=== PATIENT | female | born 1950 | race Caucasian/White ===

== ENCOUNTER 2019-09-29 08:15 | Outpatient (CLI) | payer MEDICARE, OTHER, SELFPAY ==
--- NOTE | 2019-09-29 08:39 | XR_ITS ---
WS: [id number] LEFT KNEE: 3 VIEW(S) TECHNIQUE: AP, oblique(s) and lateral. HISTORY: KNEE PAIN, LEFT COMPARISON: None available. No fracture or dislocation. Mild tricompartment narrowing with osteophytes. No joint effusion. No soft tissue abnormality. XR/XR knee LT 3V* [id number] IMPRESSION: Mild tricompartment osteoarthritis.
== END 2019-09-29 08:16 | disposition home or self-care (01) ==
PROVIDERS: Family Provider Electrodiagnostic Medicine; PCP Electrodiagnostic Medicine; Visit Provider Electrodiagnostic Medicine
DX: M17.12 Unilateral primary osteoarthritis, left knee (principal); G89.29 Other chronic pain
CPT/HCPCS: 73562

== ENCOUNTER 2019-10-14 08:54 | Outpatient (RCR) | payer MEDICARE, OTHER, SELFPAY | END 2019-11-09 23:59 | disposition home or self-care (01) | LOC: SPT 08:54 | PROVIDERS: Family Provider Electrodiagnostic Medicine; PCP Electrodiagnostic Medicine; Referring Provider Orthopaedic Surgery; Visit Provider Orthopaedic Surgery | DX: M25.561 Pain in right knee (principal); M25.562 Pain in left knee; M22.2X1 Patellofemoral disorders, right knee; M22.2X2 Patellofemoral disorders, left knee | CPT/HCPCS: 97110; 97161 ==

== ENCOUNTER → 2020-11-25 12:15 | Outpatient (BNVA) | payer MEDICARE, OTHER, SELFPAY | PROVIDERS: Family Provider Electrodiagnostic Medicine; PCP Electrodiagnostic Medicine; Visit Provider Nurse Practitioner Family | DX: N39.0 Urinary tract infection, site not specified (principal) | CPT/HCPCS: 81000; 87086 ==

== ENCOUNTER 2021-10-24 08:42 | Outpatient (CLI) | payer MEDICARE, OTHER, SELFPAY ==
--- NOTE | 2021-10-24 08:55 | MM_ITS ---
WS: [id number] BILATERAL 3D TOMOSYNTHESIS DIGITAL SCREENING MAMMOGRAPHY WITH CAD CLINICAL INFORMATION: SCREENING HISTORY: Screening mammogram. No current complaints. COMPARISON: None. TECHNIQUE: Bilateral CC and MLO views. FINDINGS: Scattered fibroglandular densities bilaterally. Asymmetric density inferior LEFT breast with punctate calcifications. Recommend spot compression magnification views 3-D Tomosynthesis in further evaluati on. RIGHT breast is unremarkable. Vascular calcification. MM/[place] [id number] IMPRESSION: BI-RADS: 0-Incomplete: Need additional imaging evaluation FOLLOW UP: Need Additional Imaging Asymmetric density inferior LEFT breast with punctate calcifications. Recommend spot compression magnification views 3-D Tomosynthesis in further evaluation.
== END 2021-10-24 08:43 | disposition home or self-care (01) ==
LOC: RADSHAW 08:49
PROVIDERS: PCP Electrodiagnostic Medicine; Visit Provider Electrodiagnostic Medicine
DX: Z12.31 Encounter for screening mammogram for malignant neoplasm of breast (principal)
CPT/HCPCS: 77063; 77067

== ENCOUNTER 2021-11-08 11:10 | Outpatient (CLI) | payer MEDICARE, OTHER, SELFPAY ==
--- NOTE | 2021-11-08 11:33 | MM_ITS ---
WS: [id number] LEFT 3D TOMOSYNTHESIS DIGITAL MAMMOGRAPHY WITH CAD CLINICAL INFORMATION: LT BREAST MASS COMPARISON: October 24, 2021 TECHNIQUE: 3 views of the left breast were obtained. FINDINGS: Scattered fibroglandular densities of the left breast. Previously described asymmetric density inferi or LEFT breast with punctate calcifications resolves today on the spot compression views. No suspicio us calcifications visualized. Vascular calcification. Recommend return to screening mammography. MM/MM tomosynthesis diag [id number] IMPRESSION: BI-RADS: 2-Benign FOLLOW UP: 1 Year Follow-up Recommend return to annual screening mammography.
== END 2021-11-08 11:11 | disposition home or self-care (01) ==
PROVIDERS: PCP Electrodiagnostic Medicine; Visit Provider Electrodiagnostic Medicine
DX: N63.20 Unspecified lump in the left breast, unspecified quadrant (principal)
CPT/HCPCS: 77061

== ENCOUNTER → 2022-04-14 13:21 | Outpatient (BNVA) | payer MEDICARE, SELFPAY | PROVIDERS: PCP Electrodiagnostic Medicine; Visit Provider Registered Nurse Neonatal Intensive Care | DX: N39.0 Urinary tract infection, site not specified (principal) | CPT/HCPCS: 81000 ==

== ENCOUNTER → 2022-07-02 11:29 | Outpatient (BNVA) | payer MEDICARE, SELFPAY | PROVIDERS: PCP Electrodiagnostic Medicine; Visit Provider Nurse Practitioner Family | DX: R39.9 Unspecified symptoms and signs involving the genitourinary system (principal) | CPT/HCPCS: 81000 ==

== ENCOUNTER 2023-03-05 10:50 | Outpatient (RCR) | payer MEDICARE, SELFPAY | END 2023-03-10 23:59 | disposition home or self-care (01) | LOC: SPT 10:50 | PROVIDERS: PCP Electrodiagnostic Medicine; Visit Provider Electrodiagnostic Medicine | DX: H81.12 Benign paroxysmal vertigo, left ear (principal) | CPT/HCPCS: 97161 ==

== ENCOUNTER 2023-12-24 14:15 | Observation (INO) | payer MEDICARE, SELFPAY ==
[2023-12-24] VITALS (9 sets, daily range): BP systolic 110–184; BP diastolic 51–111; PULSE 76–90; RESP 16–18; TEMP 36.9; O2SAT 93–98; BMI 32.5
--- NOTE | 2023-12-24 14:35 | CTR_ITS ---
PROCEDURE INFORMATION: Exam: CT Cervical Spine Without Contrast Exam date and time: 12/24/2023 2:51 PM Age: 73 years old Clinical indication: Injury or trauma; Fall; Blunt trauma; Additional info: Fall/head inj TECHNIQUE: Imaging protocol: Computed tomography of the cervical spine without contrast. COMPARISON: CT head wo con* [id number] 12/24/2023 2:51 PM RADIATION DOSE METRICS: Total DLP (mGy-cm): 960 FINDINGS: Bones: Slight anterolisthesis C2-C3. No fracture. Diffuse degenerative disc disease and facet arthropathy. Lungs: Lung apices are normal. Soft tissues: Unremarkable. CT/CT cervical spin wo con* [id number] IMPRESSION: No acute findings.
--- NOTE | 2023-12-24 14:35 | CTR_ITS ---
PROCEDURE INFORMATION: Exam: CT Head Without Contrast Exam date and time: 12/24/2023 2:51 PM Age: 73 years old Clinical indication: Injury or trauma; Fall; Blunt trauma (contusions or hematomas); Consciousness not specified; Additional info: Fall/head inj TECHNIQUE: Imaging protocol: Computed tomography of the head without contrast. Radiation optimization: All CT scans at this facility use at least one of these dose optimization techniques: automated exposure control; mA and/or kV adjustment per patient size (includes targeted exams where dose is matched to clinical indication); or iterative reconstruction. COMPARISON: CT cervical spin wo con* [id number] 12/24/2023 2:51 PM RADIATION DOSE METRICS: Total DLP (mGy-cm): 939.5 FINDINGS: Brain: No intracranial hemorrhage. There is global parenchymal volume loss. Periventricular white matter hypoattenuation is nonspecific but most likely due to small vessel disease. No evidence of acute territorial infarct or cerebral edema. No mass effect or midline shift. 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 Cerebral ventricles: Prominent ventricles likely secondary to volume loss. Paranasal sinuses: Visualized sinuses are unremarkable. No fluid levels. Mastoid air cells: Visualized mastoid air cells are well aerated. Bones: Unremarkable. No acute fracture. Soft tissues: Unremarkable. Vasculature: Dense right middle cerebral artery. 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 MRI may be helpful in determining acuity.
--- NOTE | 2023-12-24 15:12 | W.ED.FALL ---
Documented by User: CRISTOPHER Metcalf 12/24/23 21:42 HPI - Fall General: Chief Complaint: Fall Stated Complaint: Fall Time Seen by Provider: 12/24/23 14:27 Source: patient and EMS Mode of arrival: EMS Limitations: no limitations History of Present Illness: Patient is a 73-year-old female who presents to the emergency department via EMS due to a fall this morning. Per EMS, patient reportedly fell at 0600 this morning and remained down for many hours until EMS was called by family around 1400. Patient notes she was not symptomatic prior to the fall, states she just tripped and fell. She does state that she hit the back of her head, and is not on any blood thinners. She does take a baby aspirin. She denies any visual changes, numbness weakness or tingling, headaches, or other concerning symptoms at this time. She is complaining of some posterior head and neck pain at this time, and she arrives in a c-collar. She states she did not lose consciousness, and just states she could not get up on her own power. She does live at home with family. MD complaint: fall Onset (ago): hour(s) Fall from: standing Fall witnessed: no Place fall occurred: home Loss of consciousness: None Prolonged down time: yes Symptoms prior to fall: none Context: tripped/slipped Associated symptoms-after fall: Reports headache(s) and neck pain; Denies abdominal pain, chest pain or lightheadedness Review of Systems General: Reports: 10 or more systems reviewed and unremarkable except in HPI and below Const: Reports: other (Fall, head injury); Denies: fever(s), chills or fatigue Eyes: Denies: change in vision ENMT: Denies: throat pain, ear or mastoid pain or nasal discharge Card: Denies: chest pain, palpitations, swelling of feet/ankles or lightheadedness Resp: Denies: dyspnea, productive cough or wheezing GI: Denies: abdominal pain, nausea, vomiting, diarrhea or constipation : Denies: flank pain, difficulty voiding, dysuria or urinary frequency Musc: Reports: neck pain; Denies: back pain or joint pain Skin/Breast: Denies: rash Neuro: Reports: headache(s); Denies: numbness in extremities or weakness in extremities [facility] PFSH: Medical History (Updated 12/24/23 @ 19:54 by Elida Marrufo MD) Hypertension Closed head injury Focal infarction of brain Surgical History (Updated 12/24/23 @ 19:07 by Magi Cross MD) No pertinent past surgical history Physical Exam Const: COMMON NORMALS: no acute distress, patient oriented x3 and no limitations GENERAL APPEARANCE: cooperative, comfortable and well developed ORIENTATION/CONSCIOUSNESS: Yes awake, Yes oriented to person, Yes oriented to place and Yes oriented to time HENMT: COMMON NORMALS: normocephalic, atraumatic, hearing grossly normal bilaterally, external ears normal and Normal external nose present HEAD & SCALP: normocephalic and atraumatic; no Ojeda's sign, no contusion, no hematoma, no palpable skull fracture, no raccoon eyes, no scalp lesion and no scalp tenderness FACE & SINUS: normal facial exam and face symmetric NOSE: Normal external nose present EXTERNAL EAR: Yes external ears normal Eye: COMMON NORMALS: Equal, round and reactive pupils present, EOMs intact bilaterally and conjunctivae normal CONJUNCTIVA: Yes conjunctivae normal PUPIL: Yes Equal, round and reactive pupils present Neck/C-Spine: COMMON NORMALS: full ROM, supple and no JVD CERVICAL SPINE: Yes collar present Chest: COMMONS NORMALS: normal inspection of the chest and normal palpation of entire chest wall Resp: COMMON NORMALS: normal respiratory effort, No retractions, No use of accessory muscles and clear to auscultation bilaterally AUSCULTATION: clear to auscultation bilaterally Cardio: COMMON NORMALS: no JVD, regular rate, regular rhythm, No clicks present (Cardio), No murmurs present (Cardio) and No rub (Cardio) RATE: regular rate RHYTHM: regular rhythm GI: COMMON NORMALS: Normal to inspection, nondistended, normoactive bowel sounds present, Soft to palpation and non-tender AUSCULTATION: Yes normoactive bowel sounds PALPATION: Yes Soft to palpation RECTAL EXAM: deferred Back/Pelvis: COMMON NORMALS: thoracic and lumbar spine normal to inspection, no thoracic nor lumbar tenderness and thoraco-lumbar ROM normal Extremity: COMMON NORMALS: normal to inspection, full ROM and capillary refill normal Neuro: COMMON NORMALS: patient oriented x3, CN's II-XII intact bilaterally, moves all extremities, no focal motor deficits and no sensory deficits noted SENSORIUM/ORIENTATION: Yes oriented to person, Yes oriented to place and Yes oriented to time Psych: COMMON NORMALS: mental status grossly normal and Normal thought process present THOUGHT PROCESS: Normal thought process present Skin: COMMON NORMALS: no rashes or lesions noted GENERAL SKIN EXAM: no rashes or lesions noted Course Vital Signs: Vital signs: Vital Signs Temperature 99.1 F 12/25/23 07:08 Pulse Rate 78 12/25/23 07:08 Respiratory Rate 18 12/25/23 07:08 Blood Pressure 158/78 12/25/23 07:08 Pulse Oximetry 99 12/25/23 07:08 Oxygen Delivery Me thod Room Air 12/24/23 20:45 MDM - Fall Medical Decision Making Patient seen for head injury after a fall that occurred this morning. Reported downtime was 8 hours. On arrival patient only complaining of some posterior head and neck pain. She is neurologically intact at this time with no peripheral deficits or other focal findings. No history of strokes or heart attacks. CT head revealed a subacute infarct involving the right putamen, recommending an MRI. I spoke with Dr. Alexander, hospitalist, who accepts the patient for observation and stroke workup. This case was reviewed with supervising physician, Dr. Valentine, who agrees with disposition. I informed patient and family of plan for admission, to which they agree. All other questions and concerns addressed at this time. Blood work currently pending. MRI head without contrast also ordered. [facility] calls to report CTA findings of thrombus in the right M1/M2 middle cerebral artery, as well as incidental findings of right middle and lower lobe pulmonary emboli. Due to these findings, Dr. Marrufo was consulted, who states patient can be seen by her here if admitted to the hospital. Hospitalist, Dr. Cross, consults patient and kindly agrees to except to the hospital. Family is informed of this. Lab Data 12/24/23 15:46 12/24/23 15:46 Radiology Impressions Cervical Spine CT 12/24/23 14:35 IMPRESSION: No acute findings. 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 MRI may be helpful in determining acuity. Head/Neck CTA 12/24/23 16:35 IMPRESSION: Thrombus in right distal M1/M2 segment middle cerebral artery with patency of distal branches. IMPRESSION: Right middle lobe and lower lobe pulmonary artery emboli. REFERENCES: NASCET CRITERIA. The degree of stenosis in the cervical segment of the internal carotid artery is based on NASCET criteria. Normal is no stenosis. Mild is less than 50% stenosis. Moderate is 50-69% stenosis. Severe is 70% to 99% stenosis. Total occlusion is no detectable patent lumen. ADDENDUM: 12/24/23 [id number] THIS REPORT CONTAINS FINDINGS THAT MAY BE CRITICAL TO PATIENT CARE. The findings were verbally communicated via telephone conference with Dr. Srevin at 5:48 PM CDT on 12/24/2023. The findings were acknowledged and understood. Laboratory Results WBC 8.12 10^3/uL (3.29-11.43) 12/24/23 15:46 RBC 4.29 10^6/uL (3.85-5.65) 12/24/23 15:46 Hgb 13.80 g/dL (11.27-16.99) 12/24/23 15:46 Hct 41.8 % (36-47) 12/24/23 15:46 MCV 97.4 fl (85-98) 12/24/23 15:46 MCH 32.2 pg (27-33) 12/24/23 15:46 MCHC 33.0 g/dL (30-55) 12/24/23 15:46 RDW 12.8 % (12.1-15.1) 12/24/23 15:46 Plt Count 199 10^3/cmm (157-399) 12/24/23 15:46 MPV 10.9 fL (7.4-10.4) H 12/24/23 15:46 Neut % (Auto) 85.9 % 12/24/23 15:46 Lymph % (Auto) 7.9 % 12/24/23 15:46 [place] % (Auto) 5.7 % 12/24/23 15:46 Eos % (Auto) 0.0 % 12/24/23 15:46 Baso % (Auto) 0.1 % 12/24/23 15:46 Neut # (Auto) 6.98 10^3/uL (1.8-7.7) 12/24/23 15:46 Lymph # (Auto) 0.6 10^3/uL (0.8-4.8) L 12/24/23 15:46 [place] # (Auto) 0.5 10^3/uL (0.2-0.9) 12/24/23 15:46 Eos # (Auto) 0.0 10^3/uL (0.0-0.8) 12/24/23 15:46 Baso # (Auto) 0.0 10^3/uL (0.0-0.1) 12/24/23 15:46 Nucleated RBC % (auto) 0 % 12/24/23 15:46 Nucleated RBCs # 0.0 /100WBC 12/24/23 15:46 Sodium 138 mmol/L (136-145) 12/24/23 15:46 Potassium 4.1 mmol/L (3.5-5.1) 12/24/23 15:46 Chloride 105 mmol/L (98-107) 12/24/23 15:46 Carbon Dioxide 22 mmol/L (22-29) 12/24/23 15:46 Anion Gap 15.1 (5-19) 12/24/23 15:46 BUN 13 mg/dL (8-23) 12/24/23 15:46 Creatinine 0.7 mg/dL (0.5-0.9) 12/24/23 15:46 GFR Calculation Not Reportable 12/24/23 15:46 Glucose 129 mg/dL (65-115) H 12/24/23 15:46 Estimat Average Glucose 105 12/24/23 15:46 Hemoglobin A1c 5.3 % (4.0-6.0) 12/24/23 15:46 Calculated Osmolality 288 mOsm/kg (285-295) 12/24/23 15:46 Calcium 9.3 mg/dL (8.5-10.5) 12/24/23 15:46 Total Bilirubin 0.6 mg/dL (0.15-1.2) 12/24/23 15:46 AST 22 U/L (0-32) 12/24/23 15:46 ALT 16 U/L (0-33) 12/24/23 15:46 Alkaline Phosphatase 83 U/L (35-105) 12/24/23 15:46 Creatine Kinase 172 U/L (26-192) 12/24/23 15:46 Total Protein 7.3 g/dL (6.6-8.7) 12/24/23 15:46 Albumin 4.1 g/dL (3.5-5.2) 12/24/23 15:46 Globulin 3.2 g/dL (1.3-4.6) 12/24/23 15:46 Triglycerides 87 mg/dL (0-150) 12/24/23 15:46 Cholesterol 158 mg/dL (0-200) 12/24/23 15:46 LDL Cholesterol, Calc 79 mg/dL (50-129) 12/24/23 15:46 HDL Cholesterol 62 mg/dL (60-100) 12/24/23 15:46 LDL/HDL Ratio 1.27 RATIO (0.00-3.22) 12/24/23 15:46 Cholesterol/HDL Ratio 2.55 mg/dL (0.0-4.40) 12/24/23 15:46 Vitamin B12 880 pg/mL (232-1245) 12/24/23 15:46 TSH 1.04 uIU/mL (0.27-4.20) 12/24/23 15:46 All radiology interpretation(s) finalized by discharge Discharge Plan Discharge Patient Disposition: Placed in Observation Admit Provider: Magi Cross Clinical Impression: Focal infarction of brain, Closed head injury Coding Level of Care Code ED [employer] Officer for Chg Fwd Documented by User: Luisito Valentine DO 12/25/23 08:13 HPI - Fall General: Chief Complaint: Fall Stated Complaint: Fall Time Seen by Provider: 12/24/23 14:27 PFSH ED PFSH: Medical History (Updated 12/24/23 @ 19:54 by Elida Marrufo MD) Hypertension Closed head injury Focal infarction of brain Surgical History (Updated 12/24/23 @ 19:07 by Magi Cross MD) No pertinent past surgical history Course Vital Signs: Vital signs: Vital Signs Temperature 99.1 F 12/25/23 07:08 Pulse Rate 78 12/25/23 07:08 Respiratory Rate 18 12/25/23 07:08 Blood Pressure 158/78 12/25/23 07:08 Pulse Oximetry 99 12/25/23 07:08 Oxygen Delivery Me thod Room Air 12/24/23 20:45 MDM - Fall Medical Decision Making Patient seen for head injury after a fall that occurred this morning. Reported downtime was 8 hours. On arrival patient only complaining of some posterior head and neck pain. She is neurologically intact at this time with no peripheral deficits or other focal findings. No history of strokes or heart attacks. CT head revealed a subacute infarct involving the right putamen, recommending an MRI. I spoke with Dr. Alexander, hospitalist, who accepts the patient for observation and stroke workup. This case was reviewed with supervising physician, Dr. Valentine, who agrees with disposition. I informed patient and family of plan for admission, to which they agree. All other questions and concerns addressed at this time. Blood work currently pending. MRI head without contrast also ordered. [facility] calls to report CTA findings of thrombus in the right M1/M2 middle cerebral artery, as well as incidental findings of right middle and lower lobe pulmonary emboli. Due to these findings, Dr. Marrufo was consulted, who states patient can be seen by her here if admitted to the hospital. Hospitalist, Dr. Cross, consults patient and kindly agrees to except to the hospital. Family is informed of this. Chart reviewed and patient discussed with midlevel. Agree with assessment and plan. Lab Data 12/24/23 15:46 12/24/23 15:46 Radiology Impressions Cervical Spine CT 12/24/23 14:35 IMPRESSION: No acute findings. 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 MRI may be helpful in determining acuity. Head/Neck CTA 12/24/23 16:35 IMPRESSION: Thrombus in right distal M1/M2 segment middle cerebral artery with patency of distal branches. IMPRESSION: Right middle lobe and lower lobe pulmonary artery emboli. REFERENCES: NASCET CRITERIA. The degree of stenosis in the cervical segment of the internal carotid artery is based on NASCET criteria. Normal is no stenosis. Mild is less than 50% stenosis. Moderate is 50-69% stenosis. Severe is 70% to 99% stenosis. Total occlusion is no detectable patent lumen. ADDENDUM: 12/24/23 [id number] THIS REPORT CONTAINS FINDINGS THAT MAY BE CRITICAL TO PATIENT CARE. The findings were verbally communicated via telephone conference with Dr. Servin at 5:48 PM CDT on 12/24/2023. The findings were acknowledged and understood. Laboratory Results WBC 8.12 10^3/uL (3.29-11.43) 12/24/23 15:46 RBC 4.29 10^6/uL (3.85-5.65) 12/24/23 15:46 Hgb 13.80 g/dL (11.27-16.99) 12/24/23 15:46 Hct 41.8 % (36-47) 12/24/23 15:46 MCV 97.4 fl (85-98) 12/24/23 15:46 MCH 32.2 pg (27-33) 12/24/23 15:46 MCHC 33.0 g/dL (30-55) 12/24/23 15:46 RDW 12.8 % (12.1-15.1) 12/24/23 15:46 Plt Count 199 10^3/cmm (157-399) 12/24/23 15:46 MPV 10.9 fL (7.4-10.4) H 12/24/23 15:46 Neut % (Auto) 85.9 % 12/24/23 15:46 Lymph % (Auto) 7.9 % 12/24/23 15:46 [place] % (Auto) 5.7 % 12/24/23 15:46 Eos % (Auto) 0.0 % 12/24/23 15:46 Baso % (Auto) 0.1 % 12/24/23 15:46 Neut # (Auto) 6.98 10^3/uL (1.8-7.7) 12/24/23 15:46 Lymph # (Auto) 0.6 10^3/uL (0.8-4.8) L 12/24/23 15:46 [place] # (Auto) 0.5 10^3/uL (0.2-0.9) 12/24/23 15:46 Eos # (Auto) 0.0 10^3/uL (0.0-0.8) 12/24/23 15:46 Baso # (Auto) 0.0 10^3/uL (0.0-0.1) 12/24/23 15:46 Nucleated RBC % (auto) 0 % 12/24/23 15:46 Nucleated RBCs # 0.0 /100WBC 12/24/23 15:46 Sodium 138 mmol/L (136-145) 12/24/23 15:46 Potassium 4.1 mmol/L (3.5-5.1) 12/24/23 15:46 Chloride 105 mmol/L (98-107) 12/24/23 15:46 Carbon Dioxide 22 mmol/L (22-29) 12/24/23 15:46 Anion Gap 15.1 (5-19) 12/24/23 15:46 BUN 13 mg/dL (8-23) 12/24/23 15:46 Creatinine 0.7 mg/dL (0.5-0.9) 12/24/23 15:46 GFR Calculation Not Reportable 12/24/23 15:46 Glucose 129 mg/dL (65-115) H 12/24/23 15:46 Estimat Average Glucose 105 12/24/23 15:46 Hemoglobin A1c 5.3 % (4.0-6.0) 12/24/23 15:46 Calculated Osmolality 288 mOsm/kg (285-295) 12/24/23 15:46 Calcium 9.3 mg/dL (8.5-10.5) 12/24/23 15:46 Total Bilirubin 0.6 mg/dL (0.15-1.2) 12/24/23 15:46 AST 22 U/L (0-32) 12/24/23 15:46 ALT 16 U/L (0-33) 12/24/23 15:46 Alkaline Phosphatase 83 U/L (35-105) 12/24/23 15:46 Creatine Kinase 172 U/L (26-192) 12/24/23 15:46 Total Protein 7.3 g/dL (6.6-8.7) 12/24/23 15:46 Albumin 4.1 g/dL (3.5-5.2) 12/24/23 15:46 Globulin 3.2 g/dL (1.3-4.6) 12/24/23 15:46 Triglycerides 87 mg/dL (0-150) 12/24/23 15:46 Cholesterol 158 mg/dL (0-200) 12/24/23 15:46 LDL Cholesterol, Calc 79 mg/dL (50-129) 12/24/23 15:46 HDL Cholesterol 62 mg/dL (60-100) 12/24/23 15:46 LDL/HDL Ratio 1.27 RATIO (0.00-3.22) 12/24/23 15:46 Cholesterol/HDL Ratio 2.55 mg/dL (0.0-4.40) 12/24/23 15:46 Vitamin B12 880 pg/mL (232-1245) 12/24/23 15:46 TSH 1.04 uIU/mL (0.27-4.20) 12/24/23 15:46 Discharge Plan Discharge Patient Disposition: Placed in Observation Admit Provider: Magi Cross Clinical Impression: Focal infarction of brain, Closed head injury Coding Level of Care Code ED [employer] Officer for 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
[2023-12-24 16:02] LABS: Basophils % 0.1 %; Hematocrit 41.8 % (36-47); Lymphocytes # 0.6 10^3/uL (0.8-4.8); Lymphocytes % 7.9 %; Mean Corpuscular Hemoglobin 32.2 pg (27-33); Mean Corpuscular Volume 97.4 fl (85-98); Mean Platelet Volume 10.9 fL (7.4-10.4); Monocytes # 0.5 10^3/uL (0.2-0.9); Monocytes % 5.7 %; Neutrophils # 6.98 10^3/uL (1.8-7.7); Neutrophils % 85.9 %; Nucleated Red Blood Cells % 0 %; Platelet Count 199 10^3/cmm (157-399); Red Blood Count 4.29 10^6/uL (3.85-5.65); Red Cell Distribution Width 12.8 % (12.1-15.1); White Blood Count 8.12 10^3/uL (3.29-11.43)
[2023-12-24 16:16] LABS: Alanine Aminotransferase 16 U/L (0-33); Albumin Level 4.1 g/dL (3.5-5.2); Alkaline Phosphatase 83 U/L (35-105); Blood Urea Nitrogen 13 mg/dL (8-23); Calcium 9.3 mg/dL (8.5-10.5); Carbon Dioxide 22 mmol/L (22-29); Chloride 105 mmol/L (98-107); Creatine Phosphokinase 172 U/L (26-192); Creatinine Clr Calc Pharmacy 81.5943; Globulin 3.2 g/dL (1.3-4.6); Glucose 129 mg/dL (65-115); Osmolality Calculated 288 mOsm/kg (285-295); Sodium 138 mmol/L (136-145); Total Bilirubin 0.6 mg/dL (0.15-1.2); Total Protein 7.3 g/dL (6.6-8.7)
[2023-12-24 16:20] LABS: Anion Gap 15.1 (5-19); Aspartate Amino Transferase 22 U/L (0-32); Potassium 4.1 mmol/L (3.5-5.1)
--- NOTE | 2023-12-24 16:35 | CTR_ITS ---
PROCEDURE INFORMATION: Exam: CTA Head With Contrast, Arteriography Exam date and time: 12/24/2023 5:11 PM Age: 73 years old Clinical indication: Other: Stroke; Patient HX: Head CT sent earlier TECHNIQUE: Imaging protocol: Computed tomographic angiography of the head with contrast. Exam focused on the arteries. 3D rendering (Not supervised by radiologist): MIP and/or 3D reconstructed images were created by the technologist. Radiation optimization: All CT scans at this facility use at least one of these dose optimization techniques: automated exposure control; mA and/or kV adjustment per patient size (includes targeted exams where dose is matched to clinical indication); or iterative reconstruction. Contrast material: OMNI 350; Contrast volume: 100 ml; Contrast route: INTRAVENOUS (IV); COMPARISON: CT head wo con* [id number] 12/24/2023 2:51 PM RADIATION DOSE METRICS: Total DLP (mGy-cm): 549.39 FINDINGS: ANTERIOR CIRCULATION: Right internal carotid artery: Intracranial segment is patent with no significant stenosis. No aneurysm. Right middle cerebral artery: Thrombus in right distal M1/M2 segment middle cerebral artery with patency of distal branches. Right anterior cerebral artery: No occlusion or significant stenosis. No aneurysm. Left internal carotid artery: Intracranial segment is patent with no significant stenosis. No aneurysm. Left middle cerebral artery: No occlusion or significant stenosis. No aneurysm. Left anterior cerebral artery: No occlusion or significant stenosis. No aneurysm. POSTERIOR CIRCULATION: Right vertebral artery: No occlusion or significant stenosis. No aneurysm. Left vertebral artery: No occlusion or significant stenosis. No aneurysm. Basilar artery: No occlusion or significant stenosis. No aneurysm. Right posterior cerebral artery: No occlusion or significant stenosis. No aneurysm. Left posterior cerebral artery: No occlusion or significant stenosis. No aneurysm. Brain: No definite mass, mass effect, or midline shift. Cerebral ventricles: No ventriculomegaly. Bones/joints: Unremarkable. No acute fracture. Soft tissues: Unremarkable. PROCEDURE INFORMATION: Exam: CTA Neck With Contrast Exam date and time: 12/24/2023 5:11 PM Age: 73 years old Clinical indication: Other: Stroke; Patient HX: Head CT sent earlier TECHNIQUE: Imaging protocol: Computed tomographic angiography of the neck with contrast. Exam focused on the cervical segments of the vasculature. 3D rendering (Not supervised by radiologist): MIP and/or 3D reconstructed images were created by the technologist. Radiation optimization: All CT scans at this facility use at least one of these dose optimization techniques: automated exposure control; mA and/or kV adjustment per patient size (includes targeted exams where dose is matched to clinical indication); or iterative reconstruction. Contrast material: OMNI 350; Contrast volume: 100 ml; Contrast route: INTRAVENOUS (IV); COMPARISON: CT cervical spin wo con* [id number] 12/24/2023 2:51 PM RADIATION DOSE METRICS: Total DLP (mGy-cm): 549.39 FINDINGS: Right common carotid artery: No stenosis. No dissection or occlusion. Right internal carotid artery: No stenosis of the extracranial segment. No dissection or occlusion. Right external carotid artery: No occlusion or stenosis of the origin. Left common carotid artery: No stenosis. No dissection or occlusion. Left internal carotid artery: No stenosis of the extracranial segment. No dissection or occlusion. Left external carotid artery: No occlusion or stenosis of the origin. Right vertebral artery: No stenosis. No dissection or occlusion. Left vertebral artery: No stenosis. No dissection or occlusion. Pulmonary arteries: Right middle lobe and lower lobe pulmonary artery emboli. Soft tissues: Normal. No significant soft tissue swelling. Bones/joints: No acute fracture. CT/CT angio headneck* [id number] IMPRESSION: Thrombus in right distal M1/M2 segment middle cerebral artery with patency of distal branches. IMPRESSION: Right middle lobe and lower lobe pulmonary artery emboli. REFERENCES: NASCET CRITERIA. The degree of stenosis in the cervical segment of the internal carotid artery is based on NASCET criteria. Normal is no stenosis. Mild is less than 50% stenosis. Moderate is 50-69% stenosis. Severe is 70% to 99% stenosis. Total occlusion is no detectable patent lumen.
[2023-12-24] MEDS: iohexol 350 mg/mL 500 mL Btl (per mL) IV (17:18)
[2023-12-24 17:21] LABS: Estmated Average Glucose 105; Hemoglobin A1C 5.3 % (4.0-6.0)
[2023-12-24] MEDS: heparin 5,000 unit/mL INJ 1 mL 5000 UNIT SUBCUT (17:38)
[2023-12-24] MEDS: sodium chloride 0.9% 1,000 ML 75 ML IV (17:38)
[2023-12-24 17:40] LABS: Chol HDL Ratio 2.55 mg/dL (0.0-4.40); Cholesterol 158 mg/dL (0-200); HDL Cholesterol 62 mg/dL (60-100); LDL Cholesterol Calculated 79 mg/dL (50-129); LDL HDL Ratio 1.27 RATIO (0.00-3.22); Thyroid Stimulating Hormone 1.04 uIU/mL (0.27-4.20); Triglycerides 87 mg/dL (0-150); Vitamin B12 880 pg/mL (232-1245)
--- NOTE | 2023-12-24 18:58 | P.CONIM_ITS ---
Providers/Reason For Consult 2 Consulting Physician/Specialty*: Dr. Cross Reason for Consult*: Acute stroke and pulmonary embolus Requesting Physician: Dr. Cross Attending Physician: Dr. Cross Primary Care Provider: Kyaw Lobato DO History of Present Illness History of Present Illness Yamel Milligan is a 73 year old female who is normally in good health but for her hypertension which she manages well with Dr. Lobato. She has been experiencing some weakness in both legs that limits her ambulation. She got up to go to the bathroom at 6:00 this morning and she could not make it, fell to the floor. She could not get back up. Her niece came home from work at 2:00 this afternoon and found her on the floor. She called 911. On arrival the patient seemed to have no gross motor findings but CT of the head and CTA were performed and turned out that she had right M1 and M2 artery occlusions. I was consulted because the patient has several artery occlusions, a subcortical stroke in the right hemisphere by CT and a pulmonary embolus or actually several. Decision making about anticoagulation was needed and I already talked with Dr. Cross. We can be informed by the [employer] article from December 2022 regarding early anticoagulation in patients with atrial fibrillation and strokes of mild, moderate and severe type with low risk of cerebral hemorrhage in that study. The patient does not remember having any cough or cold symptoms recently. She regards herself as being in good health. Her niece pulled all of the pills that she could find out of the covered and does not know which pills she is on and which were from earlier times. She follows regularly with Dr. Lobato. Review of Systems 2 Const: Reports: change in weight (She is lost 30 pounds since her 5 months ago); Denies: fever(s) or chills Eyes: Denies: change in vision Card: Denies: chest pain, palpitations, irregular heart rhythm or lightheadedness Resp: Denies: dyspnea or productive cough : Denies: difficulty voiding Musc: Reports: back pain, joint pain, joint stiffness, limited range of motion (Hips) and muscle weakness (Both leg) Psych: Reports: depression (She was for 22 years and her in June) Medications/Allergies Home Medications Medication Instructions Recorded Confirmed Last Taken Type metoprolol tartrate 25 mg tablet 25 mg PO DAILY 11/25/20 06/04/23 Unknown History tramadol 50 mg tablet 50 mg PO BID PRN 11/25/20 06/04/23 Unknown History phenazopyridine 200 mg tablet 200 mg PO Q8H PRN pain 6 doses #6 07/02/22 06/04/23 Unknown Rx (Pyridium) tabs atorvastatin 20 mg tablet 20 mg PO DAILY 06/04/23 06/04/23 Unknown History azithromycin 250 mg tablet See Rx Instructions PO .COMPLEX #6 06/04/23 06/04/23 Unknown Rx tabs Allergies Allergy/AdvReac Type Severity Reaction Status Date / Time codeine Allergy Unknown Unknown Verified 12/24/23 14:35 Penicillins Allergy nausea Verified 06/04/23 10:14 Gabapentin Allergy lethargic Uncoded 06/04/23 10:18 Current Medications Generic Name Dose Route Start Last Admin Trade Name Freq PRN Reason Stop Dose Admin Heparin Sodium (Porcine) 5,000 unit 12/24/23 16:45 12/24/23 17:38 Heparin 5,000 Unit/Ml Inj 1 Ml SUBCUT 5,000 unit Q12H CHIP Administration Sodium Chloride 1,000 mls @ 75 mls/hr 12/24/23 16:45 12/24/23 17:38 Sodium Chloride 0.9% IV 75 mls/hr .[id number] CHIP Administration PFSH Acute 2 PFSH: Medical History (Updated 12/24/23 @ 19:54 by Elida Marrufo MD) Hypertension Closed head injury Focal infarction of brain Surgical History (Updated 12/24/23 @ 19:07 by Magi Cross MD) No pertinent past surgical history Vitals/I&O/Wt Last Vital Signs Temp 98.4 F 12/24/23 14:26 Pulse 90 12/24/23 14:26 Resp 16 12/24/23 14:26 BP 140/83 12/24/23 14:26 Pulse Ox 93 12/24/23 14:26 O2 Del Method Room Air 12/24/23 14:26 Weight last 48 hrs Weight 220 lb Physical Exam 2 Narrative: GENERAL: The patient was obese and well-groomed in the hospital bed Swallowing study was performed with the patient at 90 degrees elevation. She was able to swallow 10 mL of clear water without choking and no clearing of the throat. MENTAL STATUS: Orientation was full to 10 of 10 questions of orientation. Speech was fluent without word hesitation. No difficulty following a complex command. The affect was appropriately anxious. She is not aware of any deficit CRANIAL NERVES: [Visual acuity was intact to reading small print.] Visual johnson were full to confrontation, direct and consensual. No visual extinction. Extraocular movements were full without nystagmus. PERRLA. Face was symmetric at rest and with grimace. Facial sensation was intact in all three distributions of the fifth cranial nerve bilaterally to touch. Tongue and palate were midline at rest and with protrusion of the tongue and elevation of the palate. Shoulders were symmetric at rest and with shoulder shrug. MOTOR: There is pronation and drift of the left arm with the arms extended. There is gross motor weakness 4/5 in the left arm and the left leg is weaker than the right although both legs are weak. She has antigravity strength and can maintain foot elevation for 5 seconds on the right and not at all on the left. SENSATION: No deficit to pin or touch. No asymmetry. COORDINATION: No cerebellar signs. DEEP TENDON REFLEXES: 2/4 throughout except ankle jerks absent. GAIT: Not tested CARDIOVASCULAR: The heart sounds were normal without murmur or gallop. Regular rate and rhythm. Const: OTHER: LEVEL OF CONCIOUSNESS 0 0 = alert 1= drowsy 2 = stuporous 3 = coma LOC Questions, what is the Month? What is your age? 0 0 = both correct 1 = 1 correct 2 = neither correct] LOC Commands Close Eyes, Make Fist 0 0 = both correct 1 = one correct 2 = neither correct GAZE 0 0 = normal 1 = partial horizontal gaze paresis 2 = forced horizontal gaze deviation VISUAL JOHNSON 0 0 = Normal 1 = partial hemianopia 2 = complete hemianopia 3 = bilateral hemianopia 4 = mind from stroke FACE 0 0 = normal 1 = minor 2 = partial upper motor neuron 3 = complete MOTOR ARM RUE 0 0 = no drift 1 = drift 2 = some effort against gravity 3 = no effort against gravity 4 = no movement LUE 1 0 = no drift] 1 = drift 2 = some effort against gravity 3 = no effort against gravity 4 = no movement MOTOR LEG RLE 0 0 = no drift 1 = drift 2 = some effort against gravity 3 = no effort against gravity 4 = no movement LLE 2 0 = no drift 1 = drift 2 = some effort against gravity 3 = no effort against gravity 4 = no movement LIMB ATAXIA 0 0 = absent 1 = unilateral in one limb 2 = unilateral in 2 limbs bilateral SENSORY 0 0= Normal 1=Mild to mod 3= severe APHASIA 0 0 = normal 1 = mild/moderate aphasia 2 = Severe Aphasia 3 = mute; global aphasia DYSARTHRIA 0 0 = normal 1 = mild to moderate 2 = near unintelligible NEGLECT 0 0 = normal 1 = one modality 2 = sensory and visual TOTAL = 3 Data 12/24/23 15:46 12/24/23 15:46 Other data: CT of the head shows a subcortical lucency in the right internal capsule consistent with an acute subcortical stroke. CT of the head shows string sign in the right middle cerebral artery. CT/CT angio headneck* The carotid arteries and vertebral arteries were unremarkable.: Thrombus in right distal M1/M2 segment middle cerebral artery with patency of distal branches. IMPRESSION: Right middle lobe and lower lobe pulmonary artery emboli. Echocardiogram with bubble study suggests PFO. (I participated and provided the agitation for the bubble study and observed. The study was repeated with the same findings) A&P Assessment and plan (1) Acute right arterial ischemic stroke, middle cerebral artery (MCA): Her CT scan shows a stroke that has probably been present for more than 12 hours and I think she woke up with it. That would put her last known well as yesterday evening and with her NIH stroke scale score of 3, she would not be a candidate for thrombectomy/embolectomy. It looks like she probably has a cardiac source with PFO that would explain the coexistence of her arterial brain emboli and pulmonary embolus. Her stroke size is small and therefore her risk of anticoagulation would be low. The pulmonary embolus demands early anticoagulation and I think that is the best decision. I talked this over with the patient, her son and her niece. I went over her images with them and I went over the stroke book and took time to answer questions. I went over the plan for secondary stroke prevention. She will need PAUL when she stabilizes and discussion of PFO closure but considering her overall health it may be better to leave her on anticoagulation for the foreseeable future. (2) Pulmonary embolism: Consult Attestations 2 Medical Necessity Statement: Acute stroke, complicated by pulmonary embolus Coding Level of Care Code G0426 (50 min) TH Encounter Time (min): 60 Patient seen via Telehealth in the acute care setting (hospital or ED location) by agreement and consent of patient or patient student services representative. Telehealth technology used during the visit includes video and audio. This patient encounter is appropriate and reasonable under the circumstances given the patient?s particular presentation at this time. The patient has been advised of the potential risks and limitations of this mode of treatment (including but not limited to the absence of in-person examination at this time) and has agreed to be treated by an off-site physician for this visit. If deemed clinically necessary from this telehealth visit, or if condition or consent for telehealth visit changes, an in-person visit will be arranged. For this encounter, total time for the origination of telehealth care on this date is as shown. Diagnoses Acute right arterial ischemic stroke, middle cerebral artery (MCA) I63.511 Pulmonary embolism I26.99
--- NOTE | 2023-12-24 19:02 | P.HP_ITS ---
Providers/Chief Complaint 2 Primary Care Provider: Kyaw Lobato DO Chief Complaint: Fall History of Present Illness Yamel Milligan is a 73 year old female who lives with her niece, present to the hospital after sustaining a fall at home, code stroke was called, patient is stating that normally she wakes up around 2:30 AM but today she woke up between 5 and 6 AM, per daughter normally goes to work after 5 AM, patient was trying to get up to go to the bathroom when she fell, then she had no strength at all to get up get a hold of her phone which was on the bed, she stayed on the floor until daughter came home around 1 PM, she called 911 right away, she did not notice any focal deficit at that time but patient was on the floor. Patient was evaluated in the ER NIH was 1 for mild weakness of left lower leg otherwise she has no focal deficit, she was diagnosed with acute PE and thrombus middle cerebral artery, considering lack of focal deficits patient was deemed not a suitable candidate to go for embolectomy, Dr. Marrufo was notified and consulted. Patient is able to follow commands, she is not endorsing any complaints other than feeling nauseous she had 1 episode of loose stools and nausea vomiting. As per the family she is leading a sedentary lifestyle. No history of stroke. No history of cardiac disease or A-fib. Review of Systems 2 Const: Denies: fever(s) Eyes: Denies: change in vision ENMT: Denies: throat pain Card: Denies: chest pain Resp: Denies: dyspnea GI: Denies: abdominal pain : Denies: flank pain Musc: Denies: neck pain Skin/Breast: Denies: rash Neuro: Reports: headache(s) Psych: Denies: anxiety Medications/Allergies Home Medications Medication Instructions Recorded Confirmed Last Taken Type metoprolol tartrate 25 mg tablet 25 mg PO DAILY 11/25/20 06/04/23 Unknown History tramadol 50 mg tablet 50 mg PO BID PRN 11/25/20 06/04/23 Unknown History phenazopyridine 200 mg tablet 200 mg PO Q8H PRN pain 6 doses #6 07/02/22 06/04/23 Unknown Rx (Pyridium) tabs atorvastatin 20 mg tablet 20 mg PO DAILY 06/04/23 06/04/23 Unknown History azithromycin 250 mg tablet See Rx Instructions PO .COMPLEX #6 06/04/23 06/04/23 Unknown Rx tabs Allergies Allergy/AdvReac Type Severity Reaction Status Date / Time codeine Allergy Unknown Unknown Verified 12/24/23 14:35 Penicillins Allergy nausea Verified 06/04/23 10:14 Gabapentin Allergy lethargic Uncoded 06/04/23 10:18 PFSH Acute 2 PFSH: Medical History (Updated 12/24/23 @ 19:06 by Magi Cross MD) Hypertension Closed head injury Focal infarction of brain Surgical History (Updated 12/24/23 @ 19:07 by Magi Cross MD) No pertinent past surgical history Vitals/I&O/Wt Last Vital Signs Temp 98.4 F 12/24/23 14:26 Pulse 90 12/24/23 14:26 Resp 16 12/24/23 14:26 BP 140/83 12/24/23 14:26 Pulse Ox 93 12/24/23 14:26 O2 Del Method Room Air 12/24/23 14:26 Weight last 48 hrs Weight 99.79 kg Physical Exam 2 Narrative: NIH 1 for mild left lower extremity weakness She is able to move her extremities without difficulty Able to move her legs horizontally as well Able to follow commands No slurring of speech Pleasant cough S1, S2 Hypertensive Currently on room air Abdomen soft Patient soiled her bed her bed with feces Data 12/24/23 15:46 12/24/23 15:46 A&P Assessment and plan (1) CVA (cerebral vascular accident): (2) Pulmonary embolism: (3) Thromboembolic stroke: Plan Thromboembolic stroke Middle cerebral artery thromboembolic phenomenon Rule out A-fib Patient also has acute pulmonary embolism Start therapeutic Lovenox Requested echo with bubble study to rule out septal defect Will request venous Doppler as well Will add opioids along bowel regimen Continue metoprolol for her hypertension Cardiac engineering faculty Dr. Marrufo notified and consulted Request PT OT and ST Patient is leading sedentary lifestyle Requested hypercoagulable state workup Most likely patient will be able to go home considering lack of significant deficit Monitor closely for now Permissive hypertension Attestations 2 Medical Necessity Statement*: Anticipating discharge within 48 hours Diagnoses CVA (cerebral vascular accident) I63.9 Pulmonary embolism I26.99 Thromboembolic stroke I63.9
--- NOTE | 2023-12-24 19:02 | USCV_ITS ---
Yamel Milligan Age: 73 Gender: F : 1950 Exam Date: 12/24/2023 18:12 Ordering Phys: Magi Cross MD Technologist: MAXINE [place] [facility] [place]: Pulmonary emboli, stroke, GLF. No history of cardiac intervention per patient. BUBBLE STUDY IS ORDERED. BP: 140 / 83 HR: 76 Rhythm: Sinus Technical Quality: Adequate MEASUREMENTS (Male / Female) Normal Values 2D ECHO LV Diastolic Diameter PLAX 5.1 cm 4.2 - 5.9 / 3.9 - 5.3 cm IVS Diastolic Thickness 1.3 cm 0.6 - 1.0 / 0.6 - 0.9 cm IVS Systolic Thickness 1.7 cm LVPW Diastolic Thickness 1.1 cm 0.6 - 1.0 / 0.6 - 0.9 cm LVPW Systolic Thickness 1.7 cm LVOT Diameter 1.8 cm LV Ejection Fraction 2D Teich 61.2 % LV Ejection Fraction MOD 2C 56.5 % LV Ejection Fraction 2C AL 56.5 % LA Diameter 2.5 cm LA Sys Volume AL 59.1 cm cubed LA Sys Volume Index AL 26.0 cm cubed/m squared Aorta at Sinotubular Diameter 3.5 cm IVC Diameter 1.4 cm M-MODE LA Ao Ratio MM 1.1 AV Cusp Separation MM 1.7 cm DOPPLER AV Peak Velocity 171.0 cm/s LVOT Peak Velocity 91.0 cm/s AV Area Cont Eq vti 1.9 cm squared AV Area Cont Eq pk 1.4 cm squared MV Peak Velocity 81.0 cm/s MV Area PHT 3.2 cm squared Mitral E to A Ratio 0.9 TR Peak Velocity 299.0 cm/s TR Peak Gradient 35.8 mmHg TV Peak E Velocity 49.0 cm/s Right Atrial Pressure 3.0 mmHg Pulmonary Artery Systolic Pressu 38.8 mmHg PV Peak Velocity 97.0 cm/s FINDINGS Left Ventricle Normal left ventricular size and systolic function, EF 61%. No regional wall motion abnormalities. Grade I/IV diastolic dysfunction (abnormal relaxation filling pattern), normal to mildly elevated filling pressures. Right Ventricle The right ventricle is normal in size and function. Right Atrium The right atrium is normal in size. Left Atrium Mildly increased left atrial size. Mitral Valve No gross abnormalities noted Aortic Valve Thickened aortic valve. Tricuspid Valve Trace to mild tricuspid valve regurgitation. Pulmonic Valve No gross abnormalities noted Pericardium No pericardial effusion. Aorta Normal ascending aorta dimension. IVC The inferior vena cava appears normal. CONCLUSIONS Normal left ventricular size and systolic function, EF 61%. No regional wall motion abnormalities. Grade I/IV diastolic dysfunction (abnormal relaxation filling pattern), normal to mildly elevated filling pressures. Mildly increased left atrial size. Thickened aortic valve. Trace to mild tricuspid valve regurgitation. There is no pericardial effusion. There are no intracardiac masses. Estimated pulmonary artery peak systolic pressure 39 mmHg Compared to the study from 08/07/2015, there may not be significant change in the above findings ADDENDUM Saline contrast injection was performed to evaluate for any [id number] shunt. Moderate amount of bubbles were noted in the left atrium and left ventricle after the injection. The features are suggestive of the presence of interatrial shunt. Dr Clayton Barbosa MD FAC (Electronically Signed) Final Date: 24 Dec 2023 21:51 Amended: 25 Dec 2023 12:36 C
[2023-12-24] MEDS: acetaminophen 325 mg Tablet 650 MG PO (22:57)
[2023-12-24] MEDS: enoxaparin 100 mg/mL Syringe SUBCUT (22:58)
[2023-12-24] MEDS: citalopram 20 mg Tablet PO (23:49)
[2023-12-25 00:31] VITALS: BP 114/92; PULSE 78; RESP 17; TEMP 37.9; O2SAT 97
[2023-12-25 04:40] VITALS: BP 128/83; PULSE 78; RESP 15; TEMP 36.9; O2SAT 96
[2023-12-25 06:00] VITALS: PULSE 73; BMI 32.4
[2023-12-25 07:08] VITALS: BP 158/78; PULSE 78; RESP 18; TEMP 37.3; O2SAT 99
[2023-12-25] MEDS: enoxaparin 100 mg/mL Syringe SUBCUT (08:03)
[2023-12-25] MEDS: metoprolol tartrate 25 mg Tablet PO (08:03)
--- NOTE | 2023-12-25 08:14 | USCV_ITS ---
SriniYamel ellis Age: 73 Gender: F : 1950 Exam Date: 12/25/2023 08:56 Ordering Phys: Magi Cross MD Technologist: Exam Location: [facility] – [place] Indication: pe cva PROCEDURES: The venous duplex Doppler examination of both lower extremities was performed in the standard fashion. The following venous structures were evaluated: common femoral vein, profunda vein, proximal portion of the greater saphenous vein, superficial femoral vein, and the popliteal vein. In addition, the posterior tibial and peroneal trunk were evaluated. FINDINGS: Normal 2-D Doppler and augmentation and compressibility throughout the lower extremity venous structures. Additional imaging through the proximal calf veins also reveals no thrombus. Limited evaluation of the greater saphenous vein is patent with no thrombus. CONCLUSIONS No evidence of right lower extremity DVT. No evidence of left lower extremity DVT. Pancho Issa MD (Electronically Signed) Final Date: 25 Dec 2023 10:06 S
[2023-12-25 09:20] LABS: Alanine Aminotransferase 14 U/L (0-33); Albumin Level 3.3 g/dL (3.5-5.2); Alkaline Phosphatase 65 U/L (35-105); Blood Urea Nitrogen 15 mg/dL (8-23); Calcium 8.4 mg/dL (8.5-10.5); Carbon Dioxide 20 mmol/L (22-29); Chloride 105 mmol/L (98-107); Creatinine Clr Calc Pharmacy 85.0184; Globulin 2.9 g/dL (1.3-4.6); Glucose 165 mg/dL (65-115); Osmolality Calculated 283 mOsm/kg (285-295); Sodium 134 mmol/L (136-145); Total Bilirubin 0.5 mg/dL (0.15-1.2); Total Protein 6.2 g/dL (6.6-8.7)
[2023-12-25 09:25] LABS: Anion Gap 13.2 (5-19); Aspartate Amino Transferase 24 U/L (0-32); Potassium 4.2 mmol/L (3.5-5.1)
--- NOTE | 2023-12-25 10:09 | PC.NURSE ---
Assisted patient back to bed x2 contact assist and walker. patient tolerated well.
[2023-12-25 10:39] LABS: Basophils % 0.3 %; Eosinophils # 0.1 10^3/uL (0.0-0.8); Eosinophils % 1.4 %; Hematocrit 35.8 % (36-47); Lymphocytes # 1.1 10^3/uL (0.8-4.8); Lymphocytes % 17.7 %; Mean Corpuscular Hemoglobin 32.6 pg (27-33); Mean Corpuscular Volume 98.9 fl (85-98); Monocytes # 0.6 10^3/uL (0.2-0.9); Monocytes % 9.5 %; Neutrophils # 4.47 10^3/uL (1.8-7.7); Neutrophils % 70.8 %; Nucleated Red Blood Cells % 0 %; Platelet Count 176 10^3/cmm (157-399); Red Blood Count 3.62 10^6/uL (3.85-5.65); Red Cell Distribution Width 13.2 % (12.1-15.1); White Blood Count 6.32 10^3/uL (3.29-11.43)
--- NOTE | 2023-12-25 10:55 | PM.DCS ---
Discharge Providers Date of Admission: 12/24/23 20:07 Date of Discharge: December 25, 2023 Attending Provider at Admission: Magi Cross MD Attending Provider at Discharge: Magi Cross MD Primary Care Provider: Kyaw Lobato DO Diagnoses at Discharge Discharge Diagnosis (1) Acute right arterial ischemic stroke, middle cerebral artery (MCA): Status: Acute (2) Pulmonary embolism: Status: Acute (3) CVA (cerebral vascular accident): Status: Acute (4) Thromboembolic stroke: Status: Acute Reason for Visit Reason for Visit: Fall Hospital Course Hospital Course 73-year female who was admitted for management evaluation of thromboembolic middle cerebral artery CVA, patient remained in sinus rhythm, autoimmune workup is pending, TSH B12 normal, she was evaluated by Dr. Marrufo who recommended against embolectomy because patient had no focal deficit, NIH score was extremely low 1-3, patient did not show any sign of slurred speech or dysphagia, I did not request speech therapy however PT and OT was requested, patient has no focal deficit able to comprehend all of my commands, able to get up walk on her own, permissive hypertension allowed, concern for underlying A-fib, there is no comment of PFO or atrial thrombus on the echo with a bubble study, venous Doppler negative, CTA head and neck showed middle cerebral artery embolic phenomenon with acute PE, after discussing with Dr. Marrufo we have decided to start her on therapeutic anticoagulating agent along Plavix and high-dose statins. Antihypertensive regimen optimized as well. Please review neurology note for further details Only deficit patient has is on her left side with left upper extremity drift and left lower extremity mild weakness Physical Exam Narrative: NH 3 Pleasant cough Sinus rhythm Currently on room air Awake and alert Pleasant cooperative No slurred speech Discharge Data Studies Completed and Pending Completed Studies During Hospitalization Category Date Time Status CT cervical spine wo con [CT cervical spin wo con* Cat Scan 12/24/23 14:35 Completed [id number]] Urgent CT head wo con* 76940 Urgent Cat Scan 12/24/23 14:35 Completed CTA head neck [CT angio headneck* 47145/[id number]] Stat Cat Scan 12/24/23 16:35 [place] [id number] Routine Ultrasound 12/25/23 08:14 Completed CV. echo lmt wo/w bubble [id number] Stat Ultrasound 12/24/23 19:02 Completed Pending at discharge Category Date Time Status JOHN Screen w/ Reflex Routine Lab 12/24/23 21:07 Received Radiology Impressions Cervical Spine CT 12/24/23 14:35 IMPRESSION: No acute findings. 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 MRI may be helpful in determining acuity. Head/Neck CTA 12/24/23 16:35 IMPRESSION: Thrombus in right distal M1/M2 segment middle cerebral artery with patency of distal branches. IMPRESSION: Right middle lobe and lower lobe pulmonary artery emboli. REFERENCES: NASCET CRITERIA. The degree of stenosis in the cervical segment of the internal carotid artery is based on NASCET criteria. Normal is no stenosis. Mild is less than 50% stenosis. Moderate is 50-69% stenosis. Severe is 70% to 99% stenosis. Total occlusion is no detectable patent lumen. ADDENDUM: 12/24/23 5523 THIS REPORT CONTAINS FINDINGS THAT MAY BE CRITICAL TO PATIENT CARE. The findings were verbally communicated via telephone conference with Dr. Servin at 5:48 PM CDT on 12/24/2023. The findings were acknowledged and understood. Laboratory Results WBC 6.32 10^3/uL (3.29-11.43) 12/25/23 10:25 Corrected WBC Cancelled 12/25/23 08:50 RBC 3.62 10^6/uL (3.85-5.65) L 12/25/23 10:25 Hgb 11.80 g/dL (11.27-16.99) 12/25/23 10:25 Hct 35.8 % (36-47) L 12/25/23 10:25 MCV 98.9 fl (85-98) H 12/25/23 10:25 MCH 32.6 pg (27-33) 12/25/23 10:25 MCHC 33.0 g/dL (30-55) 12/25/23 10:25 RDW 13.2 % (12.1-15.1) 12/25/23 10:25 Plt Count 176 10^3/cmm (157-399) 12/25/23 10:25 MPV 11.0 fL (7.4-10.4) H 12/25/23 10:25 Gran % Cancelled 12/25/23 08:50 Neut % (Auto) 70.8 % 12/25/23 10:25 Lymph % (Auto) 17.7 % 12/25/23 10:25 Cochran % (Auto) 9.5 % 12/25/23 10:25 Eos % (Auto) 1.4 % 12/25/23 10:25 Baso % (Auto) 0.3 % 12/25/23 10:25 Neut # (Auto) 4.47 10^3/uL (1.8-7.7) 12/25/23 10:25 Lymph # (Auto) 1.1 10^3/uL (0.8-4.8) 12/25/23 10:25 Cochran # (Auto) 0.6 10^3/uL (0.2-0.9) 12/25/23 10:25 Eos # (Auto) 0.1 10^3/uL (0.0-0.8) 12/25/23 10:25 Baso # (Auto) 0.0 10^3/uL (0.0-0.1) 12/25/23 10:25 Absolute Gran (auto) Cancelled 12/25/23 08:50 Nucleated RBC % (auto) 0 % 12/25/23 10:25 Nucleated RBCs # 0.0 /100WBC 12/25/23 10:25 Sodium 134 mmol/L (136-145) L 12/25/23 08:50 Potassium 4.2 mmol/L (3.5-5.1) 12/25/23 08:50 Chloride 105 mmol/L (98-107) 12/25/23 08:50 Carbon Dioxide 20 mmol/L (22-29) L 12/25/23 08:50 Anion Gap 13.2 (5-19) 12/25/23 08:50 BUN 15 mg/dL (8-23) 12/25/23 08:50 Creatinine 0.8 mg/dL (0.5-0.9) 12/25/23 08:50 GFR Calculation Not Reportable 12/25/23 08:50 Glucose 165 mg/dL (65-115) H 12/25/23 08:50 Estimat Average Glucose 105 12/24/23 15:46 Hemoglobin A1c 5.3 % (4.0-6.0) 12/24/23 15:46 Calculated Osmolality 283 mOsm/kg (285-295) L 12/25/23 08:50 Calcium 8.4 mg/dL (8.5-10.5) L 12/25/23 08:50 Total Bilirubin 0.5 mg/dL (0.15-1.2) 12/25/23 08:50 AST 24 U/L (0-32) 12/25/23 08:50 ALT 14 U/L (0-33) 12/25/23 08:50 Alkaline Phosphatase 65 U/L (35-105) 12/25/23 08:50 Creatine Kinase 172 U/L (26-192) 12/24/23 15:46 Total Protein 6.2 g/dL (6.6-8.7) L 12/25/23 08:50 Albumin 3.3 g/dL (3.5-5.2) L 12/25/23 08:50 Globulin 2.9 g/dL (1.3-4.6) 12/25/23 08:50 Triglycerides 87 mg/dL (0-150) 12/24/23 15:46 Cholesterol 158 mg/dL (0-200) 12/24/23 15:46 LDL Cholesterol, Calc 79 mg/dL (50-129) 12/24/23 15:46 HDL Cholesterol 62 mg/dL (60-100) 12/24/23 15:46 LDL/HDL Ratio 1.27 RATIO (0.00-3.22) 12/24/23 15:46 Cholesterol/HDL Ratio 2.55 mg/dL (0.0-4.40) 12/24/23 15:46 Vitamin B12 880 pg/mL (232-1245) 12/24/23 15:46 TSH 1.04 uIU/mL (0.27-4.20) 12/24/23 15:46 Vitals Last Vital Signs Temp 99.1 F 12/25/23 07:08 Pulse 78 12/25/23 07:08 Resp 18 12/25/23 07:08 BP 158/78 12/25/23 07:08 Pulse Ox 99 12/25/23 07:08 O2 Del Method Room Air 12/24/23 20:45 Discharge Plan Discharge Patient Disposition: Home Health Service Condition: Stable Prescriptions: New lisinopril 10 mg tablet 10 mg PO BID Qty: 60 3RF Eliquis 5 mg tablet 5 mg PO BID Qty: 240 3RF Rx Instructions: 10 mg twice daily for 7 days then 5 mg twice daily atorvastatin 80 mg tablet 80 mg PO DAILY Qty: 90 2RF clopidogrel [Plavix] 75 mg tablet 75 mg PO DAILY Qty: 90 3RF Continued metoprolol tartrate 25 mg tablet 25 mg PO BID tramadol 50 mg tablet 50 mg PO BID PRN (Reason: Pain) Celexa 20 mg tablet 20 mg PO BEDTIME Discontinued atorvastatin 20 mg tablet 20 mg PO BEDTIME Discharge Orders: Discharge Order (Routine); Ordered 12/25/23 Ordered By: Magi Cross Other Ambulatory Orders: Physical Therapy Eval and Treat Outpatient (Order) Timeframe: 2 Months Facility: [facility] - Location: Physical Therapy Ordered By: Magi Cross Referrals: Kyaw Lobato DO [Primary Care Provider] - 12/30/23 11:40 am Discharge Activity: As per PT/OT instructions Patient Instructions: Lisinopril (By mouth) (Prinivil, Zestril), Atorvastatin (By mouth) (Lipitor, Atorvaliq), Clopidogrel (By mouth) (Plavix), Apixaban (By mouth) (Eliquis), Opioid Safety Discharge Attestations Time Spent in Discharge Care*: greater than 30 min Quality Metrics Clinical Quality Measures [ Cerebrovascular Accident { Contraindication to Antithrombotic: None; antithrombotic prescribed; Contraindication to Anticoagulation: None; anticoagulation prescribed; Contraindication to Statin: None; Statin prescribed; Contraindication to antithrombotic day 2: None; Antithrombotic given day 2; Contraindication to tPA: Treatment not indicated; Onset of Symptoms Date: 12/24/23; Onset of Symptoms Time: 05:00; Symptom Onset Unknown: Yes; Reason stroke education not provided: Stroke education provided to patient; Rehab services assessed: Activities of daily living assessment, Physical therapy, Occupational therapy, Speech therapy, Stroke rehabilitation; Reason rehab assessment not done: Medical contraindication}. No reported AMI, CVA or VTE this stay] Coding Level of Care Code [facility] Diagnoses Acute right arterial ischemic stroke, middle cerebral artery (MCA) I63.511 Pulmonary embolism I26.99 CVA (cerebral vascular accident) I63.9 Thromboembolic stroke I63.9
[2023-12-25 12:15] VITALS: BP 125/77; PULSE 63; RESP 24
--- NOTE | 2023-12-25 12:22 | ECG_ITS ---
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 Measurements Intervals [place] Rate: 68 P: 57 NH: 160 QRS: 8 QRSD: 90 T: 41 QT: 373 QTc: 398 Interpretive Statements SINUS RHYTHM LOW QRS VOLTAGE IN PRECORDIAL LEADS [QRS DEFLECTION < 1.0 mV IN CHEST LEADS] Compared to ECG 07/17/2015 21:45:26 Low QRS voltage now present T-wave abnormality no longer present Electronically Signed On 12-26-2023 0:05:45 CDT by Clayton Barbosa M.D. [id number]
[2023-12-25 13:21] VITALS: BP 125/77; PULSE 63; RESP 24
--- NOTE | 2023-12-25 14:41 | PC.NURSE ---
Patient discharged to home. Instructions given to patient and patient's son regarding new medications, follow up appoints and plan for pt/ot at home. Both verbalized complete understanding. Patient taken by wheelchair to private vehicle. Son to transport to home.
[2023-12-29 12:35] LABS: Anti-Nuclear Antibody Pattern Nuclear, Homogeneous; Anti-Nuclear Antibody Screen POSITIVE (NEGATIVE); Anti-Nuclear Antibody Titer 1:40 titer
== END 2023-12-25 15:00 | disposition home health service (06) ==
LOC: ER 19:21 → CSU 12-25 00:41
PROVIDERS: Internal Medicine; Admitting Provider Internal Medicine; Emergency Provider Physician Assistant; PCP Electrodiagnostic Medicine; Visit Provider Internal Medicine
DX: I63.511 Cerebral infarction due to unspecified occlusion or stenosis of right middle cerebral artery (principal); I26.99 Other pulmonary embolism without acute cor pulmonale; I63.9 Cerebral infarction, unspecified; R29.703 NIHSS score 3; Z91.81 History of falling; I10 Essential (primary) hypertension
CPT/HCPCS: 36415; 70450; 70496; 70498; 72125; 80053; 80061; 82550; 82607; 83036; 84443; 85025; 86038; 93005; 93970; 94664; 96360; 96372; 97116; 97162; 99285; C8924; G0378; J1644; J1650; J7030; Q9967

== ENCOUNTER 2023-12-26 14:48 | Observation (INO) | payer MEDICARE, OTHER, SELFPAY ==
[2023-12-26 15:11] VITALS: BMI 31.7
[2023-12-26 16:20] VITALS: BP 121/69; PULSE 61; RESP 18; TEMP 36.5; O2SAT 98
--- NOTE | 2023-12-26 17:37 | PM.HP ---
Providers/Chief Complaint Admitting Physician: Ramiro Grant Primary Care Provider: yKaw Lobato DO Chief Complaint: 260 History of Present Illness Pleasant 73-year-old lady recently admitted for assessment after a fall, left-sided weakness, sign of CVA, PE, was discharged home with home health, ambulated 75 feet with physical therapy, however, on reassessment by neurology today is found that although she could Giurgius since after she gets going, she has significant difficulty trying to get up, states that she had difficulty getting up from the commode, difficulty with ADLs, is unable to cook and feed herself, and as she stays at home by herself prolonged periods of time is at the moment in need of additional rehabilitation as she is unable to manage independently at home. Review of Systems Const: Denies: fever(s), chills, body aches or malaise ENMT: Denies: throat pain, oral sores or ear or mastoid pain Card: Denies: chest pain, edema, pre-syncope or dyspnea on exertion Resp: Denies: dyspnea, productive cough, change in phlegm color or hemoptysis GI: Denies: abdominal pain, nausea, vomiting, diarrhea, constipation, hematochezia or melena : Denies: flank pain, urinary frequency or hematuria Musc: Denies: back pain, joint swelling or joint redness Skin/Breast: Denies: rash or new lesions Neuro: Reports: numbness in extremities (Left upper and lower, worse in the lower extremity) and weakness in extremities (Chronic BL LE neuropathy); Denies: headache(s), dizziness, confusion or seizure-like activity Medications/Allergies Home Medications Medication Instructions Recorded Confirmed Last Taken Type metoprolol tartrate 25 mg tablet 25 mg PO BID 11/25/20 12/26/23 12/26/23 History tramadol 50 mg tablet 50 mg PO Q8H PRN Pain 11/25/20 12/26/23 Unknown History citalopram 20 mg tablet (Celexa) 20 mg PO BEDTIME 12/24/23 12/26/23 12/25/23 History apixaban 5 mg tablet (Eliquis) 5 mg PO BID #240 tabs 12/25/23 12/26/23 12/26/23 Rx atorvastatin 80 mg tablet 80 mg PO DAILY #90 tabs 12/25/23 12/26/23 12/26/23 Rx clopidogrel 75 mg tablet (Plavix) 75 mg PO DAILY #90 tabs 12/25/23 12/26/23 12/26/23 Rx lisinopril 10 mg tablet 10 mg PO BID #60 tabs 12/25/23 12/26/23 12/26/23 Rx Allergies Allergy/AdvReac Type Severity Reaction Status Date / Time codeine Allergy Unknown Unknown Verified 12/26/23 12:07 Penicillins Allergy nausea Verified 12/26/23 12:07 Gabapentin Allergy lethargic Uncoded 12/26/23 12:07 PFSH Acute PFSH: Medical History Acute right arterial ischemic stroke, middle cerebral artery (MCA) Thromboembolic stroke Pulmonary embolism CVA (cerebral vascular accident) Hypertension Closed head injury Focal infarction of brain Surgical History No pertinent past surgical history Social History Smoking and tobacco/nicotine status: never used tobacco/nicotine Vitals/I&O/Wt Last Vital Signs Temp 97.7 F 12/26/23 16:20 Pulse 61 12/26/23 16:20 Resp 18 12/26/23 16:20 BP 121/69 12/26/23 16:20 Pulse Ox 98 12/26/23 16:20 O2 Del Method Room Air 12/26/23 16:20 Weight last 48 hrs Weight 106.141 kg Physical Exam Narrative: Accompanied by her niece Const: COMMON NORMALS: patient oriented x3 and alert GENERAL APPEARANCE: cooperative ORIENTATION/CONSCIOUSNESS: Yes awake HENMT: COMMON NORMALS: oropharynx normal Neck/C-Spine: COMMON NORMALS: no JVD Resp: COMMON NORMALS: normal respiratory effort and clear to auscultation bilaterally AUSCULTATION: clear to auscultation bilaterally Cardio: COMMON NORMALS: no JVD, regular rhythm, S1 normal heart sound present, S2 normal heart sound present and No murmurs present (Cardio) RHYTHM: regular rhythm HEART SOUNDS: S1 normal heart sound present and S2 normal heart sound present GI: COMMON NORMALS: Normal to inspection, nondistended, normoactive bowel sounds present, Soft to palpation and non-tender PALPATION: Yes Soft to palpation Extremity: COMMON NORMALS: no joint enlargement and no pedal edema Neuro: COMMON NORMALS: patient oriented x3 and moves all extremities SENSORIUM/ORIENTATION: Yes alert OTHER: She is awake and alert, following directions, no difficulties with horizontal tracking, visual eldridge full to confrontation. No visual extinction. I do not appreciate facial droop, I do not appreciate aphasia or dysarthria. She has mild left upper extremity drift. Left lower extremity drops to the bed before condition countdown. Sensory exam is symmetrical. No extinction in upper extremities. Lower extremity exam more difficult due to chronic neuropathy, she has much more difficulty with light touch sensation, but does not appear to have extinction. Skin: COMMON NORMALS: no rashes or lesions noted GENERAL SKIN EXAM: no rashes or lesions noted A&P Assessment and plan (1) Right middle cerebral artery stroke: Reviewed her recent hospitalization, reviewed discharge summary, physical exam findings, head CT, head and neck CTA, vitals, CBC, CMP, discussed with neurologist. Discussed with disease case manager. Stroke sequela are interfering severely and she is unable to manage things independently currently at home. Has good potential for acute rehabilitation and would like to proceed to fpc facility. Requesting case management consultation. Requesting PT, OT. Fall precautions. Continue Eliquis, Plavix. Statin. Discussed with her and her niece regarding risk of bleeding with anticoagulation, antiplatelet, as well as citalopram, tramadol. She states she understands, will not take tramadol any further, gets similar relief from acetaminophen. She has had citalopram since June for depression. This is still an active issue and she is unable to come off antidepressant. Understands risk of bleeding, is agreeable to speak with psychiatry regarding options if not staying with citalopram. (2) At risk for bleeding: With combination of anticoagulant, antiplatelet, citalopram, tramadol. As per discussion with her she will discontinue tramadol, understands risk of bleeding and gets similar relief from acetaminophen. Depression is been an active issue since June after her . She is not ready to stop antidepressants. Depression is still an active issue. She is agreeable to speak with psychiatry regarding consideration of options with keeping citalopram with risk versus transition to another agent depending on acceptability of risk profile. (3) Depression: Discussed with psychiatrist, appreciate consultation regarding active depression, risk of bleeding, consideration of options of switching to antidepressant with less risk of bleeding, if risk profile otherwise acceptable for her, although certainly other antidepressants as discussed with her and her niece may have high risk of other adverse effects especially in elderly. She has been on citalopram since June when her had after an intracranial bleed. 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 Maintain fall precautions. Plan Pulmonary emboli: Found during last admission, on Eliquis. Intracardiac shunt: Noted on echo bubble study with suspected septal defect, she was referred for follow-up with cardiology in [place] for PFO closure evaluation. Attestations Medical Necessity Statement*: Place in observation for additional assessment management after recent CVA, with sequelae interfering with ADLs, unable to function independently, in need of rehabilitation, as well as with risk of bleeding, consideration of adjustment of antidepressant with ongoing depression. and High MDM includes amount and/or complexity of data reviewed/ordered [ previous or external records, resulted lab(s)/test(s), ordered lab(s)/test(s) and other healthcare professional discussion] and described risk of complication, morbidity or mortality of management as documented Diagnoses Right middle cerebral artery stroke I63.511 At risk for bleeding Z91.89 Depression F32.A Peripheral neuropathy G62.9
--- NOTE | 2023-12-26 17:50 | PC.NURSE ---
This nurse spoke with Dr. Grant regarding IV placement. This nurse asked Dr. Grant if pt could go without an IV on this admission d/t admission reason being the need for SNF placement. Dr. Grant allowed the pt to be without an IV at this time.
[2023-12-26 20:58] VITALS: BP 121/77; PULSE 77; RESP 17; TEMP 37; O2SAT 97
[2023-12-26] MEDS: citalopram 20 mg Tablet PO (21:54)
[2023-12-26] MEDS: apixaban 5 mg Tablet PO (21:54)
[2023-12-27] VITALS (7 sets, daily range): BP systolic 99–142; BP diastolic 69–80; PULSE 63–79; RESP 15–18; TEMP 36.6–37; O2SAT 95–96
[2023-12-27] MEDS: acetaminophen 325 mg Tablet 650 MG PO ×2 (04:13→17:03)
--- NOTE | 2023-12-27 08:03 | P.PN_ITS ---
Subjective Subjective: Hemodynamically stable Morning custodial placement No new focal deficit No new complaints Hemodynamically stable Overnight events Vitals/I&O/Wt Last Vital Signs Temp 98.3 F 12/27/23 07:37 Pulse 63 12/27/23 07:37 Resp 15 12/27/23 07:37 BP 119/77 12/27/23 07:37 Pulse Ox 95 12/27/23 07:37 O2 Del Method Room Air 12/27/23 07:37 12/26/23 12/27/23 12/27/23 22:59 06:59 14:59 Intake Total 480 / 480 Balance 480 / 480 Weight last 48 hrs Weight 107.7 kg Weight 106.141 kg Physical Exam Narrative: Pleasant cooperative Left-sided mild weakness NIH 3 for mild weakness of left leg and left upper extremity Awake and alert S1, S2 Hemodynamically stable Currently on room air Laying supine A&P Assessment and plan (1) Depression: (2) At risk for bleeding: (3) Right middle cerebral artery stroke: (4) Peripheral neuropathy: (5) PFO (patent foramen ovale): Plan Patient will need custodial placement Not able to care for self She will also need cardiac evaluation for PFO closure down the road Continue Eliquis for thromboembolic phenomenon PE Continue lisinopril for hypertension Continue Plavix along Eliquis Continue PT evaluation along OT Attestations Medical Necessity Statement*: Discharge likely Friday Coding Level of Care Code 13516 Moderate MDM includes number and complexity of problems actively addressed during encounter, amount and/or complexity of data reviewed/ordered and described risk of complication, morbidity or mortality of management as d ocumented Diagnoses Depression F32.A At risk for bleeding Z91.89 Right middle cerebral artery stroke I63.511 Peripheral neuropathy G62.9 PFO (patent foramen ovale) Q21.12
[2023-12-27] MEDS: lisinopril 10 mg Tablet PO ×2 (08:24→17:01)
[2023-12-27] MEDS: clopidogrel 75 mg Tablet PO (08:24)
[2023-12-27] MEDS: metoprolol tartrate 25 mg Tablet PO ×2 (08:24→17:01)
[2023-12-27] MEDS: atorvastatin 40 mg Tablet PO (08:25)
[2023-12-27] MEDS: apixaban 5 mg Tablet PO ×2 (08:25→17:01)
--- NOTE | 2023-12-27 17:23 | W.PM.PSYCONS ---
Providers/Reason for Consult Consulting Physican/Specialty*: Gera Mata MD. Psychiatry. Reason for Consult*: Evaluation for appropriate antidepressant given being on Eliquis. Attending Physician: Magi Cross MD Primary Care Provider: Kyaw Lobato DO Psych Consult HPI History of Present Illness Yamel Milligan is a 73 year old female who presents to the emergency department 12/24/2023 with the following report: Chief Complaint: Fall Stated Complaint: Fall Time Seen by Provider: 12/24/23 14:27 Source: patient and EMS Mode of arrival: EMS Limitations: no limitations History of Present Illness: Patient is a 73-year-old female who presents to the emergency department via EMS due to a fall this morning. Per EMS, patient reportedly fell at 0600 this morning and remained down for many hours until EMS was called by family around 1400. Patient notes she was not symptomatic prior to the fall, states she just tripped and fell. She does state that she hit the back of her head, and is not on any blood thinners. She does take a baby aspirin. She denies any visual changes, numbness weakness or tingling, headaches, or other concerning symptoms at this time. She is complaining of some posterior head and neck pain at this time, and she arrives in a c-collar. She states she did not lose consciousness, and just states she could not get up on her own power. She does live at home with family. complaint: fall Onset (ago): hour(s) Fall from: standing Fall witnessed: no Place fall occurred: home Loss of consciousness: None Prolonged down time: yes Symptoms prior to fall: none Context: tripped/slipped Associated symptoms-after fall: Reports headache(s) and neck pain; Denies abdominal pain, chest pain or lightheadedness. She was identified as having a CVA and was ultimately discharged on 12/25/2023 as there was nothing additional to do. She saw Dr. Marrufo during that stay and followed up with neurology the next day outpatient. At that time it was determined that her level of functioning was not consistent with being home and independent. And so she was readmitted via direct admit from Dr. Marrufo's office on 12/26/2023. Plans for discharge were made for 12/28/2023 after they were able to get home health at a level that would be consistent with her improving. However significant concerns were raised related to her Celexa being problematic with her Eliquis so a psychiatric consult was requested to evaluate that issue. Patient was present at the interview and very responsive to questions. It was clear that she has had difficulty with depression and the just being off an antidepressant would be problematic. We discussed the literature in regards to antidepressants interacting with Eliquis and identified Wellbutrin as a medication she has not had any history with in the past and as the best medication to take for depression without concerns for interaction with Eliquis. We discussed the risks, benefits and alternatives of a trial of Wellbutrin XL 150 mg p.o. every morning and she understood and agreed to proceed as is documented in this note. We reviewed her psychiatric history as well as her overall history and there were no additional contributing factors. Meds Home Medications and Allergies Home Medications Medication Instructions Recorded Confirmed Last Taken Type metoprolol tartrate 25 mg tablet 25 mg PO BID 11/25/20 12/26/23 12/26/23 History tramadol 50 mg tablet 50 mg PO Q8H PRN Pain 11/25/20 12/26/23 Unknown History citalopram 20 mg tablet (Celexa) 20 mg PO BEDTIME 12/24/23 12/26/23 12/25/23 History apixaban 5 mg tablet (Eliquis) 5 mg PO BID #240 tabs 12/25/23 12/26/23 12/26/23 Rx atorvastatin 80 mg tablet 80 mg PO DAILY #90 tabs 12/25/23 12/26/23 12/26/23 Rx clopidogrel 75 mg tablet (Plavix) 75 mg PO DAILY #90 tabs 12/25/23 12/26/23 12/26/23 Rx bupropion HCl 150 mg 24 hr tablet, 150 mg PO DAILY 30 days #30 tabs 12/28/23 Unknown Rx extended release Allergies Allergy/AdvReac Type Severity Reaction Status Date / Time codeine Allergy Unknown Unknown Verified 12/26/23 12:07 Penicillins Allergy nausea Verified 12/26/23 12:07 Gabapentin Allergy lethargic Uncoded 12/26/23 12:07 Current Medications Current Medications Generic Name Dose Route Start Last Admin Trade Name Freq PRN Reason Stop Dose Admin Acetaminophen 650 mg 12/26/23 20:58 12/27/23 17:03 Acetaminophen 325 Mg Tablet PO 650 mg Q6H PRN Administration Mild/Mod Pain Or Temp >/= 101 Apixaban 5 mg 12/26/23 21:15 12/27/23 17:01 Apixaban 5 Mg Tablet PO 5 mg BID CHIP Administration Atorvastatin Calcium 40 mg 12/27/23 09:00 12/27/23 08:25 Atorvastatin 40 Mg Tablet PO 40 mg DAILY CHIP Administration Citalopram Hydrobromide 20 mg 12/26/23 21:00 12/26/23 21:54 Citalopram 20 Mg Tablet PO 20 mg BEDTIME CHIP Administration Clopidogrel Bisulfate 75 mg 12/27/23 09:00 12/27/23 08:24 Clopidogrel 75 Mg Tablet PO 75 mg DAILY CHIP Administration Lisinopril 10 mg 12/27/23 09:00 12/27/23 17:01 Lisinopril 10 Mg Tablet PO 10 mg BID CHIP Administration Metoprolol Tartrate 25 mg 12/27/23 09:00 12/27/23 17:01 Metoprolol Tartrate 25 Mg Tablet PO 25 mg BID CHIP Administration PFSH NPU PFSH: Medical History PFO (patent foramen ovale) Depression At risk for bleeding Peripheral neuropathy Right middle cerebral artery stroke Acute right arterial ischemic stroke, middle cerebral artery (MCA) Thromboembolic stroke Pulmonary embolism CVA (cerebral vascular accident) Hypertension Closed head injury Focal infarction of brain Surgical History No pertinent past surgical history Social History Smoking and tobacco/nicotine status: never used tobacco/nicotine Mental Status Exam MSE Comments: This is an obese white female in hospital gown with adequate grooming and eye contact. No abnormal movements except for mild psychomotor retardation. Cooperative with exam in no acute distress. Speech was mostly normal rate and volume. Mood described as okay, affect slightly subdued. Thought process organized. Thought content: Patient denied suicidal or homicidal ideation, there were no delusions reported or noted, she denied any auditory or visual hallucinations. Attention and concentration were intact and memory appeared reliable but none were formally tested. She was alert and oriented x 3. Insight, judgment and impulse control all appeared fair. Vitals/I&O/Wt Last Vital Signs Temp 98.3 F 12/27/23 16:00 Pulse 76 12/27/23 16:00 Resp 15 12/27/23 16:00 BP 122/77 12/27/23 16:00 Pulse Ox 96 12/27/23 16:00 O2 Del Method Room Air 12/27/23 16:00 12/27/23 12/27/23 12/27/23 06:59 14:59 22:59 Intake Total 480 / 480 Balance 480 / 480 Weight last 48 hrs Weight 107.7 kg Weight 106.141 kg A&P Assessment and plan (1) PFO (patent foramen ovale): (2) Major depressive disorder: (3) Status post CVA: Plan This is a 73-year-old white female with an extended history of depression recently treated with Celexa and recent CVA with need for PT OT presenting for consult secondary to appropriate antidepressant to be given with Eliquis. 1. Continue current medication, except agree with discontinue Celexa. 2. Initiate Wellbutrin XL 150 mg p.o. daily. And discharged on that medication. 3. No credible lethality or need for acute inpatient psychiatric care. 4. Agree with discharge when medically cleared and stable. Attestations NPU Medical Necessity Statement*: N/A. Please see primary team note for medical necessity. Coding Level of Care Code Acute Code for Chg Fwd Diagnoses PFO (patent foramen ovale) Q21.12 Major depressive disorder F32.9 Status post CVA Z86.73
[2023-12-27] MEDS: citalopram 20 mg Tablet PO (19:28)
[2023-12-28] VITALS: BP 101/62; PULSE 98; RESP 18; TEMP 36.4; O2SAT 98
[2023-12-28 04:00] VITALS: BP 116/76; PULSE 73; RESP 18; TEMP 36.6; O2SAT 96
[2023-12-28] MEDS: acetaminophen 325 mg Tablet 650 MG PO (05:14)
[2023-12-28 07:14] VITALS: BP 103/72; PULSE 96; RESP 16; TEMP 36.7; O2SAT 93
[2023-12-28] MEDS: metoprolol tartrate 25 mg Tablet PO (08:27)
[2023-12-28] MEDS: apixaban 5 mg Tablet PO (08:27)
[2023-12-28] MEDS: clopidogrel 75 mg Tablet PO (08:27)
[2023-12-28] MEDS: atorvastatin 40 mg Tablet PO (08:27)
--- NOTE | 2023-12-28 11:57 | PM.DCS ---
Discharge Providers Date of Admission: 12/26/23 14:48 Date of Discharge: December 28, 2023 Attending Provider at Admission: Ramiro Grant Attending Provider at Discharge: Magi Cross MD Primary Care Provider: Kyaw Lobato DO Diagnoses at Discharge Discharge Diagnosis (1) Depression: Status: Acute (2) At risk for bleeding: Status: Acute (3) Right middle cerebral artery stroke: Status: Acute (4) Peripheral neuropathy: Status: Acute (5) PFO (patent foramen ovale): Status: Acute Reason for Visit Reason for Visit: 260 Hospital Course Hospital Course 39 female who was recently discharged from the hospital after management of stroke she was diagnosed with acute/subacute thromboembolic right MCA stroke, NIH was 3, deemed not a candidate for TNKase, Dr. Marrufo evaluated her, echo with bubble study did show PFO, I have given her referral to see ballet professor in [place] for evaluation of PFO closure, she was also diagnosed with a PE she was discharged on Plavix and Eliquis, she would continue Plavix ELOS combination for 20 days and then continue Eliquis along with statins I have discontinued Celexa which has drug interaction with Eliquis increases chances of bleeding Her hypertension has been well-managed I have discontinued lisinopril I would only continue metoprolol She remained in sinus rhythm No signs of DVT Her second admission was done due to her weakness and inability to work at home we were pursuing detention placement however she did extremely well with PT and PT recommended home health exercise program we have arranged home health at this time for her, patient, her daughter and physical therapist they are all in agreement about home health at the time of discharge Physical Exam Narrative: Pleasant cooperative GCS 15 NIH 0 Nonfocal neuroexam Hemodynamically stable Discharge Data Vitals Last Vital Signs Temp 98.0 F 12/28/23 07:14 Pulse 96 12/28/23 07:14 Resp 16 12/28/23 07:14 BP 103/72 12/28/23 07:14 Pulse Ox 93 12/28/23 07:14 O2 Del Method Room Air 12/28/23 07:14 Discharge Plan Discharge Patient Disposition: Home Condition: Stable Prescriptions: Continued metoprolol tartrate 25 mg tablet 25 mg PO BID tramadol 50 mg tablet 50 mg PO Q8H PRN (Reason: Pain) atorvastatin 80 mg tablet 80 mg PO DAILY Qty: 90 2RF Eliquis 5 mg tablet 5 mg PO BID Qty: 240 3RF Patient Comments: patient states she has not taken her evening dose today and has only taken her morning dose today Rx Instructions: 10 mg twice daily for 7 days then 5 mg twice daily after clopidogrel [Plavix] 75 mg tablet 75 mg PO DAILY Qty: 90 3RF Held citalopram [Celexa] 20 mg tablet 20 mg PO BEDTIME Hold Instructions: Resume on 01/04/24. Discontinued lisinopril 10 mg tablet 10 mg PO BID Qty: 60 3RF Discharge Orders: Discharge Order (Routine); Ordered 12/28/23 Ordered By: Magi Cross Other Ambulatory Orders: Physical Therapy Outpatient in Home Eval and Treat Other (Order) Timeframe: 2 Months Facility: [facility] - Location: Physical Therapy Ordered By: Magi Cross Patient Instructions: Opioid Safety Activity Restrictions/Additional Instructions: I have held your Celexa until you see your PCP because you are already taking Eliquis and Plavix for 20 days then you will continue Eliquis only I have also discontinued lisinopril your blood pressure has been well-managed on metoprolol Take metoprolol for now please Discharge Attestations Time Spent in Discharge Care*: greater than 30 min Quality Metrics Clinical Quality Measures [ No reported AMI, CVA or VTE this stay] Coding Level of Care Code Acute Code for Chg Fwd Diagnoses Depression F32.A At risk for bleeding Z91.89 Right middle cerebral artery stroke I63.511 Peripheral neuropathy G62.9 PFO (patent foramen ovale) Q21.12
[2023-12-28 12:00] VITALS: BP 122/78; PULSE 72; RESP 16; TEMP 36.7; O2SAT 94
[2023-12-28 14:24] VITALS: BP 122/78; PULSE 72; RESP 16; TEMP 36.7; O2SAT 94
== END 2023-12-28 14:25 | disposition home or self-care (01) ==
PROVIDERS: Admitting Provider Internal Medicine; PCP Electrodiagnostic Medicine; Visit Provider Internal Medicine
DX: I63.511 Cerebral infarction due to unspecified occlusion or stenosis of right middle cerebral artery (principal); G62.9 Polyneuropathy, unspecified; F32.A Depression, unspecified; Z91.89 Other specified personal risk factors, not elsewhere classified; Q21.12 Patent foramen ovale; R29.703 NIHSS score 3; Z91.81 History of falling; Z79.01 Long term (current) use of anticoagulants; I10 Essential (primary) hypertension; Z79.02 Long term (current) use of antithrombotics/antiplatelets; Z86.711 Personal history of pulmonary embolism
CPT/HCPCS: 97110; 97116; 97161; 97165; 99215; G0378; G0379

== ENCOUNTER 2024-01-06 13:14 | Outpatient (RCR) | payer MEDICARE, OTHER, SELFPAY | END 2024-01-09 23:59 | disposition home or self-care (01) | LOC: SPO 13:14 | PROVIDERS: PCP Electrodiagnostic Medicine; Visit Provider Internal Medicine | DX: I63.9 Cerebral infarction, unspecified (principal) | CPT/HCPCS: 97161; 97167 ==

== ENCOUNTER 2024-01-10 06:00 | Outpatient (RCR) | payer MEDICARE, OTHER, SELFPAY | END 2024-02-08 23:59 | disposition home or self-care (01) | LOC: SPO 06:00 | PROVIDERS: PCP Electrodiagnostic Medicine; Visit Provider Internal Medicine | DX: R26.89 Other abnormalities of gait and mobility (principal); M62.81 Muscle weakness (generalized); I63.9 Cerebral infarction, unspecified | CPT/HCPCS: 97110 ==

== ENCOUNTER 2024-01-25 11:48 | Emergency (ER) | payer MEDICARE, OTHER, SELFPAY ==
[2024-01-25 12:33] VITALS: BP 107/74; PULSE 60; RESP 18; TEMP 36.7; O2SAT 98; BMI 31.6
[2024-01-25 12:50] LABS: Basophils % 0.7 %; Eosinophils # 0.1 10^3/uL (0.0-0.8); Eosinophils % 1.5 %; Lymphocytes # 1.1 10^3/uL (0.8-4.8); Lymphocytes % 23.1 %; Mean Corpuscular HGB Conc 33.2 g/dL (30-55); Mean Corpuscular Hemoglobin 32.3 pg (27-33); Mean Corpuscular Volume 97.4 fl (85-98); Mean Platelet Volume 11.6 fL (7.4-10.4); Monocytes # 0.3 10^3/uL (0.2-0.9); Neutrophils # 3.06 10^3/uL (1.8-7.7); Neutrophils % 67.5 %; Nucleated Red Blood Cells % 0 %; Platelet Count 163 10^3/cmm (157-399); Red Cell Distribution Width 12.9 % (12.1-15.1); White Blood Count 4.54 10^3/uL (3.29-11.43)
[2024-01-25 13:02] LABS: INR 1.17 (0.8-1.2)
[2024-01-25 13:10] LABS: Alanine Aminotransferase 14 U/L (0-33); Albumin Level 3.9 g/dL (3.5-5.2); Alkaline Phosphatase 62 U/L (35-105); Anion Gap 12.5 (5-19); Aspartate Amino Transferase 17 U/L (0-32); Blood Urea Nitrogen 17 mg/dL (8-23); Calcium 9.3 mg/dL (8.5-10.5); Carbon Dioxide 28 mmol/L (22-29); Chloride 101 mmol/L (98-107); Creatinine Clr Calc Pharmacy 83.8917; Globulin 2.9 g/dL (1.3-4.6); Glucose 106 mg/dL (65-115); Lipase 31 U/L (13-60); Osmolality Calculated 286 mOsm/kg (285-295); Potassium 4.5 mmol/L (3.5-5.1); Sodium 137 mmol/L (136-145); Total Bilirubin 0.4 mg/dL (0.15-1.2); Total Protein 6.8 g/dL (6.6-8.7)
--- NOTE | 2024-01-25 13:40 | ED_ITS ---
HPI - Extremity Problem 2 General: Chief complaint: Extremity Problem,Nontraumatic Stated complaint: rt leg numbness Time Seen by Provider: 01/25/24 13:39 History of Present Illness: Presents to the ER with complaints of right lower leg numbness. Patient states when she woke up her leg and decreased sensation from the knee down. She said it felt like her foot was asleep and just would not wake up. This has improved and now the foot only feels this way from the ankle down. Patient also says she has a hard time walking because of this however she has An ataxic gait in both legs. Patient has had recent CVA due to embolic phenomenon and right middle cerebral artery as well as a PE patient is on Plavix and Eliquis. Patient has also seen Dr. Marrufo and has a diagnosis of peripheral peripheral neuropathy. Review of Systems 2 General: Reports: 10 or more systems reviewed and unremarkable except in HPI and below PFSH ED 2 PFSH: Medical History PFO (patent foramen ovale) Depression At risk for bleeding Peripheral neuropathy Right middle cerebral artery stroke Acute right arterial ischemic stroke, middle cerebral artery (MCA) Thromboembolic stroke Pulmonary embolism CVA (cerebral vascular accident) Hypertension Closed head injury Focal infarction of brain Surgical History No pertinent past surgical history Social History Smoking and tobacco/nicotine status: never used tobacco/nicotine Physical Exam 2 Const: COMMON NORMALS: no acute distress, average body habitus, patient oriented x3, no limitations, healthy appearing, alert and well nourished HENMT: COMMON NORMALS: normocephalic, atraumatic, hearing grossly normal bilaterally, external ears normal, Normal external nose present and moist oral mucous membranes HEAD & SCALP: normocephalic and atraumatic NOSE: Normal external nose present EXTERNAL EAR: Yes external ears normal Eye: COMMON NORMALS: Equal, round and reactive pupils present, EOMs intact bilaterally, conjunctivae normal and no scleral icterus CONJUNCTIVA: Yes conjunctivae normal PUPIL: Yes Equal, round and reactive pupils present Neck/C-Spine: COMMON NORMALS: full ROM, no lymphadenopathy, supple, no meningeal signs, no JVD and Thyroid normal THYROID: Thyroid normal Chest: COMMONS NORMALS: normal inspection of the chest and normal palpation of entire chest wall Resp: COMMON NORMALS: normal respiratory effort, No retractions, No use of accessory muscles and clear to auscultation bilaterally AUSCULTATION: clear to auscultation bilaterally Cardio: COMMON NORMALS: no JVD, regular rate, regular rhythm, S1 normal heart sound present, S2 normal heart sound present, No gallops present (Cardio), No clicks present (Cardio), No murmurs present (Cardio) and No rub (Cardio) R ATE: regular rate RHYTHM: regular rhythm HEART SOUNDS: S1 normal heart sound present and S2 normal heart sound present GI: COMMON NORMALS: Normal to inspection, nondistended, normoactive bowel sounds present, Soft to palpation, non-tender, No hepatosplenomegaly present and no masses PALPATION: Yes Soft to palpation and Yes No hepatosplenomegaly present Extremity: NARRATIVE EXTREMITY EXAM: Patient has equal sensation bilaterally in both lower extremities from the knees down to her feet. Upon walking patient does have an antalgic gait with possible flatfoot or at least the foot slapping the floor with steps but this is equal on both sides. Neuro: COMMON NORMALS: patient oriented x3 SENSORIUM/ORIENTATION: Yes alert MENINGEAL SIGNS: Yes no meningeal signs Course 2 Vital Signs: Vital signs: Vital Signs Temperature 98.1 F 01/25/24 12:33 Pulse Rate 52 L 01/25/24 15:32 Respiratory Rate 16 01/25/24 15:24 Blood Pressure 133/78 01/25/24 16:00 Pulse Oximetry 99 01/25/24 15:32 Oxygen Delivery Me thod Room Air 01/25/24 15:32 MDM - Extremity (Nontraumatic) Medical Decision Making Exam was performed lab work was obtained that included CBC CMP PT/INR C-reactive protein lipase magnesium all which was essentially benign. CT scan showed no acute changes, upon discussing this with the patient patient says she been moving moving and wiggling her foot [id number] and and feels improved now. Patient be discharged home to follow-up with PCP Medical Records I reviewed the patient's medical records. Lab Data I reviewed the patient's lab results. 01/25/24 12:42 01/25/24 12:[address] 01/25/24 14:14 IMPRESSION: There are senescent changes of the brain as described above. No evidence for large acute ischemic infarction or acute intracranial injury. Laboratory Results WBC 4.54 10^3/uL (3.29-11.43) 01/25/24 12:42 RBC 3.90 10^6/uL (3.85-5.65) 01/25/24 12:42 Hgb 12.60 g/dL (11.27-16.99) 01/25/24 12:42 Hct 38.0 % (36-47) 01/25/24 12:42 MCV 97.4 fl (85-98) 01/25/24 12:42 MCH 32.3 pg (27-33) 01/25/24 12:42 MCHC 33.2 g/dL (30-55) 01/25/24 12:42 RDW 12.9 % (12.1-15.1) 01/25/24 12:42 Plt Count 163 10^3/cmm (157-399) 01/25/24 12:42 MPV 11.6 fL (7.4-10.4) H 01/25/24 12:42 Neut % (Auto) 67.5 % 01/25/24 12:42 Lymph % (Auto) 23.1 % 01/25/24 12:42 Williamson % (Auto) 7.0 % 01/25/24 12:42 Eos % (Auto) 1.5 % 01/25/24 12:42 Baso % (Auto) 0.7 % 01/25/24 12:42 Neut # (Auto) 3.06 10^3/uL (1.8-7.7) 01/25/24 12:42 Lymph # (Auto) 1.1 10^3/uL (0.8-4.8) 01/25/24 12:42 Williamson # (Auto) 0.3 10^3/uL (0.2-0.9) 01/25/24 12:42 Eos # (Auto) 0.1 10^3/uL (0.0-0.8) 01/25/24 12:42 Baso # (Auto) 0.0 10^3/uL (0.0-0.1) 01/25/24 12:42 Nucleated RBC % (auto) 0 % 01/25/24 12:42 Nucleated RBCs # 0.0 /100WBC 01/25/24 12:42 PT 15.30 SECONDS (12.1-14.9) H 01/25/24 12:42 INR 1.17 (0.8-1.2) 01/25/24 12:42 Sodium 137 mmol/L (136-145) 01/25/24 12:42 Potassium 4.5 mmol/L (3.5-5.1) 01/25/24 12:42 Chloride 101 mmol/L (98-107) 01/25/24 12:42 Carbon Dioxide 28 mmol/L (22-29) 01/25/24 12:42 Anion Gap 12.5 (5-19) 01/25/24 12:42 BUN 17 mg/dL (8-23) 01/25/24 12:42 Creatinine 0.8 mg/dL (0.5-0.9) 01/25/24 12:42 GFR Calculation Not Reportable 01/25/24 12:42 Glucose 106 mg/dL (65-115) 01/25/24 12:42 Calculated Osmolality 286 mOsm/kg (285-295) 01/25/24 12:42 Calcium 9.3 mg/dL (8.5-10.5) 01/25/24 12:42 Magnesium 2.1 mg/dL (1.7-2.3) 01/25/24 12:42 Total Bilirubin 0.4 mg/dL (0.15-1.2) 01/25/24 12:42 AST 17 U/L (0-32) 01/25/24 12:42 ALT 14 U/L (0-33) 01/25/24 12:42 Alkaline Phosphatase 62 U/L (35-105) 01/25/24 12:42 C-Reactive Protein 3.0 mg/L (0.0-4.9) 01/25/24 12:42 Total Protein 6.8 g/dL (6.6-8.7) 01/25/24 12:42 Albumin 3.9 g/dL (3.5-5.2) 01/25/24 12:42 Globulin 2.9 g/dL (1.3-4.6) 01/25/24 12:42 Lipase 31 U/L (13-60) 01/25/24 12:42 Urine Color Yellow (Yellow) 01/25/24 16:17 Urine Appearance Clear (CLEAR) 01/25/24 16:17 Urine pH 7 (5-7) 01/25/24 16:17 Ur Specific [place] 1.010 (1.005-1.030) 01/25/24 16:17 Urine Protein Neg (Negative) 01/25/24 16:17 Urine Glucose (UA) Norm (Normal) 01/25/24 16:17 Urine Ketones Negative (Negative) 01/25/24 16:17 Urine Blood Neg (Negative) 01/25/24 16:17 Urine Nitrate Negative (Negative) 01/25/24 16:17 Urine Bilirubin Neg (Negative) 01/25/24 16:17 Urine Urobilinogen Norm mg/dL (Negative) 01/25/24 16:17 Ur Leukocyte Esterase 2+ (Negative) H 01/25/24 16:17 Urine RBC None /hpf (0-2) 01/25/24 16:17 Urine WBC 5-10 /hpf (0-5) H 01/25/24 16:17 Ur Squamous Epith Cells 0-4 /hpf (0-5) H 01/25/24 16:17 Amorphous Sediment Not Reportable 01/25/24 16:17 Urine Bacteria 1+ /hpf (NONE) H 01/25/24 16:17 Urine Mucus 1+ /hpf 01/25/24 16:17 All radiology interpretation(s) finalized by discharge Discharge Plan Discharge Patient Disposition: Home Clinical Impression: Peripheral neuropathy Qualifiers: Peripheral neuropathy type: polyneuropathy, unspecified Qualified Code(s): G 62.9 - Polyneuropathy, unspecified Condition: Stable Prescriptions: No Action metoprolol tartrate 25 mg tablet 25 mg PO BID tramadol 50 mg tablet 50 mg PO Q8H PRN (Reason: Pain) bupropion HCl 150 mg Tablet Extended Release 24 Hr 150 mg PO DAILY 30 Days Qty: 30 1RF citalopram [Celexa] 20 mg tablet 20 mg PO BEDTIME Hold Instructions: Resume on 01/04/24. atorvastatin 80 mg tablet 80 mg PO DAILY Qty: 90 2RF Eliquis 5 mg tablet 5 mg PO BID Qty: 240 3RF Patient Comments: patient states she has not taken her evening dose today and has only taken her morning dose today Rx Instructions: 10 mg twice daily for 7 days then 5 mg twice daily after clopidogrel [Plavix] 75 mg tablet 75 mg PO DAILY Qty: 90 3RF Discharge Orders: Discharge ED (Routine); Ordered 01/25/24 Ordered By: Solomon Graham Referrals: Kyaw Lobato DO [Primary Care Provider] - 1 week Patient Instructions: Peripheral Neuropathy (ED) Activity Restrictions/Additional Instructions: Your evaluation included lab work and head CT did not reveal any acute causes of your numbness of your right lower extremity. Is thought this may be more neuropathy related. Please follow-up with your family practice physician in the next 7 days for further evaluation testing as needed. Coding Level of Care Code ED [employer] for 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
--- NOTE | 2024-01-25 14:14 | CTR_ITS ---
PROCEDURE INFORMATION: Exam: CT Head Without Contrast Exam date and time: 01/25/2024 2:48 PM Age: 73 years old Clinical indication: Other: Numbness in right leg, started today, HX of CVA TECHNIQUE: Imaging protocol: Computed tomography of the head without contrast. Radiation optimization: All CT scans at this facility use at least one of these dose optimization techniques: automated exposure control; mA and/or kV adjustment per patient size (includes targeted exams where dose is matched to clinical indication); or iterative reconstruction. COMPARISON: CT angio headneck* [id number] 12/24/2023 5:11 PM RADIATION DOSE METRICS: Total DLP (mGy-cm): 1066.38 FINDINGS: Brain: There is diffuse cerebral atrophy present, consistent with this patient's age. Periventricular and subcortical white matter low densities are present which at this age likely represent microvascular ischemic change. There are chronic lacunar infarcts in the left caudate, subcortical white matter of the right temporal lobe, and right external capsule.No evidence for large acute ischemic infarction. Please note acute ischemia can be occult by head CT. No evidence for acute intracranial hemorrhage. Cerebral ventricles: No ventriculomegaly. Paranasal sinuses: Visualized sinuses are unremarkable. No fluid levels. Mastoid air cells: Visualized mastoid air cells are well aerated. Bones: Unremarkable. No acute fracture. Soft tissues: Unremarkable. Vasculature: Calcified plaque is present within the carotid siphons. CT/CT head wo con* [id number] IMPRESSION: There are senescent changes of the brain as described above. No evidence for large acute ischemic infarction or acute intracranial injury.
[2024-01-25 14:33] LABS: Magnesium 2.1 mg/dL (1.7-2.3)
[2024-01-25 15:24] VITALS: BP 137/64; RESP 16
[2024-01-25 15:32] VITALS: BP 120/70; PULSE 52; O2SAT 99
[2024-01-25 16:00] VITALS: BP 133/78
[2024-01-25 17:06] LABS: Add Urine Microscopic? YES; Bilirubin Urine Neg (Negative); Blood Urine Neg (Negative); Glucose Urine UA Norm (Normal); Ketones Urine Negative (Negative); Leukocyte Esterase Urine 2+ (Negative); Nitrate Urine Negative (Negative); Protein Urine Neg (Negative); Urine Appearance Clear (CLEAR); Urine Color Yellow (Yellow); Urobilinogen Urine Norm (Negative); pH Urine 7 (5-7)
[2024-01-25 17:07] LABS: Add Urine Culture? No; Bacteria Urine 1+ /hpf; Mucus Urine 1+ /hpf; Squamous Epithelial Cell Urine 0-4 /hpf (0-5)
== END 2024-01-25 16:57 | disposition home or self-care (01) ==
PROVIDERS: Emergency Provider Emergency Medicine; PCP Electrodiagnostic Medicine
DX: G62.9 Polyneuropathy, unspecified (principal); Z79.01 Long term (current) use of anticoagulants; Z79.02 Long term (current) use of antithrombotics/antiplatelets; Z86.73 Personal history of transient ischemic attack (TIA), and cerebral infarction without residual deficits; I10 Essential (primary) hypertension
CPT/HCPCS: 70450; 80053; 81001; 83690; 83735; 85025; 85610; 86140; 99284

== ENCOUNTER 2024-02-09 06:00 | Outpatient (RCR) | payer MEDICARE, OTHER, SELFPAY | END 2024-03-10 23:59 | disposition home or self-care (01) | LOC: SPO 06:00 | PROVIDERS: PCP Electrodiagnostic Medicine; Visit Provider Internal Medicine | DX: R26.89 Other abnormalities of gait and mobility (principal); M62.81 Muscle weakness (generalized); I63.9 Cerebral infarction, unspecified | CPT/HCPCS: 97110; 97530 ==

== ENCOUNTER 2024-03-17 18:06 | Inpatient (IN) | payer MEDICARE, OTHER, SELFPAY ==
[2024-03-17] VITALS (9 sets, daily range): BP systolic 82–171; BP diastolic 61–101; PULSE 54–91; RESP 15–18; TEMP 36.7; O2SAT 95–98
--- NOTE | 2024-03-17 19:46 | XRR_ITS ---
PROCEDURE INFORMATION: Exam: XR Chest Exam date and time: 03/17/2024 8:07 PM Age: 73 years old Clinical indication: Shortness of breath and other: Weakness TECHNIQUE: Imaging protocol: Radiologic exam of the chest. Views: 1 view. COMPARISON: CT angio headneck* [id number] 12/24/2023 5:11 PM FINDINGS: Lungs: The lungs are adequately expanded. No focal consolidations or pulmonary edema. Pleural spaces: No pleural effusions or pneumothorax. Heart/Mediastinum: No cardiomegaly. Bones/joints: No acute fractures. XR/XR chest 1V portable [id number] IMPRESSION: No acute pulmonary disease.
--- NOTE | 2024-03-17 19:46 | ECG_ITS ---
[facility] Test Date: 2024-03-17 Pat Name: Yamel Milligan Department: Room: Gender: Female Band Shover: : 1950 Requested By: Solomon Graham Order Number: [id number] Pineda MD: Hema Whitney M.D. Measurements Intervals Edward Rate: 62 P: 110 SC: 170 QRS: 4 QRSD: 109 T: 39 QT: 415 QTc: 424 Interpretive Statements SINUS RHYTHM WITH OCCASIONAL SUPRAVENTRICULAR PREMATURE COMPLEXES LOW QRS VOLTAGE IN PRECORDIAL LEADS [QRS DEFLECTION < 1.0 mV IN CHEST LEADS] INCOMPLETE RIGHT BUNDLE BRANCH BLOCK [90+ ms QRS DURATION, TERMINAL R IN V1/V2, 40+ ms S IN I/aVL/V4/V5/V6] POSSIBLE ANTERIOR MYOCARDIAL INFARCTION , OF INDETERMINATE AGE [30 ms Q WAVE IN V3/V4, OR R < 0.2 mV IN V4] Compared to ECG 12/25/2023 13:39:36 Incomplete right bundle-branch block now present Myocardial infarct finding now present Electronically Signed On 03-18-2024 9:57:23 CDT by Hema Whitney M.D. [email or web address]
[2024-03-17 20:29] LABS: Basophils % 0.4 %; Eosinophils # 0.1 10^3/uL (0.0-0.8); Eosinophils % 1.4 %; Lymphocytes % 18.5 %; Mean Corpuscular HGB Conc 33.8 g/dL (30-55); Mean Corpuscular Hemoglobin 32.7 pg (27-33); Mean Corpuscular Volume 96.5 fl (85-98); Mean Platelet Volume 12.2 fL (7.4-10.4); Monocytes # 0.4 10^3/uL (0.2-0.9); Monocytes % 7.8 %; Neutrophils # 4.03 10^3/uL (1.8-7.7); Neutrophils % 71.5 %; Nucleated Red Blood Cells % 0 %; Platelet Count 166 10^3/cmm (157-399); Red Blood Count 4.04 10^6/uL (3.85-5.65); Red Cell Distribution Width 11.9 % (12.1-15.1); White Blood Count 5.63 10^3/uL (3.29-11.43)
[2024-03-17 20:52] LABS: Troponin(5th) Baseline 10 ng/L (0-10)
[2024-03-17 20:54] LABS: Alanine Aminotransferase 26 U/L (0-33); Albumin Level 4.6 g/dL (3.5-5.2); Alkaline Phosphatase 59 U/L (35-105); Anion Gap 17.6 (5-19); Aspartate Amino Transferase 36 U/L (0-32); Blood Urea Nitrogen 14 mg/dL (8-23); Calcium 9.6 mg/dL (8.5-10.5); Carbon Dioxide 24 mmol/L (22-29); Chloride 100 mmol/L (98-107); Creatinine Clr Calc Pharmacy 65.6289; Globulin 2.5 g/dL (1.3-4.6); Glucose 152 mg/dL (65-115); Osmolality Calculated 289 mOsm/kg (285-295); Potassium 3.6 mmol/L (3.5-5.1); Sodium 138 mmol/L (136-145); Total Bilirubin 0.5 mg/dL (0.15-1.2); Total Protein 7.1 g/dL (6.6-8.7)
--- NOTE | 2024-03-17 21:45 | CTR_ITS ---
PROCEDURE INFORMATION: Exam: CT Head Without Contrast Exam date and time: 03/17/2024 9:52 PM Age: 73 years old Clinical indication: Dizziness; Additional info: Presyncope dizziness TECHNIQUE: Imaging protocol: Computed tomography of the head without contrast. Radiation optimization: All CT scans at this facility use at least one of these dose optimization techniques: automated exposure control; mA and/or kV adjustment per patient size (includes targeted exams where dose is matched to clinical indication); or iterative reconstruction. COMPARISON: CT head wo con* [id number] 01/25/2024 2:48 PM RADIATION DOSE METRICS: Total DLP (mGy-cm): 1034 FINDINGS: Brain: No acute intracranial hemorrhage or territorial infarction. No mass effect or midline shift. Periventricular and subcortical white matter low densities are present which at this age likely represent microvascular ischemic change. There are chronic lacunar infarcts in the left caudate, subcortical white matter of the right temporal lobe, and right external capsule. Cerebral ventricles: No ventriculomegaly. Paranasal sinuses: Visualized sinuses are unremarkable. No fluid levels. Mastoid air cells: Visualized mastoid air cells are well aerated. Bones: Unremarkable. No acute fracture. Soft tissues: Unremarkable. CT/CT head wo con* [id number] IMPRESSION: No acute intracranial findings. Chronic lacunar infarcts within the left caudate, right temporal lobe, and right external capsule
--- NOTE | 2024-03-17 21:46 | ED_ITS ---
HPI - Dizziness 2 General: Chief Complaint: Dizziness Stated Complaint: dizzy after eating weak felt pass out Time Seen by Provider: 03/17/24 19:46 History of Present Illness: HPI Narrative: Patient presents to the ER with complaints of being weak dizzy and feeling she will pass out. Patient's was eating a colons when she is got a sudden onset feeling of dizziness. When she tried to get up and walk to the car with her walker she was unable to make it because of her weakness she had to sit down and be pushed to the car and said she felt like she just got a pass out at any moment. Patient did not pass out. Patient has not had this happen to her once before where she was worked up but they did not come up with diagnosis. Patient says she has had vertigo in the past. Patient is on lisinopril for blood pressure upon arrival her blood pressure was 82/61, patient is also on Eliquis and aspirin. Patient sees a hydroblaster in [place] and they recently stopped her Plavix. Patient recently had a right MCA stroke with no deficit and has a PFO, and history of PE Review of Systems 2 General: Reports: 10 or more systems reviewed and unremarkable except in HPI and below PFSH ED 2 PFSH: Medical History PFO (patent foramen ovale) Depression At risk for bleeding Peripheral neuropathy Right middle cerebral artery stroke Acute right arterial ischemic stroke, middle cerebral artery (MCA) Thromboembolic stroke Pulmonary embolism CVA (cerebral vascular accident) Hypertension Closed head injury Focal infarction of brain Surgical History No pertinent past surgical history Social History Smoking and tobacco/nicotine status: never used tobacco/nicotine Physical Exam 2 Const: COMMON NORMALS: no acute distress, average body habitus, patient oriented x3, no limitations, healthy appearing, alert and well nourished HENMT: COMMON NORMALS: normocephalic, atraumatic, hearing grossly normal bilaterally, external ears normal, Normal external nose present and moist oral mucous membranes HEAD & SCALP: normocephalic and atraumatic NOSE: Normal external nose present EXTERNAL EAR: Yes external ears normal Eye: COMMON NORMALS: Equal, round and reactive pupils present, EOMs intact bilaterally, conjunctivae normal and no scleral icterus CONJUNCTIVA: Yes conjunctivae normal PUPIL: Yes Equal, round and reactive pupils present Neck/C-Spine: COMMON NORMALS: full ROM, no lymphadenopathy, supple, no meningeal signs, no JVD and Thyroid normal THYROID: Thyroid normal Chest: COMMONS NORMALS: normal inspection of the chest and normal palpation of entire chest wall Resp: COMMON NORMALS: normal respiratory effort, No retractions, No use of accessory muscles and clear to auscultation bilaterally AUSCULTATION: clear to auscultation bilaterally Cardio: COMMON NORMALS: no JVD, regular rate, regular rhythm, S1 normal heart sound present, S2 normal heart sound present, No gallops present (Cardio), No clicks present (Cardio), No murmurs present (Cardio) and No rub (Cardio) R ATE: regular rate RHYTHM: regular rhythm HEART SOUNDS: S1 normal heart sound present and S2 normal heart sound present GI: COMMON NORMALS: Normal to inspection, nondistended, normoactive bowel sounds present, Soft to palpation, non-tender, No hepatosplenomegaly present and no masses PALPATION: Yes Soft to palpation and Yes No hepatosplenomegaly present Neuro: COMMON NORMALS: patient oriented x3 SENSORIUM/ORIENTATION: Yes alert MENINGEAL SIGNS: Yes no meningeal signs Course 2 Vital Signs: Vital signs: Vital Signs Temperature 98.0 F 03/17/24 18:34 Pulse Rate 57 L 03/17/24 20:32 Respiratory Rate 18 03/17/24 20:32 Blood Pressure 116/62 03/17/24 20:32 Pulse Oximetry 98 03/17/24 20:32 Oxygen Delivery Me thod Room Air 03/17/24 20:32 MDM - Dizziness Medical Decision Making Patient was being worked up for vertigo, weakness, and fatigue, her initial troponin come back at 10 and her 2-hour troponin came back at 139 for delta of 129, urinalysis showed possible urinary tract infection. Otherwise workup was unremarkable EKGs did not show any acute ST changes. These results was discussed with the patient as well as Dr. Schmitz. We will place the patient on a heparin drip and place her in [facility] for further evaluation and treatment. Differential Diagnosis Likely benign paroxysmal positional vertigo and orthostatic hypotension Medical Records I reviewed the patient's medical records. Lab Data I reviewed the patient's lab results. 03/17/24 20:22 03/17/24 20:22 Radiology Impressions Chest X-Ray 03/17/24 19:46 IMPRESSION: No acute pulmonary disease. Head CT 03/17/24 21:45 IMPRESSION: No acute intracranial findings. Chronic lacunar infarcts within the left caudate, right temporal lobe, and right external capsule Laboratory Results WBC 5.63 10^3/uL (3.29-11.43) 03/17/24 20:22 RBC 4.04 10^6/uL (3.85-5.65) 03/17/24 20:22 Hgb 13.20 g/dL (11.27-16.99) 03/17/24 20:22 Hct 39.0 % (36-47) 03/17/24 20:22 MCV 96.5 fl (85-98) 03/17/24 20:22 MCH 32.7 pg (27-33) 03/17/24 20:22 MCHC 33.8 g/dL (30-55) 03/17/24 20:22 RDW 11.9 % (12.1-15.1) L 03/17/24 20:22 Plt Count 166 10^3/cmm (157-399) 03/17/24 20:22 MPV 12.2 fL (7.4-10.4) H 03/17/24 20:22 Neut % (Auto) 71.5 % 03/17/24 20:22 Lymph % (Auto) 18.5 % 03/17/24 20:22 [place] % (Auto) 7.8 % 03/17/24 20:22 Eos % (Auto) 1.4 % 03/17/24 20:22 Baso % (Auto) 0.4 % 03/17/24 20:22 Neut # (Auto) 4.03 10^3/uL (1.8-7.7) 03/17/24 20:22 Lymph # (Auto) 1.0 10^3/uL (0.8-4.8) 03/17/24 20:22 [place] # (Auto) 0.4 10^3/uL (0.2-0.9) 03/17/24 20:22 Eos # (Auto) 0.1 10^3/uL (0.0-0.8) 03/17/24 20:22 Baso # (Auto) 0.0 10^3/uL (0.0-0.1) 03/17/24 20:22 Nucleated RBC % (auto) 0 % 03/17/24 20:22 Nucleated RBCs # 0.0 /100WBC 03/17/24 20:22 Sodium 138 mmol/L (136-145) 03/17/24 20:22 Potassium 3.6 mmol/L (3.5-5.1) 03/17/24 20:22 Chloride 100 mmol/L (98-107) 03/17/24 20:22 Carbon Dioxide 24 mmol/L (22-29) 03/17/24 20:22 Anion Gap 17.6 (5-19) 03/17/24 20:22 BUN 14 mg/dL (8-23) 03/17/24 20:22 Creatinine 1.0 mg/dL (0.5-0.9) H 03/17/24 20:22 GFR Calculation Not Reportable 03/17/24 20:22 Glucose 152 mg/dL (65-115) H 03/17/24 20:22 Calculated Osmolality 289 mOsm/kg (285-295) 03/17/24 20:22 Calcium 9.6 mg/dL (8.5-10.5) 03/17/24 20:22 Total Bilirubin 0.5 mg/dL (0.15-1.2) 03/17/24 20:22 AST 36 U/L (0-32) H 03/17/24 20:22 ALT 26 U/L (0-33) 03/17/24 20:22 Alkaline Phosphatase 59 U/L (35-105) 03/17/24 20:22 Troponin T Baseline 10 ng/L (0-10) 03/17/24 20:22 Troponin T 120 Minute 139.1 ng/L (0-10) H 03/17/24 22:22 Delta Troponin T 129.1 ABS# (0-10) H* 03/17/24 22:22 Total Protein 7.1 g/dL (6.6-8.7) 03/17/24 20:22 Albumin 4.6 g/dL (3.5-5.2) 03/17/24 20:22 Globulin 2.5 g/dL (1.3-4.6) 03/17/24 20:22 Urine Color Yellow (Yellow) 03/17/24 22:28 Urine Appearance Cloudy (CLEAR) A 03/17/24 22:28 Urine pH 6.0 (5-7) 03/17/24 22:28 Ur Specific [place] 1.022 (1.005-1.030) 03/17/24 22:28 Urine Protein 2+ (Negative) A 03/17/24 22:28 Urine Glucose (UA) Negative (Normal) 03/17/24 22:28 Urine Ketones Trace (Negative) 03/17/24 22:28 Urine Blood Negative (Negative) 03/17/24 22:28 Urine Nitrate Negative (Negative) 03/17/24 22:28 Urine Bilirubin Negative (Negative) 03/17/24 22: Urine Urobilinogen 2.0 mg/dL (Negative) H 03/17/24 22:28 Ur Leukocyte Esterase 1+ (Negative) A 03/17/24 22:28 Urine RBC 0-2 /hpf (0-2) 03/17/24 22:28 Urine WBC 21-50 /hpf (0-5) H 03/17/24 22:28 Ur Squamous Epith Cells 21-50 /hpf (0-5) 03/17/24 22:28 Amorphous Sediment Not Reportable 03/17/24 22:28 Urine Bacteria None seen /hpf (NONE) 03/17/24 22:28 Hyaline Casts 75.28 /lpf 03/17/24 22:28 All radiology interpretation(s) finalized by discharge Discharge Plan Discharge Patient Disposition: Admitted As Inpatient Clinical Impression: Acute non-ST elevation myocardial infarction (NSTEMI), Acute lower urinary tract infection, Generalized muscle weakness Condition: Stable Coding Level of Care Code ED Chemical Production Engineer for 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
--- NOTE | 2024-03-17 21:46 | ECG_ITS ---
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 Measurements Intervals [place] Rate: 61 P: 35 OR: 169 QRS: 3 QRSD: 102 T: 32 QT: 415 QTc: 418 Interpretive Statements SINUS RHYTHM LOW QRS VOLTAGE IN PRECORDIAL LEADS [QRS DEFLECTION < 1.0 mV IN CHEST LEADS] INCOMPLETE RIGHT BUNDLE BRANCH BLOCK [90+ ms QRS DURATION, TERMINAL R IN V1/V2, 40+ ms S IN I/aVL/V4/V5/V6] POSSIBLE ANTERIOR MYOCARDIAL INFARCTION , PROBABLY OLD [30 ms Q WAVE IN V3/V4, OR R < 0.2 mV IN V4] Compared to ECG 03/17/2024 20:07:50 No significant changes Electronically Signed On 03-18-2024 10:00:21 CDT by Hema Whitney M.D. [id number]
[2024-03-17] MEDS: sodium chloride 0.9% 1,000 ML 999 ML IV (22:14)
[2024-03-17 22:31] LABS: Charge for UA Resulting for Rev
[2024-03-17 22:33] LABS: Bilirubin Urine Negative (Negative); Blood Urine Negative (Negative); Glucose Urine UA Negative (Normal); Ketones Urine Trace (Negative); Leukocyte Esterase Urine 1+ (Negative); Nitrate Urine Negative (Negative); Protein Urine 2+ (Negative); Specific Gravity, Urine 1.022 (1.005-1.030); Urine Appearance Cloudy (CLEAR); Urine Color Yellow (Yellow)
[2024-03-17 22:38] LABS: Bacteria Urine None Seen /hpf; Hyaline Casts Urine 75.28 /lpf; RBC Urine 0-2 /hpf (0-2); Squamous Epithelial Cell Urine 21-50 /hpf (0-5); WBC Urine 21-50 /hpf (0-5)
[2024-03-17 22:50] LABS: Troponin 5 2HR 139.1 ng/L (0-10); Troponin 5 2HR Delta 129.1 ABS# (0-10)
[2024-03-17] MEDS: heparin 5,000 unit/mL INJ 1 mL IVP (23:56)
[2024-03-17] MEDS: heparin drip 25,000 UNIT/500 ML PREMIX 28 UNIT IV (23:58)
[2024-03-18] VITALS (12 sets, daily range): BP systolic 112–150; BP diastolic 64–88; PULSE 54–81; RESP 16–20; TEMP 36.6–37.1; O2SAT 96–100; BMI 30.2
[2024-03-18] MEDS: ciprofloxacin 500 mg Tablet PO
--- NOTE | 2024-03-18 01:46 | ECG_ITS ---
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 Measurements Intervals [place] Rate: 56 P: -23 KS: 164 QRS: 0 QRSD: 93 T: 15 QT: 428 QTc: 417 Interpretive Statements SINUS BRADYCARDIA LOW QRS VOLTAGE IN PRECORDIAL LEADS [QRS DEFLECTION < 1.0 mV IN CHEST LEADS] PATTERN CONSISTENT WITH PULMONARY DISEASE INCOMPLETE RIGHT BUNDLE BRANCH BLOCK [90+ ms QRS DURATION, TERMINAL R IN V1/V2, 40+ ms S IN I/aVL/V4/V5/V6] MINIMAL ST DEPRESSION [0.025+ mV ST DEPRESSION] Compared to ECG 03/17/2024 21:33:41 ST (T wave) deviation now present Sinus rhythm no longer present Myocardial infarct finding no longer present Electronically Signed On 03-18-2024 10:00:11 CDT by Hema Whitney M.D. [id number]
--- NOTE | 2024-03-18 02:30 | P.HP_ITS ---
Providers/Chief Complaint 2 Admitting Physician: Sharlene Schmitz MD Primary Care Provider: Kyaw Lobato DO Chief Complaint: dizzy after eating weak felt pass out History of Present Illness Yamel Milligan is a 73 year old female with recent history of stroke, discovery of PFO on echocardiogram, on Plavix and Eliquis after her stroke for 3 weeks, thereafter Plavix discontinued and currently on Eliquis 5 mg p.o. twice daily. She presents to the hospital today with chief complaint of presyncope. Patient was at a restaurant, had just finished dinner, as she was walking out she felt extremely dizzy like she was going to pass out. She needed to sit on her wheeled walker. She was unable to carry on walking as her legs felt weak and she felt like she was going to pass out. She needed to be carried by 3 people to her car. She reports she has had issues with low blood pressure in the past and initially there was concern for orthostatic hypotension. Her blood pressure was 82/61 upon initial arrival, thereafter corrected to 114/64 at the time of this assessment. EKG showed no acute ST-T wave changes, no arrhythmia. Baseline troponin was at 10, trending up to 139 with a delta of 129 at 2 hours. Patient denies any complaints of chest pain, dyspnea, palpitations. She has been experiencing heartburn over the past 3 weeks for which she had visited with her primary care physician. States she had been feeling nauseous and appears may have been prescribed some antacids. Denies any past history of coronary artery disease. Review of Systems 2 General: Reports: 10 or more systems reviewed and unremarkable except in HPI and below Const: Denies: fever(s), chills or body aches Eyes: Denies: change in vision, blurry vision or photophobia ENMT: Reports: hoarseness; Denies: throat pain, enlarged tonsils, odynophagia or nasal congestion Card: Denies: chest pain, palpitations, irregular heart rhythm, edema, swelling of feet/ankles, lightheadedness, pre-syncope, dyspnea on exertion or orthopnea Resp: Denies: dyspnea, productive cough, non-productive cough, wheezing, stridor, pain on inspiration, change in phlegm color, hemoptysis or chest congestion GI: Denies: abdominal pain, nausea, vomiting, hematemesis, coffee ground emesis, dysphagia, heartburn, diarrhea, constipation, GI cramping, change in stool character, hematochezia or melena : Denies: flank pain, difficulty voiding, dysuria, urinary frequency, urinary urgency, urinary hesitancy or hematuria Musc: Denies: neck pain, back pain, extremity pain, joint swelling, joint warmth or deformity Neuro: Denies: headache(s), numbness in extremities, weakness in extremities, sensory changes, difficulty walking, frequent falls, dizziness, vertigo, behavioral changes, Slurred speech present or seizure-like activity Psych: Denies: anxiety, depression, suicidal ideation or homicidal ideation Endo: Denies: polyuria, polydipsia, tired all the time, cold intolerance or hot flashes Bowen/Lymph: Denies: easy bruising or easy bleeding Medications/Allergies Home Medications Medication Instructions Recorded Confirmed Last Taken Type metoprolol tartrate 25 mg tablet 25 mg PO BID 11/25/20 03/18/24 12/26/23 History tramadol 50 mg tablet 50 mg PO Q8H PRN Pain 11/25/20 12/26/23 Unknown History citalopram 20 mg tablet (Celexa) 20 mg PO BEDTIME 12/24/23 12/26/23 12/25/23 History apixaban 5 mg tablet (Eliquis) 5 mg PO BID #240 tabs 12/25/23 03/18/24 12/26/23 Rx atorvastatin 80 mg tablet 80 mg PO DAILY #90 tabs 12/25/23 12/26/23 12/26/23 Rx bupropion HCl 150 mg 24 hr tablet, 150 mg PO DAILY 30 days #30 tabs 12/28/23 Unknown Rx extended release Allergies Allergy/AdvReac Type Severity Reaction Status Date / Time codeine Allergy Unknown Unknown Verified 03/17/24 18:42 Penicillins Allergy nausea Verified 03/17/24 18:42 Gabapentin Allergy lethargic Uncoded 03/17/24 18:42 PFSH Acute 2 PFSH: Medical History PFO (patent foramen ovale) Depression At risk for bleeding Peripheral neuropathy Right middle cerebral artery stroke Acute right arterial ischemic stroke, middle cerebral artery (MCA) Thromboembolic stroke Pulmonary embolism CVA (cerebral vascular accident) Hypertension Closed head injury Focal infarction of brain Surgical History No pertinent past surgical history Social History Smoking and tobacco/nicotine status: never used tobacco/nicotine Vitals/I&O/Wt Last Vital Signs Temp 97.8 F 03/18/24 01:26 Pulse 73 03/18/24 01:25 Resp 20 H 03/18/24 01:25 BP 150/87 03/18/24 01:25 Pulse Ox 96 03/18/24 01:25 O2 Del Method Room Air 03/18/24 00:51 03/17/24 03/17/24 03/18/24 14:59 22:59 06:59 Intake Total 1000 / 1000 Balance 1000 / 1000 Weight last 48 hrs Weight 100.924 kg Weight 100.924 kg Physical Exam 2 Narrative: General: No acute distress, AO x3 HEENT: PERRLA, pupils bilaterally equal and reactive, pallors not present Chest: Normal vesicular breath sounds, no added sounds, equal good air entry bilaterally CVS: S1-S2 regular, no murmurs, no tachycardia, no gallops, no rubs Abdomen: Soft, nontender, no organomegaly, bowel sounds present Neuro: No focal deficits, no facial deformity, AO x3, power 5/5 in all limbs Data 03/17/24 20:22 03/17/24 20:22 A&P Assessment and plan (1) Acute non-ST elevation myocardial infarction (NSTEMI): 73-year-old lady presenting today with presyncopal symptoms EKG without acute ST-T wave changes. Shows sinus bradycardia with heart rate of 56/min. Elevated troponin, baseline at 10, increasing to 139 at 2 hours with a delta of 129 Concern for NSTEMI Start heparin drip weight-based protocol. Aspirin 325 mg x 1 now followed by 81 mg p.o. daily. Continue atorvastatin 80 mg p.o. daily Patient is on Eliquis after a recent history of stroke in December 2023 with discovery of PFO on echocardiogram. Last dose of Eliquis was taken on 03/17/2020 4 in the morning. Cardiology consulted to evaluate for possible angiogram, discussed with patient that any intervention may need to wait for about 48 hours from last Eliquis dose if she remains clinically stable Echocardiogram ordered (2) Pre-syncope: May be related to NSTEMI. No current arrhythmia evident on telemetry or EKGs. Will continue telemetry monitoring. Sinus bradycardia with heart rate in the 50s, hold metoprolol for now because of bradycardia and hypotension upon admission. Check orthostatics. Plan DVT prophylaxis: Currently on heparin drip Full code Attestations 2 Medical Necessity Statement*: Greater than 2 midnight stay is anticipated Coding Level of Care Code Acute Code for Chg Fwd High MDM includes number and complexity of problems actively addressed during encounter, amount and/or complexity of data reviewed/ordered and described risk of complication, morbidity or mortality of management as documented Diagnoses Acute non-ST elevation myocardial infarction (NSTEMI) I21.4 Pre-syncope R55
[2024-03-18] MEDS: aspirin 325 mg Tablet PO (03:23)
[2024-03-18 03:30] LABS: Troponin 5 6HR 111.4 ng/L (0-10); Troponin 5 6HR Delta 101.4 ng/L (0-12)
--- NOTE | 2024-03-18 05:35 | USCV_ITS ---
Yamel Milligan Age: 73 Gender: F : 1950 Exam Date: 03/18/2024 07:31 Ordering Phys: Sharlene Schmitz MD Technologist: IVONNE [place]am [place] [facility] [place]: NSTEMI BP: 142 / 88 HR: 58 Rhythm: Sinus Technical Quality: Adequate MEASUREMENTS (Male / Female) Normal Values 2D ECHO LV Diastolic Diameter PLAX 5.8 cm 4.2 - 5.9 / 3.9 - 5.3 cm IVS Diastolic Thickness 0.6 cm 0.6 - 1.0 / 0.6 - 0.9 cm IVS Systolic Thickness 1.3 cm LVPW Diastolic Thickness 1.6 cm 0.6 - 1.0 / 0.6 - 0.9 cm LVPW Systolic Thickness 2.2 cm LVOT Diameter 2.0 cm LV Ejection Fraction 2D Teich 59.2 % LV Ejection Fraction MOD 4C 53.3 % LV Ejection Fraction MOD 2C 57.2 % LV Ejection Fraction 2C AL 59.8 % LA Diameter 3.4 cm RA Systolic Volume 4C AL 44.5 ml RA Systolic Volume 4C MOD 42.3 ml LA Sys Volume AL 26.5 cm cubed LA Sys Volume Index AL 11.6 cm cubed/m squared Aorta at Sinotubular Diameter 2.4 cm IVC Diameter 1.9 cm M-MODE LA Ao Ratio MM 1.0 AV Cusp Separation MM 1.7 cm FINDINGS Left Ventricle Right Ventricle Right Atrium Left Atrium Mitral Valve Aortic Valve Tricuspid Valve Pulmonic Valve Pericardium Aorta IVC CONCLUSIONS Technically limited quality echocardiogram. LV systolic function is grossly normal. In some views, suspicion for borderline global hypokinesis however can not accurately be assessed because of limited echo windows. Hema Whitney MD (Electronically Signed) Final Date: 18 March 2024 08:51 S
[2024-03-18 06:45] LABS: Partial Thromboplastin Time > 250.0 SECONDS (23.9-36.7)
--- NOTE | 2024-03-18 06:52 | PC.NURSE ---
PTT came back greater than 250. Paused Heparin and orderd PTT for [address] Schmitz.
--- NOTE | 2024-03-18 07:44 | P.CONIM_ITS ---
Providers/Reason For Consult 2 Consulting Physician/Specialty*: Hema Whitney MD/ Cardiology Reason for Consult*: NSTEMI Requesting Physician: Dr Schmitz Attending Physician: Sharlene Schmitz MD Primary Care Provider: Kyaw Lobato DO History of Present Illness History of Present Illness Yamel Milligan is a 73 year old female with past medical history of stroke, PFO who presented to hospital after feeling weak and dizzy. She has been having heartburn symptoms for last several days. Still having on and off symptoms. Troponins trended up from baseline of 10-139 at [address] T wave changes seen. Review of Systems 2 General: Reports: 10 or more systems reviewed and unremarkable except in HPI and below Medications/Allergies Home Medications Medication Instructions Recorded Confirmed Last Taken Type metoprolol tartrate 25 mg tablet 25 mg PO BID 11/25/20 03/18/24 03/17/24 History tramadol 50 mg tablet 50 mg PO Q8H PRN Pain 11/25/20 03/18/24 Unknown History citalopram 20 mg tablet (Celexa) 20 mg PO BEDTIME 12/24/23 03/18/24 03/16/24 History apixaban 5 mg tablet (Eliquis) 5 mg PO BID #240 tabs 12/25/23 03/18/24 03/17/24 Rx aspirin 81 mg tablet,delayed 81 mg PO QPM 03/18/24 03/18/24 03/16/24 History release cetirizine 10 mg tablet 10 mg PO DAILY 03/18/24 03/18/24 03/17/24 History coenzyme Q10 100 mg capsule 100 mg PO QPM 03/18/24 03/18/24 03/16/24 History (CoQ-10) lisinopril 10 mg tablet 10 mg PO BID 03/18/24 03/18/24 03/17/24 History multivitamin 1 tab PO QPM 03/18/24 03/18/24 03/16/24 History pantoprazole 40 mg tablet,delayed 40 mg PO DAILY 03/18/24 03/18/24 03/17/24 History release rosuvastatin 40 mg tablet 40 mg PO BEDTIME 03/18/24 03/18/24 03/16/24 History sucralfate 1 gram tablet 1 g PO QID 08/04/0303/18/24 03/17/24 History Allergies Allergy/AdvReac Type Severity Reaction Status Date / Time codeine Allergy Unknown Unknown Verified 03/17/24 18:42 Penicillins Allergy nausea Verified 03/17/24 18:42 Gabapentin Allergy lethargic Uncoded 03/17/24 18:42 Current Medications Generic Name Dose Route Start Last Admin Trade Name Freq PRN Reason Stop Dose Admin Heparin Sodium/Sodium Chloride 25,000 unit in 500 mls @ 0 mls/hr 03/17/24 23:45 03/18/24 06:52 Heparin Drip IV 0 unit/kg/hr CONT CHIP 0 mls/hr Titration Protocol Per Protocol PFSH Acute 2 PFSH: Medical History PFO (patent foramen ovale) Depression At risk for bleeding Peripheral neuropathy Right middle cerebral artery stroke Acute right arterial ischemic stroke, middle cerebral artery (MCA) Thromboembolic stroke Pulmonary embolism CVA (cerebral vascular accident) Hypertension Closed head injury Focal infarction of brain Surgical History No pertinent past surgical history Social History Smoking and tobacco/nicotine status: never used tobacco/nicotine Vitals/I&O/Wt Last Vital Signs Temp 97.8 F 03/18/24 01:26 Pulse 60 03/18/24 06:00 Resp 18 03/18/24 03:08 BP 114/64 03/18/24 03:09 Pulse Ox 97 03/18/24 03:08 O2 Del Method Room Air 03/18/24 03:08 03/17/24 03/18/24 03/18/24 22:59 06:59 14:59 Intake Total 1193.2 / 1193.2 Balance 1193.2 / 1193.2 Weight last 48 hrs Weight 222 lb 8 oz Weight 222 lb 8 oz Weight 222 lb 8 oz Physical Exam 2 Narrative: GENERAL: Patient is alert, awake and oriented x3. [] NECK: No jugular vein distension. [] HEENT: No cyanosis. No icterus. No pallor. [] HEART: Regular S1 and S2. No murmur, rub or gallop. [] LUNGS: Clear to auscultate bilaterally. [] CENTRAL NERVOUS SYSTEM: Grossly nonfocal. [] EXTREMITIES: Lower extremities with 1+ edema bilaterally. Data 03/19/24 03:48 03/19/24 03:48 A&P Assessment and plan (1) Acute non-ST elevation myocardial infarction (NSTEMI): (2) Status post CVA: (3) Pre-syncope: Plan Patient has some features of atypical symptoms however has ongoing heartburn. Troponins did trend up significantly. Echo shows normal LV systolic function. After discussion with patient, decision made to proceed with coronary angiogram with possible PCI. Risks and benefits of the procedure been discussed. She understands those and wants to proceed. Continue aspirin and anticoagulation NPO past midnight Thank you for involving us with care of this patient. We will continue to follow. Please call with questions. Consult Attestations 2 Medical Necessity Statement: Care expected to cross 2 midnights. Coding Level of Care Code Acute Code for [facility] Fwd Diagnoses Acute non-ST elevation myocardial infarction (NSTEMI) I21.4 Status post CVA Z86.73 Pre-syncope R55
[2024-03-18] MEDS: buPROPion XL (24 HR) 150 mg Tablet PO (08:19)
[2024-03-18] MEDS: aspirin 81 mg EC Tablet PO (08:20)
[2024-03-18] MEDS: pantoprazole DR 40 mg Tablet PO (08:20)
--- NOTE | 2024-03-18 09:00 | W.PM.EVENTAC ---
Event Note Event Note: Plan for angiogram in the morning No active chest pain Hemodynamically stable Currently on room air No active hemodynamic instability Patient is benign. History of coronary disease or VA or CHF Patient stating that she is weak on left side from previous stroke She lives alone but daughter checks on her lives nearby She is full code Continue ACS protocol
--- NOTE | 2024-03-18 09:02 | PC.PHAR ---
DAUGHTER [facility] SENIOR DATABASE PROGRAMMER TOOK PT OFF OF PLAVIX 75MG DUE TO TAKING ELIQUIS.
--- NOTE | 2024-03-18 09:33 | PC.CHAP ---
Pastoral Care Encounter/Spiritual Assessment Type of Contact [] Declined dozer operator visit [] Patient/Family/Request visit [] Outpatient visit [] Follow-up visit [] Physician referral [] Code/Alert [x] Routine visit [] Staff referral [] Actively dying [] Patient sleeping [] Family support [] [] Out of room [] Palliative care [] [] Receiving care in room [] Pre-surgical visit [] Trauma [] Long length of stay [] ICU visit [] Other: Relational/Emotional Strength [x] Patient feels connected with others/family/visitors/staff [] Distress [] Loneliness/isolation [] Abandonment Spirituality of Patient [x] Person of [place] [] Attends Jain of their [place] [x] Believes in Prayer [] Reads Bible or Jehovah'S Witness materials [] There are Spiritual issues to be addressed Hse Specialist Interventions [x] Prayer [x] Active listening [] Non-anxious presence [x] Spiritual/emotional support [] Crisis/trauma care [] Spiritual counseling [] Bereavement support [] Provided bereavement packet [] Provided Bible/devotional materials [] Provided toy/stuffed animal, coloring book to patient or family member [] Provided Communion [] Anointing/[place] [] Salvation [x] Completed spiritual assessment [] Other: Impact on Illness or Injury [] Angry [] Fearful [] Anxious [] Often cries [] Exhaustion [] Unable to work [] Unable to attend zoroastrian [] Unable to walk/stand [] Unable to read [] Unable to drive [] Unable to eat/drink [] Unable to sleep [] Unable to be with family [] Patient intubated [] Other: Summary Time spent with patient 5 min
[2024-03-18 11:02] LABS: Partial Thromboplastin Time 57.3 SECONDS (23.9-36.7)
[2024-03-18] MEDS: heparin drip 25,000 UNIT/500 ML PREMIX 28 UNIT IV (11:08)
[2024-03-18 18:33] LABS: Partial Thromboplastin Time 207.9 SECONDS (23.9-36.7)
[2024-03-18] MEDS: citalopram 20 mg Tablet PO (21:30)
[2024-03-18] MEDS: atorvastatin 40 mg Tablet 80 MG PO (21:30)
[2024-03-18 23:01] LABS: Partial Thromboplastin Time 38.1 SECONDS (23.9-36.7)
[2024-03-19] VITALS (9 sets, daily range): BP systolic 115–128; BP diastolic 62–86; PULSE 0–73; RESP 16–23; TEMP 36.5–36.8; O2SAT 96–99
--- NOTE | 2024-03-19 00:37 | PC.NURSE ---
Patient ptt has fluctuated to extreme through out the day. Heparin gtt was paused at 1845 bc ptt was 207.9 at 1735. Ptt came back at 22:39 at 38.1. Per protocol gtt will be turned up 4mL and bolus of 4000 units should be given. This nurse was concerned because of the fluctuation during day shift. Dr Schmitz was notified and informed of situation. Per orders to follow protocol.
[2024-03-19] MEDS: heparin 5,000 unit/mL INJ 1 mL IVP (00:52)
[2024-03-19 04:11] LABS: Basophils % 0.4 %; Eosinophils # 0.2 10^3/uL (0.0-0.8); Eosinophils % 4.7 %; Hematocrit 35.5 % (36-47); Lymphocytes # 1.6 10^3/uL (0.8-4.8); Lymphocytes % 32.9 %; Mean Corpuscular HGB Conc 33.8 g/dL (30-55); Mean Corpuscular Hemoglobin 32.5 pg (27-33); Mean Corpuscular Volume 96.2 fl (85-98); Mean Platelet Volume 12.6 fL (7.4-10.4); Monocytes # 0.4 10^3/uL (0.2-0.9); Monocytes % 8.7 %; Neutrophils # 2.61 10^3/uL (1.8-7.7); Neutrophils % 53.1 %; Nucleated Red Blood Cells % 0 %; Platelet Count 131 10^3/cmm (157-399); Red Blood Count 3.69 10^6/uL (3.85-5.65); Red Cell Distribution Width 12.1 % (12.1-15.1); White Blood Count 4.92 10^3/uL (3.29-11.43)
[2024-03-19 04:33] LABS: Alanine Aminotransferase 22 U/L (0-33); Albumin Level 3.6 g/dL (3.5-5.2); Alkaline Phosphatase 49 U/L (35-105); Anion Gap 15.4 (5-19); Aspartate Amino Transferase 29 U/L (0-32); Blood Urea Nitrogen 9 mg/dL (8-23); Calcium 8.7 mg/dL (8.5-10.5); Carbon Dioxide 22 mmol/L (22-29); Chloride 105 mmol/L (98-107); Creatinine Clr Calc Pharmacy 82.0361; Globulin 2.3 g/dL (1.3-4.6); Glucose 107 mg/dL (65-115); Osmolality Calculated 287 mOsm/kg (285-295); Potassium 3.4 mmol/L (3.5-5.1); Sodium 139 mmol/L (136-145); Total Bilirubin 0.4 mg/dL (0.15-1.2); Total Protein 5.9 g/dL (6.6-8.7)
[2024-03-19] MEDS: heparin drip 25,000 UNIT/500 ML PREMIX 33 UNIT IV (04:39)
[2024-03-19] MEDS: sodium chloride 0.9% 1,000 ML 50 ML IV (05:48)
[2024-03-19] MEDS: acetaminophen 325 mg Tablet 650 MG PO (05:56)
[2024-03-19] MEDS: diphenhydrAMINE 50 mg Capsule PO (05:56)
--- NOTE | 2024-03-19 06:03 | XACV_ITS ---
Exam Room: [facility] Ht: 183 cm Wt: 103 kg BSA: 2.32 m2 Gender: Female : 1950 Any Known Allergies: Other Exam Priority: Routine Procedure(s): Procedure Description: Diagnostic procedure Procedure Description: Left Heart Catheterization Procedure Description: Left ventriculography Procedure Description: Miscellaneous Procedure Description: ACT Procedure Description: Coronary Angiography Diagnostic Cath Status: Urgent Diagnostic Findings * No disease noted in the Left Main, Left Anterior Descending, Right, or Circumflex coronary arteries. * Coronary angiography shows left dominance. Conclusions 1. No disease noted in the Left Main, Left Anterior Descending, Right, or Circumflex coronary arteries. 2. Normal left ventricular systolic function. Ejection fraction of 55%. Recommendations * Aggressive risk factor modification. * Outpatient cardiology follow up in 2 weeks. Interventional RX Recommendation: medical therapy and/or counseling Diagnostic RX Recommendation: medical therapy and/or counseling Anticoagulation: Heparin Ventriculography Ejection Fraction: 55.0 % Pressures Phase:Rest AO : 85 / 67 ( 77 ) @ 8:33:00 AM 135 / 75 ( 100 ) @ 8:39:00 AM 135 / 76 ( 100 ) @ 8:39:00 AM LV : 126 / -8 / 16 @ 8:38:00 AM 133 / -5 / 17 @ 8:38:00 AM 132 / -6 / 16 @ 8:39:00 AM Valves Phase:DefaultPhase AV : 0.0 @ 7:48:57 AM AV Mean Gradient: 0.0 @ 7:48:57 AM Clinical Evaluation EBL: 5mL-10mL Procedural Details Procedure Consent Obtained. Current Diagnosis : NSTEMI. Pre-Procedure Time Out. Identified patient by full name and date of as verbalized by the patient/guarantor. Does the consent match the physician's order: Yes. Accurate & Complete Informed Consent: Yes. Inpatient/Outpatient History & Physical on Chart: Yes. If H&P is completed, is and addenduem needed: No; If yes, is the addendum complete: N/A. Visualize and Verify Site with Patient/Guarantor: N/A. Relevant Radiology Images available: Yes. Pre-op teaching completed and patient verbalized understanding. The risks, benefits, and alternatives of sedation and/or procedure were discussed by physician. The patient agrees to continue. Procedure started. [facility] Clinical Fraility Score: 4: Vulnerable. In Home Tutor Indications: ACS > 24 hours. Chest Pain Symptom Assessment: Typical Angina Symptoms. Correct patient, site and procedure confirmed by cath team. Current diagnosis: NSTEMI. PERRLA. Strong, equal hand milieu coordinator bilaterally. Lungs clear x 5 lobes. IV Site on Arrival: 20 gauge in the left anticubital. IV Fluids: 0.9% NaCl at KVO. 0 mL infused prior to yard labor supervisor. Oxygen started at 2liters/min via nasal canula. right groin was prepped with chloroprep then draped in the usual sterile fashion. right radial was prepped with chloroprep then draped in the usual sterile fashion. Physician notified. Baseline sample Acquired. HR: 72 BPM. Physician arrived. Physician scrubbed in. Immediate Pre-Procedure Time Out. Correct Patient: Yes; Correct Procedure: Yes; Correct Site: Yes; Correct Patient Position: Yes; Correct Supplies: Yes; Dried Flammable Prep: Yes; Blood Products Available: N/A;. Lidocaine 1% infiltrated to the right radial. Arterial access obtained. A 5 bhutanese TIG catheter in over wire. Multiple views taken of left coronary artery. Catheter redirected to the RCA. Multiple views taken of right coronary artery. Catheter removed over the exchange wire. A 5 bhutanese Angled Pig catheter in over wire. EDP Sample taken: LV 126/-9,16; HR: 79 BPM; SpO2: 100%. LV gram performed in WHITNEY @ 10 mL/second for a total of 30 mL. EDP Sample taken: LV 133/-6,17; HR: 77 BPM; SpO2: 100%. Pullback taken: LV 132/-7,16; AO 135/75(100); Mean: 0mmHg, Peak to Peak: 0mmHg, SEP: 8sec/min; HR: 78 BPM; SpO2: 100%. Catheter removed over the exchange wire. ACT drawn. Results 234 seconds. Therapeutic limits - pre-heparin administration 90-150 seconds and monitoring heparin during a vascular procedure >250 seconds. A TR Band was successful obtaining hemostatsis at the Right Radial artery insertion site. Vital chart was stopped. Post Procedure: Pulses reassessed and unchanged. PERRLA. Strong, equal hand milieu coordinator bilaterally. No VTE prophylaxis required. Medication's Wasted: Lidocaine 1% = 18 mL. Medication's Wasted: Nitro = 49.8 mcg. Medication's Wasted: Heparin = 1000 units. Medication's Wasted: Other = Fentanyl 50mcg Versed 1 mg. Total IV fluids: 50 mL. Complications: None. Estimated blood loss: 5mL-10mL. Responsiveness - Normal response to verbal stimuli; alert and oriented, PERRLA. Airway - Unaffected, no intervention required; spontaneous ventilation. Circulation: W/N/L, pulses unchanged. Nausea/Vomiting: No. Procedure completed. Patient transferred by bed to CPRU. Access Site Site: Right Radial artery Sheath Size: 6 Fr Hemostasis Method: TR Band Hemostasis Success: Successful Procedure Medications Start: 7:20 AM Stop: 7:20 AM Medication: Versed Amount: 1 mg Route: I.V. Start: 7:20 AM Stop: 7:20 AM Medication: Fentanyl Amount: 50 mcg Route: I.V. Start: 7:29 AM Stop: 7:29 AM Medication: Nitrogylcerin Amount: 200 mcg Route: I.A. I, the attending physician, have reviewed and verified all procedure medications. Yes, all medications given per verbal order History/Risk Factors Hypertension: Yes Dyslipidemia: No Peripheral Arterial Disease (PAD): No Myocardial Infarction (ID): No Obesity: No Renal Disease: No Tobacco Use: Never Prior Interventions PCI: No CABG: No Valve Surgery: No Report Signatures Finalized by Hema Whitney MD on 04/01/2024 07:00 PM
[2024-03-19 06:24] LABS: Partial Thromboplastin Time > 250.0 SECONDS (23.9-36.7)
--- NOTE | 2024-03-19 07:22 | W.PM.OPSUD ---
Surgery/Procedure H&P Update DATE OF PROCEDURE: March 19, 2024 DATE H&P PERFORMED: 03/18/24 H&P UPDATE INFORMATION: I have reviewed H&P completed within last 30 days, I have examined patient prior to procedure and No changes to prior documentation PREOP DIAGNOSIS: NSTEMI PRIMARY INDICATION FOR PROCEDURE: NSTEMI PLANNED PROCEDURE: Left heart cath with possible percutaneous intervention PATIENT REASSESSED PRIOR TO SEDATION, WITH NO CHANGE NOTED: Yes PHYSICAL EXAM: alert, oriented x 3, clear to auscultation bilaterally and regular rate & rhythm AIRWAY EVAL/ANESTHESIA PLAN: normal airway, ASA III, Local Anesthesia, Risks, benefits & alternatives of sedation and/or procedure discussed and Patient agrees to continue as planned ADDITIONAL INFORMATION: Moderate sedation
--- NOTE | 2024-03-19 07:24 | PM.PN ---
Subjective Subjective: Patient is doing well. no chest pain Vitals/I&O/Wt Last Vital Signs Temp 98.2 F 03/19/24 04:00 Pulse 72 03/19/24 04:00 Resp 18 03/19/24 04:00 BP 128/77 03/19/24 04:00 Pulse Ox 99 03/19/24 04:00 O2 Del Method Room Air 03/19/24 04:00 03/18/24 03/19/24 03/19/24 22:59 06:59 14:59 Intake Total 635.333 / 955.933 190.85 / 1146.783 Balance 635.333 / 430.933 190.85 / 621.783 Weight last 48 hrs Weight 228 lb Weight 222 lb 8 oz Weight 222 lb 8 oz Weight 222 lb 8 oz Physical Exam Narrative: GENERAL: Patient is alert, awake and oriented x3. [] NECK: No jugular vein distension. [] HEENT: No cyanosis. No icterus. No pallor. [] HEART: Regular S1 and S2. No murmur, rub or gallop. [] LUNGS: Clear to auscultate bilaterally. [] CENTRAL NERVOUS SYSTEM: Grossly nonfocal. [] EXTREMITIES: Lower extremities with 1+ edema bilaterally. Data 03/19/24 03:48 03/19/24 03:48 A&P Assessment and plan (1) Acute non-ST elevation myocardial infarction (NSTEMI): (2) Status post CVA: (3) Pre-syncope: Plan Patient's coronary angiogram did not reveal significant CAD. Aggressive medical therapy and risk factor modification. Patient is stable to be discharged from cardiology standpoint. Thank you for involving us with care of this patient. Please call with questions. Attestations Medical Necessity Statement*: Care expected to cross 2 midnights. Coding Level of Care Code Acute Code for [facility] Fwd Diagnoses Acute non-ST elevation myocardial infarction (NSTEMI) I21.4 Status post CVA Z86.73 Pre-syncope R55
--- NOTE | 2024-03-19 07:53 | PC.NURSE ---
Patient is off floor for angiogram currently. Updated report from SYLVIA Miles.
--- NOTE | 2024-03-19 08:01 | SUR.EXTENDED ---
Received the patient back from the laboratory specialist via bed s/p Diagnostic [facility]. Drowsy, but A & 0 x 3. monitoring analyst placed and vital signs obtained. TR band intact to the right wrist. No bleeding or hematoma noted. Palpable radial pulse. Family at bedside. No concerns voiced at this time. Will transfer back to room 104 after recovery.
--- NOTE | 2024-03-19 08:30 | SUR.EXTENDED ---
Patient transferred via bed to [facility].
--- NOTE | 2024-03-19 08:37 | PC.NURSE ---
Patient arrived back from seed laboratory technician. TR band on right wrist with 13ml of air in it. Patient is resting and VS all WNL. No oozing or hematoma present at this time. Patient aware of activity restrictions. Will remove TR band per protocol.
[2024-03-19] MEDS: aspirin 81 mg EC Tablet PO (09:10)
[2024-03-19] MEDS: pantoprazole DR 40 mg Tablet PO (09:10)
[2024-03-19] MEDS: buPROPion XL (24 HR) 150 mg Tablet PO (09:10)
--- NOTE | 2024-03-19 10:05 | P.DS_ITS ---
Discharge Providers Date of Admission: 03/17/24 23:26 Date of Discharge: March 19, 2024 Attending Provider at Admission: Sharlene Schmitz MD Attending Provider at Discharge: Magi Cross MD Primary Care Provider: Kyaw Lobato DO Diagnoses at Discharge Discharge Diagnosis (1) Acute non-ST elevation myocardial infarction (NSTEMI): Status: Acute (2) Status post CVA: Status: Acute (3) Pre-syncope: Status: Acute Reason for Visit Reason for Visit: dizzy after eating weak felt pass out Hospital Course Hospital Course 73-year-old female who presented with presyncope, patient was diagnosed with low blood pressure and non-STEMI, she was put on ACS protocol right away, she did not experience any chest pain at all, she remained hemodynamically stable with IV fluid hydration, at home she takes lisinopril and metoprolol. Cardiology was consulted, patient went for coronary angiogram via radial access on 03/19, nonobstructive coronary disease, echo did not show any significant wall motion abnormality. At the time of discharge we have discontinued metoprolol and cut the dose of lisinopril to 5 mg only. At the time of discharge blood pressure is 115/60 mmHg. Heart rate 65. Patient is doing well on room air. Physical Exam Narrative: Hemodynamically stable Awake and alert Euvolemic Pleasant cooperative Abdomen soft Discharge Data Studies Completed and Pending Completed Studies During Hospitalization Category Date Time Status CT head wo con* [id number] Stat Cat Scan 03/17/24 21:45 Completed XR chest 1V portable [id number] Stat Exams 03/17/24 19:46 Completed CV. echo limited [id number] Routine Ultrasound 03/18/24 05:35 Completed Pending at discharge Category Date Time Status BREAKDOWN MAN request for service Routine Exams 03/19/24 06:03 Ordered PTT [Partial Thromboplastin Time] Routine Lab 03/19/24 10:30 Ordered Platelet Count Q2D Lab 03/21/24 04:00 Ordered Radiology Impressions Chest X-Ray 03/17/24 19:46 IMPRESSION: No acute pulmonary disease. Head CT 03/17/24 21:45 IMPRESSION: No acute intracranial findings. Chronic lacunar infarcts within the left caudate, right temporal lobe, and right external capsule Laboratory Results WBC 4.92 10^3/uL (3.29-11.43) 03/19/24 03:48 RBC 3.69 10^6/uL (3.85-5.65) L 03/19/24 03:48 Hgb 12.00 g/dL (11.27-16.99) 03/19/24 03:48 Hct 35.5 % (36-47) L 03/19/24 03:48 MCV 96.2 fl (85-98) 03/19/24 03:48 MCH 32.5 pg (27-33) 03/19/24 03:48 MCHC 33.8 g/dL (30-55) 03/19/24 03:48 RDW 12.1 % (12.1-15.1) 03/19/24 03:48 Plt Count 131 10^3/cmm (157-399) L 03/19/24 03:48 MPV 12.6 fL (7.4-10.4) H 03/19/24 03:48 Neut % (Auto) 53.1 % 03/19/24 03:48 Lymph % (Auto) 32.9 % 03/19/24 03:48 [place] % (Auto) 8.7 % 03/19/24 03:48 Eos % (Auto) 4.7 % 03/19/24 03:48 Baso % (Auto) 0.4 % 03/19/24 03:48 Neut # (Auto) 2.61 10^3/uL (1.8-7.7) 03/19/24 03:48 Lymph # (Auto) 1.6 10^3/uL (0.8-4.8) 03/19/24 03:48 [place] # (Auto) 0.4 10^3/uL (0.2-0.9) 03/19/24 03:48 Eos # (Auto) 0.2 10^3/uL (0.0-0.8) 03/19/24 03:48 Baso # (Auto) 0.0 10^3/uL (0.0-0.1) 03/19/24 03:48 Nucleated RBC % (auto) 0 % 03/19/24 03:48 Nucleated RBCs # 0.0 /100WBC 03/19/24 03:48 APTT > 250.0 SECONDS (23.9-36.7) H* D 03/19/24 05:31 Sodium 139 mmol/L (136-145) 03/19/24 03:48 Potassium 3.4 mmol/L (3.5-5.1) L 03/19/24 03:48 Chloride 105 mmol/L (98-107) 03/19/24 03:48 Carbon Dioxide 22 mmol/L (22-29) 03/19/24 03:48 Anion Gap 15.4 (5-19) 03/19/24 03:48 BUN 9 mg/dL (8-23) 03/19/24 03:48 Creatinine 0.8 mg/dL (0.5-0.9) 03/19/24 03:48 GFR Calculation Not Reportable 03/19/24 03:48 Glucose 107 mg/dL (65-115) 03/19/24 03:48 Calculated Osmolality 287 mOsm/kg (285-295) 03/19/24 03:48 Calcium 8.7 mg/dL (8.5-10.5) 03/19/24 03:48 Total Bilirubin 0.4 mg/dL (0.15-1.2) 03/19/24 03:48 AST 29 U/L (0-32) 03/19/24 03:48 ALT 22 U/L (0-33) 03/19/24 03:48 Alkaline Phosphatase 49 U/L (35-105) 03/19/24 03:48 Troponin T Baseline 10 ng/L (0-10) 03/17/24 20:22 Troponin T 120 Minute 139.1 ng/L (0-10) H 03/17/24 22:22 Delta Troponin T 129.1 ABS# (0-10) H* 03/17/24 22:22 Troponin T Hi Sens 6Hr 111.4 ng/L (0-10) H 03/18/24 02:40 Troponin T Hi Sens 6Hr Delta 101.4 ng/L (0-12) H* 03/18/24 02:40 Total Protein 5.9 g/dL (6.6-8.7) L 03/19/24 03:48 Albumin 3.6 g/dL (3.5-5.2) 03/19/24 03:48 Globulin 2.3 g/dL (1.3-4.6) 03/19/24 03:48 Urine Color Yellow (Yellow) 03/17/24 22:28 Urine Appearance Cloudy (CLEAR) A 03/17/24 22:28 Urine pH 6.0 (5-7) 03/17/24 22:28 Ur Specific [place] 1.022 (1.005-1.030) 03/17/24 22:28 Urine Protein 2+ (Negative) A 03/17/24 22:28 Urine Glucose (UA) Negative (Normal) 03/17/24 22:28 Urine Ketones Trace (Negative) 03/17/24 22:28 Urine Blood Negative (Negative) 03/17/24 22:28 Urine Nitrate Negative (Negative) 03/17/24 22:28 Urine Bilirubin Negative (Negative) 03/17/24 22:28 Urine Urobilinogen 2.0 mg/dL (Negative) H 03/17/24 22:28 Ur Leukocyte Esterase 1+ (Negative) A 03/17/24 22:28 Urine RBC 0-2 /hpf (0-2) 03/17/24 22:28 Urine WBC 21-50 /hpf (0-5) H 03/17/24 22:28 Ur Squamous Epith Cells 21-50 /hpf (0-5) 03/17/24 22:28 Amorphous Sediment Not Reportable 03/17/24 22:28 Urine Bacteria None seen /hpf (NONE) 03/17/24 22:28 Hyaline Casts 75.28 /lpf 03/17/24 22:28 Fine Granular Casts 5-10 /lpf H 03/17/24 22:28 Vitals Last Vital Signs Temp 97.8 F 03/19/24 08:44 Pulse 65 03/19/24 08:44 Resp 16 03/19/24 08:44 BP 115/68 03/19/24 08:44 Pulse Ox 97 03/19/24 08:44 O2 Del Method Room Air 03/19/24 08:44 Discharge Plan Discharge Patient Disposition: Home Condition: Stable Prescriptions: Continued tramadol 50 mg tablet 50 mg PO Q8H PRN (Reason: Pain) citalopram [Celexa] 20 mg tablet 20 mg PO BEDTIME Hold Instructions: Resume on 01/04/24. multivitamin Tablet 1 tab PO QPM cetirizine 10 mg tablet 10 mg PO DAILY sucralfate 1 gram tablet 1 g PO QID aspirin 81 mg Tablet,Delayed Release (Dr/Ec) 81 mg PO QPM pantoprazole 40 mg tablet,delayed release (DR/EC) 40 mg PO DAILY CoQ-10 100 mg Capsule 100 mg PO QPM rosuvastatin 40 mg tablet 40 mg PO BEDTIME Eliquis 5 mg tablet 5 mg PO BID Qty: 240 3RF Patient Comments: patient states she has not taken her evening dose today and has only taken her morning dose today Changed lisinopril 10 mg tablet 5 mg PO DAILY Qty: 30 0RF Rx Instructions: Do not take if your blood pressure below 110/90 mmHg Discontinued metoprolol tartrate 25 mg tablet 25 mg PO BID Discharge Orders: Discharge Order (Routine); Ordered 03/19/24 Ordered By: Magi Cross Referrals: Kyaw Lobato DO [Primary Care Provider] - 2 weeks (You have a hospital follow up with Dr. Lobato on March 25 at 7:50am. If you have any questions or concerns please call the office. ) Discharge Activity: Increase activity as tolerated Patient Instructions: Opioid Safety, Post Angiogram Home Care Instructions Discharge Attestations Time Spent in Discharge Care*: greater than 30 min Quality Metrics Clinical Quality Measures [ No reported AMI, CVA or VTE this stay] Coding Level of Care Code Acute Code for [facility] Fwd Diagnoses Acute non-ST elevation myocardial infarction (NSTEMI) I21.4 Status post CVA Z86.73 Pre-syncope R55
--- NOTE | 2024-03-19 12:11 | PC.SOCIAL ---
IMM Updated Updated pt on IMM. No questions voiced. Provided pt a copy. Initialed, dated, & timed a copy & placed in chart.
--- NOTE | 2024-03-19 12:28 | PC.NURSE ---
Patient TR band removed per protocol. Patient education provided. IV removed. Patient discharged with family via POV.
== END 2024-03-19 12:00 | disposition home or self-care (01) | DRG 281 ==
LOC: ER 23:09 → CSU 23:26
PROVIDERS: Internal Medicine; Admitting Provider Student in an Organized Health Care Education/Training Program; Emergency Provider Emergency Medicine; PCP Electrodiagnostic Medicine; Visit Provider Internal Medicine
PROC: 4A023N7 Measurement of Cardiac Sampling and Pressure, Left Heart, Percutaneous Approach (ICD-10-PCS; principal; 2024-03-19 07:00)
DX: I21.4 Non-ST elevation (NSTEMI) myocardial infarction (principal); Q21.12 Patent foramen ovale; F32.A Depression, unspecified; I10 Essential (primary) hypertension; R55 Syncope and collapse; R12 Heartburn; Z86.73 Personal history of transient ischemic attack (TIA), and cerebral infarction without residual deficits; Z86.711 Personal history of pulmonary embolism; Z79.01 Long term (current) use of anticoagulants
CPT/HCPCS: 36415; 70450; 71045; 80053; 81003; 81015; 84484; 85025; 85347; 85730; 93005; 93308; 93458; 96365; 96374; 96375; 99152; 99153; 99285; C1769; C1887; C1894; J1644; J2250; J3010; J3490; J7030; Q0163; Q9967

== ENCOUNTER → 2024-05-18 10:40 | Outpatient (BNVA) | payer MEDICARE, OTHER, SELFPAY | PROVIDERS: PCP Electrodiagnostic Medicine; Referring Provider Electrodiagnostic Medicine; Visit Provider Nurse Practitioner Family | DX: I21.4 Non-ST elevation (NSTEMI) myocardial infarction (principal) | CPT/HCPCS: 36415; 80048; 99214 ==

== ENCOUNTER 2024-05-28 08:48 | Emergency (ER) | payer MEDICARE, OTHER, SELFPAY ==
[2024-05-28 08:50] VITALS: BP 123/79; PULSE 93; RESP 16; TEMP 36.4; O2SAT 91
--- NOTE | 2024-05-28 09:03 | CT_ITS ---
WS: [id number] CT HEAD NONCONTRAST HISTORY: Symptoms of acute stroke TECHNIQUE: Contiguous axial imaging performed through the brain. Bone and soft tissue windows. Sagitt al and coronal reformats reviewed. All CT scans at [facility] use at least one of these dose optimization techniques: automated exposure control; mA and/or kV adjustment per patient size (includ es targeted exams where dose is matched to clinical indication); or iterative reconstruction. DLP: 1000.58 mGy COMPARISON: 03/17/2024 No acute intracranial hemorrhage, midline shift or mass effect. Moderate atrophy similar to the most recent examinations. Prior infarct RIGHT external capsule. There are additional smaller lacunar infarcts in the RIGHT basal ganglia. No new infarct. Moderate cerebel lar atrophy. Ventricles: Normal size with no hydrocephalus. Paranasal sinuses: As visualized are clear. Mastoid air cells: Well pneumatized. Calvarium and scalp: Skull is intact with no soft tissue edema or swelling. CT/CT head thrombolytic [id number] IMPRESSION: 1. No acute intracranial hemorrhage or edema. 2. Remote RIGHT external capsule infarct and small RIGHT basal ganglia lacunar infarcts are stable. 3. Moderate cerebral and cerebellar atrophy. Notified Fracisco Hwang MD at 05/28/2024 9:13 AM.
--- NOTE | 2024-05-28 09:03 | XR_ITS ---
WS: [id number] Portable AP upright chest, 05/28/2024 Clinical Data: cva Comparison: Portable chest, 03/17/2024 Findings: No nodules, masses or effusions are seen. The heart is normal. The pulmonary vascularity is not increased. No pneumonia or pneumothorax is seen. The aortic arch and descending thoracic aorta s how tortuosity. Monitor leads are on the chest wall. XR/XR chest 1V portable [id number] Impression: Atherosclerosis.
--- NOTE | 2024-05-28 09:23 | W.ED.NEUROSD ---
HPI - Neuro Symptoms/Deficit General: Chief Complaint: Neuro Symptoms/Deficit Stated Complaint: ams Time Seen by Provider: 05/28/24 08:55 Source: patient and EMS Mode of arrival: EMS Limitations: no limitations History of Present Illness: 74-year-old female with a history of stroke back in December she states that she went to bed last night around 6 PM states she woke this morning feeling very dizzy feeling some spinning states she was not able to ambulate due to her dizziness. She states she has some mild left-sided weakness but is from her old stroke she has no new weakness denies any slurred speech. Patient denies any headache. She denies any fever cough Associated symptoms: Deny chest pain, headache(s), nausea or vomiting Related Data Home Medications Medication Instructions Recorded Confirmed tramadol 50 mg tablet 50 mg PO Q8H PRN Pain 11/25/20 05/28/24 citalopram 20 mg tablet (Celexa) 20 mg PO BEDTIME 12/24/23 05/28/24 aspirin 81 mg tablet,delayed 81 mg PO QPM 03/18/24 05/28/24 release cetirizine 10 mg tablet 10 mg PO DAILY 03/18/24 05/28/24 coenzyme Q10 100 mg capsule 100 mg PO QPM 03/18/24 05/28/24 (CoQ-10) multivitamin 1 tab PO QPM 03/18/24 05/28/24 pantoprazole 40 mg tablet,delayed 40 mg PO DAILY 03/18/24 05/28/24 release rosuvastatin 40 mg tablet 40 mg PO BEDTIME 03/18/24 05/28/24 sucralfate 1 gram tablet 1 g PO QID 03/18/24 05/28/24 lisinopril 2.5 mg tablet 2.5 mg PO DAILY 05/18/24 05/28/24 Previous Rx's Medication Instructions Recorded apixaban 5 mg tablet (Eliquis) 5 mg PO BID #240 tabs 03/19/24 meclizine 25 mg tablet 25 mg PO TID PRN dizziness #20 tabs 05/28/24 Allergies Allergy/AdvReac Type Severity Reaction Status Date / Time codeine Allergy Unknown Unknown Verified 05/18/24 09:30 Penicillins Allergy nausea Verified 05/18/24 09:30 Gabapentin Allergy lethargic Uncoded 05/18/24 09:30 Review of Systems Const: Denies: fever(s), chills, body aches or change in appetite Eyes: Denies: blurry vision or eye discomfort ENMT: Denies: throat pain or dental pain Card: Denies: chest pain Resp: Denies: dyspnea GI: Denies: abdominal pain, nausea, vomiting or diarrhea Musc: Denies: neck pain or back pain Skin/Breast: Denies: rash Neuro: Reports: dizziness; Denies: headache(s) PFSH ED PFSH: Medical History NSTEMI (non-ST elevated myocardial infarction) Pre-syncope Generalized muscle weakness Acute lower urinary tract infection Status post CVA PFO (patent foramen ovale) Depression At risk for bleeding Peripheral neuropathy Right middle cerebral artery stroke Acute right arterial ischemic stroke, middle cerebral artery (MCA) Thromboembolic stroke Pulmonary embolism CVA (cerebral vascular accident) Hypertension Closed head injury Focal infarction of brain Surgical History No pertinent past surgical history Social History Smoking and tobacco/nicotine status: never used tobacco/nicotine NIH stroke score NIHSS: Level Of Consciousness - 1a: 0 Level Of Consciousness Questions - 1b: Both Correct Level Of Consciousness Commands - 1c: Both Correct Best Gaze - 2: Normal Visual Joy - 3: No Visual Loss Facial Palsy - 4: Normal Motor Arm Right - 5: No Drift Motor Arm Left - 5: No Drift Motor Leg Right - 6: No Drift Motor Leg Left - 6: No Drift Limb Ataxia - 7: Absent Sensory - 8: Normal Best Language - 9: No Aphasia Dysarthia - 10: Normal Extinction And Inattention - 11: 0 Score: Total Score: 0 Physical Exam Const: COMMON NORMALS: patient oriented x3 HENMT: COMMON NORMALS: normocephalic and atraumatic HEAD & SCALP: normocephalic and atraumatic Eye: COMMON NORMALS: Equal, round and reactive pupils present and EOMs intact bilaterally PUPIL: Yes Equal, round and reactive pupils present Neck/C-Spine: COMMON NORMALS: full ROM and supple Chest: COMMONS NORMALS: normal inspection of the chest and normal palpation of entire chest wall Resp: COMMON NORMALS: normal respiratory effort, No retractions, No use of accessory muscles and clear to auscultation bilaterally AUSCULTATION: clear to auscultation bilaterally Cardio: COMMON NORMALS: regular rate, regular rhythm and No murmurs present (Cardio) RATE: regular rate RHYTHM: regular rhythm GI: COMMON NORMALS: Normal to inspection, nondistended, normoactive bowel sounds present, Soft to palpation, non-tender and no masses PALPATION: Yes Soft to palpation Extremity: COMMON NORMALS: normal to inspection and full ROM Neuro: COMMON NORMALS: patient oriented x3, moves all extremities and no focal motor deficits Psych: COMMON NORMALS: mental status grossly normal, Normal thought process present and cooperative THOUGHT PROCESS: Normal thought process present Skin: COMMON NORMALS: no rashes or lesions noted and no wounds GENERAL SKIN EXAM: no rashes or lesions noted Course Vital Signs: Vital signs: Vital Signs Temperature 97.5 F L 05/28/24 08:50 Pulse Rate 67 05/28/24 11:52 Respiratory Rate 18 05/28/24 11:52 Blood Pressure 117/77 05/28/24 11:52 Pulse Oximetry 98 05/28/24 11:52 MDM - Neuro Symptoms/Deficit Medical Decision Making Patient presents here with vertigo she has had a history of vertigo in the past her symptoms here have resolved she is able ambulate to the bathroom and back without any difficulty she is wanting to go home I feel she is stable for discharge she has no signs of posterior stroke here we will prescribe meclizine she is to follow-up return if worsening she understands agrees to plan. Medical Records I reviewed the patient's medical records. Lab Data I reviewed the patient's lab results. 05/28/24 09:27 05/28/24 09:27 Radiology Impressions Chest X-Ray 05/28/24 09:03 Impression: Atherosclerosis. Head CT 05/28/24 09:03 IMPRESSION: 1. No acute intracranial hemorrhage or edema. 2. Remote RIGHT external capsule infarct and small RIGHT basal ganglia lacunar infarcts are stable. 3. Moderate cerebral and cerebellar atrophy. Notified Fracisco Hwang MD at 05/28/2024 9:13 AM. Laboratory Results WBC 2.87 10^3/uL (3.29-11.43) L 05/28/24 09:27 RBC 3.67 10^6/uL (3.85-5.65) L 05/28/24 09: Hgb 12.00 g/dL (11.27-16.99) 05/28/24: Hct 36.2 % (36-47) 05/28/24 09: MCV 98.6 fl (85-98) H 05/28/24: MCH 32.7 pg (27-33) 05/28/24: MCHC 33.1 g/dL (30-55) 05/28/24: RDW 12.7 % (12.1-15.1) 05/28/24: Plt Count 165 10^3/cmm (157-399) 05/28/24: MPV 12.6 fL (7.4-10.4) H 05/28/24 09: Neut % (Auto) 55.4 % 05/28/24: Lymph % (Auto) 30.7 % 05/28/24: Phillips % (Auto) 10.5 % 05/28/24: Eos % (Auto) 2.8 % 05/28/24: Baso % (Auto) 0.3 % 05/28/24: Neut # (Auto) 1.59 10^3/uL (1.8-7.7) L 05/28/24: Lymph # (Auto) 0.9 10^3/uL (0.8-4.8) 05/28/24: Phillips # (Auto) 0.3 10^3/uL (0.2-0.9) 05/28/24: Eos # (Auto) 0.1 10^3/uL (0.0-0.8) 05/28/24: Baso # (Auto) 0.0 10^3/uL (0.0-0.1) 05/28/24: Nucleated RBC % (auto) 0 % 05/28/24: Nucleated RBCs # 0.0 /100WBC 05/28/24: PT 14.80 SECONDS (12.1-14.9) 05/28/24: INR 1.12 (0.8-1.2) 05/28/24 09:27 APTT 25.9 SECONDS (23.9-36.7) 05/28/24 09:27 Sodium 141 mmol/L (136-145) 05/28/24 09:27 Potassium 3.6 mmol/L (3.5-5.1) 05/28/24 09:27 Chloride 103 mmol/L (98-107) 05/28/24 09:27 Carbon Dioxide 28 mmol/L (22-29) 05/28/24 09:27 Anion Gap 12.6 (5-19) 05/28/24 09:27 BUN 18 mg/dL (8-23) 05/28/24 09:27 Creatinine 0.8 mg/dL (0.5-0.9) 05/28/24 09:27 GFR Calculation Not Reportable 05/28/24 09:27 Glucose 122 mg/dL (65-115) H 05/28/24 09:27 POC Glucose 111 mg/dL (70-110) H 05/28/24 09:17 Calculated Osmolality 295 mOsm/kg (285-295) 05/28/24 09:27 Calcium 8.6 mg/dL (8.5-10.5) 05/28/24 09:27 Total Bilirubin 0.7 mg/dL (0.15-1.2) 05/28/24 09:27 AST 26 U/L (0-32) 05/28/24 09:27 ALT 14 U/L (0-33) 05/28/24 09:27 Alkaline Phosphatase 46 U/L (35-105) 05/28/24 09:27 Total Protein 6.3 g/dL (6.6-8.7) L 05/28/24 09:27 Albumin 3.6 g/dL (3.5-5.2) 05/28/24 09:27 Globulin 2.7 g/dL (1.3-4.6) 05/28/24 09:27 All radiology interpretation(s) finalized by discharge EKG Data EKG 1: I personally reviewed and interpreted this EKG as follows: EKG interpretation date: 05/28/24 EKG interpretation time: 10:59 Interpretation: nsr hr [address] elevation qrs 101 qtc 428 Discharge Plan Discharge Patient Disposition: Home Clinical Impression: Vertigo Condition: Stable Prescriptions: New meclizine 25 mg tablet 25 mg PO TID PRN (Reason: dizziness) Qty: 20 0RF No Action tramadol 50 mg tablet 50 mg PO Q8H PRN (Reason: Pain) lisinopril 2.5 mg tablet 2.5 mg PO DAILY citalopram [Celexa] 20 mg tablet 20 mg PO BEDTIME Hold Instructions: Resume on 01/04/24. multivitamin Tablet 1 tab PO QPM cetirizine 10 mg tablet 10 mg PO DAILY sucralfate 1 gram tablet 1 g PO QID aspirin 81 mg Tablet,Delayed Release (Dr/Ec) 81 mg PO QPM pantoprazole 40 mg tablet,delayed release (DR/EC) 40 mg PO DAILY coenzyme Q10 [CoQ-10] 100 mg Capsule 100 mg PO QPM rosuvastatin 40 mg tablet 40 mg PO BEDTIME Eliquis 5 mg tablet 5 mg PO BID Qty: 240 3RF Patient Comments: patient states she has not taken her evening dose today and has only taken her morning dose today Discharge Orders: Discharge ED (Routine); Ordered 05/28/24 Ordered By: Fracisco Hwang Referrals: Kyaw Lobato DO [Primary Care Provider] - 4-7 days Discharge Diet: Advance as tolerated Discharge Activity: Resume usual activity Patient Instructions: Vertigo (ED) Coding Level of Care Code ED Physical Therapist Clinic Director for 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
[2024-05-28 09:24] LABS: Glucose Point of Care 111 mg/dL (70-110)
[2024-05-28 09:32] LABS: Basophils % 0.3 %; Eosinophils # 0.1 10^3/uL (0.0-0.8); Eosinophils % 2.8 %; Hematocrit 36.2 % (36-47); Lymphocytes # 0.9 10^3/uL (0.8-4.8); Lymphocytes % 30.7 %; Mean Corpuscular HGB Conc 33.1 g/dL (30-55); Mean Corpuscular Hemoglobin 32.7 pg (27-33); Mean Corpuscular Volume 98.6 fl (85-98); Mean Platelet Volume 12.6 fL (7.4-10.4); Monocytes # 0.3 10^3/uL (0.2-0.9); Monocytes % 10.5 %; Neutrophils # 1.59 10^3/uL (1.8-7.7); Neutrophils % 55.4 %; Nucleated Red Blood Cells % 0 %; Platelet Count 165 10^3/cmm (157-399); Red Blood Count 3.67 10^6/uL (3.85-5.65); Red Cell Distribution Width 12.7 % (12.1-15.1); White Blood Count 2.87 10^3/uL (3.29-11.43)
[2024-05-28 09:52] LABS: Albumin Level 3.6 g/dL (3.5-5.2); Alkaline Phosphatase 46 U/L (35-105); Blood Urea Nitrogen 18 mg/dL (8-23); Calcium 8.6 mg/dL (8.5-10.5); Carbon Dioxide 28 mmol/L (22-29); Chloride 103 mmol/L (98-107); Globulin 2.7 g/dL (1.3-4.6); Glucose 122 mg/dL (65-115); Osmolality Calculated 295 mOsm/kg (285-295); Sodium 141 mmol/L (136-145); Total Bilirubin 0.7 mg/dL (0.15-1.2); Total Protein 6.3 g/dL (6.6-8.7)
[2024-05-28] MEDS: meclizine 25 mg tablet 50 MG PO (10:01)
[2024-05-28 10:03] VITALS: BP 136/77; PULSE 70; RESP 16; O2SAT 97
[2024-05-28 10:12] LABS: Alanine Aminotransferase 14 U/L (0-33); Anion Gap 12.6 (5-19); Aspartate Amino Transferase 26 U/L (0-32); Potassium 3.6 mmol/L (3.5-5.1)
[2024-05-28 10:21] LABS: INR 1.12 (0.8-1.2); Partial Thromboplastin Time 25.9 SECONDS (23.9-36.7)
--- NOTE | 2024-05-28 10:59 | ECG_ITS ---
[facility] Date: 2024-05[facility]28 Pat Name: Yamel Milligan Department: Room: Gender: Female [employer]: : 1950 Requested By: Fracisco Hwang Order Number: [id number] Reading MD: MELIDA FUCHS Measurements Intervals [place] Rate: 66 P: 19 ME: 126 QRS: 9 QRSD: 101 T: 36 QT: 414 QTc: 436 Interpretive Statements SINUS RHYTHM LOW QRS VOLTAGE IN PRECORDIAL LEADS [QRS DEFLECTION < 1.0 mV IN CHEST LEADS] Compared to ECG 03/17/2024 22:58:28 Sinus bradycardia no longer present Incomplete right bundle-branch block no longer present ST (T wave) deviation no longer present Electronically Signed On 05-29-2024 18:10:49 CDT by MELIDA FUCHS [email or web address]
[2024-05-28 11:52] VITALS: BP 117/77; PULSE 67; RESP 18; O2SAT 98
== END 2024-05-28 12:04 | disposition home or self-care (01) ==
PROVIDERS: Emergency Provider Emergency Medicine; PCP Electrodiagnostic Medicine
DX: R42 Dizziness and giddiness (principal); Z79.82 Long term (current) use of aspirin; Z79.01 Long term (current) use of anticoagulants; I25.2 Old myocardial infarction; Z86.73 Personal history of transient ischemic attack (TIA), and cerebral infarction without residual deficits; I10 Essential (primary) hypertension
CPT/HCPCS: 36416; 70450; 71045; 80053; 82962; 85025; 85610; 85730; 93005; 99285; J8597

== ENCOUNTER 2024-06-14 08:26 | Outpatient (CLI) | payer MEDICARE, OTHER, SELFPAY ==
--- NOTE | 2024-06-14 08:30 | FL_ITS ---
WS: [id number] FL barium swallow modifd [id number] REASON FOR EXAM: Other dysphagia FLUOROSCOPY TIME: 2min [id number] # OF SPOT FILMS: 0 FINDINGS: Examination was supervised by the speech therapy department. The patient was evaluated in the lateral sitting upright position. The swallowing of multiple consistencies of barium, including a barium tablet was monitored fluorosco pically and video recorded. A detailed report of the swallowing will be rendered by the speech therapy department. There is noted to be delayed passage of the barium tablet which appears to be due to esophageal dysmo tility with loss of primary peristaltic wave and tertiary contractions. FL/FL barium swallow modifd [id number] IMPRESSION: Modified barium swallow as above. Esophageal dysmotility. Formal esophagram recommended.
== END 2024-06-14 08:27 | disposition home or self-care (01) ==
LOC: RAD 08:27
PROVIDERS: PCP Electrodiagnostic Medicine; Visit Provider Electrodiagnostic Medicine
DX: R13.19 Other dysphagia (principal); R93.3 Abnormal findings on diagnostic imaging of other parts of digestive tract
CPT/HCPCS: 74230; 92611

== ENCOUNTER 2024-06-28 10:27 | Emergency (ER) | payer MEDICARE, OTHER, SELFPAY ==
[2024-06-28] VITALS (44 sets, daily range): BP systolic 104–125; BP diastolic 60–82; PULSE 87; RESP 16–18; TEMP 36.4; O2SAT 91–100; BMI 26.0
[2024-06-28 11:56] LABS: Basophils % 0.5 %; Eosinophils # 0.1 10^3/uL (0.0-0.8); Eosinophils % 1.2 %; Hematocrit 40.2 % (36-47); Lymphocytes # 0.9 10^3/uL (0.8-4.8); Lymphocytes % 20.8 %; Mean Corpuscular HGB Conc 33.6 g/dL (30-55); Mean Corpuscular Hemoglobin 32.5 pg (27-33); Mean Corpuscular Volume 96.6 fl (85-98); Monocytes # 0.5 10^3/uL (0.2-0.9); Monocytes % 10.8 %; Neutrophils # 2.84 10^3/uL (1.8-7.7); Neutrophils % 66.5 %; Nucleated Red Blood Cells % 0 %; Platelet Count 135 10^3/cmm (157-399); Red Blood Count 4.16 10^6/uL (3.85-5.65); Red Cell Distribution Width 13.2 % (12.1-15.1); White Blood Count 4.27 10^3/uL (3.29-11.43)
[2024-06-28 12:14] LABS: Alanine Aminotransferase 14 U/L (0-33); Albumin Level 3.7 g/dL (3.5-5.2); Alkaline Phosphatase 57 U/L (35-105); Anion Gap 18.4 (5-19); Aspartate Amino Transferase 25 U/L (0-32); Blood Urea Nitrogen 12 mg/dL (8-23); Calcium 9.5 mg/dL (8.5-10.5); Carbon Dioxide 25 mmol/L (22-29); Chloride 100 mmol/L (98-107); Creatinine Clr Calc Pharmacy 75.4853; Glucose 105 mg/dL (65-115); Lipase 20 U/L (13-60); Osmolality Calculated 290 mOsm/kg (285-295); Potassium 3.4 mmol/L (3.5-5.1); Sodium 140 mmol/L (136-145); Total Bilirubin 0.7 mg/dL (0.15-1.2); Total Protein 6.7 g/dL (6.6-8.7)
--- NOTE | 2024-06-28 16:08 | ED_ITS ---
HPI - Nausea/Vomiting/Diarrhea 2 General: Chief complaint: Nausea/Vomiting/Diarrhea Stated complaint: n/v when she eats Time Seen by Provider: 06/28/24 16:00 History of Present Illness: 74-year-old woman with a history of depr ession, hyperlipidemia and hypertension who presents the emergency room with difficulty swallowing. This is been going on for some time now. She can still get fluids particular for cold. Having trouble with solids. She also complains of urinary symptoms. Her nausea has worsened over the last few days. Related Data Home Medications Medication Instructions Recorded Confirmed tramadol 50 mg tablet 50 mg PO Q8H PRN Pain 11/25/20 05/28/24 citalopram 20 mg tablet (Celexa) 20 mg PO BEDTIME 12/24/23 05/28/24 aspirin 81 mg tablet,delayed 81 mg PO QPM 03/18/24 05/28/24 release cetirizine 10 mg tablet 10 mg PO DAILY 03/18/24 05/28/24 coenzyme Q10 100 mg capsule 100 mg PO QPM 03/18/24 05/28/24 (CoQ-10) multivitamin 1 tab PO QPM 03/18/24 05/28/24 pantoprazole 40 mg tablet,delayed 40 mg PO DAILY 03/18/24 05/28/24 release rosuvastatin 40 mg tablet 40 mg PO BEDTIME 03/18/24 05/28/24 sucralfate 1 gram tablet 1 g PO QID 03/18/24 05/28/24 lisinopril 2.5 mg tablet 2.5 mg PO DAILY 05/18/24 05/28/24 Previous Rx's Medication Instructions Recorded apixaban 5 mg tablet (Eliquis) 5 mg PO BID #240 tabs 03/19/24 meclizine 25 mg tablet 25 mg PO TID PRN dizziness #20 tabs 05/28/24 cefdinir 300 mg capsule 300 mg PO BID 7 days #14 caps 06/28/24 Allergies Allergy/AdvReac Type Severity Reaction Status Date / Time codeine Allergy Unknown Unknown Verified 05/18/24 09:30 Penicillins Allergy nausea Verified 05/18/24 09:30 Gabapentin Allergy lethargic Uncoded 05/18/24 09:30 Review of Systems 2 Narrative: Constitutional symptoms: Negative except as documented in HPI. Skin symptoms: Negative except as documented in HPI. Eye symptoms: Negative except as documented in HPI. ENMT symptoms: Negative except as documented in HPI. Respiratory symptoms: Negative except as documented in HPI. Cardiovascular symptoms: Negative except as documented in HPI. Gastrointestinal symptoms: Negative except as documented in HPI. Genitourinary symptoms: Negative except as documented in HPI. Musculoskeletal symptoms: Negative except as documented in HPI. Neurologic symptoms: Negative except as documented in HPI. Psychiatric symptoms: Negative except as documented in HPI. Endocrine symptoms: Negative except as documented in HPI. PFSH ED 2 PFSH: Medical History NSTEMI (non-ST elevated myocardial infarction) Pre-syncope Generalized muscle weakness Acute lower urinary tract infection Status post CVA PFO (patent foramen ovale) Depression At risk for bleeding Peripheral neuropathy Right middle cerebral artery stroke Acute right arterial ischemic stroke, middle cerebral artery (MCA) Thromboembolic stroke Pulmonary embolism CVA (cerebral vascular accident) Hypertension Closed head injury Focal infarction of brain Surgical History No pertinent past surgical history Social History Smoking and tobacco/nicotine status: never used tobacco/nicotine Physical Exam 2 Narrative: EXAM NARRATIVE: General: Alert, no acute distress. Skin: Warm, dry. Head: Normocephalic, atraumatic. Neck: Supple, trachea midline. Eye: Extraocular movements are intact. Ears, nose, mouth and throat: mucosa moist. Cardiovascular: Regular, Normal peripheral perfusion. Respiratory: Lungs are clear to auscultation, respirations are non-labored, breath sounds are equal, Symmetrical chest wall expansion. Gastrointestinal: Soft, Nontender, Non distended Musculoskeletal: Normal ROM, no deformity. Neurological: Alert and oriented, No focal neurological deficit observed. Psychiatric: Cooperative, appropriate mood & affect. Course 2 Vital Signs: Vital signs: Vital Signs Temperature 97.6 F 06/28/24 10:32 Pulse Rate 87 06/28/24 19:55 Respiratory Rate 16 06/28/24 19:55 Blood Pressure 121/64 06/28/24 19:55 Pulse Oximetry 96 06/28/24 19:55 Oxygen Delivery Me thod Room Air 06/28/24 10:32 MDM - Nausea/Vomiting/Diarrhea Medical Decision Making Medical decision making: Differential diagnosis for patient with nausea and diarrhea: including but not limited to and based on the above HPI, review of systems and physical exam: Gastroenteritis. Gastritis. Enteritis. Either bacterial or viral. C. diff infection. Small bowel obstruction. Crohn's flare. Pancreatitis. Also concern for secondary dehydration and/or urinary tract infection. Orders placed to evaluate differential diagnosis based on the above differential, HPI and physical exam Lab Review: Laboratory results were reviewed and interpreted by myself the emergency room physician. No significant leukocytosis or anemia. No renal failure. She does have a significant urinary tract infection. CT of the abdomen pelvis: Patient does have cystitis which is indicated. She does not have any right upper quadrant pain. So she likely does not have cholecystitis. We discussed lesion in her kidney. This was reviewed and interpreted by myself the emergency room physician. I also reviewed the radiology report. I reviewed the patient's medical record. Reexamination: Patient remained stable. No increased work of breathing. No altered mental status. No focal motor deficits. Patient is able to take fluids. We discussed drinking things like Gatorade and Ensure. And that she needs to have a upper GI very soon. Assessment and plan: Dysphagia Urinary tract infection ?Rocephin in the emergency room - Discharged home - Discussed findings and plan with patient. Answered any questions. - All laboratory values were reviewed and interpreted personally by myself, the ER physician - All imaging was reviewed and interpreted personally by myself, the ER physician. - Evaluation and treatment of this problem were appropriate in the emergency setting Lab Data 06/28/24 11:49 06/28/24 11:49 Radiology Impressions Abdomen/Pelvis CT 06/28/24 16:22 IMPRESSION: 1. Circumferential urinary bladder wall thickening. Correlate with urinalysis to exclude cystitis. 2. Gallbladder at the gallbladder neck. Correlate for cholecystitis. 3. Indeterminate lesion in the left kidney we will require MRI with and without contrast utilizing renal mass protocol. COMMENTS: Consistent with the [employer]'s Incidental Findings Committee white paper (J Am Gem Radiol 2018): Any incidental renal lesion less than 1 cm or classified as too small to characterize, or any incidental cystic renal lesion characterized as simple-appearing, is likely benign. No follow-up imaging is recommended for these lesions per consensus recommendations based on imaging criteria. Laboratory Results WBC 4.27 10^3/uL (3.29-11.43) 06/28/24 11:49 RBC 4.16 10^6/uL (3.85-5.65) 06/28/24 11:49 Hgb 13.50 g/dL (11.27-16.99) 06/28/24 11:49 Hct 40.2 % (36-47) 06/28/24 11:49 MCV 96.6 fl (85-98) 06/28/24 11:49 MCH 32.5 pg (27-33) 06/28/24 11:49 MCHC 33.6 g/dL (30-55) 06/28/24 11:49 RDW 13.2 % (12.1-15.1) 06/28/24 11:49 Plt Count 135 10^3/cmm (157-399) L 06/28/24 11:49 MPV 13.0 fL (7.4-10.4) H 06/28/24 11:49 Neut % (Auto) 66.5 % 06/28/24 11:49 Lymph % (Auto) 20.8 % 06/28/24 11:49 [place] % (Auto) 10.8 % 06/28/24 11:49 Eos % (Auto) 1.2 % 06/28/24 11:49 Baso % (Auto) 0.5 % 06/28/24 11:49 Neut # (Auto) 2.84 10^3/uL (1.8-7.7) 06/28/24 11:49 Lymph # (Auto) 0.9 10^3/uL (0.8-4.8) 06/28/24 11:49 [place] # (Auto) 0.5 10^3/uL (0.2-0.9) 06/28/24 11:49 Eos # (Auto) 0.1 10^3/uL (0.0-0.8) 06/28/24 11:49 Baso # (Auto) 0.0 10^3/uL (0.0-0.1) 06/28/24 11:49 Nucleated RBC % (auto) 0 % 06/28/24 11:49 Nucleated RBCs # 0.0 /100WBC 06/28/24 11:49 Sodium 140 mmol/L (136-145) 06/28/24 11:49 Potassium 3.4 mmol/L (3.5-5.1) L 06/28/24 11:49 Chloride 100 mmol/L (98-107) 06/28/24 11:49 Carbon Dioxide 25 mmol/L (22-29) 06/28/24 11:49 Anion Gap 18.4 (5-19) 06/28/24 11:49 BUN 12 mg/dL (8-23) 06/28/24 11:49 Creatinine 0.8 mg/dL (0.5-0.9) 06/28/24 11:49 GFR Calculation Not Reportable 06/28/24 11:49 Glucose 105 mg/dL (65-115) 06/28/24 11:49 Calculated Osmolality 290 mOsm/kg (285-295) 06/28/24 11:49 Calcium 9.5 mg/dL (8.5-10.5) 06/28/24 11:49 Total Bilirubin 0.7 mg/dL (0.15-1.2) 06/28/24 11:49 AST 25 U/L (0-32) 06/28/24 11:49 ALT 14 U/L (0-33) 06/28/24 11:49 Alkaline Phosphatase 57 U/L (35-105) 06/28/24 11:49 Total Protein 6.7 g/dL (6.6-8.7) 06/28/24 11:49 Albumin 3.7 g/dL (3.5-5.2) 06/28/24 11:49 Globulin 3.0 g/dL (1.3-4.6) 06/28/24 11:49 Lipase 20 U/L (13-60) 06/28/24 11:49 Urine Color Dark yellow (Yellow) A 06/28/24 16:14 Urine Appearance Turbid (CLEAR) A 06/28/24 16:14 Urine pH 6.0 (5-7) 06/28/24 16:14 Ur Specific [place] 1.021 (1.005-1.030) 06/28/24 16:14 Urine Protein 3+ (Negative) A 06/28/24 16:14 Urine Glucose (UA) Negative (Normal) 06/28/24 16:14 Urine Ketones 2+ (Negative) H 06/28/24 16:14 Urine Blood 3+ (Negative) A 06/28/24 16:14 Urine Nitrate Positive (Negative) A 06/28/24 16:14 Urine Bilirubin 2+ (Negative) H 06/28/24 16:14 Urine Urobilinogen 1.0 mg/dL (Negative) 06/28/24 16:14 Ur Leukocyte Esterase 3+ (Negative) A 06/28/24 16:14 Urine RBC >100 /hpf (0-2) H 06/28/24 16:14 Urine WBC >100 /hpf (0-5) H 06/28/24 16:14 Ur Squamous Epith Cells 0-5 /hpf (0-5) 06/28/24 16:14 Amorphous Sediment Not Reportable 06/28/24 16:14 Urine Bacteria 4+ /hpf (NONE) H 06/28/24 16:14 Hyaline Casts 15.13 /lpf 06/28/24 16:14 All radiology interpretation(s) finalized by discharge Discharge Plan Discharge Patient Disposition: Home Clinical Impression: Dysphagia, Urinary tract infection, Kidney mass Condition: Stable Prescriptions: New cefdinir 300 mg capsule 300 mg PO BID 7 Days Qty: 14 0RF No Action tramadol 50 mg tablet 50 mg PO Q8H PRN (Reason: Pain) lisinopril 2.5 mg tablet 2.5 mg PO DAILY citalopram [Celexa] 20 mg tablet 20 mg PO BEDTIME Hold Instructions: Resume on 01/04/24. multivitamin Tablet 1 tab PO QPM cetirizine 10 mg tablet 10 mg PO DAILY sucralfate 1 gram tablet 1 g PO QID aspirin 81 mg Tablet,Delayed Release (Dr/Ec) 81 mg PO QPM pantoprazole 40 mg tablet,delayed release (DR/EC) 40 mg PO DAILY coenzyme Q10 [CoQ-10] 100 mg Capsule 100 mg PO QPM rosuvastatin 40 mg tablet 40 mg PO BEDTIME Eliquis 5 mg tablet 5 mg PO BID Qty: 240 3RF Patient Comments: patient states she has not taken her evening dose today and has only taken her morning dose today meclizine 25 mg tablet 25 mg PO TID PRN (Reason: dizziness) Qty: 20 0RF Discharge Orders: Discharge ED (Routine); Ordered 06/28/24 Ordered By: Haylee Shook Referrals: Harmeet,Shahzad, MD [Physician] - 4-7 days (Please call for appointment for possible endoscopy) Kyaw Lobato DO [Primary Care Provider] - Discharge Diet: Advance as tolerated Discharge Activity: Increase activity as tolerated Patient Instructions: Urinary Tract Infection in Older Adults (ED), Opioid Safety, Pain Management Activity Restrictions/Additional Instructions: Please follow with your primary provider concerning the findings on your CT scan including a lesion on your kidney. Also consider calling Dr. Ga for possible endoscopy. Thank you for choosing [facility] for your healthcare needs today. Please realize this is an emergency room and that we are providing you with a medical screening exam and this may not be complete and all inclusive of all the testing and or work up that you may need to determine your ailment or severity of your illness. You have been screened and evaluated and felt safe for discharge. Health conditions do change or evolve sometimes and as such it is important that you follow up with your Primary Doctor to be re checked, 3-5 days is a general good time frame for follow up. You are always welcome to return to the ED for re assessment if your symptoms are worsening or you have new concerns Coding Level of Care Code ED Human Resources Communications Manager for 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
--- NOTE | 2024-06-28 16:22 | CTR_ITS ---
PROCEDURE INFORMATION: Exam: CT Abdomen And Pelvis With Contrast Exam date and time: 06/28/2024 5:55 PM Age: 74 years old Clinical indication: Vomiting; Additional info: Vomiting, choking TECHNIQUE: Imaging protocol: Computed tomography of the abdomen and pelvis with contrast. Radiation optimization: All CT scans at this facility use at least one of these dose optimization techniques: automated exposure control; mA and/or kV adjustment per patient size (includes targeted exams where dose is matched to clinical indication); or iterative reconstruction. Contrast material: OMNIPAQUE 350; Contrast volume: 100 ml; Contrast route: INTRAVENOUS (IV); COMPARISON: CR XR chest 1V portable [id number] 05/28/2024 9:39 AM RADIATION DOSE METRICS: Total DLP (mGy-cm): 616.38 FINDINGS: Liver: Bilateral hepatic lobe cysts and/or hemangiomas. Gallbladder and biliary ducts: Large gallstone at the gallbladder neck. Pancreas: Normal. No ductal dilation. Spleen: Normal. No splenomegaly. Adrenal glands: Normal. No mass. Kidneys and ureters: Indeterminate lesion in the cortex of the left kidney. Stomach and bowel: No bowel obstruction. Appendix: Normal appendix. Intraperitoneal space: Unremarkable. No free air. No significant fluid collection. Vasculature: Unremarkable. No abdominal aortic aneurysm. Lymph nodes: Unremarkable. No enlarged lymph nodes. Urinary bladder: Circumferential urinary bladder wall thickening. Reproductive: Unremarkable as visualized. Bones/joints: Age-indeterminate L2 compression deformities. Soft tissues: Unremarkable. CT/CT abdomen pelvis w con* [id number] IMPRESSION: 1. Circumferential urinary bladder wall thickening. Correlate with urinalysis to exclude cystitis. 2. Gallbladder at the gallbladder neck. Correlate for cholecystitis. 3. Indeterminate lesion in the left kidney we will require MRI with and without contrast utilizing renal mass protocol. COMMENTS: Consistent with the [employer]'s Incidental Findings Committee white paper (J Am Gem Radiol 2018): Any incidental renal lesion less than 1 cm or classified as too small to characterize, or any incidental cystic renal lesion characterized as simple-appearing, is likely benign. No follow-up imaging is recommended for these lesions per consensus recommendations based on imaging criteria.
[2024-06-28 16:30] LABS: Bilirubin Urine 2+ (Negative); Blood Urine 3+ (Negative); Glucose Urine UA Negative (Normal); Ketones Urine 2+ (Negative); Leukocyte Esterase Urine 3+ (Negative); Nitrate Urine Positive (Negative); Protein Urine 3+ (Negative); Specific Gravity, Urine 1.021 (1.005-1.030); Urine Appearance Turbid (CLEAR); Urine Color Dark Yellow (Yellow)
[2024-06-28 16:32] LABS: Add Urine Microscopic? YES; Bacteria Urine 4+ /hpf; Hyaline Casts Urine 15.13 /lpf; RBC Urine >100 /hpf (0-2); Squamous Epithelial Cell Urine 0-5 /hpf (0-5); WBC Urine >100 /hpf (0-5)
[2024-06-28 16:42] LABS: Add Urine Culture? Yes; UA Slide Review UA Slide Review Perf
[2024-06-28] MEDS: cefTRIAXone 1,000 mg SDV 1000 MG IVP (17:15)
[2024-06-28] MEDS: ondansetron 2 mg/ML SDV 2 mL 8 MG IVP (17:15)
[2024-06-28] MEDS: iohexol 350 mg/mL 500 mL Btl (per mL) IV (18:14)
== END 2024-06-28 19:57 | disposition home or self-care (01) ==
PROVIDERS: Physician Assistant; Emergency Provider Emergency Medicine; PCP Electrodiagnostic Medicine
DX: R13.10 Dysphagia, unspecified (principal); N39.0 Urinary tract infection, site not specified; N28.89 Other specified disorders of kidney and ureter; Z79.01 Long term (current) use of anticoagulants; Z86.73 Personal history of transient ischemic attack (TIA), and cerebral infarction without residual deficits; I10 Essential (primary) hypertension
CPT/HCPCS: 36415; 74177; 80053; 81001; 83690; 85025; 87077; 87086; 87186; 96374; 96375; 99285; J0696; J2405

== ENCOUNTER → 2024-06-29 13:00 | Outpatient (BNVA) | payer MEDICARE, OTHER, SELFPAY | PROVIDERS: PCP Electrodiagnostic Medicine; Visit Provider Internal Medicine Cardiovascular Disease | DX: I21.4 Non-ST elevation (NSTEMI) myocardial infarction (principal); I49.9 Cardiac arrhythmia, unspecified; I49.3 Ventricular premature depolarization | CPT/HCPCS: 93270 ==

== ENCOUNTER 2024-07-13 08:30 | Outpatient (CLI) | payer MEDICARE, OTHER, SELFPAY ==
--- NOTE | 2024-07-13 08:34 | FL_ITS ---
WS: [id number] FL barium swallow [id number] REASON FOR EXAM: ESOPHAGEAL DYSPHAGIA FLUOROSCOPY TIME: 1min [id number] # OF SPOT FILMS: Multiple Examination was limited by the patient's inability to stand and with significantly decreased mobility . Examination was performed in the semiupright supine and right lateral positions. FINDINGS: Normal motility and anatomy of the cervical esophagus with no aspiration identified. The thoracic esophagus demonstrated persistent distal esophageal sphincter spasm with intermittent re laxation. There was loss of the primary peristaltic wave with extensive tertiary contractions. There is prolong ed retention of barium within the esophagus with episodes of retrograde movement of the barium within the esophagus to the thoracic inlet. No hiatal hernia was demonstrated. FL/FL barium swallow [id number] IMPRESSION: Esophageal dysmotility as above. Findings are compatible with type III achalasi a.
== END 2024-07-13 08:34 | disposition home or self-care (01) ==
PROVIDERS: PCP Electrodiagnostic Medicine; Visit Provider Electrodiagnostic Medicine
DX: K22.4 Dyskinesia of esophagus (principal); R93.3 Abnormal findings on diagnostic imaging of other parts of digestive tract
CPT/HCPCS: 74220

== ENCOUNTER 2024-07-23 07:18 | Outpatient (CLI) | payer MEDICARE, OTHER, SELFPAY ==
--- NOTE | 2024-07-23 07:19 | US_ITS ---
WS: [id number] RIGHT UPPER QUADRANT ULTRASOUND HISTORY: GALLBLADDER CALCULUS W/CHOLECYSTITIS COMPARISON: 06/28/2024 Liver: 12.9 cm in length. Liver is normal size. Hepatic cysts are identified. The largest towards the posterior RIGHT lobe measures 3.1 x 3.4 x 3.3 cm. No intrahepatic duct dilatation. No solid mass. Portal Vein: Normal hepatopetal flow with monophasic waveform. Gallbladder: Gallbladder is normally distended. Numerous stones are present in the gallbladder. Some of the stones are noted within the gallbladder neck. No Roew sign was identified at this time. Ston e at the gallbladder neck is measuring at least 2 cm transversely. CBD: 0.3 cm Pancreas: Obscured. Right kidney: 8.1 cm in length. Poorly visualized kidney. No hydronephrosis identified. Aorta and IVC: Atherosclerosis aorta. No aneurysm. No ascites. US/US gall bladder [id number] IMPRESSION: 1. Cholelithiasis without acute cholecystitis. Several large stones are presen t in the gallbladder. One of the stones is in the gallbladder neck. Patient was not mobile therefore could not change position to evaluate for mobility of the stone. 2. No bile duct dilatation.
== END 2024-07-23 07:19 | disposition home or self-care (01) ==
LOC: RAD 07:18
PROVIDERS: PCP Electrodiagnostic Medicine; Visit Provider Electrodiagnostic Medicine
DX: K80.20 Calculus of gallbladder without cholecystitis without obstruction (principal)
CPT/HCPCS: 76705

== ENCOUNTER 2024-07-28 09:23 | Outpatient (CLI) | payer MEDICARE, OTHER, SELFPAY ==
--- NOTE | 2024-07-28 09:34 | MRR_ITS ---
PROCEDURE INFORMATION: Exam: MR Abdomen Without Contrast Exam date and time: 07/28/2024 10:08 AM Age: 74 years old Clinical indication: Condition or disease; Kidney or ureter condition; Other: Renal mass; Additional info: Ranal mass TECHNIQUE: Imaging protocol: Magnetic resonance imaging of the abdomen without contrast. COMPARISON: CT abdomen pelvis w con* [id number] 06/28/2024 5:55 PM FINDINGS: Liver: Multiple cysts involve the liver with the largest measuring 3 cm. Gallbladder and biliary ducts: A 3 cm gallstone is noted in the gallbladder and there is no evidence of gallbladder inflammation. Pancreas: Unremarkable. No ductal dilation. Spleen: Unremarkable. No splenomegaly. Adrenal glands: Unremarkable. No mass. Kidneys: There is a 2 cm irregular lesion involving the posterior cortex of the left kidney. The lesion demonstrates intermediate high-signal on T2 imaging. The lesion does not appear to represent simple cyst. A 5 mm cyst is noted in the medial aspect of the left kidney and a 6 mm cyst is noted in the right kidney. Stomach and bowel: Visualized stomach and intestines are unremarkable. Intraperitoneal space: No free fluid. Vasculature: No abdominal aortic aneurysm. Lymph nodes: No enlarged nodes. Bones/joints: Unremarkable. No suspicious lesions. Soft tissues: Unremarkable. MR/MR abdomen wo con [id number] IMPRESSION: 1. Irregular, complex 2 cm lesion of the left kidney. A lack of IV contrast limits the exam. The lesion does not appear to represent a simple cyst. I cannot exclude early renal neoplasm. 2. Multiple hepatic cysts 3. Cholelithiasis COMMENTS: Consistent with the [employer]'s Incidental Findings Committee white paper (J Am Gem Radiol 2018): Any incidental renal lesion less than 1 cm or classified as too small to characterize, or any incidental cystic renal lesion characterized as simple-appearing, is likely benign. No follow-up imaging is recommended for these lesions per consensus recommendations based on imaging criteria.
== END 2024-07-28 09:24 | disposition home or self-care (01) ==
PROVIDERS: PCP Electrodiagnostic Medicine; Visit Provider Electrodiagnostic Medicine
DX: N28.89 Other specified disorders of kidney and ureter (principal); K76.89 Other specified diseases of liver; K80.20 Calculus of gallbladder without cholecystitis without obstruction
CPT/HCPCS: 74181

== ENCOUNTER → 2024-08-19 10:07 | Outpatient (BNVA) | payer MEDICARE, OTHER, SELFPAY | PROVIDERS: PCP Electrodiagnostic Medicine; Visit Provider Student in an Organized Health Care Education/Training Program | DX: N28.89 Other specified disorders of kidney and ureter (principal) | CPT/HCPCS: 99203 ==

== ENCOUNTER 2024-10-20 18:05 | Observation (INO) | payer MEDICARE, OTHER, SELFPAY ==
[2024-10-20] VITALS (8 sets, daily range): BP systolic 97–124; BP diastolic 69–84; PULSE 70–98; RESP 15–18; TEMP 36.4–36.6; O2SAT 93–100; BMI 23.3
--- NOTE | 2024-10-20 18:12 | XRR_ITS ---
PROCEDURE INFORMATION: Exam: XR Chest Exam date and time: 10/20/2024 7:18 PM Age: 74 years old Clinical indication: Other: Dizzy; Additional info: Syncope TECHNIQUE: Imaging protocol: Radiologic exam of the chest. Views: 1 view. COMPARISON: CR XR chest 1V portable [id number] 05/28/2024 9:39 AM FINDINGS: Lungs: Unremarkable. No consolidation. Pleural spaces: Unremarkable. No pleural effusion. No pneumothorax. Heart/Mediastinum: Unremarkable. No cardiomegaly. Vasculature: Tortuous thoracic aorta. Bones/joints: Unremarkable. XR/XR chest 1V portable [id number] IMPRESSION: No acute cardiopulmonary process.
--- NOTE | 2024-10-20 18:13 | ECG_ITS ---
[facility] Test Date: 2024-10-20 Pat Name: Yamel Milligan Department: Room: Gender: Female [employer]: : 1950 Requested By: Fracisco Hwang Order Number: [id number] Edwin MD: Hema Whitney M.D. Measurements Intervals [place] Rate: 89 P: 72 DC: 157 QRS: 48 QRSD: 67 T: 63 QT: 343 QTc: 419 Interpretive Statements SINUS RHYTHM WITH SINUS ARRHYTHMIA NONSPECIFIC ST & T-WAVE ABNORMALITY Compared to ECG 05/28/2024 10:59:28 T-wave abnormality now present Electronically Signed On 10-22-2024 19:09:59 CDT by Hema Whitney M.D. [email or web address]
--- NOTE | 2024-10-20 18:29 | CTR_ITS ---
PROCEDURE INFORMATION: Exam: CT Head Without Contrast Exam date and time: 10/20/2024 7:15 PM Age: 74 years old Clinical indication: Dizziness; Additional info: Syncope TECHNIQUE: Imaging protocol: Computed tomography of the head without contrast. Radiation optimization: All CT scans at this facility use at least one of these dose optimization techniques: automated exposure control; mA and/or kV adjustment per patient size (includes targeted exams where dose is matched to clinical indication); or iterative reconstruction. COMPARISON: CT head thrombolytic [id number] 05/28/2024 8:59 AM RADIATION DOSE METRICS: Total DLP (mGy-cm): 977.64 FINDINGS: Brain: Similar generalized cortical volume loss. No hemorrhage. Periventricular and subcortical white matter hypodensities likely represent chronic small vessel ischemic changes. Chronic lacunar infarcts again seen in the left caudate, right external capsule, and right temporal lobe white matter. No mass effect. Cerebral ventricles: No ventriculomegaly. Paranasal sinuses: Visualized sinuses are unremarkable. No fluid levels. Mastoid air cells: Visualized mastoid air cells are well aerated. Bones: Unremarkable. No acute fracture. Soft tissues: Unremarkable. Vasculature: Vascular calcifications along the carotid siphons. CT/CT head wo con* [id number] IMPRESSION: 1. No acute intracranial abnormality. 2. Chronic/age-related changes as above, similar to prior.
--- NOTE | 2024-10-20 18:30 | W.ED.SYNCOPE ---
HPI - Syncope General: Chief Complaint: Syncope Stated Complaint: Passed Out , Hypotensive Time Seen by Provider: 10/20/24 18:26 Source: patient and EMS Mode of arrival: EMS Limitations: no limitations History of Present Illness: 74-year-old female states that she was sitting down with her daughter states she had felt flushed and had a near syncopal event. She states that she did not pass out but states she felt like she is going to. States she has felt weak all day. She had some nausea she denies any vomiting denies diarrhea denies any blood in her stool. Patient's had a stroke in the past that affected her left side states she has to walk with a walker and has a hard time walking. She denies any headache she states her blood pressure was in the 80s at home EMS states it was 100 with them which is her normal. Associated symptoms: Deny abdominal pain, chest pain, fever(s), headache(s) or nausea Related Data Home Medications ?Medication ?Instructions ?Recorded ?Confirmed tramadol 50 mg tablet 50 mg PO Q8H PRN Pain 11/25/20 08/19/24 citalopram 20 mg tablet (Celexa) 20 mg PO BEDTIME 12/24/23 08/19/24 aspirin 81 mg tablet,delayed 81 mg PO QPM 03/18/24 08/19/24 release cetirizine 10 mg tablet 10 mg PO DAILY 03/18/24 08/19/24 coenzyme Q10 100 mg capsule 100 mg PO QPM 03/18/24 08/19/24 (CoQ-10) multivitamin 1 tab PO QPM 03/18/24 08/19/24 pantoprazole 40 mg tablet,delayed 40 mg PO DAILY 03/18/24 08/19/24 release rosuvastatin 40 mg tablet 40 mg PO BEDTIME 03/18/24 08/19/24 sucralfate 1 gram tablet 1 g PO QID 03/18/24 08/19/24 lisinopril 2.5 mg tablet 2.5 mg PO DAILY 05/18/24 08/19/24 Previous Rx's ?Medication ?Instructions ?Recorded apixaban 5 mg tablet (Eliquis) 5 mg PO BID #240 tabs 03/19/24 meclizine 25 mg tablet 25 mg PO TID PRN dizziness #20 tabs 05/28/24 enoxaparin 80 mg/0.8 mL 80 mg (0.8 mL) SUBCUT Q12H #1.6 mL 09/09/24 subcutaneous syringe (Lovenox) Allergies Allergy/AdvReac Type Severity Reaction Status Date / Time codeine Allergy Unknown Unknown Verified 05/18/24 09:30 gabapentin Allergy lethargic Verified 10/20/24 18:13 Penicillins Allergy nausea Verified 05/18/24 09:30 Review of Systems Const: Denies: fever(s), chills, body aches or change in appetite ENMT: Denies: throat pain or dental pain Card: Reports: pre-syncope; Denies: chest pain Resp: Denies: dyspnea GI: Denies: abdominal pain, nausea, vomiting or diarrhea Musc: Denies: neck pain or back pain Skin/Breast: Denies: rash Neuro: Denies: headache(s) PFSH ED PFSH: Medical History NSTEMI (non-ST elevated myocardial infarction) Pre-syncope Generalized muscle weakness Acute lower urinary tract infection Status post CVA PFO (patent foramen ovale) Depression At risk for bleeding Peripheral neuropathy Right middle cerebral artery stroke Acute right arterial ischemic stroke, middle cerebral artery (MCA) Thromboembolic stroke Pulmonary embolism CVA (cerebral vascular accident) Hypertension Closed head injury Focal infarction of brain Surgical History No pertinent past surgical history Social History Smoking and tobacco/nicotine status: never used tobacco/nicotine Physical Exam Const: COMMON NORMALS: patient oriented x3 HENMT: COMMON NORMALS: normocephalic and atraumatic HEAD & SCALP: normocephalic and atraumatic Eye: COMMON NORMALS: Equal, round and reactive pupils present and EOMs intact bilaterally PUPIL: Yes Equal, round and reactive pupils present Neck/C-Spine: COMMON NORMALS: full ROM and supple Chest: COMMONS NORMALS: normal inspection of the chest and normal palpation of entire chest wall Resp: COMMON NORMALS: normal respiratory effort, No retractions, No use of accessory muscles and clear to auscultation bilaterally AUSCULTATION: clear to auscultation bilaterally Cardio: COMMON NORMALS: regular rate, regular rhythm and No murmurs present (Cardio) RATE: regular rate RHYTHM: regular rhythm GI: COMMON NORMALS: Normal to inspection, nondistended, normoactive bowel sounds present, Soft to palpation, non-tender and no masses PALPATION: Yes Soft to palpation Extremity: COMMON NORMALS: normal to inspection and full ROM Neuro: COMMON NORMALS: patient oriented x3, moves all extremities and no focal motor deficits Psych: COMMON NORMALS: mental status grossly normal, Normal thought process present and cooperative THOUGHT PROCESS: Normal thought process present Skin: COMMON NORMALS: no rashes or lesions noted and no wounds GENERAL SKIN EXAM: no rashes or lesions noted Course Vital Signs: Vital signs: Vital Signs Temperature 97.5 F L 10/20/24 18:09 Pulse Rate 82 10/20/24 19:31 Respiratory Rate 16 10/20/24 19:31 Blood Pressure 115/75 10/20/24 19:36 Pulse Oximetry 98 10/20/24 19:31 Oxygen Delivery Me thod Room Air 10/20/24 19:31 MDM - Syncope Medical Decision Making Patient presents here after syncopal event talking to family states she has had 4 events this week where she is passed out they states she has had low blood pressures during the week as well he states that before EMS arrived for blood pressure in the 80s her blood pressure here is been stable she feels better after fluids blood works normal will admit for observation at this time Medical Records I reviewed the patient's medical records. Lab Data I reviewed the patient's lab results. 10/20/24 18:49 10/20/24 18:49 Radiology Impressions Chest X-Ray 10/20/24 18:12 IMPRESSION: No acute cardiopulmonary process. Head CT 10/20/24 18:29 IMPRESSION: 1. No acute intracranial abnormality. 2. Chronic/age-related changes as above, similar to prior. Laboratory Results WBC 2.86 10^3/uL (3.29-11.43) L 10/20/24 18:49 RBC 3.70 10^6/uL (3.85-5.65) L 10/20/24 18:49 Hgb 12.00 g/dL (11.27-16.99) 10/20/24 18:49 Hct 38.8 % (36-47) 10/20/24 18:49 MCV 104.9 fl (85-98) H 10/20/24 18:49 MCH 32.4 pg (27-33) 10/20/24 18:49 MCHC 30.9 g/dL (30-55) 10/20/24 18:49 RDW 15.3 % (12.1-15.1) H 10/20/24 18:49 Plt Count 67 10^3/cmm (157-399) L 10/20/24 18:49 MPV 13.5 fL (7.4-10.4) H 10/20/24 18:49 Neut % (Auto) 53.3 % 10/20/24 18:49 Lymph % (Auto) 33.9 % 10/20/24 18:49 [place] % (Auto) 8.7 % 10/20/24 18:49 Eos % (Auto) 2.4 % 10/20/24 18:49 Baso % (Auto) 1.0 % 10/20/24 18:49 Neut # (Auto) 1.52 10^3/uL (1.8-7.7) L 10/20/24 18:49 Lymph # (Auto) 1.0 10^3/uL (0.8-4.8) 10/20/24 18:49 [place] # (Auto) 0.3 10^3/uL (0.2-0.9) 10/20/24 18:49 Eos # (Auto) 0.1 10^3/uL (0.0-0.8) 10/20/24 18:49 Baso # (Auto) 0.0 10^3/uL (0.0-0.1) 10/20/24 18:49 Nucleated RBC % (auto) 0 % 10/20/24 18:49 Nucleated RBCs # 0.0 /100WBC 10/20/24 18:49 PT 14.30 SECONDS (12.1-14.9) 10/20/24 19:05 INR 1.03 (0.8-1.2) 10/20/24 19:05 Sodium 136 mmol/L (136-145) 10/20/24 18:49 Potassium 3.3 mmol/L (3.5-5.1) L 10/20/24 18:49 Chloride 104 mmol/L (98-107) 10/20/24 18:49 Carbon Dioxide 16 mmol/L (22-29) L 10/20/24 18:49 Anion Gap 19.3 (5-19) H 10/20/24 18:49 BUN 9 mg/dL (8-23) 10/20/24 18:49 Creatinine 0.7 mg/dL (0.5-0.9) 10/20/24 18:49 GFR Calculation Not Reportable 10/20/24 18:49 Glucose 103 mg/dL (65-115) 10/20/24 18:49 Calculated Osmolality 281 mOsm/kg (285-295) L 10/20/24 18:49 Calcium 8.7 mg/dL (8.5-10.5) 10/20/24 18:49 Magnesium 1.7 mg/dL (1.7-2.3) 10/20/24 18:49 Total Bilirubin 0.8 mg/dL (0.15-1.2) 10/20/24 18:49 AST 25 U/L (0-32) 10/20/24 18:49 ALT 8 U/L (0-33) 10/20/24 18:49 Alkaline Phosphatase 56 U/L (35-105) 10/20/24 18:49 Total Protein 5.6 g/dL (6.6-8.7) L 10/20/24 18:49 Albumin 2.9 g/dL (3.5-5.2) L 10/20/24 18:49 Globulin 2.7 g/dL (1.3-4.6) 10/20/24 18:49 All radiology interpretation(s) finalized by discharge EKG Data EKG 1: I personally reviewed and interpreted this EKG as follows: EKG interpretation date: 10/20/24 EKG interpretation time: 18:23 Interpretation: nsr hr [address] elevation qrs 67qtc 390 Discharge Plan Discharge Patient Disposition: Placed in Observation Clinical Impression: Syncope Coding Level of Care Code ED 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
[2024-10-20] MEDS: sodium chloride 0.9% 1,000 ML 999 ML IV (18:51)
[2024-10-20 18:59] LABS: Eosinophils # 0.1 10^3/uL (0.0-0.8); Eosinophils % 2.4 %; Hematocrit 38.8 % (36-47); Lymphocytes % 33.9 %; Mean Corpuscular HGB Conc 30.9 g/dL (30-55); Mean Corpuscular Hemoglobin 32.4 pg (27-33); Mean Corpuscular Volume 104.9 fl (85-98); Mean Platelet Volume 13.5 fL (7.4-10.4); Monocytes # 0.3 10^3/uL (0.2-0.9); Monocytes % 8.7 %; Neutrophils # 1.52 10^3/uL (1.8-7.7); Neutrophils % 53.3 %; Nucleated Red Blood Cells % 0 %; Platelet Count 67 10^3/cmm (157-399); Red Cell Distribution Width 15.3 % (12.1-15.1); White Blood Count 2.86 10^3/uL (3.29-11.43)
[2024-10-20 19:22] LABS: INR 1.03 (0.8-1.2)
[2024-10-20 19:30] LABS: Alanine Aminotransferase 8 U/L (0-33); Albumin Level 2.9 g/dL (3.5-5.2); Alkaline Phosphatase 56 U/L (35-105); Blood Urea Nitrogen 9 mg/dL (8-23); Calcium 8.7 mg/dL (8.5-10.5); Carbon Dioxide 16 mmol/L (22-29); Chloride 104 mmol/L (98-107); Creatinine Clr Calc Pharmacy 73.2227; Globulin 2.7 g/dL (1.3-4.6); Glucose 103 mg/dL (65-115); Magnesium 1.7 mg/dL (1.7-2.3); Osmolality Calculated 281 mOsm/kg (285-295); Sodium 136 mmol/L (136-145); Total Bilirubin 0.8 mg/dL (0.15-1.2); Total Protein 5.6 g/dL (6.6-8.7)
[2024-10-20 19:42] LABS: Anion Gap 19.3 (5-19); Aspartate Amino Transferase 25 U/L (0-32); Potassium 3.3 mmol/L (3.5-5.1)
--- NOTE | 2024-10-20 20:31 | ECG_ITS ---
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 Measurements Intervals [place] Rate: 84 P: 0 [place]: 0 QRS: 34 QRSD: 94 T: 13 QT: 384 QTc: 456 Interpretive Statements SUPRAVENTRICULAR RHYTHM WITH SIGNIFICANT BASELINE ARTIFACT LOW QRS VOLTAGE IN PRECORDIAL LEADS [QRS DEFLECTION < 1.0 mV IN CHEST LEADS] Compared to ECG 10/20/2024 18:23:48 T-wave abnormality no longer present Electronically Signed On 10-22-2024 19:09:39 CDT by Hema Whitney M.D. [id number] [id number]
[2024-10-20 20:58] LABS: Troponin(5th) Baseline 17 ng/L (0-10)
[2024-10-20 21:11] LABS: Troponin 5 2HR 17.35 ng/L (0-10); Troponin 5 2HR Delta 0.35 ABS# (0-10)
--- NOTE | 2024-10-20 21:52 | PM.HP ---
Providers/Chief Complaint Primary Care Provider: Kyaw Lobato DO Chief Complaint: Passed Out , Hypotensive History of Present Illness Yamel Milligan is a 74 year old female who present to the hospital for recurrent syncopal events. Patient lives with her daughter. 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 As per the daughter Yamel had total 4 episodes of syncopal events. Today she went from her bedroom to the kitchen using her walker, she started getting dizzy, she sat on the platform, became pale and passed out for couple minutes, as soon as she regained consciousness she started vomiting, patient did not complain of any chest pain or palpitations, no urine incontinence. As per the daughter she has had these kind of episodes multiple times in the last few weeks. Patient is stating that she has esophagitis cannot eat very well sometimes, her p.o. intake is not very good but she tries to sip a lot of water, has had couple of episode of dry heaves in the morning and then vomiting after her syncopal event. No history of seizure, coronary disease or CHF. When EMS arrived, her blood pressure was in low 80s, she was given IV fluid hydration which improved her blood pressure. She is asymptomatic during my evaluation has chronic left-sided weakness. No acute focal neurodeficit. Patient has memory deficit otherwise able to answer all of my questions appropriately. Review of records revealed that patient was evaluated by cardiology in the past for non-STEMI, last year coronary angiogram showed nonobstructive coronary disease without any wall motion abnormality on echo, at that point her blood pressure was low and lisinopril metoprolol was discontinued. She was eval by general surgery for left renal mass, as per general surgery this seems to be a complex cyst, patient is also following up with a urologist Review of Systems Const: Denies: fever(s) Eyes: Denies: change in vision ENMT: Denies: throat pain Card: Denies: chest pain Resp: Denies: dyspnea GI: Denies: abdominal pain Neuro: Reports: difficulty walking Medications/Allergies Home Medications ?Medication ?Instructions ?Recorded ?Confirmed ?Last Taken ?Type tramadol 50 mg tablet 50 mg PO Q8H PRN Pain 11/25/20 08/19/24 05/27/24 History citalopram 20 mg tablet (Celexa) 20 mg PO BEDTIME 12/24/23 08/19/24 05/27/24 History aspirin 81 mg tablet,delayed 81 mg PO QPM 03/18/24 08/19/24 05/27/24 History release cetirizine 10 mg tablet 10 mg PO DAILY 03/18/24 08/19/24 05/27/24 History coenzyme Q10 100 mg capsule 100 mg PO QPM 03/18/24 08/19/24 05/27/24 History (CoQ-10) multivitamin 1 tab PO QPM 03/18/24 08/19/24 05/27/24 History pantoprazole 40 mg tablet,delayed 40 mg PO DAILY 03/18/24 08/19/24 05/27/24 History release rosuvastatin 40 mg tablet 40 mg PO BEDTIME 03/18/24 08/19/24 05/27/24 History sucralfate 1 gram tablet 1 g PO QID 03/18/24 08/19/24 05/27/24 History apixaban 5 mg tablet (Eliquis) 5 mg PO BID #240 tabs 03/19/24 08/19/24 05/27/24 Rx lisinopril 2.5 mg tablet 2.5 mg PO DAILY 05/18/24 08/19/24 05/27/24 History meclizine 25 mg tablet 25 mg PO TID PRN dizziness #20 tabs 05/28/24 08/19/24 Unknown Rx enoxaparin 80 mg/0.8 mL 80 mg (0.8 mL) SUBCUT Q12H #1.6 mL 09/09/24 Unknown Rx subcutaneous syringe (Lovenox) Allergies Allergy/AdvReac Type Severity Reaction Status Date / Time codeine Allergy Unknown Unknown Verified 05/18/24 09:30 gabapentin Allergy lethargic Verified 10/20/24 18:13 Penicillins Allergy nausea Verified 05/18/24 09:30 PFSH Acute PFSH: Medical History NSTEMI (non-ST elevated myocardial infarction) Pre-syncope Generalized muscle weakness Acute lower urinary tract infection Status post CVA PFO (patent foramen ovale) Depression At risk for bleeding Peripheral neuropathy Right middle cerebral artery stroke Acute right arterial ischemic stroke, middle cerebral artery (MCA) Thromboembolic stroke Pulmonary embolism CVA (cerebral vascular accident) Hypertension Closed head injury Focal infarction of brain Surgical History No pertinent past surgical history Social History Smoking and tobacco/nicotine status: never used tobacco/nicotine Vitals/I&O/Wt Last Vital Signs Temp 97.5 F L 10/20/24 18:09 Pulse 70 10/20/24 21:30 Resp 15 10/20/24 21:30 BP 124/71 10/20/24 21:30 Pulse Ox 100 10/20/24 21:30 O2 Del Method Room Air 10/20/24 21:00 10/20/24 10/20/24 10/20/24 06:59 14:59 22:59 Intake Total 1000 / 1000 Balance 1000 / 1000 Weight last 48 hrs Weight 81.193 kg Physical Exam Narrative: Clinical signs of dehydration GCS 15 Nonfocal neuroexam Awake and alert No active focal deficit She has chronic left-sided weakness Signs of dehydration present S1, S2 Blood pressure stable Afebrile No sign of meningitis Patient able to answer all my question Dry mucous membrane Data 10/20/24 18:49 10/20/24 18:49 A&P Assessment and plan (1) Syncope: Plan Recurrent syncopal events Low blood pressure likely related to hypovolemia Decreased p.o. intake secondary to gastritis, dry heaves and emesis at home No active chest pain or palpitation as per the patient Previous angiogram showed nonobstructive coronary disease which was done last year Will repeat echo this time Check D-dimer, B12 and TSH Patient should be not be taking lisinopril anymore on last admission her metoprolol was discontinued as well Continue IV fluids overnight Check orthostatics Physical therapy in the morning Patient uses a walker with platform Patient has finished cardiac event monitor reading as well, baseline rhythm seems to be sinus without tachycardia or bradycardia arrhythmias no pauses Patient has history of stroke with patent foramina well continue Eliquis Mechanical soft diet Continue Eliquis PT in the morning Anticipating discharge within 24 to 48 hours PDMP PDMP Reviewed: Not Reviewed Attestations Medical Necessity Statement*: Anticipating discharge within 24 to 48 hours Diagnoses Syncope R55
[2024-10-20 22:29] LABS: D Dimer 0.63 ug/mLFEU (0-0.59)
--- NOTE | 2024-10-20 22:39 | ECG_ITS ---
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1950 Requested By: Fracisco Hwang Order Number: [id number] Reading MD: MELIDA FUCHS Measurements Intervals [place] Rate: 65 P: -19 [place]: 161 QRS: 14 QRSD: 80 T: 40 QT: 412 QTc: 430 Interpretive Statements SINUS RHYTHM LOW QRS VOLTAGE IN PRECORDIAL LEADS [QRS DEFLECTION < 1.0 mV IN CHEST LEADS] MODERATE ST DEPRESSION [0.05+ mV ST DEPRESSION] Compared to ECG 10/20/2024 18:23:48 Low QRS voltage now present ST (T wave) deviation now present Sinus arrhythmia no longer present T-wave abnormality no longer present Electronically Signed On 10-25-2024 18:24:11 CDT by MELIDA FUCHS [id number]
--- NOTE | 2024-10-20 22:55 | USCV_ITS ---
Yamel Milligan Age: 74 Gender: F : 1950 Exam Date: 10/20/2024 23:22 Ordering Phys: Magi Cross MD Technologist: MAXINE Exam Location: [facility] [place] Indication: syncope BP: 124 / 71 HR: 68 Rhythm: Sinus Technical Quality: Adequate MEASUREMENTS (Male / Female) Normal Values 2D ECHO LV Diastolic Diameter PLAX 4.0 cm 4.2 - 5.9 / 3.9 - 5.3 cm IVS Diastolic Thickness 1.2 cm 0.6 - 1.0 / 0.6 - 0.9 cm IVS Systolic Thickness 1.4 cm LVPW Diastolic Thickness 1.1 cm 0.6 - 1.0 / 0.6 - 0.9 cm LVPW Systolic Thickness 1.2 cm LVOT Diameter 2.0 cm LV Ejection Fraction 2D Teich 60.4 % LV Ejection Fraction MOD 4C 50.8 % LV Ejection Fraction MOD 2C 66.6 % LV Ejection Fraction 2C AL 68.5 % LA Diameter 2.3 cm Aorta at Sinotubular Diameter 2.3 cm IVC Diameter 0.9 cm M-MODE LA Ao Ratio MM 0.9 AV Cusp Separation MM 1.9 cm DOPPLER AV Peak Velocity 105.0 cm/s LVOT Peak Velocity 72.0 cm/s AV Area Cont Eq vti 2.1 cm squared AV Area Cont Eq pk 2.1 cm squared MV Peak Velocity 74.0 cm/s MV Area PHT 2.4 cm squared Mitral E to A Ratio 0.6 TV Peak E Velocity 42.0 cm/s PV Peak Velocity 76.0 cm/s FINDINGS Left Ventricle Left ventricle is normal in size. LV systolic function is borderline normal with EF of 50-55%. No regional wall motion abnormalities are seen. Grade 1 diastolic dysfunction Right Ventricle Normal in size and function Right Atrium Normal in size Left Atrium Normal in size Mitral Valve Structurally normal mitral valve. Mild mitral regurgitation. Aortic Valve Structurally normal aortic valve. No significant stenosis or regurgitation. Tricuspid Valve Mild tricuspid regurgitation. Pulmonary artery systolic pressure is normal Pulmonic Valve Not well visualized Pericardium Normal Aorta Normal in size IVC Appears to be normal CONCLUSIONS LV systolic function is borderline normal with EF of 50-55% Grade 1 diastolic dysfunction Mild mitral regurgitation Mild tricuspid regurgitation Hema Whitney MD (Electronically Signed) Final Date: 21 October 2024 11:39 S
[2024-10-21] VITALS: BP 122/84; PULSE 93; RESP 17; TEMP 36.6; O2SAT 93
[2024-10-21] MEDS: thiamine 100 mg/mL 2mL SDV IVP (00:01)
[2024-10-21 00:21] LABS: Bilirubin Urine Negative (Negative); Blood Urine Negative (Negative); Glucose Urine UA Negative (Normal); Ketones Urine 1+ (Negative); Leukocyte Esterase Urine Trace (Negative); Nitrate Urine Negative (Negative); Protein Urine Trace (Negative); Specific Gravity, Urine 1.016 (1.005-1.030); Urine Appearance Clear (CLEAR); Urine Color Dark Yellow (Yellow)
[2024-10-21 00:26] LABS: Add Urine Microscopic? YES; Bacteria Urine None Seen /hpf; Hyaline Casts Urine 10.32 /lpf; RBC Urine 0-2 /hpf (0-2); Squamous Epithelial Cell Urine 0-5 /hpf (0-5); WBC Urine 0-5 /hpf (0-5)
[2024-10-21 00:58] LABS: UA Slide Review UA Slide Review Perf
[2024-10-21 01:18] LABS: Thyroid Stimulating Hormone 1.78 uIU/mL (0.27-4.20); Vitamin B12 589 pg/mL (232-1245)
[2024-10-21] MEDS: sodium chloride 0.9% 1,000 ML 75 ML IV (01:19)
[2024-10-21 01:24] LABS: Anion Gap 15.3 (5-19); Blood Urea Nitrogen 10 mg/dL (8-23); Calcium 8.1 mg/dL (8.5-10.5); Carbon Dioxide 23 mmol/L (22-29); Chloride 103 mmol/L (98-107); Creatinine Clr Calc Pharmacy 72.0218; Glucose 86 mg/dL (65-115); Magnesium 1.6 mg/dL (1.7-2.3); Osmolality Calculated 284 mOsm/kg (285-295); Phosphorus 3.3 mg/dL (2.5-4.5); Potassium 3.3 mmol/L (3.5-5.1); Sodium 138 mmol/L (136-145)
[2024-10-21 01:26] LABS: Troponin 5 6HR 34.56 ng/L (0-10)
[2024-10-21 01:35] LABS: Troponin 5 6HR Delta 17.56 ng/L (0-12)
[2024-10-21 02:07] LABS: Estmated Average Glucose 85; Hemoglobin A1C 4.6 % (4.0-6.0)
--- NOTE | 2024-10-21 02:28 | ECG_ITS ---
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
[2024-10-21 04:00] VITALS: BP 134/74; PULSE 89; RESP 16; TEMP 36.6; O2SAT 93
[2024-10-21 07:28] VITALS: BP 125/77; PULSE 67; RESP 18; TEMP 36.8; O2SAT 96
[2024-10-21] MEDS: pantoprazole DR 40 mg Tablet PO (08:19)
[2024-10-21] MEDS: apixaban 5 mg Tablet PO (08:19)
[2024-10-21] MEDS: magnesium oxide 400 mg tablet PO (08:19)
[2024-10-21] MEDS: potassium chloride ER 20 mEq Tablet 40 MEQ PO (08:19)
[2024-10-21 08:35] VITALS: PULSE 67; RESP 18; O2SAT 96
--- NOTE | 2024-10-21 09:48 | P.DS_ITS ---
Discharge Providers Date of Admission: 10/20/24 20:30 Date of Discharge: October 21, 2024 Attending Provider at Admission: Magi Cross MD Attending Provider at Discharge: Brayan Varma MD Primary Care Provider: Kyaw Lobato DO Diagnoses at Discharge Discharge Diagnosis (1) Syncope: Status: Acute Reason for Visit Reason for Visit: Passed Out , Hypotensive Hospital Course Hospital Course Yamel Milligan is a very pleasant 74-year-old female with a past medical history significant for prior syncope, stroke with residual left-sided weakness, patent foramen ovale, depression, neuropathy, pulmonary embolism, hypertension, and m ultiple other comorbidities who presented emergency department with near syncopal episode associated with nausea/vomiting. She was found to have low blood pressure consistent with hypovolemic hypotension secondary to dehydration and poor oral intake. Presentation most suspicious for orthostasis in the setting of hypovolemia. She was counseled extensively on appropriate oral intake. She is no longer on any antihypertensives. Previous cardiac workup was reviewed. Patient was treated with IV fluids with resolution of symptoms. She worked well with physical therapy who recommended continued outpatient rehabilitation. Patient was counseled on trial of low-dose midodrine as needed for orthostatic like symptoms. She will be prescribed a short course of as needed midodrine to try. She is to keep a blood pressure log and bring to her PCP appointment within 7 days for ongoing care. Physical Exam Const: COMMON NORMALS: no acute distress and alert HENMT: COMMON NORMALS: normocephalic HEAD & SCALP: normocephalic Neck/C-Spine: COMMON NORMALS: supple and no JVD Chest: COMMONS NORMALS: normal inspection of the chest Resp: COMMON NORMALS: normal respiratory effort, No use of accessory muscles and clear to auscultation bilaterally AUSCULTATION: clear to auscultation bilaterally Cardio: COMMON NORMALS: no JVD, regular rate, regular rhythm, S1 normal heart sound present, S2 normal heart sound present, No gallops present (Cardio), No clicks present (Cardio), No murmurs present (Cardio) and No rub (Cardio) RATE: regular rate RHYTHM: regular rhythm HEART SOUNDS: S1 normal heart sound present and S2 normal heart sound present GI: COMMON NORMALS: Normal to inspection, nondistended, normoactive bowel sounds present, Soft to palpation and non-tender PALPATION: Yes Soft to palpation Extremity: COMMON NORMALS: normal to inspection Neuro: COMMON NORMALS: moves all extremities and no focal motor deficits SENSORIUM/ORIENTATION: Yes alert Skin: COMMON NORMALS: no rashes or lesions noted GENERAL SKIN EXAM: no rashes or lesions noted Discharge Data Studies Completed and Pending Completed Studies During Hospitalization Category Date Time Status CT head wo con* [id number] Stat Cat Scan 10/20/24 18:29 Completed XR chest 1V portable [id number] Stat Exams 10/20/24 18:12 Completed Pending at discharge Category Date Time Status CV. echo complete* [id number] Routine Ultrasound 10/20/24 22:55 Taken Radiology Impressions Chest X-Ray 10/20/24 18:12 IMPRESSION: No acute cardiopulmonary process. Head CT 10/20/24 18:29 IMPRESSION: 1. No acute intracranial abnormality. 2. Chronic/age-related changes as above, similar to prior. Laboratory Results WBC 2.86 10^3/uL (3.29-11.43) L 10/20/24 18:49 RBC 3.70 10^6/uL (3.85-5.65) L 10/20/24 18:49 Hgb 12.00 g/dL (11.27-16.99) 10/20/24 18:49 Hct 38.8 % (36-47) 10/20/24 18:49 MCV 104.9 fl (85-98) H 10/20/24 18:49 MCH 32.4 pg (27-33) 10/20/24 18:49 MCHC 30.9 g/dL (30-55) 10/20/24 18:49 RDW 15.3 % (12.1-15.1) H 10/20/24 18:49 Plt Count 67 10^3/cmm (157-399) L 10/20/24 18:49 MPV 13.5 fL (7.4-10.4) H 10/20/24 18:49 Neut % (Auto) 53.3 % 10/20/24 18:49 Lymph % (Auto) 33.9 % 10/20/24 18:49 [place] % (Auto) 8.7 % 10/20/24 18:49 Eos % (Auto) 2.4 % 10/20/24 18:49 Baso % (Auto) 1.0 % 10/20/24 18:49 Neut # (Auto) 1.52 10^3/uL (1.8-7.7) L 10/20/24 18:49 Lymph # (Auto) 1.0 10^3/uL (0.8-4.8) 10/20/24 18:49 [place] # (Auto) 0.3 10^3/uL (0.2-0.9) 10/20/24 18:49 Eos # (Auto) 0.1 10^3/uL (0.0-0.8) 10/20/24 18:49 Baso # (Auto) 0.0 10^3/uL (0.0-0.1) 10/20/24 18:49 Nucleated RBC % (auto) 0 % 10/20/24 18:49 Nucleated RBCs # 0.0 /100WBC 10/20/24 18:49 PT 14.30 SECONDS (12.1-14.9) 10/20/24 19:05 INR 1.03 (0.8-1.2) 10/20/24 19:05 D-Dimer 0.63 ug/mLFEU (0-0.59) H 10/20/24 19:05 Sodium 138 mmol/L (136-145) 10/21/24 00:43 Potassium 3.3 mmol/L (3.5-5.1) L 10/21/24 00:43 Chloride 103 mmol/L (98-107) 10/21/24 00:43 Carbon Dioxide 23 mmol/L (22-29) 10/21/24 00:43 Anion Gap 15.3 (5-19) 10/21/24 00:43 BUN 10 mg/dL (8-23) 10/21/24 00:43 Creatinine 0.7 mg/dL (0.5-0.9) 10/21/24 00:43 GFR Calculation Not Reportable 10/21/24 00:43 Glucose 86 mg/dL (65-115) 10/21/24 00:43 Estimat Average Glucose 85 10/21/24 00:43 Hemoglobin A1c 4.6 % (4.0-6.0) 10/21/24 00:43 Calculated Osmolality 284 mOsm/kg (285-295) L 10/21/24 00:43 Calcium 8.1 mg/dL (8.5-10.5) L 10/21/24 00:43 Phosphorus 3.3 mg/dL (2.5-4.5) 10/21/24 00:43 Magnesium 1.6 mg/dL (1.7-2.3) L 10/21/24 00:43 Total Bilirubin 0.8 mg/dL (0.15-1.2) 10/20/24 18:49 AST 25 U/L (0-32) 10/20/24 18:49 ALT 8 U/L (0-33) 10/20/24 18:49 Alkaline Phosphatase 56 U/L (35-105) 10/20/24 18:49 Troponin T Baseline 17 ng/L (0-10) H 10/20/24 18:49 Troponin T 120 Minute 17.35 ng/L (0-10) H 10/20/24 20:39 Delta Troponin T 0.35 ABS# (0-10) 10/20/24 20:39 Troponin T Hi Sens 6Hr 34.56 ng/L (0-10) H 10/21/24 00:43 Troponin T Hi Sens 6Hr Delta 17.56 ng/L (0-12) H* 10/21/24 00:43 Total Protein 5.6 g/dL (6.6-8.7) L 10/20/24 18:49 Albumin 2.9 g/dL (3.5-5.2) L 10/20/24 18:49 Globulin 2.7 g/dL (1.3-4.6) 10/20/24 18:49 Vitamin B12 589 pg/mL (232-1245) 10/20/24 20:39 TSH 1.78 uIU/mL (0.27-4.20) 10/20/24 20:39 Urine Color Dark yellow (Yellow) A 10/21/24 00:10 Urine Appearance Clear (CLEAR) 10/21/24 00:10 Urine pH 6.0 (5-7) 10/21/24 00:10 Ur Specific [place] 1.016 (1.005-1.030) 10/21/24 00:10 Urine Protein Trace (Negative) A 10/21/24 00:10 Urine Glucose (UA) Negative (Normal) 10/21/24 00:10 Urine Ketones 1+ (Negative) H 10/21/24 00:10 Urine Blood Negative (Negative) 10/21/24 00:10 Urine Nitrate Negative (Negative) 10/21/24 00:10 Urine Bilirubin Negative (Negative) 10/21/24 00:10 Urine Urobilinogen 2.0 mg/dL (Negative) H 10/21/24 00:10 Ur Leukocyte Esterase Trace (Negative) A 10/21/24 00:10 Urine RBC 0-2 /hpf (0-2) 10/21/24 00:10 Urine WBC 0-5 /hpf (0-5) 10/21/24 00:10 Ur Squamous Epith Cells 0-5 /hpf (0-5) 10/21/24 00:10 Amorphous Sediment Not Reportable 10/21/24 00:10 Urine Bacteria None seen /hpf (NONE) 10/21/24 00:10 Hyaline Casts 10.32 /lpf 10/21/24 00:10 Vitals Last Vital Signs Temp 98.3 F 10/21/24 07:28 Pulse 67 10/21/24 07:28 Resp 18 10/21/24 07:28 BP 125/77 10/21/24 07:28 Pulse Ox 96 10/21/24 07:28 O2 Del Method Room Air 10/21/24 07:28 Discharge Plan Discharge Patient Disposition: Home Condition: Stable Prescriptions: New midodrine 5 mg tablet 5 mg PO BID PRN (Reason: Orthostasis) Qty: 20 0RF Rx Instructions: do not give last dose of day after 6PM or within 4 hrs of bedtime Continued tramadol 50 mg tablet 50 mg PO Q8H PRN (Reason: Pain) citalopram [Celexa] 20 mg tablet 20 mg PO BEDTIME multivitamin Tablet 1 tab PO QPM cetirizine 10 mg tablet 10 mg PO DAILY aspirin 81 mg Tablet,Delayed Release (Dr/Ec) 81 mg PO QPM pantoprazole 40 mg tablet,delayed release (DR/EC) 40 mg PO DAILY coenzyme Q10 [CoQ-10] 100 mg Capsule 100 mg PO QPM Eliquis 5 mg tablet 5 mg PO BID Qty: 240 3RF Patient Comments: patient states she has not taken her evening dose today and has only taken her morning dose today meclizine 25 mg tablet 25 mg PO TID PRN (Reason: dizziness) Qty: 20 0RF atorvastatin 40 mg Tablet 40 mg PO QPM ondansetron 4 mg Tablet,Disintegrating 8 mg PO TID PRN (Reason: Nausea And Vomiting) Discharge Orders: Discharge Order (Routine); Ordered 10/21/24 Ordered By: Brayan Varma Other Ambulatory Orders: Physical Therapy Eval and Treat Outpatient (Order) Timeframe: 3 Days Facility: [facility] - Location: Physical Therapy [place] Ordered By: Brayan Varma Referrals: [facility] Outpatient Therapy [Outside] (We have notified your [facility] of the need for a follow-up appointment to be scheduled for outpatient Physical Therapy. If you have not heard from them within the next 2 business days, please call them directly. ) Kyaw Lobato DO [Staff Physician] - 10/26/24 11:30 am Discharge Diet: Advance as tolerated and Usual diet Discharge Activity: Resume usual activity and Increase activity as tolerated Patient Instructions: Midodrine (By mouth), Syncope, Opioid Safety Activity Restrictions/Additional Instructions: Take medications as prescribed. Utilized as need midodrine for lightheadness and low blood pressures. Recommend home BP log. Please take to your PCP appointment. Encourage oral intake. If symptoms continue to persist, consider discussing pros/cons of appetite stimulant with yor PCP. Discharge Attestations Time Spent in Discharge Care*: greater than 30 min Quality Metrics Clinical Quality Measures [ No reported AMI, CVA or VTE this stay] Coding Level of Care Code Acute Code for Chg Fwd Diagnoses Syncope R55
[2024-10-21 11:53] VITALS: BP 125/77; PULSE 67; RESP 16; TEMP 36.8; O2SAT 96
== END 2024-10-21 11:00 | disposition home or self-care (01) ==
LOC: ER 20:29 → MEDSURG 21:57
PROVIDERS: Admitting Provider Internal Medicine; Emergency Provider Emergency Medicine; PCP Electrodiagnostic Medicine; Visit Provider Internal Medicine
DX: I95.9 Hypotension, unspecified (principal); R55 Syncope and collapse; I69.354 Hemiplegia and hemiparesis following cerebral infarction affecting left non-dominant side; I25.2 Old myocardial infarction; I10 Essential (primary) hypertension; I25.10 Atherosclerotic heart disease of native coronary artery without angina pectoris; Z86.711 Personal history of pulmonary embolism; K29.70 Gastritis, unspecified, without bleeding; Q21.12 Patent foramen ovale; G62.9 Polyneuropathy, unspecified; F32.A Depression, unspecified; Z79.899 Other long term (current) drug therapy; Z79.82 Long term (current) use of aspirin; Z79.01 Long term (current) use of anticoagulants
CPT/HCPCS: 36415; 70450; 71045; 80048; 80053; 81001; 82607; 83036; 83735; 84100; 84443; 84484; 85025; 85378; 85610; 93005; 93306; 96360; 97110; 97116; 97161; 99285; G0378; J3411; J7030

== ENCOUNTER → 2024-11-23 14:32 | Outpatient (BNVA) | payer MEDICARE, OTHER, SELFPAY | PROVIDERS: PCP Electrodiagnostic Medicine; Visit Provider Internal Medicine | DX: R55 Syncope and collapse (principal); Z86.73 Personal history of transient ischemic attack (TIA), and cerebral infarction without residual deficits | CPT/HCPCS: 99214 ==

== ENCOUNTER → 2024-12-29 14:02 | Outpatient (BNVA) | payer MEDICARE, OTHER, SELFPAY | PROVIDERS: PCP Electrodiagnostic Medicine; Referring Provider Electrodiagnostic Medicine; Visit Provider Specialist | DX: G90.3 Multi-system degeneration of the autonomic nervous system (principal) | CPT/HCPCS: 99215 ==

== ENCOUNTER 2025-01-25 14:04 | Inpatient (IN) | payer MEDICARE, OTHER, SELFPAY ==
[2025-01-25] VITALS (8 sets, daily range): BP systolic 101–122; BP diastolic 62–79; PULSE 68–107; RESP 16–17; TEMP 36.4–36.7; O2SAT 90–100; BMI 20.6
--- NOTE | 2025-01-25 14:14 | CTR_ITS ---
PROCEDURE INFORMATION: Exam: CT Abdomen And Pelvis With Contrast Exam date and time: 01/25/2025 3:12 PM Age: 74 years old Clinical indication: Nausea and vomiting TECHNIQUE: Imaging protocol: Computed tomography of the abdomen and pelvis with contrast. Radiation optimization: All CT scans at this facility use at least one of these dose optimization techniques: automated exposure control; mA and/or kV adjustment per patient size (includes targeted exams where dose is matched to clinical indication); or iterative reconstruction. Contrast material: OMNI 350; Contrast volume: 100 ml; Contrast route: INTRAVENOUS (IV); COMPARISON: MR abdomen wo con [id number] 07/28/2024 10:08 AM RADIATION DOSE METRICS: Total DLP (mGy-cm): 494.88 FINDINGS: Lungs: No significant infiltrate or effusion is seen within the visualized lung bases. Liver: Multiple rounded hypodense hepatic cysts noted when correlated with 2023 exam. Gallbladder and biliary ducts: Large gallstone in the neck of the gallbladder, as noted with 2023 exam. Moderate gallbladder distension. No significant biliary ductal dilatation. Pancreas: Normal. No ductal dilation. Spleen: Normal. No splenomegaly. Adrenal glands: Normal. No mass. Kidneys and ureters: Small hypodense renal cortical cysts when correlated with prior exam. Previously noted indeterminate lesion within the posterior cortex of the left kidney demonstrates a more hypodense fluid density appearance with today's exam with thin enhancing peripheral capsule, suggesting mildly complex cyst appearance. No obstructive uropathy. No abnormal perinephric stranding. Stomach and bowel: No bowel obstruction. Gastric thickening versus appearance related to incomplete distension. Presence of scattered oral contrast within stool in the colon, more prominent within the rectum to rectosigmoid region. Suggestion nonspecific thickening of the rectum/rectosigmoid colon with dirty appearance of the adjacent mesentery or mesenteric fat stranding. Appendix: The appendix is seen. No evidence of appendicitis. Intraperitoneal space: No free fluid or ascites or fluid collection. No free air. Vasculature: [id number] atherosclerotic vascular disease without abdominal aortic aneurysm. Major vascular structures appear patent. Lymph nodes: No significant lymph node enlargement indicate lymphadenopathy. Urinary bladder: Unremarkable as visualized. Reproductive: Unremarkable as visualized. Bones/joints: Mild chronic L2 compression deformity with prior exam. Spondylotic change with component of degenerative disc disease L2-L3 and L4-L5 levels. No acute osseous abnormality. Soft tissues: Unremarkable. CT/CT abdomen pelvis w con* [id number] IMPRESSION: 1. Hepatic and renal cysts, including mildly complex left renal cyst, as noted above. 2. Gastric thickening versus appearance related to incomplete gastric distension. 3. Fairly dense oral contrast within the distal colon or rectum/rectosigmoid region. Nonspecific thickening of the rectum/rectosigmoid colon with dirty appearance of the adjacent mesentery or mesenteric fat stranding. Consider inflammation/infection or proctitis, though consider follow-up to ensure no circumferential mass component. 4. No bowel obstruction.
--- NOTE | 2025-01-25 14:20 | XR_ITS ---
WS: [id number] Portable AP upright chest, 01/25/2025 Clinical Data: sob Comparison: Portable chest, 10/20/2024 Findings: No nodules, masses or effusions are seen. The heart is normal. The pulmonary vascularity is not increased. No pneumonia or pneumothorax is seen. The aortic arch and descending thoracic aorta show tortuosity. There is a dextroscoliosis of the thoracic spine. XR/XR chest 1V portable [id number] Impression: Atherosclerosis.
--- NOTE | 2025-01-25 14:21 | W.ED.NAVMDI ---
HPI - Nausea/Vomiting/Diarrhea General: Chief complaint: Nausea/Vomiting/Diarrhea Stated complaint: N/V Time Seen by Provider: 01/25/25 14:11 Source: patient and EMS Mode of arrival: EMS Limitations: no limitations History of Present Illness: 74-year-old female states she been having nausea vomiting the last 2 days. She states she has had some abdominal cramping denies any constipation she denies any fever she denies any chest pain. Did receive Zofran and route has had some slight improvement. She states she also has had some shortness of breath and weakness states when she exerts herself she feels like she may pass out. Associated nausea: Yes Associated symtoms: Reports nausea; Denies chest pain, dysuria or headache(s) Related Data Home Medications ?Medication ?Instructions ?Recorded ?Confirmed tramadol 50 mg tablet 50 mg PO Q8H PRN Pain 11/25/20 01/25/25 citalopram 20 mg tablet (Celexa) 20 mg PO BEDTIME 12/24/23 01/25/25 aspirin 81 mg tablet,delayed 81 mg PO QPM 03/18/24 01/25/25 release cetirizine 10 mg tablet 10 mg PO DAILY 03/18/24 01/25/25 coenzyme Q10 100 mg capsule 100 mg PO QPM 03/18/24 01/25/25 (CoQ-10) multivitamin 1 tab PO QPM 03/18/24 01/25/25 pantoprazole 40 mg tablet,delayed 40 mg PO DAILY 03/18/24 01/25/25 release atorvastatin 40 mg tablet 40 mg PO QPM 10/20/24 01/25/25 ondansetron 4 mg disintegrating 8 mg PO TID PRN Nausea And Vomiting 10/20/24 01/25/25 tablet famotidine 40 mg tablet 40 mg PO QAM 01/25/25 01/25/25 potassium chloride 20 mEq 20 meq PO DAILY 01/25/25 01/25/25 tablet,extended release Previous Rx's ?Medication ?Instructions ?Recorded meclizine 25 mg tablet 25 mg PO TID PRN dizziness #20 tabs 05/28/24 apixaban 5 mg tablet (Eliquis) 5 mg PO BID 90 days #180 tabs 01/13/25 Allergies Allergy/AdvReac Type Severity Reaction Status Date / Time codeine Allergy Unknown Unknown Verified 12/29/24 14:10 gabapentin Allergy lethargic Verified 12/29/24 14:10 Penicillins Allergy nausea Verified 12/29/24 14:10 Review of Systems Const: Denies: fever(s), chills, body aches or change in appetite ENMT: Denies: throat pain or dental pain Card: Reports: pre-syncope; Denies: chest pain Resp: Reports: dyspnea GI: Reports: nausea and vomiting; Denies: abdominal pain or diarrhea : Denies: dysuria Musc: Denies: neck pain or back pain Skin/Breast: Denies: rash Neuro: Denies: headache(s) PFSH ED PFSH: Medical History CVA (cerebral vascular accident) NSTEMI (non-ST elevated myocardial infarction) Pre-syncope Generalized muscle weakness Acute lower urinary tract infection Status post CVA PFO (patent foramen ovale) Depression At risk for bleeding Peripheral neuropathy Right middle cerebral artery stroke Acute right arterial ischemic stroke, middle cerebral artery (MCA) Thromboembolic stroke Pulmonary embolism Hypertension Closed head injury Focal infarction of brain Surgical History No pertinent past surgical history Social History Smoking and tobacco/nicotine status: never used tobacco/nicotine Physical Exam Const: COMMON NORMALS: no acute distress, patient oriented x3 and healthy appearing HENMT: COMMON NORMALS: normocephalic and atraumatic HEAD & SCALP: normocephalic and atraumatic Neck/C-Spine: COMMON NORMALS: full ROM and supple Chest: COMMONS NORMALS: normal inspection of the chest Resp: COMMON NORMALS: normal respiratory effort, No retractions, No use of accessory muscles and clear to auscultation bilaterally AUSCULTATION: clear to auscultation bilaterally Cardio: COMMON NORMALS: regular rate, regular rhythm and No murmurs present (Cardio) RATE: regular rate RHYTHM: regular rhythm GI: COMMON NORMALS: Normal to inspection, nondistended, normoactive bowel sounds present, Soft to palpation, non-tender and no masses PALPATION: Yes Soft to palpation Extremity: COMMON NORMALS: normal to inspection and full ROM Neuro: COMMON NORMALS: patient oriented x3, moves all extremities and no focal motor deficits Psych: COMMON NORMALS: mental status grossly normal, Normal thought process present and cooperative THOUGHT PROCESS: Normal thought process present Skin: COMMON NORMALS: no rashes or lesions noted and no wounds GENERAL SKIN EXAM: no rashes or lesions noted Course Vital Signs: Vital signs: Vital Signs Temperature 98.1 F 01/25/25 14:10 Pulse Rate 76 01/25/25 19:12 Respiratory Rate 16 01/25/25 19:12 Blood Pressure 122/62 01/25/25 19:12 Pulse Oximetry 100 01/25/25 19:12 Oxygen Delivery Me thod Nasal Cannula 01/25/25 19:12 Oxygen Flow Rate 2 01/25/25 19:12 MDM - Nausea/Vomiting/Diarrhea Medical Decision Making Patient presents here with nausea vomiting she also been having generalized weakness she has had hypoxia here and got very hypoxic when she tried to ambulate CT shows no signs of PE spoke to hospitalist will admit at this time. Medical Records I reviewed the patient's medical records. Lab Data I reviewed the patient's lab results. 01/25/25 14:05 01/25/25 14:05 Radiology Impressions Abdomen/Pelvis CT 01/25/25 14:14 IMPRESSION: 1. Hepatic and renal cysts, including mildly complex left renal cyst, as noted above. 2. Gastric thickening versus appearance related to incomplete gastric distension. 3. Fairly dense oral contrast within the distal colon or rectum/rectosigmoid region. Nonspecific thickening of the rectum/rectosigmoid colon with dirty appearance of the adjacent mesentery or mesenteric fat stranding. Consider inflammation/infection or proctitis, though consider follow-up to ensure no circumferential mass component. 4. No bowel obstruction. Chest CTA 01/25/25 18:05 IMPRESSION: 1. No CT findings of pulmonary embolus. 2. Mild arteriosclerosis and uncoiling/tortuosity thoracic aorta. 3. Suggestion of hyperinflation without identification of infiltrate, edema, or pleural effusion. 4. Mild increased mediastinal nodes though majority measuring 1 cm or less in size and the largest measuring 12 mm. Consider short-term 3 month follow-up to ensure stability and/or improvement. 5. 3 mm ground-glass nodule peripherally lower right lung. No routine follow-up is indicated. (Reference: Loretta) References: Loretta Reyes, et al. Guidelines for Management of Incidental Pulmonary Nodules Detected on CT Images: From the Fleischner Society 2017. Radiology. 2017;284(1):228-243. Laboratory Results WBC 6.48 10^3/uL (3.29-11.43) 01/25/25 14:05 RBC 3.98 10^6/uL (3.85-5.65) 01/25/25 14:05 Hgb 13.30 g/dL (11.27-16.99) 01/25/25 14:05 Hct 38.5 % (36-47) 01/25/25 14:05 MCV 96.7 fl (85-98) 01/25/25 14:05 MCH 33.4 pg (27-33) H 01/25/25 14:05 MCHC 34.5 g/dL (30-55) 01/25/25 14:05 RDW 14.6 % (12.1-15.1) 01/25/25 14:05 Plt Count 221 10^3/cmm (157-399) 01/25/25 14:05 MPV 13.0 fL (7.4-10.4) H 01/25/25 14:05 Neut % (Auto) 68.5 % 01/25/25 14:05 Lymph % (Auto) 20.4 % 01/25/25 14:05 [place] % (Auto) 8.6 % 01/25/25 14:05 Eos % (Auto) 1.4 % 01/25/25 14:05 Baso % (Auto) 0.5 % 01/25/25 14:05 Neut # (Auto) 4.44 10^3/uL (1.8-7.7) 01/25/25 14:05 Lymph # (Auto) 1.3 10^3/uL (0.8-4.8) 01/25/25 14:05 [place] # (Auto) 0.6 10^3/uL (0.2-0.9) 01/25/25 14:05 Eos # (Auto) 0.1 10^3/uL (0.0-0.8) 01/25/25 14:05 Baso # (Auto) 0.0 10^3/uL (0.0-0.1) 01/25/25 14:05 Nucleated RBC % (auto) 0 % 01/25/25 14:05 Nucleated RBCs # 0.0 /100WBC 01/25/25 14:05 Sodium 141 mmol/L (136-145) 01/25/25 14:05 Potassium 3.2 mmol/L (3.5-5.1) L 01/25/25 14:05 Chloride 101 mmol/L (98-107) 01/25/25 14:05 Carbon Dioxide 24 mmol/L (22-29) 01/25/25 14:05 Anion Gap 19.2 (5-19) H 01/25/25 14:05 BUN 14 mg/dL (8-23) 01/25/25 14:05 Creatinine 0.7 mg/dL (0.5-0.9) 01/25/25 14:05 GFR Calculation Not Reportable 01/25/25 14:05 Glucose 86 mg/dL (65-115) 01/25/25 14:05 Calculated Osmolality 292 mOsm/kg (285-295) 01/25/25 14:05 Calcium 9.1 mg/dL (8.5-10.5) 01/25/25 14:05 Total Bilirubin 0.6 mg/dL (0.15-1.2) 01/25/25 14:05 AST 25 U/L (0-32) 01/25/25 14:05 ALT 8 U/L (0-33) 01/25/25 14:05 Alkaline Phosphatase 77 U/L (35-105) 01/25/25 14:05 Troponin T Baseline 32 ng/L (0-10) H 01/25/25 14:05 Troponin T 120 Minute 27.69 ng/L (0-10) H 01/25/25 17:24 Delta Troponin T -4.31 ABS# (0-10) L 01/25/25 17:24 NT-Pro-B Natriuret Pep 1769 pg/mL (0-450) H 01/25/25 14:05 Total Protein 6.5 g/dL (6.6-8.7) L 01/25/25 14:05 Albumin 3.3 g/dL (3.5-5.2) L 01/25/25 14:05 Globulin 3.2 g/dL (1.3-4.6) 01/25/25 14:05 Lipase 13 U/L (13-60) 01/25/25 14:05 Urine Color Dark yellow (Yellow) A 01/25/25 16: Urine Appearance Turbid (CLEAR) A 01/25/25 16: Urine pH 5.5 (5-7) 01/25/25 16:28 Ur Specific [place] 1.034 (1.005-1.030) H 01/25/25 16:28 Urine Protein 1+ (Negative) A 01/25/25 16:28 Urine Glucose (UA) Negative (Normal) 01/25/25 16:28 Urine Ketones 1+ (Negative) H 01/25/25 16:28 Urine Blood Negative (Negative) 01/25/25 16:28 Urine Nitrate Negative (Negative) 01/25/25 16:28 Urine Bilirubin 2+ (Negative) H 01/25/25 16:28 Urine Urobilinogen 1.0 mg/dL (Negative) 01/25/25 16:28 Ur Leukocyte Esterase Trace (Negative) A 01/25/25 16:28 Urine RBC 11-20 /hpf (0-2) H 01/25/25 16:28 Urine WBC 0-5 /hpf (0-5) 01/25/25 16:28 Ur Squamous Epith Cells 0-5 /hpf (0-5) 01/25/25 16:28 Calcium Oxalate Crystal 15-25 /hpf H 01/25/25 16:28 Amorphous Sediment Not Reportable 01/25/25 16:28 Urine Bacteria None seen /hpf (NONE) 01/25/25 16:28 Hyaline Casts 15.22 /lpf 01/25/25 16:28 All radiology interpretation(s) finalized by discharge EKG Data EKG 1: I personally reviewed and interpreted this EKG as follows: EKG interpretation date: 01/25/25 EKG interpretation time: 14:34 Interpretation: nsr hr [address] elevation qrs 81 qtc 411 Discharge Plan Discharge Patient Disposition: Admitted As Inpatient Clinical Impression: Vomiting, Weakness, Hypoxia Condition: Stable Coding Level of Care Code ED 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
[2025-01-25] MEDS: sodium chloride 0.9% 500 ML IV (14:27)
[2025-01-25] MEDS: ondansetron 2 mg/ML SDV 2 mL 4 MG IVP (14:29)
--- NOTE | 2025-01-25 14:34 | ECG_ITS ---
[facility]: [facility] Pat Name: Yamel Milligan Department: Room: Gender: Female [employer]: : 1950 Requested By: Fracisco Hwang Order Number: [id number] Edwin MD: Clayton Barbosa M.D. Measurements Intervals Hector Rate: 96 P: 58 MN: 192 QRS: -2 QRSD: 81 T: 27 QT: 358 QTc: 453 Interpretive Statements SINUS RHYTHM NONSPECIFIC T-WAVE ABNORMALITY Compared to ECG 10/21/2024 03:00:58 T-wave abnormality now present Electronically Signed On 01-27-2025 06:15:15 CDT by Clayton Barbosa M.D. [email or web address]
[2025-01-25 14:37] LABS: Basophils % 0.5 %; Eosinophils # 0.1 10^3/uL (0.0-0.8); Eosinophils % 1.4 %; Hematocrit 38.5 % (36-47); Lymphocytes # 1.3 10^3/uL (0.8-4.8); Lymphocytes % 20.4 %; Mean Corpuscular HGB Conc 34.5 g/dL (30-55); Mean Corpuscular Hemoglobin 33.4 pg (27-33); Mean Corpuscular Volume 96.7 fl (85-98); Monocytes # 0.6 10^3/uL (0.2-0.9); Monocytes % 8.6 %; Neutrophils # 4.44 10^3/uL (1.8-7.7); Neutrophils % 68.5 %; Nucleated Red Blood Cells % 0 %; Platelet Count 221 10^3/cmm (157-399); Red Blood Count 3.98 10^6/uL (3.85-5.65); Red Cell Distribution Width 14.6 % (12.1-15.1); White Blood Count 6.48 10^3/uL (3.29-11.43)
[2025-01-25 14:53] LABS: Alanine Aminotransferase 8 U/L (0-33); Albumin Level 3.3 g/dL (3.5-5.2); Alkaline Phosphatase 77 U/L (35-105); Anion Gap 19.2 (5-19); Aspartate Amino Transferase 25 U/L (0-32); Blood Urea Nitrogen 14 mg/dL (8-23); Calcium 9.1 mg/dL (8.5-10.5); Carbon Dioxide 24 mmol/L (22-29); Chloride 101 mmol/L (98-107); Creatinine Clr Calc Pharmacy 68.5238; Globulin 3.2 g/dL (1.3-4.6); Glucose 86 mg/dL (65-115); Lipase 13 U/L (13-60); Osmolality Calculated 292 mOsm/kg (285-295); Potassium 3.2 mmol/L (3.5-5.1); Sodium 141 mmol/L (136-145); Total Bilirubin 0.6 mg/dL (0.15-1.2); Total Protein 6.5 g/dL (6.6-8.7)
[2025-01-25] MEDS: iohexol 350 mg/mL 500 mL Btl (per mL) IV ×2 (15:15→18:48)
--- NOTE | 2025-01-25 15:57 | ECG_ITS ---
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 Measurements Intervals [place] Rate: 87 P: 89 CA: 154 QRS: 23 QRSD: 84 T: 206 QT: 347 QTc: 419 Interpretive Statements SINUS RHYTHM WITH OCCASIONAL SUPRAVENTRICULAR PREMATURE COMPLEXES ST DEVIATION AND MODERATE T-WAVE ABNORMALITY, CONSIDER ANTEROLATERAL ISCHEMIA [-0.1+ mV T-WAVE IN V3-V6] ST DEVIATION AND MODERATE T-WAVE ABNORMALITY, CONSIDER INFERIOR ISCHEMIA [-0.1+ mV T-WAVE IN II/aVF] Compared to ECG 01/25/2025 14:34:00 Possible ischemia now present T-wave abnormality still present Electronically Signed On 01-27-2025 06:12:56 CDT by Clayton Barbosa M.D. [email or web address] [id number]
--- NOTE | 2025-01-25 16:01 | PC.NURSE ---
THIS NURSE WAS HELPING PT BACK TO BED AFTER SITTING ON THE BEDSIDE COMMODE. ONCE PT WAS BACK IN BED, PT WAS HOOKED UP TO VITAL SIGN MONITORS. PT OXYGEN SATURATION READING 82% ON ROOM AIR. PT DOES NOT WEAR OXYGEN AT BASELINE. PT HEART RATE ALSO INCREASED. PT PLACED ON 3L NASAL CANNULA. DR. GOLDMAN AT BEDSIDE. REPEAT EKG DONE. PT OXYGEN AT 97% ON 3L OXYGEN.
--- NOTE | 2025-01-25 16:54 | PC.PHAR ---
Pt states she threw up her pm meds last night and am meds this morning.
[2025-01-25 16:56] LABS: Bilirubin Urine 2+ (Negative); Blood Urine Negative (Negative); Glucose Urine UA Negative (Normal); Ketones Urine 1+ (Negative); Leukocyte Esterase Urine Trace (Negative); Nitrate Urine Negative (Negative); Protein Urine 1+ (Negative); Urine Appearance Turbid (CLEAR); Urine Color Dark Yellow (Yellow); pH Urine 5.5 (5-7)
[2025-01-25 17:00] LABS: Add Urine Microscopic? YES; Bacteria Urine None Seen /hpf; Hyaline Casts Urine 15.22 /lpf; Squamous Epithelial Cell Urine 0-5 /hpf (0-5); Universal Test for UA Present (0); WBC Urine 0-5 /hpf (0-5)
[2025-01-25 17:02] LABS: Troponin(5th) Baseline 32 ng/L (0-10)
[2025-01-25 17:20] LABS: Specific Gravity, Urine 1.034 (1.005-1.030)
[2025-01-25 17:26] LABS: Add Urine Culture? No; Calcium Oxalate Crystals Urine 15-25 /hpf; UA Slide Review UA Slide Review Perf
--- NOTE | 2025-01-25 17:57 | ECG_ITS ---
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 Measurements Intervals [place] Rate: 84 P: 0 [place]: 0 QRS: -9 QRSD: 84 T: 26 QT: 361 QTc: 428 Interpretive Statements possible sinus rhythm with frequent PACs LOW QRS VOLTAGE IN PRECORDIAL LEADS [QRS DEFLECTION < 1.0 mV IN CHEST LEADS] NONSPECIFIC ST & T-WAVE ABNORMALITY ABNORMAL RHYTHM ECG Compared to ECG 01/25/2025 14:34:00 Low QRS voltage now present Sinus rhythm no longer present T-wave abnormality still present Electronically Signed On 01-27-2025 06:30:25 CDT by Clayton Barbosa M.D. [id number]
[2025-01-25 18:00] LABS: NT Pro B Type Natriuretic Pept 1769 pg/mL (0-450)
--- NOTE | 2025-01-25 18:05 | CTR_ITS ---
PROCEDURE INFORMATION: Exam: CTA Chest With Contrast Exam date and time: 01/25/2025 6:42 PM Age: 74 years old Clinical indication: Dyspnea and shortness of breath; Additional info: SOB TECHNIQUE: Imaging protocol: Computed tomographic angiography of the chest with contrast. Exam focused on the arteries. 3D rendering (Not supervised by radiologist): MIP and/or 3D reconstructed images were created by the technologist. Radiation optimization: All CT scans at this facility use at least one of these dose optimization techniques: automated exposure control; mA and/or kV adjustment per patient size (includes targeted exams where dose is matched to clinical indication); or iterative reconstruction. Contrast material: OMNIPAQUE 350; Contrast volume: 65 ml; Contrast route: INTRAVENOUS (IV); COMPARISON: CR XR chest 1V portable [id number] 01/25/2025 2:21 PM RADIATION DOSE METRICS: Total DLP (mGy-cm): 205.65 FINDINGS: Pulmonary arteries: No hypodense filling defect is seen within the pulmonary arteries or their branches to indicate pulmonary embolus. Aorta: Mild arteriosclerosis thoracic aorta with uncoiling/mild tortuosity. No findings to indicate dissection. Lungs: Lung windows show no pulmonary parenchymal infiltrate or opacity or consolidation. A subtle very low-density or ground-glass 3 mm nodule is seen peripherally lower right lung on axial series 5, image 42. No suspicious nodule or mass. Suggestion of hyperinflation. Pleural spaces: Mild posterior pleural thickening, left slightly greater than right. No pleural effusion. No pneumothorax. Heart: No cardiomegaly or significant pericardial effusion. Minimal coronary artery calcification. LV/RV ratio is less than 1. Lymph nodes: Mild increased nodes within the mediastinum, though majority 1 cm or less in size with largest measuring 12 mm. Bones/joints: Mild thoracic dextroscoliosis and mild thoracic spondylotic change. Soft tissues: Unremarkable. Other findings: Regarding images through the upper-most abdomen see separate CT abdomen and pelvis exam. CT/CT angio chest PE protcl [id number] IMPRESSION: 1. No CT findings of pulmonary embolus. 2. Mild arteriosclerosis and uncoiling/tortuosity thoracic aorta. 3. Suggestion of hyperinflation without identification of infiltrate, edema, or pleural effusion. 4. Mild increased mediastinal nodes though majority measuring 1 cm or less in size and the largest measuring 12 mm. Consider short-term 3 month follow-up to ensure stability and/or improvement. 5. 3 mm ground-glass nodule peripherally lower right lung. No routine follow-up is indicated. (Reference: Loretta) References: Loretta Reyes, et al. Guidelines for Management of Incidental Pulmonary Nodules Detected on CT Images: From the Fleischner Society 2017. Radiology. 2017;284(1):228-243.
[2025-01-25 18:13] LABS: Troponin 5 2HR 27.69 ng/L (0-10); Troponin 5 2HR Delta -4.31 ABS# (0-10)
[2025-01-25 21:03] LABS: Troponin 5 6HR 28.41 ng/L (0-10)
[2025-01-25 21:10] LABS: Troponin 5 6HR Delta -3.59 ng/L (0-12)
--- NOTE | 2025-01-25 21:19 | PM.HP ---
Providers/Chief Complaint Admitting Physician: Dee Chowdhury MD--- seen before midnight Primary Care Provider: Kyaw Lobato DO Chief Complaint: N/V History of Present Illness Yamel Milligan is a 74 year old female with medical history significant for esophageal stricture from which the patient lost 100 pounds to in the past 1 year without trying. No food can go through patient went from 265 pounds to 150 pounds today. This is been taking care of by the specialist since that area. Today patient came to the emergency room because of ongoing nausea and vomiting over the past 2 days. Patient also found herself to be short of breath on exertion.. Patient was found to desaturate requiring 2 L of oxygen. And with that pulse oxing at 98% to 100% Micro aspiration into the bronchi inducing bronchial spasm is an intact hand culprit in hypoxemia of this patient. My examination I had patient on room air is pulse oxing about the same at 98-to 100% Review of Systems Narrative: General The patient is in no apparent distress and upon 10 organ system review it was found to be fairly unremarkable patient now could be on room air and see pulse oxing well. Patient is noted to be weak Medications/Allergies Home Medications ?Medication ?Instructions ?Recorded ?Confirmed ?Last Taken ?Type tramadol 50 mg tablet 50 mg PO Q8H PRN Pain 11/25/20 01/25/25 05/27/24 History citalopram 20 mg tablet (Celexa) 20 mg PO BEDTIME 12/24/23 01/25/25 01/23/25 History aspirin 81 mg tablet,delayed 81 mg PO QPM 03/18/24 01/25/25 01/23/25 History release cetirizine 10 mg tablet 10 mg PO DAILY 03/18/24 01/25/25 01/24/25 History coenzyme Q10 100 mg capsule 100 mg PO QPM 03/18/24 01/25/25 01/23/25 History (CoQ-10) multivitamin 1 tab PO QPM 03/18/24 01/25/25 01/23/25 History pantoprazole 40 mg tablet,delayed 40 mg PO DAILY 03/18/24 01/25/25 01/24/25 History release meclizine 25 mg tablet 25 mg PO TID PRN dizziness #20 tabs 05/28/24 01/25/25 Unknown Rx atorvastatin 40 mg tablet 40 mg PO QPM 10/20/24 01/25/25 01/23/25 History ondansetron 4 mg disintegrating 8 mg PO TID PRN Nausea And Vomiting 10/20/24 01/25/25 Unknown History tablet apixaban 5 mg tablet (Eliquis) 5 mg PO BID 90 days #180 tabs 01/13/25 01/25/25 01/24/25 Rx famotidine 40 mg tablet 40 mg PO QAM 01/25/25 01/25/25 01/24/25 History potassium chloride 20 mEq 20 meq PO DAILY 01/25/25 01/25/25 01/24/25 History tablet,extended release Allergies Allergy/AdvReac Type Severity Reaction Status Date / Time codeine Allergy Unknown Unknown Verified 12/29/24 14:10 gabapentin Allergy lethargic Verified 12/29/24 14:10 Penicillins Allergy nausea Verified 12/29/24 14:10 PFSH Acute PFSH: Medical History CVA (cerebral vascular accident) NSTEMI (non-ST elevated myocardial infarction) Pre-syncope Generalized muscle weakness Acute lower urinary tract infection Status post CVA PFO (patent foramen ovale) Depression At risk for bleeding Peripheral neuropathy Right middle cerebral artery stroke Acute right arterial ischemic stroke, middle cerebral artery (MCA) Thromboembolic stroke Pulmonary embolism Hypertension Closed head injury Focal infarction of brain Surgical History No pertinent past surgical history Social History Smoking and tobacco/nicotine status: never used tobacco/nicotine Vitals/I&O/Wt Last Vital Signs Temp 98.1 F 01/25/25 14:10 Pulse 76 01/25/25 19:12 Resp 16 01/25/25 19:12 BP 122/62 01/25/25 19:12 Pulse Ox 100 01/25/25 19:12 O2 Del Method Nasal Cannula 01/25/25 19:12 O2 Flow Rate 2 01/25/25 19:12 01/25/25 01/25/25 01/25/25 06:59 14:59 22:59 Intake Total 500 / 500 Balance 500 / 500 Weight last 48 hrs Weight 68.946 kg Physical Exam Narrative: General The patient is weak appearing requiring rehabilitation at discharge, for discharge planning when patient is medically stable to be discharged HEENT normocephalic/atraumatic neck neck is supple cardiovascular heart rate is regular lungs are very much clear abdomen soft nontender nondistended unremarkable extremities are intact no edema has good pulses neurology has no focality Data 01/25/25 14:05 01/25/25 14:05 A&P Assessment and plan (1) Hypokalemia: Hypokalemia replace in the ED by the ED attending Repeat lab studies pending this morning Hypokalemia was due to patient's nausea and vomiting Also continue to follow-up and optimize (2) Hypoxia: Hypoxemia is secondary to microaspiration into the bronchus at the time of vomiting or in any form of reflux disease leading to bronchospasm and causing hypoxemia in a patient that is not on home oxygen - This had resolved as quickly as it came - Continue to monitor and optimize (3) Weakness: - This patient is with profound weakness from lack of exercise lack of activity she does stay in bed all day according to the patient and also according to the daughter post CVA with debility - Case management be able to help for this patient either for patient to go to rehab it was hard to even help the patient sit up - The daughter is agreeable - PT OT to evaluate this patient. 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 Marrufo for this according to the daughter, because of this is unknown Patient needs physical therapy done with standing weight in bed (6) CVA (cerebral vascular accident): This is a history of patient is on antiplatelets must continue home medication Continue statins (7) Bronchial spasm: This is induced by microaspiration leading to bronchospasm and then leading to hypoxemia in this patient at presentation (8) Esophageal stricture: Esophageal stricture has been taking care of in the hands of the dry mixer over at [facility] in [place] and patient is able to eat. Plan GI and DVT prophylaxis in place PDMP PDMP Reviewed: Last Reviewed 01/25/25 21:24 by Dee Chowdhury MD Attestations Medical Necessity Statement*: Patient is with profound weakness requiring support, replacing electrolyte imbalances. A plan for discharge planning to go to rehab for strength building. Patient needs 2 midnights of care for is 74 years old that came in with nausea and vomiting. Coding Level of Care Code 41044 Diagnoses Hypokalemia E87.6 Hypoxia R09.02 Weakness R53.1 Vomiting R11.10 Shy-Drager syndrome G90.3 CVA (cerebral vascular accident) I63.9 Bronchial spasm J98.01 Esophageal stricture K22.2 Time Spent (min) 60
--- NOTE | 2025-01-25 21:57 | ECG_ITS ---
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 Measurements Intervals [place] Rate: 78 P: -13 NH: 176 QRS: 13 QRSD: 66 T: 18 QT: 373 QTc: 425 Interpretive Statements SINUS RHYTHM WITH OCCASIONAL SUPRAVENTRICULAR PREMATURE COMPLEXES LOW QRS VOLTAGE IN PRECORDIAL LEADS [QRS DEFLECTION < 1.0 mV IN CHEST LEADS] NONSPECIFIC T-WAVE ABNORMALITY Compared to ECG 01/25/2025 15:55:27 Low QRS voltage now present Possible ischemia no longer present T-wave abnormality still present Electronically Signed On 01-27-2025 06:26:32 CDT by Clayton Barbosa M.D. [id number] [id number]
[2025-01-25] MEDS: citalopram 20 mg Tablet PO (21:59)
[2025-01-25] MEDS: sodium chloride 0.9% 1,000 ML 75 ML IV (21:59)
[2025-01-25] MEDS: apixaban 5 mg Tablet PO (21:59)
[2025-01-26] VITALS (9 sets, daily range): BP systolic 97–117; BP diastolic 55–78; PULSE 73–82; RESP 16–18; TEMP 36.3–36.7; O2SAT 93–97
[2025-01-26 05:22] LABS: Basophils % 0.5 %; Eosinophils % 0.7 %; Hematocrit 29.1 % (36-47); Lymphocytes % 18.2 %; Mean Corpuscular HGB Conc 34.7 g/dL (30-55); Mean Corpuscular Hemoglobin 33.7 pg (27-33); Mean Platelet Volume 13.2 fL (7.4-10.4); Monocytes # 0.6 10^3/uL (0.2-0.9); Monocytes % 10.1 %; Neutrophils # 3.96 10^3/uL (1.8-7.7); Neutrophils % 69.8 %; Nucleated Red Blood Cells % 0 %; Platelet Count 155 10^3/cmm (157-399); Red Cell Distribution Width 14.9 % (12.1-15.1); White Blood Count 5.67 10^3/uL (3.29-11.43)
[2025-01-26 05:24] LABS: Slide Review Slide Review Perform
[2025-01-26 05:43] LABS: Alanine Aminotransferase 7 U/L (0-33); Albumin Level 2.5 g/dL (3.5-5.2); Alkaline Phosphatase 59 U/L (35-105); Aspartate Amino Transferase 18 U/L (0-32); Blood Urea Nitrogen 11 mg/dL (8-23); Carbon Dioxide 23 mmol/L (22-29); Chloride 106 mmol/L (98-107); Creatinine Clr Calc Pharmacy 68.8718; Globulin 2.3 g/dL (1.3-4.6); Glucose 71 mg/dL (65-115); Magnesium 1.4 mg/dL (1.7-2.3); Osmolality Calculated 290 mOsm/kg (285-295); Phosphorus 2.6 mg/dL (2.5-4.5); Sodium 141 mmol/L (136-145); Total Bilirubin 0.4 mg/dL (0.15-1.2); Total Protein 4.8 g/dL (6.6-8.7)
[2025-01-26] MEDS: magnesium sulfate premix 4 GM/100 ML PREMIX IV (08:48)
[2025-01-26] MEDS: potassium chloride ER 20 mEq Tablet 40 MEQ PO (08:49)
[2025-01-26] MEDS: cetirizine 10 mg Tablet PO (08:49)
[2025-01-26] MEDS: pantoprazole DR 40 mg Tablet PO (08:49)
[2025-01-26] MEDS: potassium chloride ER 20 mEq Tablet PO (08:50)
[2025-01-26] MEDS: apixaban 5 mg Tablet PO ×2 (08:50→17:48)
--- NOTE | 2025-01-26 10:37 | PC.CHAP ---
Pastoral Care Encounter/Spiritual Assessment Type of Contact [] Declined recreation aide visit [] Patient/Family/Request visit [] Outpatient visit [] Follow-up visit [] Physician referral [] Code/Alert [x] Routine visit [] Staff referral [] Actively dying [] Patient sleeping [] Family support [] [] Out of room [] Palliative care [] [] Receiving care in room [] Pre-surgical visit [] Trauma [] Long length of stay [] ICU visit [] Other: Relational/Emotional Strength [x] Patient feels connected with others/family/visitors/staff [] Distress [] Loneliness/isolation [] Abandonment Spirituality of Patient [x] Person of [place] [] Attends Christian of their [place] [x] Believes in Prayer [] Reads Bible or Sikh materials [] There are Spiritual issues to be addressed 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 Interventions [x] Prayer [x] Active listening [] Non-anxious presence [x] Spiritual/emotional support [] Crisis/trauma care [] Spiritual counseling [] Bereavement support [] Provided bereavement packet [] Provided Bible/devotional materials [] Provided toy/stuffed animal, coloring book to patient or family member [] Provided Communion [] Anointing/[place] [] Salvation [x] Completed spiritual assessment [] Other: Impact on Illness or Injury [] Angry [] Fearful [] Anxious [] Often cries [] Exhaustion [] Unable to work [] Unable to attend jain [] Unable to walk/stand [] Unable to read [] Unable to drive [] Unable to eat/drink [] Unable to sleep [] Unable to be with family [] Patient intubated [] Other: Summary Time spent with patient 5 min
[2025-01-26] MEDS: sodium chloride 0.9% 1,000 ML 75 ML IV ×2 (10:58→23:34)
--- NOTE | 2025-01-26 12:30 | P.PN_ITS ---
Subjective 2 Subjective: seen this morning this morning pt became hypotensive sitting on the chair Nurses could not obtain a blood pressure therefore had her lay down in the bed in Trendelenburg position. She says she milligram to the hospital for nausea vomiting and the fact that she cannot swallow. She had an esophageal stricture in the past however cannot tell me when that was the last time she saw GI. magnesium 1.4 this morning, potassium 3.0. Vitals/I&O/Wt Last Vital Signs Temp 97.5 F L 01/26/25 11:44 Pulse 73 01/26/25 11:44 Resp 18 01/26/25 11:44 BP 103/70 01/26/25 11:44 Pulse Ox 97 01/26/25 11:44 O2 Del Method Room Air 01/26/25 11:44 O2 Flow Rate 2 01/25/25 19:12 FiO2 21 01/26/25 01:40 01/25/25 01/26/25 01/26/25 22:59 06:59 14:59 Intake Total 500 / 500 1093.75 / 1093.75 Balance 500 / 500 1093.75 / 1093.75 Weight last 48 hrs Weight 69.853 kg Weight 69.853 kg Weight 68.946 kg Physical Exam 2 Narrative: General: Alert oriented x3, patient seen laying in bed in Trendelenburg position at this time. HEENT: Normocephalic, atraumatic, EOMI, Cardio: Regular rate rhythm, normal S1-S2 no gross murmurs appreciated Respiratory: Clear to auscultation bilaterally GI: Abdomen soft, nontender,bowel sounds + Extremities: No edema bilateral lower extremities Data 01/26/25 04:32 01/26/25 04:32 A&P Assessment and plan (1) Hypokalemia: Hypokalemia replace in the ED by the ED attending Repeat lab studies pending this morning Hypokalemia was due to patient's nausea and vomiting Also continue to follow-up and optimize (2) Hypoxia: Hypoxemia is secondary to microaspiration into the bronchus at the time of vomiting or in any form of reflux disease leading to bronchospasm and causing hypoxemia in a patient that is not on home oxygen - This had resolved as quickly as it came - Continue to monitor and optimize (3) Weakness: - This patient is with profound weakness from lack of exercise lack of activity she does stay in bed all day according to the patient and also according to the daughter post CVA with debility - Case management be able to help for this patient either for patient to go to rehab it was hard to even help the patient sit up - The daughter is agreeable - PT OT to evaluate this patient. 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 Marrufo for this according to the daughter, because of this is unknown Patient needs physical therapy done with standing weight in bed (6) CVA (cerebral vascular accident): This is a history of patient is on antiplatelets must continue home medication Continue statins (7) Bronchial spasm: This is induced by microaspiration leading to bronchospasm and then leading to hypoxemia in this patient at presentation (8) Esophageal stricture: Esophageal stricture has been taking care of in the hands of the purifying plant operator over at [facility] in [place] and patient is able to eat. Plan GI and DVT prophylaxis in place 01/26/2025 Patient will need rehab at discharge PT OT assessment pending He is unable to eat secondary to esophageal stricture. She states that she eats whenever her daughter makes however yesterday she was unable to eat much because she could not swallow. I will keep her on clear liquids for now Will obtain records from [place] Will discuss with general surgery for potential EGD. I will obtain collateral information from daughter. Patient seems to be a poor historian. At 1 point she tells me she can eat pur?ed food but then says she cannot. Rest of management per H&P above. She has had previous hospitalizations for nausea vomiting hypertension in the past. 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 She has been on midodrine in the past as well as per records. She is off of all antihypertensives at this point. I believe her symptoms are secondary to autonomic dysfunction. Continue IV hydration with normal saline 75 cc/h. PDMP PDMP Reviewed: Not Reviewed Attestations 2 Medical Necessity Statement*: Patient is with profound weakness requiring support, replacing electrolyte imbalances. A plan for discharge planning to go to rehab for strength building. Patient needs 2 midnights of care for is 74 years old that came in with nausea and vomiting. Diagnoses Hypokalemia E87.6 Hypoxia R09.02 Weakness R53.1 Vomiting R11.10 Shy-Drager syndrome G90.3 CVA (cerebral vascular accident) I63.9 Bronchial spasm J98.01 Esophageal stricture K22.2
[2025-01-26] MEDS: docusate sodium 100 mg Capsule PO (17:48)
[2025-01-26] MEDS: multivitamin therapeutic Tablet 1 TAB PO (17:48)
[2025-01-26] MEDS: aspirin 81 mg EC Tablet PO (17:48)
[2025-01-26] MEDS: atorvastatin 40 mg Tablet PO (17:48)
--- NOTE | 2025-01-26 18:32 | PM.PN ---
Subjective Subjective: 74 y/o F who is admitted for respiratory complains and noted to have po intolerance today. she has history of achalasia and recentlly had an EGD with dilatation at outside facility. I am consulted for diagnostic EGD and possible dilatation Vitals/I&O/Wt Last Vital Signs Temp 97.5 F L 01/26/25 16:24 Pulse 76 01/26/25 16:24 Resp 18 01/26/25 16:24 BP 97/55 01/26/25 16:24 Pulse Ox 94 01/26/25 16:24 O2 Del Method Room Air 01/26/25 16:24 O2 Flow Rate 2 01/25/25 19:12 FiO2 21 01/26/25 01:40 01/26/25 01/26/25 01/26/25 06:59 14:59 22:59 Intake Total 1093.75 / 1093.75 120 / 1213.75 Balance 1093.75 / 1093.75 120 / 1213.75 Weight last 48 hrs Weight 154 lb Weight 154 lb Weight 152 lb Physical Exam GI: OTHER: abdomen is soft, non tender and not diatended Data 01/26/25 04:32 01/26/25 04:32 A&P Assessment and plan (1) Vomiting: (2) Esophageal stricture: Plan due to patienthistory of achalasia, management by GI specialist is recommended. 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 if unable to transverse the EG junction patient will require transfer to higher level of care for fluoroscopy guided dilatation. I have discussed risk and benefits including the risk of perforation and patient is agrable to proceed. Medical team is attempting to obtain medical records from previous dilatation. PDMP PDMP Reviewed: Not Reviewed Attestations Medical Necessity Statement*: per medical team Coding Level of Care Code Acute Code for Chg Fwd Diagnoses Vomiting R11.10 Esophageal stricture K22.2
[2025-01-26] MEDS: sennosides 8.6 mg Tablet 17.2 MG PO (21:31)
[2025-01-26] MEDS: citalopram 20 mg Tablet PO (21:31)
[2025-01-27] VITALS (10 sets, daily range): BP systolic 94–115; BP diastolic 62–83; PULSE 70–96; RESP 16–18; TEMP 36.2–36.7; O2SAT 94–100
[2025-01-27 09:17] LABS: Basophils % 0.6 %; Eosinophils # 0.3 10^3/uL (0.0-0.8); Eosinophils % 5.4 %; Hematocrit 30.1 % (36-47); Lymphocytes # 1.2 10^3/uL (0.8-4.8); Lymphocytes % 23.9 %; Mean Corpuscular HGB Conc 33.2 g/dL (30-55); Mean Corpuscular Hemoglobin 33.6 pg (27-33); Mean Platelet Volume 12.2 fL (7.4-10.4); Monocytes # 0.4 10^3/uL (0.2-0.9); Monocytes % 8.5 %; Neutrophils # 2.94 10^3/uL (1.8-7.7); Nucleated Red Blood Cells % 0 %; Platelet Count 144 10^3/cmm (157-399); Red Blood Count 2.98 10^6/uL (3.85-5.65); Red Cell Distribution Width 15.4 % (12.1-15.1); White Blood Count 4.82 10^3/uL (3.29-11.43)
[2025-01-27 09:34] LABS: Anion Gap 12.6 (5-19); Blood Urea Nitrogen 11 mg/dL (8-23); Calcium 7.6 mg/dL (8.5-10.5); Carbon Dioxide 21 mmol/L (22-29); Chloride 113 mmol/L (98-107); Creatinine Clr Calc Pharmacy 68.8718; Glucose 72 mg/dL (65-115); Osmolality Calculated 294 mOsm/kg (285-295); Potassium 3.6 mmol/L (3.5-5.1); Sodium 143 mmol/L (136-145)
[2025-01-27] MEDS: potassium chloride oral liq 20 mEq/15 mL UDC 40 MEQ PO (10:06)
--- NOTE | 2025-01-27 11:38 | P.HPUD_ITS ---
Surgery/Procedure H&P Update DATE OF PROCEDURE: January 27, 2025 DATE H&P PERFORMED: 01/26/25 H&P UPDATE INFORMATION: I have reviewed H&P completed within last 30 days, I have examined patient prior to procedure, No changes to prior documentation, H&P is in [facility] EMR on date indicated and Risks and benefits of the procedure reviewed PLANNED PROCEDURE: Operation Date: 01/27/25 12:55 Proposed Procedures p EGD Dilation W/ Balloon(Not Applicable) - Rambo Gonzales MD
--- NOTE | 2025-01-27 11:53 | ANES.PREANE2 ---
Pre-Anesthetic Assessment Height/Weight: Height 1.83 m Weight 69.853 kg Temp Pulse Resp BP Pulse Ox O2 Del Method O2 Flow Rate 97.2 F L 83 18 103/70 94 Room Air 2 01/27/25 11:40 01/27/25 11:40 01/27/25 11:40 01/27/25 11:40 01/27/25 11:40 01/27/25 11:40 01/25/25 19:12 FiO2 21 01/26/25 01:40 Preop Diagnosis: Syncope, difficulty swallowing Operation Date: 01/27/25 12:55 Proposed Procedures p EGD Dilation W/ Balloon(Not Applicable) - Rambo Gonzales MD Familial anesthetic complications: none Was Beta Fernanda taken within 24 hours: N/A Was Clonidine taken within 24 hours: N/A Last intake: Intake Last Liquid Date 10/26/24 Last Liquid Time 19:30 Last Solid Date 01/23/25 Social No alcohol and No tobacco Exam alert, oriented x 3, clear to auscultation bilaterally and regular rate & rhythm Airway Submandibular: within normal limits Cervical ROM: within normal limits Mallampati: Class II Dentition: false History/ROS No significant history except as noted and No significant complaints Pulmonary Chronic Obstructive Pulmonary Disease and Exertional Dyspnea CV/HEM None reported None reported Hepatic None reported GI Gastroesophageal Reflux Disease Metabolic Hyperlipidemia [facility] None reported Neuropsych Cerebrovascular Accident, Deficit (Left side weakness) and Seizure Anesthetic Plan ASA status: 4 Anesthesia: MAC and Regional (specify below) Risk of > 500 ml blood loss (7ml/kg in children): No Medications/Allergies Home Medications ?Medication ?Instructions ?Recorded ?Confirmed ?Last Taken ?Type tramadol 50 mg tablet 50 mg PO Q8H PRN Pain 11/25/20 01/25/25 05/27/24 History citalopram 20 mg tablet (Celexa) 20 mg PO BEDTIME 12/24/23 01/25/25 01/23/25 History aspirin 81 mg tablet,delayed 81 mg PO QPM 03/18/24 01/25/25 01/23/25 History release cetirizine 10 mg tablet 10 mg PO DAILY 03/18/24 01/25/25 01/24/25 History coenzyme Q10 100 mg capsule 100 mg PO QPM 03/18/24 01/25/25 01/23/25 History (CoQ-10) multivitamin 1 tab PO QPM 03/18/24 01/25/25 01/23/25 History pantoprazole 40 mg tablet,delayed 40 mg PO DAILY 03/18/24 01/25/25 01/24/25 History release meclizine 25 mg tablet 25 mg PO TID PRN dizziness #20 tabs 05/28/24 01/25/25 Unknown Rx atorvastatin 40 mg tablet 40 mg PO QPM 10/20/24 01/25/25 01/23/25 History ondansetron 4 mg disintegrating 8 mg PO TID PRN Nausea And Vomiting 10/20/24 01/25/25 Unknown History tablet apixaban 5 mg tablet (Eliquis) 5 mg PO BID 90 days #180 tabs 01/13/25 01/25/25 01/24/25 Rx famotidine 40 mg tablet 40 mg PO QAM 01/25/25 01/25/25 01/24/25 History potassium chloride 20 mEq 20 meq PO DAILY 01/25/25 01/25/25 01/24/25 History tablet,extended release Allergies Allergy/AdvReac Type Severity Reaction Status Date / Time codeine Allergy Unknown Unknown Verified 12/29/24 14:10 gabapentin Allergy lethargic Verified 12/29/24 14:10 Penicillins Allergy nausea Verified 12/29/24 14:10 Current Medications Generic Name Dose Route Start Last Admin Trade Name Freq PRN Reason Stop Dose Admin Apixaban 5 mg 01/25/25 20:00 01/27/25 09:29 Apixaban 5 Mg Tablet PO Not Given On Hold: 01/27/25 11:35 BID CHIP Comment: Order held by Process Transfer Aspirin 81 mg 01/26/25 18:00 01/26/25 17:48 Aspirin 81 Mg Ec Tablet PO 81 mg On Hold: 01/27/25 11:35 QPM CHIP Administration Comment: Order held by Process Transfer Atorvastatin Calcium 40 mg 01/26/25 18:00 01/26/25 17:48 Atorvastatin 40 Mg Tablet PO 40 mg On Hold: 01/27/25 11:35 QPM CHIP Administration Comment: Order held by Process Transfer Cetirizine HCl 10 mg 01/26/25 09:00 01/27/25 09:29 Cetirizine 10 Mg Tablet PO Not Given On Hold: 01/27/25 11:35 DAILY CHIP Comment: Order held by Process Transfer Citalopram Hydrobromide 20 mg 01/25/25 21:30 01/26/25 21:31 Citalopram 20 Mg Tablet PO 20 mg On Hold: 01/27/25 11:35 BEDTIME CHIP Administration Comment: Order held by Process Transfer Docusate Sodium 100 mg 01/26/25 09:00 01/27/25 09:28 Docusate Sodium 100 Mg Capsule PO Not Given On Hold: 01/27/25 11:35 BID CHIP Comment: Order held by Process Transfer Sodium Chloride 1,000 mls @ 75 mls/hr 01/25/25 21:15 01/26/25 23:34 Sodium Chloride 0.9% IV 75 mls/hr On Hold: 01/27/25 11:35 .[id number] CHIP Administration Comment: Order held by Process Transfer Multivitamins Therapeutic 1 tab 01/26/25 18:00 01/26/25 17:48 Multivitamin Therapeutic Tablet PO 1 tab On Hold: 01/27/25 11:35 QPM CHIP Administration Comment: Order held by Process Transfer Pantoprazole Sodium 40 mg 01/26/25 09:00 01/27/25 09:[address] 40 Mg Tablet PO Not Given On Hold: 01/27/25 11:35 DAILY CHIP Comment: Order held by Process Transfer Potassium Chloride 20 meq 01/26/25 09:00 01/27/25 09:28 Potassium Chloride Er 20 Meq Tablet PO Not Given On Hold: 01/27/25 11:35 DAILY CHIP Comment: Order held by Process Transfer Senna 17.2 mg 01/26/25 21:00 01/26/25 21:31 Sennosides 8.6 Mg Tablet PO 17.2 mg On Hold: 01/27/25 11:35 BEDTIME CHIP Administration Comment: Order held by Process Transfer [facility] Anesthesia Medical History CVA (cerebral vascular accident) NSTEMI (non-ST elevated myocardial infarction) Pre-syncope Generalized muscle weakness Acute lower urinary tract infection Status post CVA PFO (patent foramen ovale) Depression At risk for bleeding Peripheral neuropathy Right middle cerebral artery stroke Acute right arterial ischemic stroke, middle cerebral artery (MCA) Thromboembolic stroke Pulmonary embolism Hypertension Closed head injury Focal infarction of brain Surgical History No pertinent past surgical history Social History Smoking and tobacco/nicotine status: never used tobacco/nicotine Data Anesthesia 01/27/25 09:11 01/27/25 09:11 Short CBC 01/25/25 01/26/25 01/27/25 Range/Units 14:05 04:32 09:11 WBC 6.48 5.67 4.82 (3.29-11.43) 10^3/uL Hgb 13.30 10.10 L 10.00 L (11.27-16.99) g/dL Hct 38.5 29.1 L 30.1 L (36-47) % MCV 96.7 97.0 101.0 H (85-98) fl Plt Count 221 155 L 144 L (157-399) 10^3/cmm Neut % (Auto) 68.5 69.8 61.0 % Neut # (Auto) 4.44 3.96 2.94 (1.8-7.7) 10^3/uL BMP 01/25/25 01/26/25 01/27/25 14:05 04:32 09:11 Sodium 141 141 143 Potassium 3.2 L 3.0 L 3.6 Chloride 101 106 113 H Carbon Dioxide 24 23 21 L BUN 14 11 11 Creatinine 0.7 0.6 0.7 Glucose 86 71 72 Calcium 9.1 8.0 L 7.6 L Cardiac Enzymes 01/25/25 01/25/25 01/25/25 Range/Units 14:05 17:24 20:37 Troponin T Baseline 32 H (0-10) ng/L Troponin T 120 Minute 27.69 H (0-10) ng/L Delta Troponin T -4.31 L (0-10) ABS# Troponin T Hi Sens 6Hr 28.41 H (0-10) ng/L Troponin T Hi Sens 6Hr Delta -3.59 L (0-12) ng/L NT-Pro-B Natriuret Pep 1769 H (0-450) pg/mL Liver Function 01/25/25 01/26/25 Range/Units 14:05 04:32 Total Bilirubin 0.6 0.4 (0.15-1.2) mg/dL AST 25 18 (0-32) U/L ALT 8 7 (0-33) U/L Alkaline Phosphatase 77 59 (35-105) U/L Albumin 3.3 L 2.5 L (3.5-5.2) g/dL Urine 01/25/25 Range/Units 16:28 Urine Color Dark yellow A (Yellow) Urine Appearance Turbid A (CLEAR) Urine pH 5.5 (5-7) Ur Specific [place] 1.034 H (1.005-1.030) Urine Protein 1+ A (Negative) Urine Glucose (UA) Negative (Normal) Urine Ketones 1+ H (Negative) Urine Nitrate Negative (Negative) Urine Bilirubin 2+ H (Negative) Ur Leukocyte Esterase Trace A (Negative) Urine RBC 11-20 H (0-2) /hpf Urine WBC 0-5 (0-5) /hpf Cardiac Studies: Echocardiogram 10/20/24 Echocardiogram Limited Views 03/18/24 Cardiac Event Monitor 06/29/24
[2025-01-27] MEDS: sodium chloride 0.9% 1,000 ML 15 ML IV (11:56)
--- NOTE | 2025-01-27 12:18 | PM.MISC ---
Miscellaneous Note Purpose of Documentation: Update on patient care Note: EGD was done today, no need for additional dilation scope advancement to the stomach was easy no restriction. For some gastritis and some duodenitis no biopsies were taken as patient is on Eliquis. Okay to advance diet as tolerated to a GI soft diet patient should follow-up with GI as scheduled does not require another follow-up with general surgery.
--- NOTE | 2025-01-27 12:20 | ANE.PACU2 ---
Inpatient post-anesthesia follow up: Airway intact: Yes Vital signs: Temperature 97.6 F Pulse Rate 91 Respiratory Rate 18 Blood Pressure 99/62 Pulse Oximetry 100 Oxygen Delivery Me thod Room Air Oxygen Flow Rate 2 Fraction of Inspir ed Oxygen 21 Hydration adequate: Yes Nausea and vomiting: No Pain level: 1 Mental status: Baseline
--- NOTE | 2025-01-27 12:30 | ANE.PACU2 ---
Inpatient post-anesthesia follow up: Airway intact: Yes Vital signs: Temperature 97.6 F Pulse Rate 91 Respiratory Rate 18 Blood Pressure 99/62 Pulse Oximetry 100 Oxygen Delivery Me thod Room Air Oxygen Flow Rate 2 Fraction of Inspir ed Oxygen 21 Hydration adequate: Yes Nausea and vomiting: No Pain level: 2 Mental status: Baseline
--- NOTE | 2025-01-27 13:09 | P.DS_ITS ---
Discharge Providers Date of Admission: 01/25/25 20:16 Date of Discharge: January 27, 2025 Attending Provider at Admission: Dee Chowdhury MD Attending Provider at Discharge: Maame Alexander MD Primary Care Provider: Kyaw Lobato DO Diagnoses at Discharge Discharge Diagnosis (1) Vomiting: Status: Resolved (2) Esophageal stricture: Status: Acute Reason for Visit Reason for Visit: N/V Hospital Course Hospital Course Admitted to the hospital for nausea vomiting and hypotension. 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 She was given IV fluids at which point her symptoms resolved. She also had severe electrolyte abnormalities with hypokalemia and was given potassium in the hospital. Patient does have a history of esophageal stricture. We were unsure if nausea vomiting is secondary to stricture. She has recently had dilation done about a week ago as per the patient. Repeat diagnostic EGD was done which showed patent esophagus. Patient was able to tolerate oral diet and was discharged to nursing facility. Physical Exam Narrative: General: Alert oriented x3, HEENT: Normocephalic, atraumatic, EOMI, Cardio: Regular rate rhythm, normal S1-S2 no gross murmurs appreciated Respiratory: Clear to auscultation bilaterally GI: Abdomen soft, nontender,bowel sounds + Extremities: No edema bilateral lower extremities Discharge Data Studies Completed and Pending Completed Studies During Hospitalization Category Date Time Status CT abdomen pelvis w con* [id number] Stat Cat Scan 01/25/25 14:14 Completed CTA chest [CT angio chest PE protcl [id number]] Stat Cat Scan 01/25/25 18:05 Completed CXRP [XR chest 1V portable [id number]] Stat Exams 01/25/25 14:20 Completed Radiology Impressions Abdomen/Pelvis CT 01/25/25 14:14 IMPRESSION: 1. Hepatic and renal cysts, including mildly complex left renal cyst, as noted above. 2. Gastric thickening versus appearance related to incomplete gastric distension. 3. Fairly dense oral contrast within the distal colon or rectum/rectosigmoid region. Nonspecific thickening of the rectum/rectosigmoid colon with dirty appearance of the adjacent mesentery or mesenteric fat stranding. Consider inflammation/infection or proctitis, though consider follow-up to ensure no circumferential mass component. 4. No bowel obstruction. Chest X-Ray 01/25/25 14:20 Impression: Atherosclerosis. Chest CTA 01/25/25 18:05 IMPRESSION: 1. No CT findings of pulmonary embolus. 2. Mild arteriosclerosis and uncoiling/tortuosity thoracic aorta. 3. Suggestion of hyperinflation without identification of infiltrate, edema, or pleural effusion. 4. Mild increased mediastinal nodes though majority measuring 1 cm or less in size and the largest measuring 12 mm. Consider short-term 3 month follow-up to ensure stability and/or improvement. 5. 3 mm ground-glass nodule peripherally lower right lung. No routine follow-up is indicated. (Reference: Loretta) References: Loretta Reyes, et al. Guidelines for Management of Incidental Pulmonary Nodules Detected on CT Images: From the Fleischner Society 2017. Radiology. 2017;284(1):228-243. Laboratory Results WBC 4.82 10^3/uL (3.29-11.43) 01/27/25 09:11 RBC 2.98 10^6/uL (3.85-5.65) L 01/27/25 09:11 Hgb 10.00 g/dL (11.27-16.99) L 01/27/25 09:11 Hct 30.1 % (36-47) L 01/27/25 09:11 MCV 101.0 fl (85-98) H 01/27/25 09:11 MCH 33.6 pg (27-33) H 01/27/25 09:11 MCHC 33.2 g/dL (30-55) 01/27/25 09:11 RDW 15.4 % (12.1-15.1) H 01/27/25 09:11 Plt Count 144 10^3/cmm (157-399) L 01/27/25 09:11 MPV 12.2 fL (7.4-10.4) H 01/27/25 09:11 Neut % (Auto) 61.0 % 01/27/25 09:11 Lymph % (Auto) 23.9 % 01/27/25 09:11 [place] % (Auto) 8.5 % 01/27/25 09:11 Eos % (Auto) 5.4 % 01/27/25 09:11 Baso % (Auto) 0.6 % 01/27/25 09:11 Neut # (Auto) 2.94 10^3/uL (1.8-7.7) 01/27/25 09:11 Lymph # (Auto) 1.2 10^3/uL (0.8-4.8) 01/27/25 09:11 [place] # (Auto) 0.4 10^3/uL (0.2-0.9) 01/27/25 09:11 Eos # (Auto) 0.3 10^3/uL (0.0-0.8) 01/27/25 09:11 Baso # (Auto) 0.0 10^3/uL (0.0-0.1) 01/27/25 09:11 Nucleated RBC % (auto) 0 % 01/27/25 09:11 Nucleated RBCs # 0.0 /100WBC 01/27/25 09:11 Sodium 143 mmol/L (136-145) 01/27/25 09:11 Potassium 3.6 mmol/L (3.5-5.1) 01/27/25 09:11 Chloride 113 mmol/L (98-107) H 01/27/25 09:11 Carbon Dioxide 21 mmol/L (22-29) L 01/27/25 09:11 Anion Gap 12.6 (5-19) 01/27/25 09:11 BUN 11 mg/dL (8-23) 01/27/25 09:11 Creatinine 0.7 mg/dL (0.5-0.9) 01/27/25 09:11 GFR Calculation Not Reportable 01/27/25 09:11 Glucose 72 mg/dL (65-115) 01/27/25 09:11 Calculated Osmolality 294 mOsm/kg (285-295) 01/27/25 09:11 Calcium 7.6 mg/dL (8.5-10.5) L 01/27/25 09:11 Phosphorus 2.6 mg/dL (2.5-4.5) 01/26/25 04:32 Magnesium 1.4 mg/dL (1.7-2.3) L 01/26/25 04:32 Total Bilirubin 0.4 mg/dL (0.15-1.2) 01/26/25 04:32 AST 18 U/L (0-32) 01/26/25 04:32 ALT 7 U/L (0-33) 01/26/25 04:32 Alkaline Phosphatase 59 U/L (35-105) 01/26/25 04:32 Troponin T Baseline 32 ng/L (0-10) H 01/25/25 14:05 Troponin T 120 Minute 27.69 ng/L (0-10) H 01/25/25 17:24 Delta Troponin T -4.31 ABS# (0-10) L 01/25/25 17:24 Troponin T Hi Sens 6Hr 28.41 ng/L (0-10) H 01/25/25 20:37 Troponin T Hi Sens 6Hr Delta -3.59 ng/L (0-12) L 01/25/25 20:37 NT-Pro-B Natriuret Pep 1769 pg/mL (0-450) H 01/25/25 14:05 Total Protein 4.8 g/dL (6.6-8.7) L D 01/26/25 04:32 Albumin 2.5 g/dL (3.5-5.2) L 01/26/25 04:32 Globulin 2.3 g/dL (1.3-4.6) 01/26/25 04:32 Lipase 13 U/L (13-60) 01/25/25 14:05 Urine Color Dark yellow (Yellow) A 01/25/25 16: Urine Appearance Turbid (CLEAR) A 01/25/25 16:28 Urine pH 5.5 (5-7) 01/25/25 16:28 Ur Specific [place] 1.034 (1.005-1.030) H 01/25/25 16:28 Urine Protein 1+ (Negative) A 01/25/25 16: Urine Glucose (UA) Negative (Normal) 01/25/25 16:28 Urine Ketones 1+ (Negative) H 01/25/25 16:28 Urine Blood Negative (Negative) 01/25/25 16:28 Urine Nitrate Negative (Negative) 01/25/25 16:28 Urine Bilirubin 2+ (Negative) H 01/25/25 16:28 Urine Urobilinogen 1.0 mg/dL (Negative) 01/25/25 16:28 Ur Leukocyte Esterase Trace (Negative) A 01/25/25 16:28 Urine RBC 11-20 /hpf (0-2) H 01/25/25 16:28 Urine WBC 0-5 /hpf (0-5) 01/25/25 16:28 Ur Squamous Epith Cells 0-5 /hpf (0-5) 01/25/25 16:28 Calcium Oxalate Crystal 15-25 /hpf H 01/25/25 16:28 Amorphous Sediment Not Reportable 01/25/25 16:28 Urine Bacteria None seen /hpf (NONE) 01/25/25 16:28 Hyaline Casts 15.22 /lpf 01/25/25 16:28 Vitals Last Vital Signs Temp 97.6 F 01/27/25 12:24 Pulse 93 01/27/25 12:34 Resp 18 01/27/25 12:34 BP 94/66 01/27/25 12:34 Pulse Ox 98 01/27/25 12:34 O2 Del Method Room Air 01/27/25 12:34 O2 Flow Rate 2 01/25/25 19:12 FiO2 21 01/26/25 01:40 Discharge Plan Discharge Patient Disposition: Xfer SNF Condition: Stable Prescriptions: Continued tramadol 50 mg tablet 50 mg PO Q8H PRN (Reason: Pain) Eliquis 5 mg tablet 5 mg PO BID 90 Days Qty: 180 3RF Patient Comments: patient states she has not taken her evening dose today and has only taken her morning dose today Rx Instructions: 340 B citalopram [Celexa] 20 mg tablet 20 mg PO BEDTIME multivitamin Tablet 1 tab PO QPM cetirizine 10 mg tablet 10 mg PO DAILY aspirin 81 mg Tablet,Delayed Release (Dr/Ec) 81 mg PO QPM pantoprazole 40 mg tablet,delayed release (DR/EC) 40 mg PO DAILY coenzyme Q10 [CoQ-10] 100 mg Capsule 100 mg PO QPM meclizine 25 mg tablet 25 mg PO TID PRN (Reason: dizziness) Qty: 20 0RF atorvastatin 40 mg Tablet 40 mg PO QPM ondansetron 4 mg Tablet,Disintegrating 8 mg PO TID PRN (Reason: Nausea And Vomiting) famotidine 40 mg tablet 40 mg PO QAM potassium chloride 20 mEq tablet extended release 20 meq PO DAILY Discharge Orders: Discharge Order (Routine); Ordered 01/27/25 Ordered By: Maame Alexander [facility] [Outside] Kyaw Lobato DO [Primary Care Provider, Family Practice] - 1-3 days Discharge Diet: As Directed and GI Soft Discharge Activity: As per PT/OT instructions Patient Instructions: Hypokalemia (GEN), GI Post Discharge Instructions w/ Anesthesia, Opioid Safety Activity Restrictions/Additional Instructions: EGD was completed this morning.There was no additional stricture and the lower sphincter was open. There was some mild gastritis and mild duodenitis. General surgery has recommended you can be on a GI soft diet and advance as tolerated. Please ensure to drink water after eating. Recommend speech therapy follow-up at nursing facility. Discharge Attestations Time Spent in Discharge Care*: less than 30 min Quality Metrics Clinical Quality Measures [ No reported AMI, CVA or VTE this stay] Coding Level of Care Code Acute Code for Chg Fwd Diagnoses Vomiting R11.10 Esophageal stricture K22.2
[2025-01-27 14:34] LABS: SARS Covid-2 Antigen Negative (Negative)
--- NOTE | 2025-01-27 15:01 | PC.NURSE ---
Called report to Rae Cintron RN at [facility].
== END 2025-01-27 16:10 | disposition skilled nursing facility (03) | DRG 392 ==
LOC: ER 20:26 → MEDSURG 20:58
PROVIDERS: Surgery; Admitting Provider Internal Medicine; Emergency Provider Emergency Medicine; PCP Electrodiagnostic Medicine; Visit Provider Internal Medicine
PROC: 0DJ08ZZ Inspection of Upper Intestinal Tract, Via Natural or Artificial Opening Endoscopic (ICD-10-PCS; principal; 2025-01-27 12:55)
DX: K52.9 Noninfective gastroenteritis and colitis, unspecified (principal); G90.3 Multi-system degeneration of the autonomic nervous system; K29.70 Gastritis, unspecified, without bleeding; K29.80 Duodenitis without bleeding; K22.2 Esophageal obstruction; I95.9 Hypotension, unspecified; F32.A Depression, unspecified; G62.9 Polyneuropathy, unspecified; I10 Essential (primary) hypertension; E87.6 Hypokalemia; R09.02 Hypoxemia; J98.01 Acute bronchospasm; I25.2 Old myocardial infarction; Z79.891 Long term (current) use of opiate analgesic; Z79.01 Long term (current) use of anticoagulants; Z79.82 Long term (current) use of aspirin; Z86.73 Personal history of transient ischemic attack (TIA), and cerebral infarction without residual deficits; Z87.440 Personal history of urinary (tract) infections; Z86.711 Personal history of pulmonary embolism
CPT/HCPCS: 36415; 43235; 71045; 71275; 74177; 80048; 80053; 81001; 83690; 83735; 83880; 84100; 84484; 85025; 87426; 92610; 93005; 94664; 96374; 97162; 97167; 97530; 97535; 99285; J2405; J2704; J3475; J7030; J7040; J9999

== ENCOUNTER 2025-05-24 15:05 | Outpatient (CLI) | payer MEDICARE, OTHER, SELFPAY ==
--- NOTE | 2025-05-24 15:14 | XR_ITS ---
WS: [id number] DEXA (DUAL ENERGY X-RAY ABSORPTIOMETRY) Bone mineral density was performed using a Kincast machine. HISTORY: ASYMPTOMATIC MENOPAUSAL STATE COMPARISON: 07/07/2019 Lumbar spine BMD (L1-L4): 0.990 g/cm2 T score: -1.6 Z score: 0.2 Total hip BMD: Left: 0.744 g/cm2. T score: -2.1 Z score: -0.3 Right: 0.741 g/cm2. T score: -2.1 Z score: -0.3 10 year probability of a major osteoporotic fracture is 12.3%. Compared to the prior study from 07/07/2019. Lumbar spine bone mineral density has decreased by 9.0%. Bilateral hips bone mineral density has decreased by 13.0%. XR/XR DEXA axial skeleton* [id number] IMPRESSION: OSTEOPENIA based upon the WHO classification for females. Significant decrease in bone mineral density within both the lumbar spine and h ips since the prior study.
== END 2025-05-24 15:06 | disposition home or self-care (01) ==
PROVIDERS: PCP Electrodiagnostic Medicine; Visit Provider Electrodiagnostic Medicine
DX: Z13.820 Encounter for screening for osteoporosis (principal); Z78.0 Asymptomatic menopausal state; M85.88 Other specified disorders of bone density and structure, other site
CPT/HCPCS: 77080

== ENCOUNTER 2025-05-30 17:29 | Emergency (ER) | payer MEDICARE, OTHER, SELFPAY ==
[2025-05-30] VITALS (7 sets, daily range): BP systolic 109–124; BP diastolic 64–86; PULSE 61–80; RESP 16–19; TEMP 36.8; O2SAT 99–100; BMI 18.8
--- OUTSIDE RECORDS SUMMARY | 2025-05-30 17:34 | XMS_ITS | Clinical Summary ---
Author Organization [facility] Based Address [address] [place] [address] Care Team Providers Care Roller Hand Name Role Phone Unavailable Primary Care Provider Unavailabl e Allergies Active Allergy Reactions Criticality Noted Date Comments Gabapentin Other (See Comments) 09/13/2024 others Penicillins Unknown 07/29/2024 Medications Eliquis 5 mg tablet TAKE 2 TABLETS BY MOUTH TWICE DAILY FOR 7 DAYS, THEN 1 TABLET TWICE DAILY THEREAFTER 4 Active rosuvastatin (CRESTOR) 40 mg tablet Take 40 mg by mouth daily at bedtime. 4 Active metoprolol tartrate (LOPRESSOR) 25 mg tablet Take 1 Tablet by mouth 2 times daily. 4 Active buPROPion HCL (WELLBUTRIN XL) 150 mg Extended Release 24 hour tablet Take 1 Tablet by mouth daily. 4 Active clopidogreL (PLAVIX) 75 mg Tablet Take 1 Tablet by mouth daily. 4 Active lisinopriL (PRINIVIL) 10 mg tablet Take 1 Tablet by mouth 2 times daily. 4 Active cetirizine (ZyrTEC) 10 mg tablet Take 1 tablet every day by oral route for 90 days. 3 Active ondansetron (ZOFRAN) 4 mg Tablet TAKE 2 TABLETS BY MOUTH THREE TIMES DAILY NEEDED FOR NAUSEA AND VOMITING 4 Active pantoprazole (PROTONIX) 40 mg Tablet, Delayed Release (E.C.) Take 40 mg by mouth daily. Active aspirin 81 mg Capsule 2 Active atorvastatin (LIPITOR) 40 mg tablet Take 1 tablet every day by oral route in the evening for 100 days. Active meclizine (ANTIVERT) 25 mg tablet Take 25 mg by mouth 3 times daily as needed for Dizziness. Active citalopram (CeleXA) 20 mg tablet Take 1 Tablet by mouth late in the day. Active traMADoL (ULTRAM) 50 mg tablet prn Active potassium chloride (K-TAB) 20 mEq Extended Release tablet Take 20 mEq by mouth daily. Active midodrine (PROAMATINE) 10 mg Tablet Take 10 mg by mouth 3 times daily. Active Active Problems Problem Noted Date Diagnosed Date History of cerebrovascular accident 12/30/2023 Patent foramen ovale 12/30/2023 Pulmonary embolism 12/30/2023 Bereavement 08/03/2023 Neutropenia 08/03/2023 Severe recurrent major depre ssion without psychotic features 08/03/2023 Strain of rotator cuff capsule 08/03/2023 Acute bacterial sinusitis 06/09/2023 Anxiety disorder 06/09/2023 Cellulitis of toe of right foot 02/26/2023 Ingrown toenail of right foot 02/26/2023 Chronic pain 02/07/2023 Benign paroxysmal positional vertigo 01/21/2023 Essential hypertension 01/21/2023 Hyperlipidemia 01/21/2023 Encounters Date Type Department Care Team Description 05/12/2025 11:00 AM CDT Office Visit [facility] Urology [address] [place] [phone] Nakul Martell MD 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); Renal mass 05/06/2025 9:18 AM CDT - 05/06/2025 11:59 PM CDT Hospital Encounter [facility] CT Scan [place] [address] [place] [address] Nakul Martell MD Discharge Disposition: Home or Self Care 05/03/2025 External Device Data STL ABSTRACTION Provider, Abstract 04/26/2025 External Device Data ST[place] ABSTRACTION Provider, Abstract 04/19/2025 External Device Data [place] ABSTRACTION Provider, Abstract from Last 3 Months Immunizations Immunization Administration Dates Next Due (ADACEL/BOOSTRIX)(10 YR UP) TDAP VACCINE, 0.5ML, IM 11/25/2016 (PREVNAR 13)(6 WKS UP) PNEUM OCOCCAL CONJUGATE (PCV13) 0.5 ML, IM 05/24/2015 (SHINGRIX)(50 YRS UP) ZOSTER VACCINE RECOMBINANT, 0.5 ML, IM 07/12/2021,05/11/2021 (TDVAX)(7 YRS UP) TETANUS AN D DIPHTHERIA TOXOIDS, ADSORBED (2 LF OF TETANUS TOXOID AND 2 LF OF DIPHTHERIA TOXOID), 0.5ML (PF), IM 12/19/2004 (TWINRIX)(18 YRS UP) HEPATIT IS A AND HEPATITIS B VACCINE ADULT, 1 ML, IM 05/29/2019,04/28/2019,12/19/2004 (VAXNEUVANCE)(2-15 MOS)(18 Y RS UP) PNEUMOCOCCAL CONJUGATE (PCV15), POLYSACCHARIDE PBI807 CONJUGATE, ADJUVANT, PED 4 DOSE/ADULT 1 DOSE 0.5 ML (PF) IM 05/21/2022 Hepatitis A Vaccine 12/19/2004 INFLUENZA VACCINE HIGH DOSE QUADRIVALENT 65 YR UP PF IM 05/21/2022,05/11/2021 Influenza Seasonal Unspecifi ed Formulation IM 05/15/2014 Influenza Seasonal Unspecifi ed Formulation PF IM 05/24/2015 Influenza Vaccine High Dose 65+ Yrs IM 9 Pneumococcal vaccine, unspec ified formulation 1999 Social History Tobacco Use Types Packs/Day Years Used Date Smoking Tobacco: Never Tobacco Cessation:Counseling Given: No Alcohol Use Standard Drinks/Week Comments Never 0 (1 standard drink = 0.6 oz pur e alcohol) Feeling Safe Answer Date Recorded Are you in a relationship wi th someone who hurts you emotionally and/or physically? 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 Legal Sex Female 1:20 AM MACHINE CLERICAL VERIFIER Gender Identity Female 08/23/2024 11:05 AM MACHINE CLERICAL VERIFIER Sexual Orientation Straight 08/23/2024 11 :05 AM MACHINE CLERICAL VERIFIER Last Filed Vital Signs Vital Sign Reading Time Taken Comments Blood Pressure 101/66 01/14/2025 12:28 PM CDT Pulse 84 01/14/2025 12:28 PM CDT Temperature 36.3 C (97.4 F) 01/14/2025 12:03 PM CDT Respiratory Rate 16 01/14/2025 12:28 PM CDT Oxygen Saturation 96% 01/14/2025 12:28 PM CDT Inhaled Oxygen Concentration - - Weight 78 kg (172 lb) 10/27/2024 1:16 PM CDT Height 182.9 cm (6') 10/27/2024 1:16 PM CDT Body Mass Index 23.33 10/27/2024 1:16 PM CDT Plan of Treatment Upcoming Encounters Date Type Department Care Team (Late st Contact Info) Description 05/12/2026 11:30 AM CDT Office Visit [facility] Urology [address] [place] [address] Ellie Wong [place] [address] [place] [address] Health Maintenance Due Date Last Done Comments OSTEOPOROSIS SCREENING 2014 RSV VACCINE (60+ or ) (1 - 1-dose 75+ series) 2024 INFLUENZA VACCINE (#1) 2025 , 05/30/2023, 05/21/2022, Additional history exists COVID-19 Vaccine (2023-2 5 season) 2025 05/20/2024, 05/30/2023, 07/31/2022, Additional history exists DTAP/TDAP/TD VACCINES (2 - T d or Tdap) 11/25/2026 11/25/2016, 12/19/2004 ZOSTER VACCINE Completed 07/12/2021, 05/11/2021 PNEUMOCOCCAL VACCINE 50+ YEARS Completed 1 , 05/29/2019, 05/24/2015, Additional history exists Procedures Procedure Name Priority Date/Time Associated Diagnosis Comments CT ABDOMEN W WO CONTRAST Routine 05/06/2025 10:31 AM CDT Renal mass CREATININE Stat 05/06/2025 9:40 AM CDT from Last 3 Months Results * CT ABDOMEN W WO CONTRAST (05/06/2025 10:31 AM CDT) Anatomical Region Laterality Modality Abdomen Computed Tomogra phy 05/06/2025 10:0 1 AM CDT Impressions 05/08/2025 1:55 PM CDT IMPRESSION: Please see below. Exam: CT ABDOMEN W WO CONTRAST Date/Time of Exam: 05/06/2025 10:31 AM Reason For Exam: Renal mass/cyst, indeterminate. Diagnosis: Renal mass. Technique: CT of the abdomen was performed prior to and following the administration of intravenous contrast. Contrast: 100 mL Isovue-300 Findings: Comparison is made to the renal ultrasound 11/02/2024. The lung bases are clear. Heart size is within normal limits. There are multiple hepatic hypodensities most consistent with cysts. The largest is a 3.0 cm cyst in the right hepatic lobe. No concerning liver abnormality is noted. No abnormality of the spleen, pancreas or bile ducts is noted. There is a stone in the otherwise unremarkable gallbladder. No abnormality of the adrenal glands is noted. There is a 0.9 cm cyst in the medial mid to upper right kidney. The right kidney is otherwise unremarkable in appearance. There is a 0.8 cm cyst in the medial upper pole of the left kidney. There is a 0.8 cm cyst in the medial posterior lower pole of the left kidney. There is an exophytic 1.1 x 1.1 cm midpole left renal lesion corresponding to the abnormality noted on the comparison ultrasound. This has density measurements on the noncontrast images consistent with a simple or minimally complex cyst. No contrast enhancement is within the lesion noted on the nephrogenic phase or delayed phase images. On images 65 and 66 of series 3, there is a possible area of nodular enhancement in the wall of the cyst versus a thin septation between the area of concern and a tiny adjacent cyst. There are no abnormally dilated loops of bowel. There is no evidence for appendicitis. No inflammatory change is noted. No free air or free fluid is noted. No pathologic adenopathy is noted. The visualized aortoiliac arteries are unremarkable. The bony structures are osteopenic. No acute bony abnormality is suspected. There is multilevel degenerative change of the thoracolumbar spine. There is a mild compression deformity of L2 of uncertain age but probably chronic. There is severe narrowing of the L2-3 and L4-5 disc spaces. IMPRESSION: 1. A 1.1 cm possibly minimally complex cyst is noted in the lateral left kidney mid pole consistent with the lesion of concern on ultrasound. No enhancement is noted within the lesion. There is either a tiny focal area of nodular enhancement in the cyst wall or there is enhancement of the wall between the cyst of concern and a tiny adjacent cyst. Continued follow-up is recommended. 2. Small simple appearing bilateral renal cysts. 3. Mild hepatic cysts. 4. Cholelithiasis. 5. Mild compressive deformity of L2 of uncertain age, but probably chronic. Narrative Procedure Note María Romero MD - 05/08/2025 IMPRESSION: Please see below. Exam: CT ABDOMEN W WO CONTRAST Date/Time of Exam: 05/06/2025 10:31 AM Reason For Exam: Renal mass/cyst, indeterminate. Diagnosis: Renal mass. Technique: CT of the abdomen was performed prior to and following the administration of intravenous contrast. Contrast: 100 mL Isovue-300 Findings: Comparison is made to the renal ultrasound 11/02/2024. The lung bases are clear. Heart size is within normal limits. There are multiple hepatic hypodensities most consistent with cysts. The largest is a 3.0 cm cyst in the right hepatic lobe. No concerning liver abnormality is noted. No abnormality of the spleen, pancreas or bile ducts is noted. There is a stone in the otherwise unremarkable gallbladder. No abnormality of the adrenal glands is noted. There is a 0.9 cm cyst in the medial mid to upper right kidney. The right kidney is otherwise unremarkable in appearance. There is a 0.8 cm cyst in the medial upper pole of the left kidney. There is a 0.8 cm cyst in the medial posterior lower pole of the left kidney. There is an exophytic 1.1 x 1.1 cm midpole left renal lesion corresponding to the abnormality noted on the comparison ultrasound. This has density measurements on the noncontrast images consistent with a simple or minimally complex cyst. No contrast enhancement is within the lesion noted on the nephrogenic phase or delayed phase images. On images 65 and 66 of series 3, there is a possible area of nodular enhancement in the wall of the cyst versus a thin septation between the area of concern and a tiny adjacent cyst. There are no abnormally dilated loops of bowel. There is no evidence for appendicitis. No inflammatory change is noted. No free air or free fluid is noted. No pathologic adenopathy is noted. The visualized aortoiliac arteries are unremarkable. The bony structures are osteopenic. No acute bony abnormality is suspected. There is multilevel degenerative change of the thoracolumbar spine. There is a mild compression deformity of L2 of uncertain age but probably chronic. There is severe narrowing of the L2-3 and L4-5 disc spaces. IMPRESSION: 1. A 1.1 cm possibly minimally complex cyst is noted in the lateral left kidney mid pole consistent with the lesion of concern on ultrasound. No enhancement is noted within the lesion. There is either a tiny focal area of nodular enhancement in the cyst wall or there is enhancement of the wall between the cyst of concern and a tiny adjacent cyst. Continued follow-up is recommended. 2. Small simple appearing bilateral renal cysts. 3. Mild hepatic cysts. 4. Cholelithiasis. 5. Mild compressive deformity of L2 of uncertain age, but probably chronic. Nakul Martell MD CT ORDERABLES Loli l Result * (ABNORMAL) CREATININE (05/06/2025 9:40 AM CDT) CREATININE 1.04(H) 0.51 - 0.95 mg/dL 05/06/2025 10:08 AM CDT [facility] Comment:The GFR result is no t clinically significant on patients <18 or >70 years of age. GFR 56 mL/min/1.7 3 sq meter 05/06/2025 10:08 AM CDT [facility] Comment:eGFR calculated with 2020 CKD-EPI equation. Vegetarian diet, extremely high or low muscle mass, and may affect results. Cystatin C with Glomerular Filtration Rate is a suitable alternative for these patients. Blood Venipuncture / Unknown 05/06/2025 9:40 AM CDT 05/06/2025 9:43 AM CDT Nakul Martell MD CHEMISTRY ORDERABLES Final Result [facility] CLIA # [id number] [address] [address] from Last 3 Months Insurance [facility] [id number] MEDICARE HMO Advance Directives For more information, please contact: [phone] * Full Code (Latest Code Status on File) Date Activated Date Inactivated Comments 01/14/2025 11:16 AM 01/14/2025 2:53 PM * Full Code Date Activated Date Inactivated Comments 09/13/2024 1:20 PM 09/13/2024 5:01 PM
--- OUTSIDE RECORDS SUMMARY | 2025-05-30 17:34 | XMS_ITS | Encounter Summary ---
Author Organization [facility] Address [address] [place] [address] Care Team Providers Care Java Software Architect Name Role Phone Unavailable Primary Care Provider Unavailabl e Encounter Details Date Type Department Care Team (Latest Contact Info) Description 10/17/2000 Outpatient Historical [facility] Doe Burks MD [address] [place] [phone] Irritable bowel syndrome (Primary Dx); Sprain of neck; Cervicalgia Social History Tobacco Use Types Packs/Day Years Used Date Smoking Tobacco: Never Assessed Comments Unknown Sex and Gender Information Value Date Recorded Sex Assigned at Not on file 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
--- OUTSIDE RECORDS SUMMARY | 2025-05-30 17:34 | XMS_ITS | Data Portability ---
Author Organization JONELLE Germain Muse [facility], [facility], [facility] Address [address] [id number] Care Team Providers Care Gravity Prospecting Observer Helper Name Role Phone LIAM VASQUEZ Primary Care Provider Unavailabl e Assessment Encounter Date Assessment Date Assessment LastModified by Organization Details LastModified Time 03/01/2025 03/01/2025 continue [facility] services. [email or web address] Not available 03/10/2025 07:23:25 04/12/2025 04/12/2025 Document scribed by Wilber Higgins Offset Press Operator Helper. I was present during interview and exam. I have reviewed and agree with above documentation . Dr. Liam Vasquez. Counseled on nail care, nursing staff trimming nails in clinic this afternoon. [email or web address] Not available 04/12/2025 15:26:55 05/16/2025 05/16/2025 Document scribed by Wilber Higgins Offset Press Operator Helper. I was present during interview and exam. I have reviewed and agree with above documentation . Dr. Liam Vasquez. [email or web address] Not available 05/16/2025 13:23:30 Plan of Treatment Reminders Order Date Submit Date Provider Last Modified By Organization Details Last Modified Time Details Appointments RECHECK 10 2025 10:40A Eulogio Vasquez, DO Not available Not available Not available Lab CMP, serum or plasma 2024 025 [email or web address] [facility], [address] [place], [facility], [place], [address], 04/19/2025 10:53:34 lipid panel, blood 2024 025 [email or web address] [facility], [address], [place], [address], 04/19/2025 10:53:35 CBC [email or web address] [place], [place] [address]ek Lab, [address], [place], [address], 04/19/2025 10:53:35 CMP, serum or plasma 2024 025 [email or web address], [address], [place], [address], 03/01/2025 12:32:16 CBC 2024 025 [place] [facility], [address], [place], [address], 03/01/2025 11:29:09 Referral None recorded . Procedures None recorded . Surgeries None recorded . Imaging DEXA 2024 025 [facility], [address] [facility], [place], [address], 05/24/2025 10:58:33 Medication Orders None recorded . Patient TargetsNo targets recorded. Patient Instructions Encounter Date Encounter Id Patient Instructions Last Modified By Organization Details Last Modified Time 02/17/2025 [id number] Frequenlty dizzy upon standing. Will d/c a few meds that could be contributing. [email or web address] Not available 02/17/2025 13:16:36 02/24/2025 [id number] Planning to d/c home when arrangements made. Did well with therapy. Will want home health to continue therapy. f/u with PCP 7-14 days after discharge. [email or web address] Not available 02/24/2025 14:05:01 Reason for Referral None Reported. Results Created Date Observation Date Name Description Value Unit Range Abnormal Flag Note LastModifiedBy Organization Detail LastModifiedTime 03/01/2003/01/2025 CBC WBC 5.5 x10 4.0-10 .5 Not Available [facility] [address] [facility] 1, [place], [address], 03/01/2025 11:29:08 03/01/20 25 03/01/2025 CBC RBC 3.36 x10 3.50-5 .50 low Not Available [facility] [address] [facility] 1, [place], [address], 03/01/2025 11:29:08 03/01/20 25 03/01/2025 CBC HGB 11.2 g/dL 12.0-1 6.0 low Not Available [facility] [address] [facility] 1, [place], [address], 03/01/2025 11:29:08 03/01/20 25 03/01/2025 CBC HCT 35.0 % 37.0-4 7.0 low Not Available [facility] [address] [facility] 1, [place], [address], 03/01/2025 11:29:08 03/01/2003/01/2025 CBC MCV 104.2 fL 80.0-9 9.9 high Not Available [facility] [address] [facility] 1, [place], [address], 03/01/2025 11:29:08 03/01/20 25 03/01/2025 CBC MCH 33.3 pg 27.0-3 2.0 high Not Available [facility] [address] [facility] 1, [place], [address], 03/01/2025 11:29:08 03/01/20 25 03/01/2025 CBC MCHC 32.0 g/dL 32.0-3 6.0 Not Available [facility] [address] [facility] 1, [place], [address], 03/01/2025 11:29:08 03/01/20 25 03/01/2025 CBC RDW 13.6 % 11.5-1 4.5 Not Available [facility] [address] [facility] 1, [place], [address], 03/01/2025 11:29:08 03/01/20 25 03/01/2025 CBC plt 231.3 x10 140.0- 451.0 Not Available [facility] [address] [facility] 1, [place], [address], 03/01/2025 11:29:08 03/01/20 25 03/01/2025 CBC lymphocytes % 16.4 % 20.0-5 0.0 low Not Available [facility] [address] [facility] 1, [place], [address], 03/01/2025 11:29:08 03/01/20 25 03/01/2025 CBC granulcytes % 72.2 % 30.0-7 0.0 high Not Available [facility] [address] [facility] 1, [place], [address], 03/01/2025 11:29:08 03/01/20 25 03/01/2025 CBC monocytes % 8.8 % 2.0-16 .0 Not Available [facility] [address] [facility] 1, [place], [address], 03/01/2025 11:29:08 03/01/20 25 03/01/2025 CBC granulcytes# 4.0 x10 Not Cristal ilable [facility] [address] [facility] 1, [place], [address], 03/01/2025 11:29:08 03/01/20 25 03/01/2025 CBC lymphocytes # 0.9 x10 Not Available [facility] [address] [facility] 1, [place], [address], 03/01/2025 11:29:08 03/01/20 25 03/01/2025 CBC monocytes # 0.5 x10 Not Avai lable [facility] [address] [facility] [address] [facility], [place], [address], 03/01/2025 11:29:08 03/01/20 25 03/01/2025 CMP (FEMA LE) glucose 105.0 mg/dL 60.0-9 9.0 high Not Available [facility] [address] [facility] [address] [address], [place], [address], 03/01/2025 12:32:16 03/01/20 25 03/01/2025 CMP (FEMA LE) BUN (blood urea nitrogen) 16.0 mg/dL 10.0-2 6.0 Not Available [facility] [address] [address], [place], [address], 03/01/2025 12:32:16 03/01/20 25 03/01/2025 CMP (FEMA LE) creatinine (serum) 0.8 mg/dL 0.4-1. 5 Not Available [facility] [address] [facility] [address] [address], [place], [address], 03/01/2025 12:32:16 03/01/20 25 03/01/2025 CMP (FEMA LE) BUN/creatini ne ratio 20.00 ratio Not Available [facility] [address] [address], [place], [address], 03/01/2025 12:32:16 03/01/20 25 03/01/2025 CMP (FEMA LE) eGFR calculated 74.3 Not Available [facility] [address] [facility] [address] [address], [place], [address], 03/01/2025 12:32:16 03/01/20 25 03/01/2025 CMP (FEMA LE) total protein 6.4 g/dL 6.0-8. 5 Not Available [facility] [address] [facility] 1, [place], [address], 03/01/2025 12:32:16 03/01/20 25 03/01/2025 CMP (FEMA LE) total bilirubin 1.1 mg/dL 0.2-1. 3 Not Available [facility] [address] [facility], [place], [address], 03/01/2025 12:32:16 03/01/20 25 03/01/2025 CMP (FEMA LE) albumin 3.2 g/dL 3.5-5. 5 low Not Available [facility] [address] [facility] 1, [place], [address], 03/01/2025 12:32:16 03/01/20 25 03/01/2025 CMP (FEMA LE) globulin 3.2 calc Not Available [facility] [address] [facility], [place], [address], 03/01/2025 12:32:16 03/01/20 25 03/01/2025 CMP (FEMA LE) AST (SGOT) 40.0 U/L 0.0-46 .0 Not Available [facility] [address] [facility] 1, [place], [address], 03/01/2025 12:32:16 03/01/20 25 03/01/2025 CMP (FEMA LE) altv (SGPT) 13.0 U/L 13.0-6 9.0 normal Not Available [facility] [address] [facility] 1, [place], [address], 03/01/2025 12:32:16 03/01/20 25 03/01/2025 CMP (FEMA LE) A/G ratio 1.0 ratio Not Available [facility] [address] [facility] 1, [place], [address], 03/01/2025 12:32:16 03/01/20 25 03/01/2025 CMP (FEMA LE) ALP phos 54.0 U/L 30.0-1 40.0 normal Not Available [facility] [address] [facility] 1, [place], [address], 03/01/2025 12:32:16 03/01/20 25 03/01/2025 CMP (FEMA LE) calcium 9.2 mg/dL 8.4-10 .5 Not Available [facility] [address] [facility] 1, [place], [address], 03/01/2025 12:32:16 03/01/20 25 03/01/2025 CMP (FEMA LE) sodium 136.0 mmol/ L 136.0- 145.0 Not Available [facility] [address] [facility] 1, [place], [address], 03/01/2025 12:32:16 03/01/20 25 03/01/2025 CMP (FEMA LE) potassium 4.1 mmol/ L 3.5-5. 1 Not Available [facility] [address] [facility] 1, [place], [address], 03/01/2025 12:32:16 03/01/20 25 03/01/2025 CMP (FEMA LE) chloride 107.0 mmol/ L 98.0-1 10.0 normal Not Available [facility] [address] [facility] 1, [place], [address], 03/01/2025 12:32:16 03/01/20 25 03/01/2025 CMP (FEMA LE) C02 24.0 mmol/ L 22.0-3 1.0 Not Available [facility] [address] [facility] 1, [place], [address], 03/01/2025 12:32:16 03/01/20 25 03/01/2025 CMP (FEMA LE) anion gap 5.0 calc Not Available [facility] [address], [place], [address], 03/01/2025 12:32:16 03/01/20 25 03/01/2025 CMP (FEMA LE) osmolality 282.6 calc Not Available [facility] [address], [place], [address], 03/01/2025 12:32:16 05/13/20 25 05/13/2025 CBC WBC 4.1 x10 4.0-10 .5 Not Available [facility] [address] [facility] 1, [place], [address], 05/13/2025 09:44:48 05/13/2005/13/2025 CBC RBC 3.48 x10 3.50-5 .50 low Not Available [facility] [address] [facility] 1, [place], [address], 05/13/2025 09:44:48 05/13/2005/13/2025 CBC HGB 11.4 g/dL 12.0-1 6.0 low Not Available [facility] [address] [facility] 1, [place], [address], 05/13/2025 09:44:48 05/13/2005/13/2025 CBC HCT 35.5 % 37.0-4 7.0 low Not Available [facility] [address] [facility] 1, [place], [address], 05/13/2025 09:44:48 05/13/20 25 05/13/2025 CBC MCV 101.9 fL 80.0-9 9.9 high Not Available [facility] [address] [facility] 1, [place], [address], 05/13/2025 09:44:48 05/13/2005/13/2025 CBC MCH 32.7 pg 27.0-3 2.0 high Not Available [facility] [address] [facility] 1, [place], [address], 05/13/2025 09:44:48 05/13/2005/13/2025 CBC MCHC 32.0 g/dL 32.0-3 6.0 Not Available [facility] [address] [facility] 1, [place], [address], 05/13/2025 09:44:48 05/13/2005/13/2025 CBC RDW 13.8 % 11.5-1 4.5 Not Available [facility] [address] [facility] 1, [place], [address], 05/13/2025 09:44:48 05/13/2005/13/2025 CBC plt 171.1 x10 140.0- 451.0 Not Available [facility] [address] [facility] 1, [place], [address], 05/13/2025 09:44:48 05/13/2005/13/2025 CBC lymphocytes % 38.8 % 20.0-5 0.0 Not Available [facility] [address] [facility] 1, [place], [address], 05/13/2025 09:44:48 05/13/2005/13/2025 CBC granulcytes % 49.5 % 30.0-7 0.0 Not Available [facility] [address] [facility] 1, [place], [address], 05/13/2025 09:44:48 05/13/2005/13/2025 CBC monocytes % 8.0 % 2.0-16 .0 Not Available [facility] [address] [facility], [place], [address], 05/13/2025 09:44:48 05/13/2005/13/2025 CBC granulcytes# 2.0 x10 Not Cristal ilable [facility] [address] [facility] 1, [place], [address], 05/13/2025 09:44:48 05/13/2005/13/2025 CBC lymphocytes # 1.6 x10 Not Available [facility] [address] [facility] 1, [place], [address], 05/13/2025 09:44:48 05/13/2005/13/2025 CBC monocytes # 0.3 x10 Not Avai lable [facility] [address] [address], [place], [address], 05/13/2025 09:44:48 05/13/2005/13/2025 CMP (FEMA LE) glucose 99.0 mg/dL 60.0-9 9.0 Not Available [facility] [address] [facility] 1, [place], [address], 05/13/2025 10:09:02 05/13/2005/13/2025 CMP (FEMA LE) BUN (blood urea nitrogen) 17.0 mg/dL 10.0-2 6.0 Not Available [facility] [address] [facility] 1, [place], [address], 05/13/2025 10:09:02 05/13/2005/13/2025 CMP (FEMA LE) creatinine (serum) 1.0 mg/dL 0.4-1. 5 Not Available [facility] [address] [facility] 1, [place], [address], 05/13/2025 10:09:02 05/13/20 25 05/13/2025 CMP (FEMA LE) BUN/creatini ne ratio 17.00 ratio Not Available [facility] [address] [facility] 1, [place], [address], 05/13/2025 10:09:02 05/13/20 25 05/13/2025 CMP (FEMA LE) eGFR calculated 57.4 Not Available [facility] [address] [facility], [place], [address], 05/13/2025 10:09:02 05/13/2005/13/2025 CMP (FEMA LE) total protein 6.6 g/dL 6.0-8. 5 Not Available [facility] [address] [facility] 1, [place], [address], 05/13/2025 10:09:02 05/13/2005/13/2025 CMP (FEMA LE) total bilirubin 0.6 mg/dL 0.2-1. 3 Not Available [facility] [address] [facility] 1, [place], [address], 05/13/2025 10:09:02 05/13/20 25 05/13/2025 CMP (FEMA LE) albumin 3.7 g/dL 3.5-5. 5 Not Available [facility] [address] [facility], [place], [address], 05/13/2025 10:09:02 05/13/2005/13/2025 CMP (FEMA LE) globulin 2.9 calc Not Available [facility] [address] [facility], [place], [address], 05/13/2025 10:09:02 05/13/20 25 05/13/2025 CMP (FEMA LE) AST (SGOT) 29.0 U/L 0.0-46 .0 Not Available [facility] [address] [facility] 1, [place], [address], 05/13/2025 10:09:02 05/13/2005/13/2025 CMP (FEMA LE) altv (SGPT) 13.0 U/L 13.0-6 9.0 normal Not Available [facility] [address] [facility] 1, [place], [address], 05/13/2025 10:09:02 05/13/2005/13/2025 CMP (FEMA LE) A/G ratio 1.3 ratio Not Available [facility] [address] [facility] 1, [place], [address], 05/13/2025 10:09:02 05/13/2005/13/2025 CMP (FEMA LE) ALP phos 52.0 U/L 30.0-1 40.0 normal Not Available [facility] [address] [facility] 1, [place], [address], 05/13/2025 10:09:02 05/13/2005/13/2025 CMP (FEMA LE) calcium 9.5 mg/dL 8.4-10 .5 Not Available [facility] [address] [facility], [place], [address], 05/13/2025 10:09:02 05/13/2005/13/2025 CMP (FEMA LE) sodium 140.0 mmol/ L 136.0- 145.0 Not Available [facility] [address] [facility] 1, [place], [address], 05/13/2025 10:09:02 05/13/2005/13/2025 CMP (FEMA LE) potassium 3.6 mmol/ L 3.5-5. 1 Not Available [facility] [address] [facility] 1, [place], [address], 05/13/2025 10:09:02 05/13/2005/13/2025 CMP (FEMA LE) chloride 108.0 mmol/ L 98.0-1 10.0 normal Not Available [facility] [address] [facility] 1, [place], [address], 05/13/2025 10:09:02 05/13/2005/13/2025 CMP (FEMA LE) C02 26.0 mmol/ L 22.0-3 1.0 Not Available [facility] [address] [facility] 1, [place], [address], 05/13/2025 10:09:02 05/13/2005/13/2025 CMP (FEMA LE) anion gap 6.0 calc Not Available [facility] [address] [facility] 1, [place], [address], 05/13/2025 10:09:02 05/13/2005/13/2025 CMP (FEMA LE) osmolality 290.6 calc Not Available [facility] [address] [facility] 1, [place], [address], 05/13/2025 10:09:02 05/13/2005/13/2025 LIPID PROFI LE (FEMA LE) cholesterol 168.0 mg/dL 0.0-20 0.0 Not Available [facility] [address] [facility] 1, [place], [address], 05/13/2025 10:09:05 05/13/2005/13/2025 LIPID PROFI LE (FEMA LE) trig 109.0 mg/dL 0.0-15 0.0 Not Available [facility] [address] [facility] 1, [place], [address], 05/13/2025 10:09:05 05/13/2005/13/2025 LIPID PROFI LE (FEMA LE) HDL - direct 53.0 mg/dL >40.0 Not Available [facility] [address] [facility] 1, [place], [address], 05/13/2025 10:09:05 05/13/20 25 05/13/2025 LIPID PROFI LE (FEMA LE) VLDL - direct 21.8 mg/dL Not Available [facility] [address] [facility] 1, [place], [address], 05/13/2025 10:09:05 05/13/2005/13/2025 LIPID PROFI LE (FEMA LE) LDL - direct 93.2 mg/dL 0.0-13 0.0 Not Available [facility] [address] [facility] 1, [place], [address], 05/13/2025 10:09:05 05/25/2005/24/2025 DEXA No observ ation record ed. [email or web address] [place] [address] [address] [place], [address], 05/25/2025 17:54:32 Result Notes None recorded. Problems Name Problem SNOMED Code Status Onset Date Resolution Date Notes Provider Name and Address Organization Details Recorded Time Hyperlipid emia 02952562 Active 2022 Liam Vasquez DO [address] [place] [address], [phone] , [facility], L.L.CTanisha 4 12:09:30 Essential hypertensi on 72983739 Active 2022 Liam Vasquez DO [address] [place] [address], [phone] , [facility], L.L.CTanisha 4 12:09:30 Benign paroxysmal positional vertigo 616696504 Active 2022 Eileen spear [facility], [facility] 5 12:09:08 Chronic pain 54146240 Active 2022 Eileen spear, [facility] 5 12:09:08 Cellulitis of toe of right foot 2978447142282 9106 Active 2022 Eileen spear, [facility] 5 12:09:08 Ingrowing nail of toe of right foot 7331634334166 9102 Active 2022 Eileen Cuevas [facility], [facility] 5 12:09:08 Anxiety disorder 663879771 Active [address], [address] , [facility] 4 12:09:29 Acute bacterial sinusitis 59437756 Active 2022 Eileen Cuevas [facility], [facility] 5 12:09:08 Neutropeni a 832124314 Active 2022 Eileen Cuevas [facility], [facility] 5 12:09:08 Strain of rotator cuff of shoulder 227565839 Active 2022 Eileen Cuevas [facility], [facility] 5 12:09:08 Bereavemen t 02962600 Active 2022 Eileen Cuevas [facility], [facility], [facility]. 5 12:08:31 Severe recurrent major depression without psychotic features 51081938 Active 2022 Liam Vasquez [address], [address] , [facility] 4 12:09:30 Patent foramen ovale 079149696 Active 2023 Eileen Mason spear [facility] 5 12:09:08 Pulmonary embolism 16531179 Active 2023 Liam Vasquez [address], [address] , [facility] 4 12:09:30 History of cerebrovas cular accident 285665381 Active 2023 KIRIT MOONEY beatris, [facility], [facility] 5 14:06:04 Idiopathic peripheral neuropathy 16980688 Active 2023 Liam Vasquez [address], [address] , [facility] 4 12:09:30 Asymmetric al hearing loss 350422305 Active 2023 Liam Vasquez [address], [address] , [facility] 4 12:09:30 Gastro-eso phageal reflux disease with esophagiti s 886846803 Active 2023 Eileen spear [facility] 5 12:08:10 Cardiac arrhythmia 900130947 Active 2023 Eileen spear [facility] 5 12:09:08 Esophageal dysphagia 96873648 Active 2023 Liamshira Vasquez [address], [address] , [facility] 4 08:12:38 Syncope 381014475 Active 2023 Eileen spear [facility] 5 12:09:08 Nausea and vomiting 24678755 Active 2023 Eileen Mason spear, [facility] 5 12:09:08 Renal mass 709770177 Active 2023 Eileen spear, [facility] 5 12:09:08 Achalasia of esophagus 06637477 Active 2024 Eileen Cuevas null, [facility] 5 12:09:08 Abnormal weight loss 646092257 Active 2024 Eileen Cuevas [facility] 5 12:07:45 Hypokalemi a 33008833 Active [address] [phone] [place] [address], L.L.C. 5 16:40:50 Disorder of autonomic nervous system 21460141 Active 2024 Eileen Cuevas [facility], [facility] 5 10:07:25 Post-disch arge follow-up 299940601 Active 2024 Eileen Cuevas [facility] 5 10:07:25 Stricture of esophagus 73299954 Active 2024 Eileen Cuevas [facility], [facility] 5 10:07:25 Orthostati c hypotensio n 83916209 Active 2024 Eileen Cuevas [facility] 5 10:07:25 Bilateral lower limb edema 077428554 Active [address] [address] , [facility] 5 07:23:12 Osteopenia 262432466 Active 2024 [facility] 5 13:21:02 Problem Notes None recorded. Procedures Surgical History Date Name Laterality Status Provider Name and Address Organization Details Recorded Time 3 Toenail avulsion completed Liam DO Luis Alfredo [address] [place] [address], [id number], [facility] 05/14/2023 17:23:16 Imaging Results None recorded. Procedure Notes None recorded. Medical Equipment None Reported. Allergies Allergen ID Allergen Name Allergen Category Reaction Reaction Severity Criticality Documentation Date Start Date Code Code System Note Provider Name and Address Organization Details Recorded Time 4261 Product containin g penicilli n (product) medicatio n Not available Not available Not available 01/21/2023 [id number] SNOMED [facility]REA [facility] 3 08:10:57 Medications Name Sig Start Date Stop Date Status Note LastModified by Organization Details LastModified Time atorvastat in 40 mg tablet Take 1 tablet every day by oral route in the evening for 100 days. active Not Available Not Available No t Available atorvastat in 80 mg tablet TAKE 1 TABLET BY MOUTH ONCE DAILY 01/06 completed Not Available Not Available Not Available citalopram 40 mg tablet Take 1 tablet every day by oral route. 11/10 completed Not Available Not Available Not Available azithromyc in 250 mg tablet 06/09 completed Not Available Not Available Not Available sucralfate 1 gram tablet Take 1 tablet 4 times a day by oral route as needed, for heartburn . active Not Available Not Available No t Available phenazopyr idine 200 mg tablet 11/10 completed Not Available Not Available Not Available ondansetro n HCl 4 mg tablet TAKE 2 TABLETS BY MOUTH THREE TIMES DAILY NEEDED FOR NAUSEA AND VOMITING FOR 30 DAYS 2024 active Not Available Not Available Not Avai lable famotidine 40 mg tablet TAKE 1 TABLET BY MOUTH ONCE DAILY IN THE MORNING FOR STOMACH active Not Available Not Available No t Available midodrine 5 mg tablet TAKE ONE TABLET BY MOUTH TWICE DAILY as needed for orthostas is; DO not give last DOSE of DAY AFTER 6pm OR WITHIN FOUR hours of bedtime 12/15 completed Not Available Not Available Not Available clopidogre l 75 mg tablet TAKE 1 TABLET BY MOUTH ONCE DAILY active Not Available Not Available No t Available sulfametho xazole 800 mg-trimeth oprim 160 mg tablet Take 1 tablet every 12 hours by oral route for 10 days. 04/08 completed Not Available Not Available Not Available tramadol 50 mg tablet Take 1 tablet every 8 hours by oral route as needed for 30 days. 2024 active Not Available Not Available Not Avai lable simvastati n 40 mg tablet TAKE 1 TABLET BY MOUTH ONCE DAILY FOR 90 DAYS 07/22 completed Not Available Not Available Not Available betamethas one acetate and sodium phos 6 mg/mL suspension for injection Take 1 mL every day by injection route. 07/22 completed given IM in office . Not Available Not Available Not Available citalopram 20 mg tablet TAKE 1 TABLET BY MOUTH ONCE DAILY IN THE EVENING FOR 90 DAYS FOR MOOD active Not Available Not Available No t Available cephalexin 500 mg capsule Take 1 capsule 3 times a day by oral route for 10 days. 05/31 completed Not Available Not Available Not Available pantoprazo le 40 mg tablet,del ayed release TAKE 1 TABLET BY MOUTH ONCE DAILY IN THE MORNING FOR STOMACH OR HEARTBURN active Not Available Not Available No t Available simvastati n 20 mg tablet daily 01/21 completed Not Available Not Available Not Available lisinopril 10 mg tablet Take 1 tablet twice a day by oral route for 90 days. 05/19 completed Not Available Not Available Not Available omeprazole 20 mg capsule,de layed release 11/10 completed Not Available Not Available Not Available levofloxac in 500 mg tablet 11/10 completed Not Available Not Available Not Available lisinopril 2.5 mg tablet Take 1 tablet every day by oral route in the morning for 90 days, for blood pressure. 12/15 completed Not Available Not Available Not Available diazepam 5 mg tablet TAKE 1 TABLET BY MOUTH TWICE DAILY NEEDED 06/09 completed Not Available Not Available Not Available enoxaparin 80 mg/0.8 mL subcutaneo us syringe inject 80mg SUBCUTANE OUSLY EVERY TWELVE HOURS, last DOSE of eliquis ON 09/10, injection in THE morning and evening ON 09/11 completed Not Available Not Available Not Available midodrine 10 mg tablet TAKE ONE TABLET BY MOUTH EVERY THREE HOURS Do not exceed THREE doses PER 24 hours 03/01 completed Not Available Not Available Not Available rosuvastat in 40 mg tablet TAKE 1 TABLET BY MOUTH ONCE DAILY AT BEDTIME 05/19 completed Not Available Not Available Not Available bupropion HCl XL 150 mg 24 hr tablet, extended release TAKE 1 TABLET BY MOUTH ONCE DAILY 01/25 completed Not Available Not Available Not Available metoprolol tartrate 25 mg tablet 11/10 completed Not Available Not Available Not Available nitrofuran toin monohydrat e/macrocry stals 100 mg capsule 11/10 completed Not Available Not Available Not Available aspirin 2021 active Not Available Not Available Not Avai lable Allergy Relief (cetirizin e) 10 mg tablet Take 1 tablet every day by oral route for 90 days. 03/01 completed Not Available Not Available Not Available Eliquis 5 mg tablet TAKE 2 TABLETS BY MOUTH TWICE DAILY FOR 7 DAYS, THEN 1 TABLET TWICE DAILY THEREAFTE R active Not Available Not Available No t Available potassium chloride ER 20 mEq tablet,ext ended release TAKE 1 TABLET BY MOUTH ONCE DAILY active Not Available Not Available No t Available Vitals Date Recorded Body height Heart rate Respiratory rate Body temperature Oxygen saturation Oxygen saturation in Arterial blood by Pulse oximetry Systolic And Diastolic Provider Name and Address Organization Details Last Updated DateTime 5 182.88 cm 80 /min 18 /min 97.8 [degF] 98 % 98 % 136/70 mm[Hg] KIRIT MOONEY [facility] 5 13:14:44 Date Recorded Body height Heart rate Respiratory rate Body temperature Oxygen saturation Oxygen saturation in Arterial blood by Pulse oximetry Systolic And Diastolic Provider Name and Address Organization Details Last Updated DateTime 5 182.88 cm 68 /min 22 /min 97.8 [degF] 98 % 98 % 137/80 mm[Hg] KIRIT MOONEY [facility] 5 14:02:03 Date Recorded Body height Body mass index (BMI) Body weight Oxygen saturation Oxygen saturation in Arterial blood by Pulse oximetry Heart rate Respiratory rate Systolic And Diastolic Provider Name and Address Organization Details Last Updated DateTime 5 182.88 cm 19.8 kg/m2 30515.1 9 g 97 % 97 % 88 /min 18 /min 120/72 mm[Hg] Eileen Cuevas [facility] 5 10:10:51 Date Recorded Body height Body mass index (BMI) Body weight Oxygen saturation Oxygen saturation in Arterial blood by Pulse oximetry Heart rate Respiratory rate Systolic And Diastolic Provider Name and Address Organization Details Last Updated DateTime 5 182.88 cm 19.1 kg/m2 16668.2 2 g 93 % 93 % 118 /min 18 /min 120/80 mm[Hg] [facility] 14:59:09 Date Recorded Body height Body mass index (BMI) Body weight Oxygen saturation Oxygen saturation in Arterial blood by Pulse oximetry Heart rate Respiratory rate Systolic And Diastolic Provider Name and Address Organization Details Last Updated DateTime 5 182.88 cm 18.7 kg/m2 70588.1 5 g 92 % 92 % 99 /min 18 /min 110/60 mm[Hg] [facility] 5 13:05:28 Social History Question Answer Notes LastModified by Organizat ion Details LastModified Time Have There Been Any Changes To Your Family Or Social Situation? 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 10/26/24. [email or web address] Information not available 10/26/2024 Sex: Unknown Functional Status Question Answer Note LastModified by Organizat ion Details LastModified Time Do you use any illicit or recreational drugs? No [email or web address] Information not available 04/08/2023 Do you or have you ever used any other forms of tobacco or nicotine? No [email or web address] Information not available 04/08/2023 What is your level of alcohol consumption? None [email or web address] Information not available 04/08/2023 Mental Status None recorded. Family History Nothing Reported. Medical History No medical history recorded. Gynecological HistoryNo gynecological history recorded. Obstetrics History GPAL:G 0 P 0 0 0 0 Immunizations Vaccine Type Date Status Note Provider Name and Address Organization Details Recorded Time zoster recombinant completed TAMATHA GREEN [facility] 05/31/2023 11:32:38 [facility] 05/31/2023 11:32:38 Influenza, high-dose, quadrivalent, PF completed TAMATHA GREEN [facility] 05/31/2023 11:32:38 Influenza, high-dose, quadrivalent, PF completed TAMATHA GREEN [facility] 05/31/2023 11:32:38 COVID-19, mRNA, LNP-S, PF, 100 mcg/0.5mL dose or 50 mcg/0.25mL dose completed TAMATHA GREEN [facility] 05/31/2023 11:32:38 COVID-19, mRNA, LNP-S, PF, 100 mcg/0.5mL dose or 50 mcg/0.25mL dose completed TAMATHA GREEN [facility] 05/31/2023 11:32:38 COVID-19, mRNA, LNP-S, PF, 100 mcg/0.5mL dose or 50 mcg/0.25mL dose completed TAMATHA GREEN [facility] 05/31/2023 11:32:38 COVID-19, mRNA, LNP-S, PF, 100 mcg/0.5mL dose or 50 mcg/0.25mL dose 021 completed [facility] 05/31/2023 11:32:38 Pneumococcal conjugate PCV15, polysaccharide SON126 conjugate, adjuvant, PF 022 completed [facility] 05/31/2023 11:32:38 COVID-19, mRNA, LNP-S, bivalent, PF, 30 mcg/0.3 mL dose 022 completed [facility] 05/31/2023 11:32:38 pneumococcal polysaccharide PPV23 019 completed [facility] 05/31/2023 11:32:38 Tdap 017 completed [facility] 05/31/2023 11:32:38 Pneumococcal conjugate PCV 13 015 completed [facility] 05/31/2023 11:32:38 pneumococcal, unspecified formulation 999 completed [facility] 05/31/2023 11:32:38 Influenza, high-dose, trivalent, PF 019 completed [facility] 05/31/2023 11:32:38 Influenza, split virus, trivalent, preservative 014 completed [facility] 05/31/2023 11:32:38 Influenza, split virus, trivalent, PF 015 completed [facility] 05/31/2023 11:32:38 Td (adult), 2 Lf tetanus toxoid, preservative free, adsorbed 005 completed JEFFY spear [facility] 05/31/2023 11:32:38 Hep A-Hep B 005 completed JEFFY spear, [facility] 05/31/2023 11:32:38 Hep A-Hep B 019 completed JEFFY spear, [facility] 05/31/2023 11:32:38 Hep A-Hep B 019 completed JEFFY spear, [facility] 05/31/2023 11:32:38 COVID-19, mRNA, LNP-S, PF, 50 mcg/0.5 mL 023 completed Not Available [facility] 05/16/2025 11:49:42 Influenza, high-dose, quadrivalent, PF 023 completed Not Available [facility] 05/16/2025 11:49:42 COVID-19, mRNA, LNP-S, PF, 50 mcg/0.5 mL 024 completed Not Available [facility] 05/16/2025 11:49:42 Influenza, high-dose, trivalent, PF 025 completed Not Available [facility] 05/16/2025 11:49:42 COVID-19, mRNA, LNP-S, PF, 10 mcg/0.2 mL 025 completed Not Available [facility] 05/16/2025 11:49:42 RSV, bivalent, protein subunit RSVpreF, diluent reconstituted, 0.5 mL, PF 024 cancelled patient objection BALTAZAR spear [facility] 04/15/2024 15:46:15 Influenza, split virus, trivalent, PF 024 completed Eileen spear [facility] 05/19/2024 15:37:30 Past Encounters Encounter ID Performer Location Encounter Start Date Encounter Closed Date Diagnosis/Indication Diagnosis SNOMED-CT Code Diagnosis ICD10 Code Diagnosis IMO Codes Diagnosis Note [id number] Liam Vasquez DO [facility]) [address] [place] [address] [phone] 5 01/21/2023 08:01:14 01/21/2023 11:06:15 Hyperlipidemia 60777450 E78.5 stop simvastati n muscle due to cramps and dizziness as well as continued high cholestero l. will start atorvastat in. monitor symptoms. f/u with labs and appt in 6 wks. Essential hypertension 94392118 I10 stable. continue metoprolol . Benign par oxysmal positional vertigo 019738609 H81.13 chronic, not tolerating meclazine. will use prn diazepam for severe symptoms only. an d send for therapy. counseled on goal to limit medication for this. [id number] Liam Vasquez DO [facility]) [address] [place] [address] [phone] 5 02/26/2023 10:09:57 02/26/2023 14:09:43 Cellulitis of toe of right foot 6841969017 4272895 L03.031 2/2 ingrown nail. Counseled patient on diagnosis. She will soaks twice a day and we will start oral antibiotic s. Counseled that she may need to return with worsening symptoms or recurrence of symptoms to evaluate for correction of the ingrowing nail. Ingrowing nail of toe of right foot 2906854142 9928724 L60.0 [id number] Liam Vasquez DO [facility]) [address] [place] [address] [phone] 5 04/08/2023 15:27:02 04/24/2023 08:00:16 Cellulitis of toe of right foot 4067024209 2460984 L03.031 2/2 ingrown nail. resolved with abx. counseled Ingrowing nail of toe of right foot 3420073094 2548413 L60.0 much improved. pt wants to wait on any toenail procedures . counseled on nail care. [id number] Liam Vasquez DO [facility]) [address] [place] [address] [id number] 5 05/05/2023 11:01:48 05/05/2023 19:44:28 Ingrowing nail of toe of right foot 5048620562 2954221 L60.0 Recurrence . We will restart antibiotic s. Have patient return for partial toenail removal lateral side of right great toe. Counseled on wound care between now and then. Cellulitis of toe of right foot 1691504747 1141891 L03.031 2/2 ingrown nail. Recurrence . We will restart antibiotic s. Have patient return for partial toenail removal lateral side of right great toe. Counseled on wound care between now and then. [id number] Liam Vasquez DO [facility]) [address] [place] [address] [id number] 5 05/14/2023 13:38:05 05/14/2023 17:40:11 Cellulitis of toe of right foot 1580434484 1521583 L03.031 2/2 ingrown nail. Recurrence . We will restart antibiotic s. Have patient return for partial toenail removal lateral side of right great toe. Counseled on wound care between now and then. Ingrowing nail of toe of right foot 2934652229 4665831 L60.[address] detailed discussion on diagnosis and treatment options, pt expressed verbal desire to proceed today with procedure and expressed verbal understand ing of options, risks, procedure, and expectatio ns.Patient desires permanent removal of lateral edge right great toenail. Performed as above.Pt tolerated the procedure well. Aftercare instructio ns with expectatio ns and precaution s were discussed. [id number] SHAKIRA PANDEY [facility] ([facility]) [address] [place] [address] [phone] 5 05/31/2023 11:10:39 05/31/2023 12:07:57 Fatigue 22254354 R53.83 I suspect this to be a normal reaction from her influenza and COVID shots yesterday. Encouraged her to drink plenty of fluids. Alternate Tylenol and Ibuprofen as needed. She is additional ly under a lot of stress due to her concern for her . [id number] Liam Vasquez DO [facility] ([facility]) [address] [place] [address] [phone] 5 06/09/2023 11:12:26 06/09/2023 14:26:38 Anxiety disorder 604532519 F41.9 Recent worsening due to being in the hospital with skull fracture. Counseled patient we will start citalopram . Follow-up 1 month Acute bact erial sinusitis 56276677 J01.90 Has been for several weeks. Short course Z-Ryan only improved symptoms mildly. Will give longer and stronger antibiotic , IM steroid today. Continue Zyrtec. Follow-up with not improving in 1 week [id number] Liam Vasquez DO [facility] ([facility]) [address] [place] [address] [phone] 5 07/22/2023 11:08:01 07/22/2023 13:08:28 Anxiety disorder 539608563 F41.9 07/22/23- deteriorat ed, situationa l, r/t of spouse. Counseled increase Citalopram from 20mg to 40mg. Chronic pain 88631750 G8 9.29 Essential hypertension 67950267 I10 stable. continue metoprolol . Hyperlipidemia 65055300 E78.5 07/22/23- Reviewed and discussed recent lab. Off Simvastati n, tolerating Atorvastat in, continue current tx. 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 f/u 1 mt Bereavement 17035776 Z63 .4 Loss of spouse 06/23/23, unexpected ly. counseled today. she has good family and mandaen support. Strain of rotator cuff of shoulder 085150151 S46.011A Counseled Tylenol, if not improving consider steroid injection. Neutropenia 103535454 D7 0.9 07/22/23- chronic, stable, benign. will follow labs every 12 mts. [id number] Liam Vasquez DO [facility] ([facility]) [address] [place] [address] 5 09/23/2023 09:58:16 09/23/2023 10:55:19 Anxiety disorder 650186907 F41.9 Continue Citalopram 20mg daily. Essential hypertension 65499294 I10 stable. continue metoprolol . Hyperlipidemia 67625686 E78.5 07/22/23- Reviewed and discussed recent lab. Off Simvastati n, tolerating Atorvastat in, continue current tx. Neutropenia 729084962 D7 0.9 07/22/23- chronic, stable, benign. will follow labs every 12 mts. 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 f/u 1 mt. Obesity 502683721 E66.9 Counseled on diet, exercise. Paroxysmal atrial fibrillation 562080810 I48.0 stable. Tinea pedis 4580330 B35. 3 09/23/23- right great toe, counseled OTC antifungal . [id number] Liam Vasquez DO [facility] ([facility]) [address] [place] [address] [phone] 5 12/30/2023 12:06:54 12/30/2023 13:19:10 History of cerebrovascular accident 667828832 Z86.December, Plavix, Eliquis, Atorvastat in 80mg. I will order HH and try again, pt has no preference , ok with Wiley. Counseled pt monitor for blood in stool or urine, be cautious, avoid falling. Keep appt scheduled with me on 01/26/24. Pulmonary embolism 91888 003 I26.99 RML, RLL, December 2023, Eliquis. Patent foramen ovale 204 608794 Q21.21 Dec 2023, OZH referred to Cardiology in [facility] for evaluation and repair. [id number] Liam Vasquez DO [facility] ([facility]) [address] [place] [address] [phone] 5 01/19/2024 09:48:51 01/20/2024 11:06:20 Essential hypertension 72804279 I10 stable. continue metoprolol . Hyperlipidemia 46868340 E78.5 07/22/23- Reviewed and discussed recent lab. Off Simvastati n, tolerating Atorvastat in, continue current tx.not tolerating atorvastat in, will switch to rosuvastat in 40, 01/07/24 [id number] Liam Vasquez DO [facility] ([facility]) [address] [place] [address] [phone] 5 01/26/2024 11:03:37 01/26/2024 12:27:27 Essential hypertension 60900267 I10 stable. continue metoprolol . Anxiety disorder F41.9 stop welburin, got back to the Citalopram 20mg daily. Idiopathic peripheral neuropathy 59792365 G60.9 unclear etiology. will get labs. counseled. consider NCS and/or eval by neurology. 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 History of cerebrovascular accident 853468051 Z86.December, Plavix, Eliquis, Atorvastat in 80mg. [id number] Liam Vasquez DO [facility] ([facility]) [address] [place] [address] [id number] 5 03/15/2024 13:16:43 03/15/2024 14:25:41 Gastroesophageal reflux disease 734676897 K21.00 I counseled patient on diet and weight management , limit NSAIDS and alcohol. We will start proton pump inhibitor for the next couple months. Monitor for symptoms to resolve. Follow-up without any improvemen t after 2 weeks. [id number] Liam Vasquez DO [facility] ([facility]) [address] [place] [address] [phone] 5 03/25/2024 09:05:57 03/25/2024 12:07:24 Essential hypertension 91072039 I10 Recent episode of hypotensio n that put her in the hospital for 2 days. Angiogram was negative. We will keep her off her metoprolol and decrease her lisinopril again down to 2.5 mg once daily. Counseled on blood pressure monitoring expectatio ns. Follow-up with me in 3 weeks. Sooner with problems. Gastro-eso phageal reflux disease with esophagitis 041031179 K21.00 Patient is not tolerating omeprazole or pantoprazo le. Will switch to famotidine . Counseled on diet. [id number] Liam Vasquez DO [facility] ([facility]) [address] [place] [address] [phone] 5 04/15/2024 10:24:06 04/15/2024 12:13:05 Essential hypertension 78040944 I10 : Blood pressure extremely variable as well as heart rate. Concern for cardiac arrhythmia . No change in metoprolol or lisinopril at this time. Will set up event monitor and cardiac referral. Continue to monitor heart rate and blood pressure closely. Go to the ER with any return of symptoms. 03/25/24: Recent episode of hypotensio n that put her in the hospital for 2 days. Angiogram was negative. We will keep her off her metoprolol and decrease her lisinopril again down to 2.5 mg once daily. Counseled on blood pressure monitoring expectatio ns. Follow-up with me in 3 weeks. Sooner with problems. Cardiac arrhythmia 73812 7007 I49.9 Concern for and likely cause for undulating blood pressure and heart rate. We will place event monitor and have patient follow-up with cardiology . She is to go to the ER with any severe symptoms. Active or passive immunization 273027758 Z23 Administra tion of bacterial and viral vaccine 300122870 Z23 I counseled pt on vaccinatio ns. Pt desires RSV vaccinatio n. given today. [id number] Liam Vasquez DO [facility] ([facility]) [address] [place] [address] [phone] 5 05/19/2024 14:05:30 05/19/2024 21:33:52 Essential hypertension 67302424 I10 05/19/24: stay off metoprolol . continue lisinopril 2.5mg daily. overall fewer lows,: Blood pressure extremely variable as well as heart rate. Concern for cardiac arrhythmia . No change in metoprolol or lisinopril at this time. Will set up event monitor and cardiac referral. Continue to monitor heart rate and blood pressure closely. Go to the ER with any return of symptoms. 03/25/24: Recent episode of hypotensio n that put her in the hospital for 2 days. Angiogram was negative. We will keep her off her metoprolol and decrease her lisinopril again down to 2.5 mg once daily. Counseled on blood pressure monitoring expectatio ns. Follow-up with me in 3 weeks. Sooner with problems. Cardiac arrhythmia 31641 7007 I49.9 Still waiting on geting event monitor set up. counseled. She is to go to the ER with any severe symptoms. Hyperlipidemia 58907829 E78.5 continue atorvastat in 40mg nightly. counseled Active or passive immunization 403397343 Z23 I counsled pt on vaccinatio ns. pt given fluvax today as above per pt request. Esophageal dysphagia 408 77781 R13.19 continue PPI, will get imaging. counseled [id number] Liam Vasquez DO [facility] ([facility]) [address] [place] [address] 5 06/02/2024 14:30:06 06/13/2024 22:40:59 Syncope 953932805 R55 likely 2/2 hypotensio n. stop lisinopril . monitor closely. increase salt intake for the short term. History of cerebrovascular accident 441654813 Z86.73 inDecember 2023, Plavix, Eliquis, Atorvastat in 80mg. Esophageal dysphagia 408 11072 R13.19 continue PPI, will get imaging. counseled [id number] Liam Vasquez DO [facility]) [address] [place] [address] 5 06/22/2024 11:41:18 06/23/2024 09:04:18 Esophageal dysphagia 26016177 R13.19 06/22/24- Unchanged. Reviewed and discussed recent MBS, will proceed with Esophagram . Lab today. [id number] Liam Vasquez DO [facility] ([facility]) [address] [place] [address] 5 07/12/2024 11:05:49 07/12/2024 15:19:59 Esophageal dysphagia 68804866 R13.19 06/22/24- Unchanged. Reviewed and discussed recent MBS, will proceed with Esophagram . Lab today. Syncope 158743474 R55 likely 2/2 hypotensio n. stop lisinopril . monitor closely. increase salt intake for the short term. History of cerebrovascular accident 860918006 Z86.73 inDecember 2023, Plavix, Eliquis, Atorvastat in 80mg. Chronic pain 56570359 G8 9.29 Inflamed s eborrheic keratosis 127923910 L82.0 Calculus o f gallbladder with cholecystitis 27489191 K80.10 Nausea and vomiting 1693 2000 R11.2 [id number] Liam Vasquez DO [facility] ([facility]) [address] [place] [address] [phone] 5 07/15/2024 14:09:15 07/16/2024 12:15:35 Essential hypertension 82508384 I10 05/19/24: stay off metoprolol . continue lisinopril 2.5mg daily. overall fewer lows,.: Blood pressure extremely variable as well as heart rate. Concern for cardiac arrhythmia . No change in metoprolol or lisinopril at this time. Will set up event monitor and cardiac referral. Continue to monitor heart rate and blood pressure closely. Go to the ER with any return of symptoms. 03/25/24: Recent episode of hypotensio n that put her in the hospital for 2 days. Angiogram was negative. We will keep her off her metoprolol and decrease her lisinopril again down to 2.5 mg once daily. Counseled on blood pressure monitoring expectatio ns. Follow-up with me in 3 weeks. Sooner with problems. [id number] Liam Vasquez DO [facility] ([facility]) [address] [place] [address] 08/12/2024 10:13:49 08/13/2024 11:13:50 Nausea and vomiting [id number] R11.2 almaley 2/2 esophageal achalesia . Counseled on staying hydrated and signs and symptoms of worsening and concern. We will start an antiemetic . Return with worsening. If dehydrated go to the ER for evaluation for IV fluids History of cerebrovascular accident [id number] Z86.73 concern for affecting swallowing . as per above. inDecember 2023, continue Plavix, Eliquis, Atorvastat in 80mg. Gastro-eso phageal reflux disease with esophagitis 763591601 K21.00 Patient is not tolerating omeprazole or pantoprazo le. Will switch to famotidine . Counseled on diet. Patent foramen ovale 204 382512 Q21.21 Dec 2023, ARMANI referred to Cardiology in [facility] for evaluation and repair. Achalasia of esophagus 10775984 K22.0 worsening symptoms. pt needs GI endoscopy as scheduled at [facility]. recommend they call and see if they can get an ealier appt. counseled [id number] Liam Vasquez DO [facility] ([facility]) [address] [place] [address] 10/26/2024 12:11:44 10/26/2024 16:03:21 Syncope [id number] R55 10/26/24: recurrent, likely r/t low blood pressure, counseled we need to increase protein in her diet, plan 4-5 small meals per day. Holter today. Referral to Neurology. F/u 2 weeks. Gastro-eso phageal reflux disease with esophagitis 504030794 K21.00 Continue Famotidine . Patent foramen ovale 204 129390 Q21.12 Continue with f/u with Cardiology . Essential hypertension 33837731 I10 05/19/24: stay off metoprolol . continue lisinopril 2.5mg daily. overall fewer lows,: Blood pressure extremely variable as well as heart rate. Concern for cardiac arrhythmia . No change in metoprolol or lisinopril at this time. Will set up event monitor and cardiac referral. Continue to monitor heart rate and blood pressure closely. Go to the ER with any return of symptoms. 03/25/24: Recent episode of hypotensio n that put her in the hospital for 2 days. Angiogram was negative. We will keep her off her metoprolol and decrease her lisinopril again down to 2.5 mg once daily. Counseled on blood pressure monitoring expectatio ns. Follow-up with me in 3 weeks. Sooner with problems. Hyperlipidemia 72491354 E78.5 continue atorvastat in 40mg nightly. counseled Paroxysmal atrial fibrillation 463520861 I48.0 stable. 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 f/u 1 mt. Anxiety disorder 0736680 06 F41.9 stop wellbutin, got back to the Citalopram 20mg daily. History of cerebrovascular accident 814486203 Z86.73 concern for affecting swallowing . as per above. initial December 2023, continue Plavix, Eliquis, Atorvastat in 80mg. Abnormal weight loss 267 366044 R63.4 Progressiv e since CVA, counseled on diet, increase protein, 4-5 small meals per day. [id number] Liam Vasquez DO [facility] ([facility]) [address] [place] [address] 11/10/2024 11:43:41 11/11/2024 10:29:48 Syncope [id number] R55 11/10/24: lab today. Counseled on fluid intake, diet, increasing protein.: recurrent, likely r/t low blood pressure, counseled we need to increase protein in her diet, plan 4-5 small meals per day. Holter today. Referral to Neurology. F/u 2 weeks. History of cerebrovascular accident 860176506 Z86.73 11/10/24: I spoke with [facility] ( [facility]) about coming back out and also obtaining hospital bed, order placed.interri tial December 2023, continue Plavix, Eliquis, Atorvastat in 80mg.Pt is using 3 pillows to prop herself up. having difficult sitting up and pulling her self up when laying flat. sleeping better when propped up or head of bed is elevated. Constipation 68045566 K5 9.00 11/10/24: counseled start daily stool softener, if she goes 1-2 days without BM start Miralax again. [id number] Liam Vasquez DO [facility] ([facility]) [address] [place] [address] 11/15/2024 10:13:24 11/16/2024 07:05:13 Essential hypertension 83362127 I10 05/19/24: stay off metoprolol . continue lisinopril 2.5mg daily. overall fewer lows,9: Blood pressure extremely variable as well as heart rate. Concern for cardiac arrhythmia . No change in metoprolol or lisinopril at this time. Will set up event monitor and cardiac referral. Continue to monitor heart rate and blood pressure closely. Go to the ER with any return of symptoms. 03/25/24: Recent episode of hypotensio n that put her in the hospital for 2 days. Angiogram was negative. We will keep her off her metoprolol and decrease her lisinopril again down to 2.5 mg once daily. Counseled on blood pressure monitoring expectatio ns. Follow-up with me in 3 weeks. Sooner with problems. [id number] Liam Vasquez DO [facility] ([facility]) [address] [place] [address] 12/15/2024 14:48:45 12/16/2024 10:31:43 Hypokalemia 03034502 E87.6 9791 continue potassium, labs today. Essential hypertension 87697327 I10 12/15/24: some hypotensio n, but concern for central nervous system issue from recent CVA. no chagne in meds monitor closely. danilo f/u. 4: stay off metoprolol . continue lisinopril 2.5mg daily. overall fewer lows,: Blood pressure extremely variable as well as heart rate. Concern for cardiac arrhythmia . No change in metoprolol or lisinopril at this time. Will set up event monitor and cardiac referral. Continue to monitor heart rate and blood pressure closely. Go to the ER with any return of symptoms. 03/25/24: Recent episode of hypotensio n that put her in the hospital for 2 days. Angiogram was negative. We will keep her off her metoprolol and decrease her lisinopril again down to 2.5 mg once daily. Counseled on blood pressure monitoring expectatio ns. Follow-up with me in 3 weeks. Sooner with problems. Syncope 589114306 R55 12/15/24: concern for hypotensio n possibly 2/2 recent CVA. has appt with neurology. 11/10/24: lab today. Counseled on fluid intake, diet, increasing protein.: recurrent, likely r/t low blood pressure, counseled we need to increase protein in her diet, plan 4-5 small meals per day. Holter today. Referral to Neurology. F/u 2 weeks. Disorder o f autonomic nervous system 45418113 G90.9 484378 concern for, will have pt f/u with neurology and consider cardiology f/u. no change in meds. monitor HR and BP closely. stay hydrated. will need help with all transfers. [id number] Liam Vasquez DO [facility] ([facility]) [address] [place] [phone] 01/05/2025 14:53:19 01/05/2025 17:13:23 Disorder of autonomic nervous system 24796324 G90.9 192732 s/p CVA with hypotensio n. I agree with Dr. Marrufo' s assessemnt . continue Midodrine. 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 Achalasia of esophagus 06089191 K22.0 worsening symptoms. pt needs GI endoscopy as scheduled at [facility]. recommend they call and see if they can get an ealier appt. counseled History of cerebrovascular accident 346117632 Z86.73 01/05/25: conitnue PT. relatively unchanged. continue with STTanisha merritt with high protien diet. 5: I spoke with [facility] ( [facility]) about coming back out and also obtaining hospital bed, order placed.interri tiakatlyn December 2023, continue Plavix, Eliquis, Atorvastat in 80mg.Pt is using 3 pillows to prop herself up. having difficult sitting up and pulling her self up when laying flat. sleeping better when propped up or head of bed is elevated. [id number] Lenny Adams DO [facility] ([facility]) [address] [place] [address] 01/31/2025 12:39:12 02/01/2025 17:15:08 Post-discharge follow-up 578658175 Z09 540926 Stricture of esophagus 15027039 K22.2 60700 History of cerebrovascular accident 160878817 Z86.73 [id number] Lenny Adams [facility] ([facility]) [address] [place] [address] 02/17/2025 08:04:53 02/18/2025 13:00:23 Disorder of autonomic nervous system 70346421 G90.9 825175 Anxiety disorder 8770004 06 F41.9 Gastro-eso phageal reflux disease with esophagitis 056820549 K21.00 Orthostati c hypotension 71233156 I95.1 3436 [id number] Lenny [facility]DO [facility] ([facility]) [address] [place] [address] 02/24/2025 11:44:46 03/01/2025 09:28:06 Esophageal dysphagia 99692743 R13.19 Essential hypertension 84641805 I10 Stricture of esophagus 44820048 K22.2 58426 Anxiety disorder 4853032 06 F41.9 [id number] Liam Vasquez DO [facility] ([facility]) [address] [place] [address] 03/01/2025 09:35:07 03/01/2025 10:52:28 Esophageal dysphagia 04199524 R13.19 03/01/25: continue ST and remain on puree diet for now.- Unchanged. Reviewed and discussed recent MBS, will proceed with Esophagram . Lab today. Essential hypertension 05961042 I10 03/01/25: hypotensio n improved some. no med changes. will get labs. 5: some hypotensio n, but concern for central nervous system issue from recent CVA. no chagne in meds monitor closely. leep f/u. 4: stay off metoprolol . continue lisinopril 2.5mg daily. overall fewer lows,: Blood pressure extremely variable as well as heart rate. Concern for cardiac arrhythmia . No change in metoprolol or lisinopril at this time. Will set up event monitor and cardiac referral. Continue to monitor heart rate and blood pressure closely. Go to the ER with any return of symptoms. 03/25/24: Recent episode of hypotensio n that put her in the hospital for 2 days. Angiogram was negative. We will keep her off her metoprolol and decrease her lisinopril again down to 2.5 mg once daily. Counseled on blood pressure monitoring sonny schultz. Follow-up with me in 3 weeks. Sooner with problems. Stricture of esophagus 15495616 K22.[address] and remain on puree diet. Keep appt with specialist . Anxiety disorder 8600683 06 F41.9 stable, Citalopram 20mg daily. Bilateral lower limb edema 356558821 R60.0 7282659 mildly improved. pt to wear compressio n hose during the day. continue care with [facility]. [id number] Liam Vasquez DO [facility] ([facility]) [address] [place] [address] 04/12/2025 14:02:57 04/19/2025 10:19:48 Esophageal dysphagia 46040080 R13.19 04/12/25: Improved, diet and strength have improved, pt to take daily multivitam in.03/01/25 : continue ST and remain on puree diet for now.- Unchanged. Reviewed and discussed recent MBS, will proceed with Esophagram . Lab today. Bilateral lower limb edema 742165591 R60.0 9655432 mildly improved. pt to wear compressio n hose during the day. continue care with [facility]. Essential hypertension 18024685 I10 03/01/25: hypotensio n improved some. no med changes. will get labs. 5: some hypotensio n, but concern for central nervous system issue from recent CVA. no chagne in meds monitor closely. leep f/u. 4: stay off metoprolol . continue lisinopril 2.5mg daily. overall fewer lows,: Blood pressure extremely variable as well as heart rate. Concern for cardiac arrhythmia . No change in metoprolol or lisinopril at this time. Will set up event monitor and cardiac referral. Continue to monitor heart rate and blood pressure closely. Go to the ER with any return of symptoms. 03/25/24: Recent episode of hypotensio n that put her in the hospital for 2 days. Angiogram was negative. We will keep her off her metoprolol and decrease her lisinopril again down to 2.5 mg once daily. Counseled on blood pressure monitoring expectatio ns. Follow-up with me in 3 weeks. Sooner with problems. [id number] Liam Vasquez DO [facility] ([facility]) [address] [place] [address] 05/16/2025 11:49:03 05/18/2025 16:52:10 Esophageal dysphagia 65149615 R13.19 Improved.: Improved, diet and strength have improved, pt to take daily multivitam in.03/01/25 : continue ST and remain on puree diet for now.- Unchanged. Reviewed and discussed recent MBS, will proceed with Esophagram . Lab today. Essential hypertension 62968326 I10 05/16/25: Stable.02/09 10/05: hypotensio n improved some. no med changes. will get labs. 5: some hypotensio n, but concern for central nervous system issue from recent CVA. no chagne in meds monitor closely. leep f/u. 4: stay off metoprolol . continue lisinopril 2.5mg daily. overall fewer lows,: Blood pressure extremely variable as well as heart rate. Concern for cardiac arrhythmia . No change in metoprolol or lisinopril at this time. Will set up event monitor and cardiac referral. Continue to monitor heart rate and blood pressure closely. Go to the ER with any return of symptoms. 03/25/24: Recent episode of hypotensio n that put her in the hospital for 2 days. Angiogram was negative. We will keep her off her metoprolol and decrease her lisinopril again down to 2.5 mg once daily. Counseled on blood pressure monitoring expectatio ns. Follow-up with me in 3 weeks. Sooner with problems. Osteopenia 217188651 M85 .80 [id number] 05/16/25: Counseled take combo Ca and Vit D. Update Dexa scan. Menopause present 311458 006 Z78.0 3021226 05/16/25: Counseled take combo Ca and Vit D. Update Dexa scan. Health Concerns Section Related Observation LastModified by Organization Detai ls LastModified Time None Recorded Concern Status LastModified by Organization Details LastModified Time None Recorded Advance Directives Directive None Recorded Payers Insurance Date Sequence Insurance Name Policy Number Policy Hawkins Covered Member ID Hawkins Member ID Guarantor Name 05/13/2025 1 [place] DV[place] - PPO) [id number] Yamel Milligan [id number] Yamel Milligan 12/15/2024 1 [employer] (MEDICARE REPLACEMENT/A DVANTAGE - HMO) Yamel Milligan [id number] Yamel Milligan 12/15/2024 1 [place] Yamel Milligan [id number] Yamel Milligan Notes Date Note Type Note Provider Name and Address Organization Details Recorded Time 02/17/2025 text/html Anxiety/Depressi onRepo rted by PatientHPIFor severity, patient reportsincreased anxietybut reportsdenies suicidal ideations. For context, patient reportsrecent medical event.ROS as noted in the HPI no complaints per staff or patient. Lenny Adams DO [address] [place] [address], [phone], [facility] 02/18/2025 12:47:16 02/24/2025 text/html Anxiety/Depressi onRepo rted by PatientHPIFor severity, patient reportsincreased anxietybut reportsdenies suicidal ideations. For context, patient reportsrecent medical event.ROS as noted in the HPI no complaints per staff or patient, planning to discharge home as soon as arrangements are made. Lenny Adams DO [address] [place] [address], [phone], [facility] 02/28/2025 13:08:38 03/01/2025 text/html ROS as noted in the HPI Pt presents for recheck after [place] d/c on 02/24/25. feeling better. able to walk 5-10 feet now. able to eat and drink ok now. She has not passed out since being home. She feels that she is doing better [place] stay for severe dysphagia, esophageal stricture, and syncope. She c/o recent constipation after eating cream of wheat for breakfast She was on a clear liquid diet until she started swelling and they changed to puree diet Liam Vasquez DO [address] [place] [address], [phone], [facility] Shruti. 03/10/2025 07:23:36 04/12/2025 text/html ROS as noted in the HPI Pt presents for recheck 6 weeks dysphagia, HTN. She is doing well, nurse agrees. She is able to dress herself, is eating well.She has increased strength. Having some swelling if she doesn't use compression socks. She wants right great toe checked. Her dog stepped on it and has been painful She has a knot on the left side of her abd No recent falls or injury. Liam Vasquez DO [address] [place] [address], [phone], [facility] LCasandra. 04/19/2025 02:08:38 05/16/2025 text/html ROS as noted in the HPI Pt presents for recheck 1 month dysphagia Lab drawn 05/13/25. She brings in recent records for review.She had CT abd 05/06/25 multiple hepatic hypodensities, largest 3cm, Osteopenia, Arthritis in lower spine, severe narrowing L2-3 and 4-5 disc spaces. Not taking Ca or Vit D. Last Bone scan 3-4 years ago. She c/o intermittent feeling tightness in chest and feels like she can pass out when [place]. She has not had this happen since [place] home [place].She states she does not feel good BP 110/60 in clinic this am. She received her flu and covid vaccine on 05/13/25 Liam Vasquez DO [address] [place] [address], [phone], [facility] Sh[facility]. 05/18/2025 11:50:29 OBGyn Episode No OBEpisode recorded.
--- OUTSIDE RECORDS SUMMARY | 2025-05-30 17:35 | XMS_ITS | Encounter Summary ---
Author Organization [facility] Address [address] [place] [address] Care Team Providers Care Rn Primary Care Name Role Phone Unavailable Primary Care Provider Unavailabl e Encounter Details Date Type Department Care Team (Latest Contact Info) Description 09/02/2000 Outpatient Historical [facility] Doe Burks MD [address] [place] [phone] Nonallopathic lesion of cervical region, not elsewhere classified (Primary Dx) Social History Tobacco Use Types Packs/Day Years Used Date Smoking Tobacco: Never Assessed Comments Unknown Sex and Gender Information Value Date Recorded Sex Assigned at Not on file 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
--- OUTSIDE RECORDS SUMMARY | 2025-05-30 17:35 | XMS_ITS | Encounter Summary ---
Author Organization [facility] Address [address] [place] [address] Care Team Providers Care Fashion Merchandiser Name Role Phone Unavailable Primary Care Provider Unavailabl e Encounter Details Date Type Department Care Team (Late st Contact Info) Description 04/30/1999 Outpatient Historical [facility] Rheumatology- [facility] Kel[address] [place] [address] Social History Tobacco Use Types Packs/Day Years Used Date Smoking Tobacco: Never Assessed Comments Unknown Sex and Gender Information Value Date Recorded Sex Assigned at Not on file 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
--- OUTSIDE RECORDS SUMMARY | 2025-05-30 17:35 | XMS_ITS | Encounter Summary ---
Author Organization [email or web address] [facility] Address [address] [place] [address] Care Team Providers Care Commercial Painter Name Role Phone Unavailable Primary Care Provider Unavailabl e Encounter Details Date Type Department Care Team (Latest Contact Info) Description 08/26/2000 Outpatient Historical [facility] Doe Burks MD [address] [place] [phone] Nonallopathic lesion of abdomen and other sites, not elsewhere classified (Primary Dx); Sprain of neck Social History Tobacco Use Types Packs/Day Years Used Date Smoking Tobacco: Never Assessed Comments Unknown Sex and Gender Information Value Date Recorded Sex Assigned at Not on file 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
--- OUTSIDE RECORDS SUMMARY | 2025-05-30 17:35 | XMS_ITS | Encounter Summary ---
Author Organization [facility] Address [address] [place] [address] Care Team Providers Care Brokerage Manager Name Role Phone Unavailable Primary Care Provider Unavailabl e Encounter Details Date Type Department Care Team (Latest Contact Info) Description 09/15/2000 Outpatient Historical [facility] Doe Burks MD [address] [place] [phone] Acute sinusitis, unspecified (Primary Dx) Social History Tobacco Use Types Packs/Day Years Used Date Smoking Tobacco: Never Assessed Comments Unknown Sex and Gender Information Value Date Recorded Sex Assigned at Not on file 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
--- OUTSIDE RECORDS SUMMARY | 2025-05-30 17:35 | XMS_ITS | Encounter Summary ---
Author Organization [facility] Address [address] [place] [address] Care Team Providers Care Computer Systems Designer Name Role Phone Unavailable Primary Care Provider Unavailabl e Encounter Details Date Type Department Care Team (Late st Contact Info) Description 10/20/2000 Outpatient Historical [facility] Imaging Services-[facility] Kelby [address] [place] [address] Social History Tobacco Use Types Packs/Day Years Used Date Smoking Tobacco: Never Assessed Comments Unknown Sex and Gender Information Value Date Recorded Sex Assigned at Not on file 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
--- OUTSIDE RECORDS SUMMARY | 2025-05-30 17:35 | XMS_ITS | Clinical Summary ---
Author Organization [facility] Address [address] [facility] Attn: Epic Prelude ADT JONELLE DENISE [address] Care Team Providers Care Cut Off Sawyer Name Role Phone Unavailable Primary Care Provider Unavailabl e Immunizations Immunization Administration Dates Next Due (TDVAX)(7 YRS UP) TETANUS AN D DIPHTHERIA TOXOIDS, ADSORBED (2 LF OF TETANUS TOXOID AND 2 LF OF DIPHTHERIA TOXOID), 0.5ML (PF), IM 12/19/2004 Hepatitis A Vaccine 12/19/2004 Social History Tobacco Use Types Packs/Day Years Used Date Smoking Tobacco: Never Assessed Comments Unknown Sex and Gender Information Value Date Recorded Sex Assigned at Not on file 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
--- OUTSIDE RECORDS SUMMARY | 2025-05-30 17:35 | XMS_ITS | Encounter Summary ---
[facility] Address [address] [place] [address] Care Team Providers Care Radio Electronics Officer Name Role Phone Unavailable Primary Care Provider Unavailabl e Encounter Details Date Type Department Care Team (Latest Contact Info) Description 06/05/2000 Outpatient Historical [facility] Doe Burks MD [address] [place] [id number] Folate deficiency anemia (Primary Dx); Other and unspecified hyperlipidemia Social History Tobacco Use Types Packs/Day Years Used Date Smoking Tobacco: Never Assessed Comments Unknown Sex and Gender Information Value Date Recorded Sex Assigned at Not on file 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
--- OUTSIDE RECORDS SUMMARY | 2025-05-30 17:35 | XMS_ITS | Encounter Summary ---
Author Organization [facility] Address [address] [place] [address] Care Team Providers Care Director Nurses' Registry Name Role Phone Unavailable Primary Care Provider Unavailabl e Encounter Details Date Type Department Care Team (Latest Contact Info) Description 02/19/2000 Outpatient Historical [facility] Doe Burks MD [address] [place] [id number] Routine medical exam (Primary Dx) Social History Tobacco Use Types Packs/Day Years Used Date Smoking Tobacco: Never Assessed Comments Unknown Sex and Gender Information Value Date Recorded Sex Assigned at Not on file Legal Sex Female 3:50 AM DIRECTOR BIOINFORMATICS Gender Identity Not on file Sexual Orientation Not on file documented as of this encounter Plan of Treatment Not on file documented as of this encounter Visit Diagnoses Diagnosis Routine medical exam- Primary Routine general medical examination at a health care facility documented in this encounter
--- NOTE | 2025-05-30 17:43 | ECG_ITS ---
[facility]: 2025-[facility]30 Pat Name: Yamel Milligan Department: Room: Gender: Female Tire Stripper: : 1950 Requested By: Layne Keyes Order Number: [id number] Edwin MD: Clayton Barbosa M.D. Measurements Intervals [place] Rate: 75 P: 80 IL: 180 QRS: 8 QRSD: 64 T: 30 QT: 377 QTc: 422 Interpretive Statements SINUS RHYTHM WITH OCCASIONAL SUPRAVENTRICULAR PREMATURE COMPLEXES Compared to ECG 01/25/2025 21:47:26 T-wave abnormality no longer present Electronically Signed On 05-31-2025 19:39:51 CDT by Clayton Barbosa M.D. [email or web address] [id number]
--- NOTE | 2025-05-30 19:08 | XRR_ITS ---
PROCEDURE INFORMATION: Exam: XR Chest Exam date and time: 05/30/2025 7:15 PM Age: 75 years old Clinical indication: Shortness of breath; Additional info: SOB TECHNIQUE: Imaging protocol: Radiologic exam of the chest. Views: 1 view. COMPARISON: CT angio chest PE protcl [id number] 01/25/2025 6:42 PM FINDINGS: Lungs: Unremarkable. No consolidation. Pleural spaces: Unremarkable. No pleural effusion. No pneumothorax. Heart/Mediastinum: Unremarkable. No cardiomegaly. Bones/joints: Unremarkable. XR/XR chest 1V portable [id number] IMPRESSION: No visualized acute cardiopulmonary process.
[2025-05-30 20:00] LABS: Hematocrit 32.9 % (36-47); Hemoglobin 11.10 g/dL (11.27-16.99); Mean Corpuscular HGB Conc 33.7 g/dL (30-55); Mean Corpuscular Hemoglobin 32.6 pg (27-33); Mean Corpuscular Volume 96.8 fl (85-98); Nucleated Red Blood Cells % 0 %; Platelet Count 131 10^3/cmm (157-399); Red Blood Count 3.40 10^6/uL (3.85-5.65); White Blood Count 3.52 10^3/uL (3.29-11.43)
[2025-05-30 20:23] LABS: Anion Gap 18.1 (5-19); Blood Urea Nitrogen 18 mg/dL (8-23); Calcium 9.5 mg/dL (8.5-10.5); Carbon Dioxide 23 mmol/L (22-29); Chloride 98 mmol/L (98-107); Creatinine Clr Calc Pharmacy 47.4486; Glucose 99 mg/dL (65-115); Osmolality Calculated 282 mOsm/kg (285-295); Potassium 4.1 mmol/L (3.5-5.1); Sodium 135 mmol/L (136-145)
--- NOTE | 2025-05-30 20:46 | ECG_ITS ---
[facility]: 2025-05-30 Pat Name: Yamel Milligan Department: Room: Gender: Female Devil Dog: : 1950 Requested By: Layne Keyes Order Number: [id number] Edwin MD: Clayton Barbosa M.D. Measurements Intervals [place] Rate: 60 P: 67 RI: 188 QRS: 26 QRSD: 72 T: 46 QT: 417 QTc: 419 Interpretive Statements SINUS RHYTHM WITH OCCASIONAL SUPRAVENTRICULAR PREMATURE COMPLEXES POSSIBLE RIGHT VENTRICULAR CONDUCTION DELAY [RSR (QR) IN V1/V2] Compared to ECG 01/25/2025 21:47:26 T-wave abnormality no longer present Electronically Signed On 05-31-2025 19:15:41 CDT by Clayton Barbosa M.D. [email or web address] [id number]
--- NOTE | 2025-05-30 21:07 | W.ED.GENADLT ---
HPI - General Adult General: Chief complaint: Shortness of Breath/Dyspnea Stated complaint: SOB Time Seen by Provider: 05/30/25 19:48 History of Present Illness: 75yo F w/cc of palpitations. Patient states that she has been experiencing palpitations for some time now. She states that she first started experiencing palpitations on Friday, the anniversary of her 's . Patient states that emotional upset makes her palpitations worse. Patient has not had a fever, chest pain, shortness of breath, cough, hemoptysis or syncope. Patient is tearful on my exam. She denies abdominal pain, nausea or vomiting. Patient has not had dysuria or hematuria though her appetite has been poor. She denies constipation, diarrhea or blood in stool. Patient has lower extremity edema at baseline. Of note she has a h/o CVA w/right sided deficit at baseline. Patient also has a h/o PE and is taking eliquis. Daughter at beside notes she has been experiencing palpitations for some time now and had a 7 day continuous color television console monitor which showed several abnormal beats. There was no new medication started as a result. Cardiac Event Monitor on 06/29/24 Conclusion: 1. The baseline rhythm was found to be normal sinus with an overall average heart rate of 73/min. Occasional ventricular ( 1%) and supraventricular (7%) ectopics. No significant tachy or olvin arrhythmias. No significant pauses 2. No symptoms are mentioned in the recordings 3. No similar previous studies are available for comparison Related Data Home Medications ?Medication ?Instructions ?Recorded ?Confirmed tramadol 50 mg tablet 50 mg PO Q8H PRN Pain 11/25/20 01/25/25 citalopram 20 mg tablet (Celexa) 20 mg PO BEDTIME 12/24/23 01/25/25 aspirin 81 mg tablet,delayed 81 mg PO QPM 03/18/24 01/25/25 release cetirizine 10 mg tablet 10 mg PO DAILY 03/18/24 01/25/25 coenzyme Q10 100 mg capsule 100 mg PO QPM 03/18/24 01/25/25 (CoQ-10) multivitamin 1 tab PO QPM 03/18/24 01/25/25 pantoprazole 40 mg tablet,delayed 40 mg PO DAILY 03/18/24 01/25/25 release atorvastatin 40 mg tablet 40 mg PO QPM 10/20/24 01/25/25 ondansetron 4 mg disintegrating 8 mg PO TID PRN Nausea And Vomiting 10/20/24 01/25/25 tablet famotidine 40 mg tablet 40 mg PO QAM 01/25/25 01/25/25 potassium chloride 20 mEq 20 meq PO DAILY 01/25/25 01/25/25 tablet,extended release Previous Rx's ?Medication ?Instructions ?Recorded meclizine 25 mg tablet 25 mg PO TID PRN dizziness #20 tabs 05/28/24 apixaban 5 mg tablet (Eliquis) 5 mg PO BID 90 days #180 tabs 01/13/25 sulfamethoxazole 800 1 tab PO BID 7 days #14 tabs 05/30/25 mg-trimethoprim 160 mg tablet (Bactrim DS) Allergies Allergy/AdvReac Type Severity Reaction Status Date / Time codeine Allergy Unknown Unknown Verified 12/29/24 14:10 gabapentin Allergy lethargic Verified 12/29/24 14:10 Penicillins Allergy nausea Verified 12/29/24 14:10 [facility] PFSH: Medical History (Updated 05/31/25 @ 00:01 by RENEE Dunham) CVA (cerebral vascular accident) NSTEMI (non-ST elevated myocardial infarction) Pre-syncope Generalized muscle weakness Acute lower urinary tract infection Status post CVA PFO (patent foramen ovale) Depression At risk for bleeding Peripheral neuropathy Right middle cerebral artery stroke Acute right arterial ischemic stroke, middle cerebral artery (MCA) Thromboembolic stroke Pulmonary embolism Hypertension Closed head injury Focal infarction of brain Surgical History No pertinent past surgical history Social History Smoking and tobacco/nicotine status: never used tobacco/nicotine Physical Exam Narrative: EXAM NARRATIVE: Vital signs were reviewed. Patient is alert and oriented. Patient is breathing comfortably, no increased WOB or accessory muscle use. SpO2 is above 95% on RA. Patient has clear lungs b/l, no rhonchi, wheezing or crackles. No hypotension or tachycardia. Abdomen is soft, nondistended and nontender. Patient is moving all extremities, no deformity or gross injury. No lower extremity asymmetry. There is baseline right sided weakness of RUE and RLE. Course Vital Signs: Vital signs: Vital Signs Temperature 98.2 F 05/30/25 17:33 Pulse Rate 62 05/30/25 23:49 Respiratory Rate 19 H 05/30/25 23:49 Blood Pressure 114/86 05/30/25 23:49 Pulse Oximetry 100 05/30/25 23:49 Oxygen Delivery Me thod Room Air 05/30/25 22:50 MDM - General Adult Medical Decision Making 75-year-old female presents with a chief complaint of palpitations that are triggered by emotional upset. They started happening Friday on the anniversary of her 's . Differential diagnosis includes but is limited to, palpitations, dehydration, hypokalemia, hypomagnesemia, other underlying illness and infection such as urinary tract infection, thyroid disease, amenia, other. On exam, patient is hemodynamically stable. Patient is tearful during my exam. She was screened with basic lab work including CBC, BMP, TSH, UA and EKG. Patient has a normal white blood cell count. Patient is anemic but this is increased from prior, patient may be mildly hemoconcentrated due to poor p.o. intake. Lab work shows mildly elevated creatinine from baseline as well but no actionable electrolyte abnormalities. Patient has a normal TSH. UA does demonstrate 3+ leuk esterase, 55-80 white blood cells and 4+ bacteria which could be consistent with a urinary tract infection. My overall assessment is that patient has a urinary tract infection complicated by mild dehydration and agrees reaction due to the anniversary of her 's . Patient is well-appearing and is appropriate for trial of outpatient management. She was given a dose of Bactrim here in the emergency department. Patient and daughter were counseled on supportive care at home, given return precautions and patient was discharged in stable condition. Lab Data 05/30/25 19:45 05/30/25 19:45 Radiology Impressions Chest X-Ray 05/30/25 19:08 IMPRESSION: No visualized acute cardiopulmonary process. Laboratory Results WBC 3.52 10^3/uL (3.29-11.43) 05/30/25 19:45 RBC 3.40 10^6/uL (3.85-5.65) L 05/30/25 19:45 Hgb 11.10 g/dL (11.27-16.99) L 05/30/25 19:45 Hct 32.9 % (36-47) L 05/30/25 19:45 MCV 96.8 fl (85-98) 05/30/25 19:45 MCH 32.6 pg (27-33) 05/30/25 19:45 MCHC 33.7 g/dL (30-55) 05/30/25 19:45 RDW 12.8 % (12.1-15.1) 05/30/25 19:45 Plt Count 131 10^3/cmm (157-399) L 05/30/25 19:45 MPV 12.2 fL (7.4-10.4) H 05/30/25 19:45 Neut % (Auto) 49.4 % 05/30/25 19:45 Lymph % (Auto) 39.5 % 05/30/25 19:45 [place] % (Auto) 8.5 % 05/30/25 19:45 Eos % (Auto) 1.4 % 05/30/25 19:45 Baso % (Auto) 0.9 % 05/30/25 19:45 Neut # (Auto) 1.74 10^3/uL (1.8-7.7) L 05/30/25 19:45 Lymph # (Auto) 1.4 10^3/uL (0.8-4.8) 05/30/25 19:45 [place] # (Auto) 0.3 10^3/uL (0.2-0.9) 05/30/25 19:45 Eos # (Auto) 0.1 10^3/uL (0.0-0.8) 05/30/25 19:45 Baso # (Auto) 0.0 10^3/uL (0.0-0.1) 05/30/25 19:45 Nucleated RBC % (auto) 0 % 05/30/25 19:45 Nucleated RBCs # 0.0 /100WBC 05/30/25 19:45 Sodium 135 mmol/L (136-145) L 05/30/25 19:45 Potassium 4.1 mmol/L (3.5-5.1) 05/30/25 19:45 Chloride 98 mmol/L (98-107) 05/30/25 19:45 Carbon Dioxide 23 mmol/L (22-29) 05/30/25 19:45 Anion Gap 18.1 (5-19) 05/30/25 19:45 BUN 18 mg/dL (8-23) 05/30/25 19:45 Creatinine 1.1 mg/dL (0.5-0.9) H 05/30/25 19:45 GFR Calculation Not Reportable 05/30/25 19:45 Glucose 99 mg/dL (65-115) 05/30/25 19:45 Calculated Osmolality 282 mOsm/kg (285-295) L 05/30/25 19:45 Calcium 9.5 mg/dL (8.5-10.5) 05/30/25 19:45 TSH 2.35 uIU/mL (0.27-4.20) 05/30/25 19:45 Urine Color Yellow (Yellow) 05/30/25 19: Urine Appearance Cloudy (CLEAR) A 05/30/25 19: Urine pH 7.5 (5-7) 05/30/25 19:37 Ur Specific [place] 1.020 (1.005-1.030) 05/30/25 19:37 Urine Protein Trace (Negative) A 05/30/25 19:37 Urine Glucose (UA) Negative (Normal) 05/30/25 19:37 Urine Ketones 1+ (Negative) H 05/30/25 19:37 Urine Blood Negative (Negative) 05/30/25: Urine Nitrate Negative (Negative) 05/30/25 19:37 Urine Bilirubin Negative (Negative) 05/30/25 19:37 Urine Urobilinogen 1.0 mg/dL (Negative) 05/30/25 19:37 Ur Leukocyte Esterase 3+ (Negative) A 05/30/25 19:37 Urine RBC 0-4 /hpf (0-2) H 05/30/25 19:37 Urine WBC 55-80 /hpf (0-5) H 05/30/25 19:37 Ur Squamous Epith Cells 0-4 /hpf (0-5) H 05/30/25 19: Amorphous Sediment Not Reportable 05/30/25 19:37 Urine Bacteria 4+ /hpf (NONE) H 05/30/25 19:37 All radiology interpretation(s) finalized by discharge EKG Data EKG 1: Computer generated interpretation: Chest X-Ray 05/30/25 19:08 IMPRESSION: No visualized acute cardiopulmonary process. Normal sinus rhythm with a heart rate of 60, normal axis, normal intervals, no evidence of ST segment elevation or ischemic change. Discharge Plan Discharge Patient Disposition: Home Clinical Impression: Palpitations, Grief reaction, Creatinine elevation Urinary tract infection Qualifiers: Urinary tract infection type: acute cystitis Hematuria presence: with hematuria Qualified Code(s): N30.01 - Acute cystitis with hematuria Condition: Stable Prescriptions: New sulfamethoxazole-trimethoprim [Bactrim DS] 800-160 mg tablet 1 tab PO BID 7 Days Qty: 14 0RF No Action tramadol 50 mg tablet 50 mg PO Q8H PRN (Reason: Pain) Eliquis 5 mg tablet 5 mg PO BID 90 Days Qty: 180 3RF Patient Comments: patient states she has not taken her evening dose today and has only taken her morning dose today Rx Instructions: 340 B citalopram [Celexa] 20 mg tablet 20 mg PO BEDTIME multivitamin Tablet 1 tab PO QPM cetirizine 10 mg tablet 10 mg PO DAILY aspirin 81 mg Tablet,Delayed Release (Dr/Ec) 81 mg PO QPM pantoprazole 40 mg tablet,delayed release (DR/EC) 40 mg PO DAILY coenzyme Q10 [CoQ-10] 100 mg Capsule 100 mg PO QPM meclizine 25 mg tablet 25 mg PO TID PRN (Reason: dizziness) Qty: 20 0RF atorvastatin 40 mg Tablet 40 mg PO QPM ondansetron 4 mg Tablet,Disintegrating 8 mg PO TID PRN (Reason: Nausea And Vomiting) famotidine 40 mg tablet 40 mg PO QAM potassium chloride 20 mEq tablet extended release 20 meq PO DAILY Discharge Orders: Discharge ED (Routine); Ordered 05/30/25 Ordered By: Layne Keyes Referrals: Kyaw Lobato DO [Primary Care Provider, Family Practice] Patient Instructions: Opioid Safety, Pain Management, Patient Portal & Fabián Instructions, Urinary Tract Infection - Women Activity Restrictions/Additional Instructions: Please continue to monitor your condition closely at home. Take Tylenol 500-1000mg every six hours for pain and inflammation. Start your antibiotics as prescribed. If your condition worsens or additional concerns arise, please return promptly to the emergency department for reassessment. Follow up with your primary care doctor in 48-72 hours. Please talk to your doctor about rechecking kidney function as it appears a bit stressed today. In addition, you may benefit from a 30 day continuous heart monitor if you continue having palpitations. Consider an outpatient appointment with a mental health professional to help you with the grief of losing your loved one. Print Language: Citizen Of [place] Coding Level of Care Code ED Recruiting Administrator for 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
[2025-05-30 21:10] LABS: Glucose Urine UA Negative (Normal); Nitrate Urine Negative (Negative); Specific Gravity, Urine 1.020 (1.005-1.030)
[2025-05-30 21:32] LABS: Add Urine Microscopic? YES; UA Manual Slide Review YES; UA Slide Review UA Slide Review Perf
[2025-05-30 21:33] LABS: Thyroid Stimulating Hormone 2.35 uIU/mL (0.27-4.20)
[2025-05-30] MEDS: sulfamethoxazole-trimeth DS 160-800 mg Tablet 1 TAB PO (23:03)
== END 2025-05-30 23:50 | disposition home or self-care (01) ==
PROVIDERS: Student in an Organized Health Care Education/Training Program; Emergency Provider Emergency Medicine; PCP Electrodiagnostic Medicine
DX: R00.2 Palpitations (principal); F43.20 Adjustment disorder, unspecified; R79.89 Other specified abnormal findings of blood chemistry; N30.01 Acute cystitis with hematuria; Z79.01 Long term (current) use of anticoagulants; Z79.82 Long term (current) use of aspirin; I10 Essential (primary) hypertension; Z86.73 Personal history of transient ischemic attack (TIA), and cerebral infarction without residual deficits
CPT/HCPCS: 36415; 71045; 80048; 81001; 84443; 85025; 87077; 87086; 87186; 93005; 99285; J9999